=== PATIENT | female | born 1950 | race Caucasian/White ===

== ENCOUNTER → 2016-05-16 | Outpatient (CLI) | payer OTHER, BC ==
[~2016-05-16] MED LIST: ASPEC81 PO; GLC/500 PO; LEVO50TA6 PO; LOSA1TAB38 PO; PROP80TA2 PO; RISP1TAB68 PO; RISP2TAB22 PO; SERT-234 PO; TOPI25TA99 PO
[2016-05-22 14:35] LABS: ALBUMIN 4.3 G/DL (3.8-4.8); GAMMA GLOBULIN 1.4 G/DL (0.8-1.7); IMMUNOFIXATION IGA SERUM 575 MG/DL (81-463); IMMUNOFIXATION IGG SERUM 1325 MG/DL (694-1618); IMMUNOFIXATION IGM SERUM 252 MG/DL (48-271); METHYLMALONIC ACID 407 NMOL/L (87-318); TOTAL PROTEIN 7.7 G/DL (6.2-8.3); VIT B1 PLASMA(THIAMIN)**90353 9 nmol/L (8-30); VITAMIN B6** TC 926 9.8 ng/mL (2.1-21.7)
--- NOTE | 2016-08-26 09:13 | CODING QUERY MEDICAL NECESSITY ---
SUPPORTING DIAGNOSIS NEEDED Case PA, A supporting diagnosis is required for the test/procedure performed on this patient in order for us to be reimbursed by the patient's insurance. Please provide a supporting diagnosis for the following test/procedure listed below next to the test name along with your signature. *If there is no additional diagnosis for this patient that would support the following test/procedure please document that below next to the test/procedure. Test(s)/Procedure(s) that require a supporting diagnosis: * ([id number]) VITAMIN B6 PYRIDOXAL PHSOPHATE DIAGNOSIS: DATE OF SERVICE: 05/16/16 Provider Signature: Date: Thank you Jorge Bush [facility] Information Management Once completed, please kindly fax back to [phone] For questions please call [phone]
== END | disposition home or self-care (01) ==
LOC: C.LAB 11:19
PROVIDERS: ATTEND Psychiatry & Neurology Neurology
DX: M62.81 Muscle weakness (generalized) (principal); E53.8 Deficiency of other specified B group vitamins; G62.9 Polyneuropathy, unspecified; G60.9 Hereditary and idiopathic neuropathy, unspecified

== ENCOUNTER → 2016-06-22 | Outpatient (CLI) | payer OTHER, BC ==
--- NOTE | 2016-08-26 09:20 | CODING QUERY MEDICAL NECESSITY ---
SUPPORTING DIAGNOSIS NEEDED Dr. Villavicencio, A supporting diagnosis is required for the test/procedure performed on this patient in order for us to be reimbursed by the patient's insurance. Please provide a supporting diagnosis for the following test/procedure listed below next to the test name along with your signature. *If there is no additional diagnosis for this patient that would support the following test/procedure please document that below next to the test/procedure. Test(s)/Procedure(s) that require a supporting diagnosis: * ([id number]) B12 VITAMIN LEVEL DIAGNOSIS: * ([id number]) FOLATE LEVEL DIAGNOSIS: DATE OF SERVICE: 06/22/16 Provider Signature: Date: Thank you Jorge Bush [facility] Information Management Once completed, please kindly fax back to [phone] For questions please call [phone]
== END | disposition home or self-care (01) ==
LOC: C.LAB 13:18
DX: R53.1 Weakness (principal); E53.8 Deficiency of other specified B group vitamins

== ENCOUNTER → 2016-07-29 | Outpatient (CLI) | payer OTHER, BC ==
[2016-07-29 13:28] LABS: BASO % 0.2 %; BASO ABS # 0.01 K/uL (0-0.2); COMPLETE YES; EOS % 1.7 %; HEMATOCRIT 43.9 % (37-47); IG% 0.2 %; LYMPH % 30.9 %; LYMPH ABS # 1.84 K/uL (1.2-3.4); MEAN CELL VOLUME 85.7 fL (80-100); MEAN CORPUSCULAR HEMOGLOBIN 28.7 pg (25-34); MEAN CORPUSCULAR HGB CONC 33.5 g/dl (32-36); MEAN PLATELET VOLUME 10.6 fL (7.4-10.4); PLATELET COUNT 124 K/uL (130-400); RED BLOOD COUNT 5.12 M/uL (4.2-5.4); WHITE BLOOD COUNT 5.96 K/uL (4.8-10.8)
[2016-07-29 14:43] LABS: ESTIMATED AVERAGE GLUCOSE 157 mg/dl; HA1C FLAG Normal (Normal)
[2016-07-29 15:43] LABS: ALT/SGPT 56 U/L (12-78); AST/SGOT 43 U/L (15-37); BLOOD UREA NITROGEN 10 mg/dl (7-18); BUN/CREATININE RATIO 12.6 (10-20); CALCIUM 9.8 mg/dl (8.5-10.1); CARBON DIOXIDE 32 mmol/L (21-32); CHLORIDE 104 mmol/L (98-107); CREATININE 0.82 mg/dl (0.60-1.20); GLUCOSE 166 mg/dl (70-99); POTASSIUM 3.7 mmol/L (3.5-5.1); SODIUM 140 mmol/L (136-145)
[2016-07-29 15:46] LABS: ALB/GLOB RATIO 0.9 (0.9-2); ALKALINE PHOSPHATASE 115 U/L (45-117)
[2016-07-29 18:24] LABS: LYME DISEASE AB IGG NEG (NEG); LYME DISEASE AB IGM NEG (NEG)
[2016-08-01 20:22] LABS: ACETYLCHOLINE RECEP MODULATING 19; ACETYLCHOLINE RECEPT BLOCKING <15 % inhibit (<15); RECEPTOR BINDING AB <0.30 nmol/L (<=0.30)
== END | disposition home or self-care (01) ==
LOC: C.LAB 12:04
DX: E11.9 Type 2 diabetes mellitus without complications (principal); K76.0 Fatty (change of) liver, not elsewhere classified; E55.9 Vitamin D deficiency, unspecified; R53.1 Weakness; R74.8 Abnormal levels of other serum enzymes; G62.9 Polyneuropathy, unspecified

== ENCOUNTER → 2016-11-13 | Outpatient (CLI) | payer OTHER, BC ==
[2016-11-13 18:27] LABS: BASO % 0.3 %; BASO ABS # 0.02 K/uL (0-0.2); COMPLETE YES; EOS % 1.6 %; HEMATOCRIT 43.5 % (37-47); IG% 0.2 %; LYMPH % 27.2 %; LYMPH ABS # 1.73 K/uL (1.2-3.4); MEAN CELL VOLUME 85.3 fL (80-100); MEAN CORPUSCULAR HEMOGLOBIN 29.8 pg (25-34); MEAN CORPUSCULAR HGB CONC 34.9 g/dl (32-36); MEAN PLATELET VOLUME 10.3 fL (7.4-10.4); MONO % 6.1 %; NEUT % 64.6 %; PLATELET COUNT 126 K/uL (130-400); WHITE BLOOD COUNT 6.36 K/uL (4.8-10.8)
[2016-11-13 18:32] LABS: PROTHROMBIN TIME (PATIENT) 11.1 SECONDS (9.0-12.0)
[2016-11-13 18:52] LABS: ALT/SGPT 75 U/L (12-78); AST/SGOT 96 U/L (15-37); BLOOD UREA NITROGEN 9 mg/dl (7-18); BUN/CREATININE RATIO 10.3 (10-20); CALCIUM 9.4 mg/dl (8.5-10.1); CARBON DIOXIDE 29 mmol/L (21-32); CHLORIDE 103 mmol/L (98-107); CREATININE 0.86 mg/dl (0.60-1.20); GLUCOSE 152 mg/dl (70-99); MAGNESIUM 2.1 mg/dl (1.8-2.4); POTASSIUM 3.9 mmol/L (3.5-5.1); SODIUM 138 mmol/L (136-145)
[2016-11-13 19:01] LABS: ALB/GLOB RATIO 0.8 (0.9-2); ALKALINE PHOSPHATASE 97 U/L (45-117)
[2016-11-18 08:52] LABS: METHYLMALONIC ACID 282 NMOL/L (87-318)
== END | disposition home or self-care (01) ==
LOC: C.LAB 17:20
DX: G72.9 Myopathy, unspecified (principal); E55.9 Vitamin D deficiency, unspecified; K72.90 Hepatic failure, unspecified without coma; E72.11 Homocystinuria

== ENCOUNTER → 2017-02-02 | Outpatient (CLI) | payer OTHER, BC ==
[2017-02-02 10:57] LABS: INR 1.1 (0.9-1.1); PROTHROMBIN TIME (PATIENT) 11.3 SECONDS (9.0-12.0)
[2017-02-02 11:00] LABS: ESTIMATED AVERAGE GLUCOSE 169 mg/dl; HA1C FLAG Normal (Normal)
[2017-02-02 11:11] LABS: URIC ACID 4.4 mg/dl (2.6-7.2)
== END | disposition home or self-care (01) ==
LOC: C.LAB 10:16
DX: E11.9 Type 2 diabetes mellitus without complications (principal); K72.90 Hepatic failure, unspecified without coma; E79.0 Hyperuricemia without signs of inflammatory arthritis and tophaceous disease

== ENCOUNTER → 2017-02-17 | Outpatient (CLI) | payer OTHER, BC ==
--- NOTE | 2017-02-17 13:55 | DIAGNOSTIC IMAGING REPORT ---
Brain MRI WITHOUT CONTRAST HISTORY: Syncope. Multiple falls. TECHNIQUE: Multiplanar multisequence MRI of the brain was performed without the use of contrast. COMPARISON STUDY: Brain MRI 01/07/2015. FINDINGS: There is no mass, hematoma, midline shift, or acute infarct. The paranasal sinuses are clear. The mastoid air cells are clear. The ventricles remain slightly prominent and favors mild central volume loss. A few punctate foci of T2 hyperintensity seen within the periventricular white matter are nonspecific but suggestive of minimal microvascular ischemic changes. This remains unchanged The major vascular flow voids at the skull base are well-maintained. IMPRESSION: No significant change compared to the prior study. No acute intracranial abnormality. Electronically signed by: Isidro Anderson M.D. 02/17/2017 1:53 PM Dictated Date/Time: 02/17/2017 1:49 PM
== END | disposition home or self-care (01) ==
LOC: C.MRIBC 11:11
DX: R55 Syncope and collapse (principal)

== ENCOUNTER → 2017-02-17 | Outpatient (CLI) | payer OTHER, BC ==
--- NOTE | 2017-02-17 16:53 | EEG Procedure Note ---
EEG Procedure Note Date of Service Feb 17, 2017. Start / End Times Start Time: 10:26 AM End Time: 10:46 AM Referring Physician Wallace Villavicencio History This is a 66-year-old female with episodes of syncope. EEG for further evaluation of possible seizure etiology. Pertinent medications include trazodone at night Home Medication List Scheduled Aspirin (Aspir-Low), 81 MG PO QAM Levothyroxine Sodium (Levothyroxine Sodium), 50 MG PO DAILY Losartan Potassium (Cozaar), 100 MG PO DAILY Metformin Hcl (Glucophage), 1,000 MG PO AMHS Propranolol (Inderal), 80 MG PO DAILY Risperidone (Risperdal), 1 MG PO DAILY Risperidone (Risperdal), 2 MG PO DAILY Sertraline (Zoloft), 200 MG PO DAILY Topiramate (Topamax ), 25 MG PO DAILY Description This is a 21 electrode EEG with a single channel dedicated to limited EKG. The electrodes were placed in accordance with the International 10-20 system. At the start of the recording the patient was in an awake state. Background was well organized and composed of symmetric mixed alpha and beta frequencies. There was a symmetric well-formed moderate amplitude 8-9 Hz posterior dominant rhythm that was reactive to eye opening and closure. Hyperventilation was not done. Intermittent photic stimulation at various frequencies produced no abnormalities. There was no state changes or sleep transients. Interpretation This is a normal awake only routine EEG. There was no electrographic seizures or epileptiform discharges. Clinical Correlation A normal EEG does not rule out epilepsy if there is a strong clinical suspicion.
== END | disposition home or self-care (01) ==
LOC: C.NEUR 10:12
DX: R55 Syncope and collapse (principal)

== ENCOUNTER → 2017-04-27 | Outpatient (CLI) | payer OTHER | END | disposition home or self-care (01) | LOC: C.LAB 14:29 | DX: K72.90 Hepatic failure, unspecified without coma (principal); E51.9 Thiamine deficiency, unspecified; E55.9 Vitamin D deficiency, unspecified ==

== ENCOUNTER → 2017-06-05 | Outpatient (CLI) | payer OTHER ==
[2017-06-05 10:36] LABS: BASO % 0.2 %; BASO ABS # 0.01 K/uL (0-0.2); EOS % 1.7 %; HEMATOCRIT 42.3 % (37-47); HEMOGLOBIN 14.9 g/dL (12.0-16.0); IG# 0.01 K/uL (0.00-0.02); LYMPH % 27.5 %; MEAN CELL VOLUME 86.2 fL (80-100); MEAN CORPUSCULAR HEMOGLOBIN 30.3 pg (25-34); MEAN CORPUSCULAR HGB CONC 35.2 g/dl (32-36); MEAN PLATELET VOLUME 10.8 fL (7.4-10.4); MONO % 6.4 %; MONO ABS # 0.37 K/uL (0.11-0.59); NEUT ABS # 3.72 K/uL (1.4-6.5); PLATELET COUNT 112 K/uL (130-400); RED CELL DISTRIBUTION WIDTH CV 13.9 % (11.5-14.5); RED CELL DISTRIBUTION WIDTH SD 43.5 fL (36.4-46.3); WHITE BLOOD COUNT 5.81 K/uL (4.8-10.8)
[2017-06-05 11:13] LABS: ALBUMIN 3.6 gm/dl (3.4-5.0); ALT/SGPT 38 U/L (12-78); AST/SGOT 22 U/L (15-37); BLOOD UREA NITROGEN 9 mg/dl (7-18); CARBON DIOXIDE 28 mmol/L (21-32); CHOLESTEROL 179 mg/dl (0-200); CREATININE 0.86 mg/dl (0.60-1.20); GLUCOSE 342 mg/dl (70-99); POTASSIUM 3.8 mmol/L (3.5-5.1); SODIUM 136 mmol/L (136-145)
[2017-06-05 11:16] LABS: ALKALINE PHOSPHATASE 132 U/L (45-117); TOTAL PROTEIN 8.2 gm/dl (6.4-8.2)
== END | disposition home or self-care (01) ==
LOC: C.LAB 09:55
DX: G72.9 Myopathy, unspecified (principal); E78.5 Hyperlipidemia, unspecified; E11.9 Type 2 diabetes mellitus without complications; E83.42 Hypomagnesemia; E51.9 Thiamine deficiency, unspecified

== ENCOUNTER → 2017-06-10 | Outpatient (CLI) | payer OTHER ==
[2017-06-10 17:32] LABS: BLOOD UREA NITROGEN 10 mg/dl (7-18); CALCIUM 9.7 mg/dl (8.5-10.1); CARBON DIOXIDE 27 mmol/L (21-32); CREATININE 1.06 mg/dl (0.60-1.20); GLUCOSE 396 mg/dl (70-99); SODIUM 133 mmol/L (136-145)
== END | disposition home or self-care (01) ==
LOC: C.LAB 15:07
DX: E11.9 Type 2 diabetes mellitus without complications (principal)

== ENCOUNTER 2019-01-08 14:05 | Inpatient (IN) ==
[2019-01-08] MEDS ORDERED: SODIUM CHLORIDE 0.9% 1000ML 1,000 ML IV SCH (15:00)
--- NOTE | 2019-01-08 15:10 | XRay Report ---
XR chest 1V portable HISTORY: weakness COMPARISON: Chest 05/08/2013. FINDINGS: The lungs are clear. Cardiac silhouette is normal in size. No pleural effusions. No pneumot horax. IMPRESSION: No acute process. Electronically signed by: Isidro Anderson M.D. 01/08/2019 3:09 PM
[2019-01-08 15:43] LABS: Basophils # (auto) 0.01 K/uL (0-0.2); Basophils % (auto) 0.2 %; Eosinophils # (auto) 0.09 K/uL (0-0.5); Eosinophils % (auto) 1.6 %; Hematocrit (blood only) 39.7 % (37-47); Immature Granulocytes # (auto) 0.01 K/uL (0.00-0.02); Immature Granulocytes % (auto) 0.2 %; Lymphocytes # (auto) 1.31 K/uL (1.2-3.4); Lymphocytes % (auto) 23.4 %; Mean Corpuscular Hemoglobin 28.6 pg (25-34); Mean Corpuscular Hgb Conc 32.7 g/dL (32-36); Mean Corpuscular Volume 87.4 fL (80-100); Mean Platelet Volume 11.5 fL (7.4-10.4); Monocytes # (auto) 0.38 K/uL (0.11-0.59); Monocytes % (auto) 6.8 %; Neutrophils # (auto) 3.81 K/uL (1.4-6.5); Neutrophils % (auto) 67.8 %; Platelet Count 108 K/uL (130-400); RDW Coefficient of Variation 14.2 % (11.5-14.5); RDW Standard Deviation 45.2 fL (36.4-46.3); Red Blood Count 4.54 M/uL (4.2-5.4); White Blood Count 5.61 K/uL (4.8-10.8)
[2019-01-08 16:12] LABS: Alanine Aminotransferase 66 U/L (12-78); Albumin Globulin Ratio 0.8 (0.9-2); Albumin Level 3.5 gm/dl (3.4-5.0); Alkaline Phosphatase 116 U/L (45-117); Aspartate Aminotransferase 63 U/L (15-37); BUN Creatinine Ratio 12.3 (10-20); Bilirubin,Total 0.8 mg/dl (0.2-1); Blood Urea Nitrogen 15 mg/dl (7-18); Calcium 9.1 mg/dl (8.5-10.1); Carbon Dioxide 27 mmol/L (21-32); Chloride 98 mmol/L (98-107); Creatinine Clr Calc Pharmacy 46.6 ml/min; Est GFR (African American) 54.2; Est GFR (Non-African American) 46.7; Globulin 4.5 gm/dl (2.5-4.0); Glucose 431 mg/dl (70-99); Magnesium 1.9 mg/dl (1.8-2.4); Potassium 4.3 mmol/L (3.5-5.1); Sodium 133 mmol/L (136-145); Troponin I < 0.015 ng/ml (0-0.045)
[2019-01-08] MEDS ORDERED: SODIUM CHLORIDE 0.9% 1000ML 1,000 ML IV ONE (16:14)
[2019-01-08] MEDS ORDERED: NovoLIN-R INSULIN PER UNIT CHARGE IV STA (16:14)
--- NOTE | 2019-01-08 16:20 | XRay Report ---
RIGHT HAND 3 VIEWS HISTORY: Right hand pain. fall, 4th and 5th [facility] COMPARISON: Right wrist 11/28/2009. FINDINGS: No acute fracture or dislocation within the right hand. Advanced degenerative changes at th e first carpometacarpal joint with adjacent intra-articular loose bodies. 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 Soft tissues are unremarkable. No radiopaque foreign bodies. IMPRESSION: No acute fracture or dislocation within the right hand. Electronically signed by: Isidro Anderson M.D. 01/08/2019 4:18 PM
[2019-01-08 16:32] LABS: Beta-Hydroxybutyrate 3.24 mg/dl (0.2-2.81)
--- NOTE | 2019-01-08 16:33 | CT Scan Report ---
HEAD CT NONCONTRAST CT DOSE: 525.26 mGycm HISTORY: fall TECHNIQUE: Multiaxial CT images of the head were performed without the use of intravenous contrast. A utomated exposure control was utilized for this study. A dose lowering technique was utilized adheri ng to the principles of ALARA. Comparison: Brain MRI 01/07/2015 and 02/17/2017. Findings: The paranasal sinuses and mastoid air cells are clear. The calvarium and skull base are int act. The ventricles and sulci are within normal limits. There is no mass, hematoma, midline shift, or acute infarct. Impression: No acute intracranial abnormality. Electronically signed by: Isidro Anderson M.D. 01/08/2019 4:31 PM
[2019-01-08 17:51] LABS: D Dimer 680 ug/L FEU (0-500)
--- NOTE | 2019-01-08 18:24 | History & Physical Report ---
Date of Service January 08, 2019 Assessment & Plan (1) Syncope and collapse: (2) Hyperglycemia: (3) Contusion of right shoulder: (4) Contusion of hand, right: (5) Fall: (6) Hypoxia: (7) Weakness: (8) Anxiety: (9) Depression: (10) Hyperlipidemia: (11) Altered mental status: (12) Diabetes: (13) Hypertension: Admit the patient under observation to telemetry floor. Consult cardiology. Check orthostatics every shift. Continue home medications. Add sliding-scale insulin per protocol. Add subcutaneous heparin for DVT prophylaxis. We will add gentle IV fluids. Accu-Chek q. before meals and at bedtime. Neurochecks every shift. May need neurology consultation for further work-up of recurrent syncope. She is going for CT scan of the chest as her d-dimer was slightly high. Repeat labs in a.m. History of Present Illness . Chief Complaint: Near-syncope Primary Care Provider: Wallace Villavicencio Jr, DO The patient is 68 years old female who was brought to the emergency room with chief complaints of near syncope. Patient was in [employer] store when she had episode of near syncope. Patient denies any loss of consciousness. No seizures. No bowel /bladder incontinence. On arrival to the emergency room, her pulse ox was approximately 88% on room air and she was lethargic. Her mental status has started to improve after she received IV fluids. The patient says that she has syncopal episodes every 3 months. 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 She will be admitted under observation for further evaluation and management. Her blood sugars are running high in the ER. Allergies Allergy/AdvReac Type Severity Reaction Status Date / Time No Known Allergies Allergy Unknown Verified 01/08/19 15:06 Home Medications Home Medications Medication Instructions Recorded Confirmed Type aspirin 81 mg PO DAILY 01/08/19 01/08/19 History benztropine 0.5 mg PO HS 01/08/19 01/08/19 History folic acid 1 mg PO DAILY 01/08/19 01/08/19 History losartan 100 mg PO DAILY 01/08/19 01/08/19 History metformin 1,000 mg PO BID 01/08/19 01/08/19 History propranolol 80 mg PO DAILY 01/08/19 01/08/19 History risperidone 1 mg PO QAM 01/08/19 01/08/19 History risperidone See Rx Instructions .ROUTE .COMPLEX 01/08/19 01/08/19 History sertraline 100 mg PO DAILY 01/08/19 01/08/19 History trazodone 0 mg PO HS 01/08/19 01/08/19 History Past Med/Surg History Medical History Diabetes (Chronic) Social History Feels Safe at Home: Yes Smoking Status: Never smoker Review of Systems Review of Systems: All systems reviewed & are unremarkable except as noted in HPI & below Physical Exam Physical Exam: GENERAL : No acute distress EYES: No icterus, gaze conjugate NOSE: No evidence of epistaxis MOUTH: No lesions or candidiasis, mucosa moist NECK: Supple LUNGS: CTA B/L, no wheezes, rales or rhonchi HEART: Regular, rate controlled ABDOMEN: Soft, NT, ND, BS Present EXTREMITIES: No LE edema, pedal pulses intact NEURO: A&OX3 Cranial nerves intact Results & Data Vital Signs (Past 12 Hours) Vital Signs Temp Pulse Pulse Resp BP BP Pulse Ox 01/08/19 16:42 71 18 132/78 96 01/08/19 15:40 96 01/08/19 15:34 122/89 01/08/19 15:32 125/74 01/08/19 14:14 98.2 F 77 14 112/72 88 L Laboratory Results 01/08/19 15:31 01/08/19 15:31 01/08/19 01/08/19 01/08/19 Range/Units 17:10 15:32 15:31 WBC (4.8-10.8) K/uL RBC (4.2-5.4) M/uL Hgb (12.0-16.0) g/dL Hct (37-47) % MCV (80-100) fL MCH (25-34) pg MCHC (32-36) g/dL RDW Std Deviation (36.4-46.3) fL RDW Coeff of Griffin (11.5-14.5) % Plt Count (130-400) K/uL MPV (7.4-10.4) fL Immature Gran % (Auto) % Neut % (Auto) % Lymph % (Auto) % Mower % (Auto) % Eos % (Auto) % Baso % (Auto) % Immature Gran # (Auto) (0.00-0.02) K/uL Neut # (Auto) (1.4-6.5) K/uL Lymph # (Auto) (1.2-3.4) K/uL Mower # (Auto) (0.11-0.59) K/uL Eos # (Auto) (0-0.5) K/uL Baso # (Auto) (0-0.2) K/uL D-Dimer 680 H* (0-500) ug/L FEU Sodium 133 L (136-145) mmol/L Potassium 4.3 (3.5-5.1) mmol/L Chloride 98 (98-107) mmol/L Carbon Dioxide 27 (21-32) mmol/L Anion Gap 8.0 (3-11) BUN 15 (7-18) mg/dl Creatinine 1.20 (0.6-1.2) mg/dl Est Cr Clr Drug Dosing 46.6 ml/min Est GFR ( Amer) 54.2 Est GFR (Non-Af Amer) 46.7 BUN/Creatinine Ratio 12.3 (10-20) Glucose 431 H* (70-99) mg/dl POC Glucose 367 H* (70-99) Calcium 9.1 (8.5-10.1) mg/dl Magnesium 1.9 (1.8-2.4) mg/dl Total Bilirubin 0.8 (0.2-1) mg/dl AST 63 H (15-37) U/L ALT 66 (12-78) U/L Alkaline Phosphatase 116 (45-117) U/L Troponin I < 0.015 (0-0.045) ng/ml Total Protein 8.0 (6.4-8.2) gm/dl Albumin 3.5 (3.4-5.0) gm/dl Globulin 4.5 H (2.5-4.0) gm/dl Albumin/Globulin Ratio 0.8 L (0.9-2) Beta-Hydroxybutyric Acd 3.24 H (0.2-2.81) mg/dl TSH 1.750 (0.300-4.500) uIu/ml 01/08/19 Range/Units 15:31 WBC 5.61 (4.8-10.8) K/uL RBC 4.54 (4.2-5.4) M/uL Hgb 13.0 (12.0-16.0) g/dL Hct 39.7 (37-47) % MCV 87.4 (80-100) fL MCH 28.6 (25-34) pg MCHC 32.7 (32-36) g/dL RDW Std Deviation 45.2 (36.4-46.3) fL RDW Coeff of Griffin 14.2 (11.5-14.5) % Plt Count 108 L (130-400) K/uL MPV 11.5 H (7.4-10.4) fL Immature Gran % (Auto) 0.2 % Neut % (Auto) 67.8 % Lymph % (Auto) 23.4 % Mower % (Auto) 6.8 % Eos % (Auto) 1.6 % Baso % (Auto) 0.2 % Immature Gran # (Auto) 0.01 (0.00-0.02) K/uL Neut # (Auto) 3.81 (1.4-6.5) K/uL Lymph # (Auto) 1.31 (1.2-3.4) K/uL Mower # (Auto) 0.38 (0.11-0.59) K/uL Eos # (Auto) 0.09 (0-0.5) K/uL Baso # (Auto) 0.01 (0-0.2) K/uL D-Dimer (0-500) ug/L FEU Sodium (136-145) mmol/L Potassium (3.5-5.1) mmol/L Chloride (98-107) mmol/L Carbon Dioxide (21-32) mmol/L Anion Gap (3-11) BUN (7-18) mg/dl Creatinine (0.6-1.2) mg/dl Est Cr Clr Drug Dosing ml/min Est GFR ( Amer) Est GFR (Non-Af Amer) BUN/Creatinine Ratio (10-20) Glucose (70-99) mg/dl POC Glucose (70-99) Calcium (8.5-10.1) mg/dl Magnesium (1.8-2.4) mg/dl Total Bilirubin (0.2-1) mg/dl AST (15-37) U/L ALT (12-78) U/L Alkaline Phosphatase (45-117) U/L Troponin I (0-0.045) ng/ml Total Protein (6.4-8.2) gm/dl Albumin (3.4-5.0) gm/dl Globulin (2.5-4.0) gm/dl Albumin/Globulin Ratio (0.9-2) Beta-Hydroxybutyric Acd (0.2-2.81) mg/dl TSH (0.300-4.500) uIu/ml Diagnostic Findings XR chest 1V portable HISTORY: weakness COMPARISON: Chest 05/08/2013. FINDINGS: The lungs are clear. Cardiac silhouette is normal in size. No pleural effusions. No pneumothorax. IMPRESSION: No acute process. HEAD CT NONCONTRAST CT DOSE: 525.26 mGycm HISTORY: fall TECHNIQUE: Multiaxial CT images of the head were performed without the use of intravenous contrast. Automated exposure control was utilized for this study. A dose lowering technique was utilized adhering to the principles of ALARA. Comparison: Brain MRI 01/07/2015 and 02/17/2017. Findings: The paranasal sinuses and mastoid air cells are clear. The calvarium and skull base are intact. The ventricles and sulci are within normal limits. There is no mass, hematoma, midline shift, or acute infarct. Impression: No acute intracranial abnormality. RIGHT HAND 3 VIEWS HISTORY: Right hand pain. fall, 4th and 5th [facility] COMPARISON: Right wrist 11/28/2009. FINDINGS: No acute fracture or dislocation within the right hand. Advanced degenerative changes at the first carpometacarpal joint with adjacent intra- articular loose bodies. 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 Soft tissues are unremarkable. No radiopaque foreign bodies. IMPRESSION: No acute fracture or dislocation within the right hand. Electronically signed by: Isidro Anderson M.D. 01/08/2019 4:18 PM Code Status & VTE Plan Code Status Full code VTE Prophylaxis Plan VTE Prophylaxis will be ordered: Yes PG Care Time/CCT Total # of Minutes Spent Total Time Spent with Patient: Total time spent is greater than 50% in coordination of care (as documented) at patient's floor/unit and/or counseling patient: 60 min (1) Contusion of right shoulder Encounter type: initial encounter Qualified Code(s): S40.011A - Contusion of right shoulder, initial encounter (2) Contusion of hand, right Encounter type: initial encounter Qualified Code(s): S60.221A - Contusion of right hand, initial encounter (3) Fall Encounter type: initial encounter Qualified Code(s): W19.XXXA - Unspecified fall, initial encounter
[2019-01-08] MEDS ORDERED: OPTIRAY 320 125ml IV PRN (18:38)
--- NOTE | 2019-01-08 19:17 | CT Scan Report ---
CHEST CTA for PULMONARY ARTERIES CT DOSE: 299.89 mGy.cm HISTORY: Shortness of breath. hypoxia, +dimer TECHNIQUE: Multiaxial CT images of the chest were performed following the intravenous administration of contrast to evaluate the pulmonary arteries. Maximal intensity projection images were also obtaine d. A dose lowering technique was utilized adhering to the principles of ALARA. COMPARISON STUDY: None. FINDINGS: There is a normal caliber thoracic aorta with no evidence for dissection. There is no evide nce for pulmonary embolus. No pleural effusions. No pneumothorax. The liver and spleen are unremarkab le. No mediastinal or hilar lymphadenopathy. The central airways are patent. A few small bibasilar de nsities favor subsegmental atelectasis. Otherwise, lungs are clear. IMPRESSION: No evidence for pulmonary embolus. Electronically signed by: Isidro Anderson M.D. 01/08/2019 7:15 PM
[2019-01-08] MEDS ORDERED: ALUMINUM/MAGNESIUM SUSP 30 ML UDC PO PRN (19:42)
[2019-01-08] MEDS ORDERED: MAGNESIUM HYDROXIDE SUSP 30 ML UDC PO PRN (19:42)
[2019-01-08] MEDS ORDERED: POLYETHYLENE (MIRALAX) 17 GM PACK PO PRN (19:42)
[2019-01-08] MEDS: SODIUM CHLORIDE 0.9% 1000ML 1,000 ML IV SCH (19:48)
[2019-01-08] MEDS ORDERED: GLUCOSE 40% GEL 15 GM TUBE PO PRN (20:15)
[2019-01-08] MEDS ORDERED: GLUCOSE 10 TABS/TUBE PO PRN (20:15)
[2019-01-08] MEDS ORDERED: GLUCAGON FOR INJ 1 MG VIAL IM PRN (20:15)
[2019-01-08] MEDS ORDERED: CARBOHYDRATES FOR HYPOGLYCEMIA PO PRN (20:15)
[2019-01-08] MEDS ORDERED: DEXTROSE 50% 50 ML SYRINGE IV PRN (20:15)
[2019-01-08] MEDS: BENZTROPINE MESYLATE 0.5 MG TAB PO SCH (21:15)
[2019-01-08] MEDS: METFORMIN HCL 500 MG TAB PO SCH (21:15)
[2019-01-08] MEDS: risperiDONE 2 MG TABLET PO SCH (21:16)
[2019-01-08] MEDS: HEPARIN SOD 5,000 UNIT/0.5 ML VIAL SQ SCH (21:17)
[2019-01-08] MEDS: INSULIN ASPART 100 UNITS/ML 3 ML PEN SC SCH (21:18)
[2019-01-08] MEDS: TRAZODONE HCL 50 MG TAB PO SCH (21:26)
--- NOTE | 2019-01-08 22:26 | Emergency Department Note ---
Entered by Tonya Pool acting as a scribe for Serg Cohen MD ED Provider Note CHIEF COMPLAINT: Fall. HISTORY OF PRESENT ILLNESS: The patient is a 68 year old female who presents to the Emergency Room with complaints of a fall prior to arrival. The patient reports that she fell yesterday and then again prior to arrival. She notes that she suffered a head injury today. She denies any pain other than pain from her fall yesterday on her right hand. She reports that she has been experiencing shortness of breath for the past several months. She notes that she saw her PCP. She states that she has been nauseous and fatigued, but notes that she has been sleeping normally. Per EMS, the patient is diabetic and was confused, hypoxic, and had high blood sugar prior to arrival. Pt denies headache, fevers, chills, visual changes, neck pain, chest pain, breathing difficulties, vomiting, abdominal pain, back pain, melena, hematochezia, urinary symptoms, numbness, weakness, lymphadenopathy, rash, or other complaints. REVIEW OF SYSTEMS: See HPI for pertinent positives and negatives. A total of ten systems were reviewed and were otherwise negative. PMHx/PSHx: Diabetes. SOCIAL HISTORY: Patient lives at home. PHYSICAL EXAM: GENERAL: Awake, alert, well-appearing, in no distress HENT: Contusion to right frontal scalp. Normocephalic. Oropharynx unremarkable. EYES: PERRL. Normal conjunctiva. Sclera non-icteric. NECK: Inspection normal. Non-tender. Supple. No nuchal rigidity. FROM. No ma sses. RESPIRATORY: Clear to auscultation. No wheezes. No rales. Normal respiratory effort. CARDIAC: Normal rate. Normal rhythm. No murmurs. No rubs. Extremities warm and well perfused. Pulses equal. No JVD. GI: Soft, non-distended. No tenderness to palpation. No rebound or guarding. No masses. RECTAL: Deferred. MUSCULOSKELETAL: Bruise to dorsal right hand. Contusion and abrasion to right shoulder. Chest examination reveals no tenderness. The back is symmetrical on inspection without obvious abnormality. There is no CVA tenderness to palpation. No joint edema. LOWER EXTREMITIES: Calves are equal size bilaterally and non-tender. No edema. No discoloration. NEURO: Generalized weakness. No drift. Normal sensorium. No sensory or motor deficits noted. SKIN: No rash or jaundice noted. EMERGENCY DEPARTMENT COURSE: 1508: Past medical records reviewed. The patient was evaluated in room B6, and a complete history and physical examination were performed. 1715: I reevaluated the patient and updated her on her results. The patient is resting comfortably. 1718: I discussed the patient's case with Dr. Farmer- [facility] Hospitalist, he will accept the patient for further evaluation. MEDICAL DECISION MAKING: B6 Prior records/ancillary studies reviewed. Nursing notes reviewed and agree them. The patient's history was concerning for weakness and multiple falls. Differential diagnosis: Etiologies such as metabolic, infection, hypo/hyperglycemia, electrolyte abnormalities, cardiac sources, intracerebral event, toxicologic, neurologic, as well as others were entertained. Physical examination: As above. ER treatment provided: IV [place] hydration IV insulin Supplemental oxygen On reassessment the patient felt better. Diagnostics interpretation by me: ECG: No acute ischemia. The labs revealed an unremarkable CBC. Chemistry panel was significant for hyperglycemia with a blood sugar 431. Minimal elevation of AST. Troponin and TSH were normal. Urinalysis negative. D-dimer mildly elevated. Imaging studies: X-ray imaging of the patient's hand and chest were negative for acute process. Head CT imaging was negative for acute process as well. CT PE study performed. This was negative. Patient had some mild hypoxia. She is generally weak with several falls rec ently. She has some contusions but no obvious fractures or other injuries. She is doing better with supplemental oxygen and hydration. Her hyperglycemia was addressed with IV insulin. Consultation: A consultation was placed with the hospitalist. The case was discussed and diagnostics were reviewed. The patient was evaluated in the ER for further treatment. IMPRESSION: Weakness, hypoxia, fall, right shoulder contusion, right hand contusion, hyperg lycemia. PLAN: Admitted. The scribe's documentation has been prepared under my direction and personally reviewed by me in its entirety. I confirm that the note above accurately reflects all work, treatment, procedures, and medical decision making performed by me. Impression & Plan Weakness, Hypoxia, Fall, Contusion of hand, right, Contusion of right shoulder, Hyperglycemia Past Med/Surg History Medical History Diabetes (Chronic) Social History Preferred Language: Belarusian Communication Ability: Effective Beliefs That Will Affect Care: None Current Living Situation: Alone Feels Safe at Home: Yes Smoking Status: Former smoker Hx Alcohol Use: No Hx Substance Use: No Results & Data Vital Signs Vital Signs - 24 hr 01/08/19 14:14 01/08/19 15:32 01/08/19 15:34 Temperature 36.8 C Temperature Source Oral Sepsis Recent Fever Within 48 Hours No Sepsis New/Unexplained Change in Mental Status No Sepsis Action Taken by Nursing No Action Required Pulse Rate 77 Pulse Rate [Right Finger] Pulse Rate from SpO2 Sensor Respiratory Rate 14 Blood Pressure 112/72 Blood Pressure [Right Arm] 125/74 122/89 Blood Pressure Mean 85 Blood Pressure Mean [Right Arm] 91 100 Blood Pressure Position [Right Arm] Lying Sitting Pulse Oximetry 88 L Oxygen Delivery Method Room Air Oxygen Flow Rate 01/08/19 15:40 01/08/19 16:42 01/08/19 17:00 Temperature Temperature Source Sepsis Recent Fever Within 48 Hours Sepsis New/Unexplained Change in Mental Status Sepsis Action Taken by Nursing Pulse Rate 73 Pulse Rate [Right Finger] 71 Pulse Rate from SpO2 Sensor Respiratory Rate 18 31 H Blood Pressure 129/82 Blood Pressure [Right Arm] 132/78 Blood Pressure Mean 97 Blood Pressure Mean [Right Arm] 96 Blood Pressure Position [Right Arm] Pulse Oximetry 96 96 Oxygen Delivery Method Room Air Nasal Cannula Oxygen Flow Rate 3 01/08/19 17:30 01/08/19 18:00 Temperature Temperature Source Sepsis Recent Fever Within 48 Hours Sepsis New/Unexplained Change in Mental Status Sepsis Action Taken by Nursing Pulse Rate 72 74 Pulse Rate [Right Finger] Pulse Rate from SpO2 Sensor 73 74 Respiratory Rate 23 19 Blood Pressure 144/90 H 133/82 Blood Pressure [Right Arm] Blood Pressure Mean 108 99 Blood Pressure Mean [Right Arm] Blood Pressure Position [Right Arm] Pulse Oximetry 98 99 Oxygen Delivery Method Nasal Cannula Nasal Cannula Oxygen Flow Rate 3 3 Home Medications Current Medication List: was personally reviewed by me Laboratory Data Attestation: I reviewed the patient's lab results. Result diagrams: 01/08/19 15:31 01/08/19 15:31 Lab Results 01/08/19 01/08/19 01/08/19 Range/Units 15:31 15:31 15:32 WBC 5.61 (4.8-10.8) K/uL RBC 4.54 (4.2-5.4) M/uL Hgb 13.0 (12.0-16.0) g/dL Hct 39.7 (37-47) % MCV 87.4 (80-100) fL MCH 28.6 (25-34) pg MCHC 32.7 (32-36) g/dL RDW Std Deviation 45.2 (36.4-46.3) fL RDW Coeff of Griffin 14.2 (11.5-14.5) % Plt Count 108 L (130-400) K/uL MPV 11.5 H (7.4-10.4) fL Immature Gran % (Auto) 0.2 % Neut % (Auto) 67.8 % Lymph % (Auto) 23.4 % Harmon % (Auto) 6.8 % Eos % (Auto) 1.6 % Baso % (Auto) 0.2 % Immature Gran # (Auto) 0.01 (0.00-0.02) K/uL Neut # (Auto) 3.81 (1.4-6.5) K/uL Lymph # (Auto) 1.31 (1.2-3.4) K/uL Harmon # (Auto) 0.38 (0.11-0.59) K/uL Eos # (Auto) 0.09 (0-0.5) K/uL Baso # (Auto) 0.01 (0-0.2) K/uL D-Dimer 680 H* (0-500) ug/L FEU Sodium 133 L (136-145) mmol/L Potassium 4.3 (3.5-5.1) mmol/L Chloride 98 (98-107) mmol/L Carbon Dioxide 27 (21-32) mmol/L Anion Gap 8.0 (3-11) BUN 15 (7-18) mg/dl Creatinine 1.20 (0.6-1.2) mg/dl Est Cr Clr Drug Dosing 46.6 ml/min Est GFR ( Amer) 54.2 Est GFR (Non-Af Amer) 46.7 BUN/Creatinine Ratio 12.3 (10-20) Glucose 431 H* (70-99) mg/dl POC Glucose (70-99) Calcium 9.1 (8.5-10.1) mg/dl Magnesium 1.9 (1.8-2.4) mg/dl Total Bilirubin 0.8 (0.2-1) mg/dl AST 63 H (15-37) U/L ALT 66 (12-78) U/L Alkaline Phosphatase 116 (45-117) U/L Troponin I < 0.015 (0-0.045) ng/ml Total Protein 8.0 (6.4-8.2) gm/dl Albumin 3.5 (3.4-5.0) gm/dl Globulin 4.5 H (2.5-4.0) gm/dl Albumin/Globulin Ratio 0.8 L (0.9-2) Beta-Hydroxybutyric Acd 3.24 H (0.2-2.81) mg/dl TSH 1.750 (0.300-4.500) uIu/ml 01/08/19 Range/Units 17:10 WBC (4.8-10.8) K/uL RBC (4.2-5.4) M/uL Hgb (12.0-16.0) g/dL Hct (37-47) % MCV (80-100) fL MCH (25-34) pg MCHC (32-36) g/dL RDW Std Deviation (36.4-46.3) fL RDW Coeff of Griffin (11.5-14.5) % Plt Count (130-400) K/uL MPV (7.4-10.4) fL Immature Gran % (Auto) % Neut % (Auto) % Lymph % (Auto) % Harmon % (Auto) % Eos % (Auto) % Baso % (Auto) % Immature Gran # (Auto) (0.00-0.02) K/uL Neut # (Auto) (1.4-6.5) K/uL Lymph # (Auto) (1.2-3.4) K/uL Harmon # (Auto) (0.11-0.59) K/uL Eos # (Auto) (0-0.5) K/uL Baso # (Auto) (0-0.2) K/uL D-Dimer (0-500) ug/L FEU Sodium (136-145) mmol/L Potassium (3.5-5.1) mmol/L Chloride (98-107) mmol/L Carbon Dioxide (21-32) mmol/L Anion Gap (3-11) BUN (7-18) mg/dl Creatinine (0.6-1.2) mg/dl Est Cr Clr Drug Dosing ml/min Est GFR ( Amer) Est GFR (Non-Af Amer) BUN/Creatinine Ratio (10-20) Glucose (70-99) mg/dl POC Glucose 367 H* (70-99) Calcium (8.5-10.1) mg/dl Magnesium (1.8-2.4) mg/dl Total Bilirubin (0.2-1) mg/dl AST (15-37) U/L ALT (12-78) U/L Alkaline Phosphatase (45-117) U/L Troponin I (0-0.045) ng/ml Total Protein (6.4-8.2) gm/dl Albumin (3.4-5.0) gm/dl Globulin (2.5-4.0) gm/dl Albumin/Globulin Ratio (0.9-2) Beta-Hydroxybutyric Acd (0.2-2.81) mg/dl TSH (0.300-4.500) uIu/ml Administered Medications Benztropine Mesylate (Cogentin) 0.5 mg PO HS MEY Stop: 02/07/19 20:59 Last Admin: 01/08/19 21:15 Dose: 0.5 mg Documented by: [id number] Heparin Sodium (Porcine) (Heparin Sodium (Porcine)) 5,000 units SQ Q8 MEY Stop: 02/07/19 21:59 Last Admin: 01/08/19 21:17 Dose: 5,000 units Documented by: [id number] Cosigned by: [id number] Sodium Chloride (Nss 1000ml) 1,000 mls @ 100 mls/hr IV .Q10H MEY Stop: 02/07/19 19:41 Last Admin: 01/08/19 19:48 Dose: 100 mls/hr Documented by: [id number] Insulin Aspart (Novolog Flexpen) 0 units SC ACHS MEY Stop: 02/07/19 20:59 Last Admin: 01/08/19 21:18 Dose: 3 units Documented by: [id number] Cosigned by: [id number] Ioversol (Optiray 320 125ml) 79 ml IV ONCE PRN PRN Reason: Interaction Checking Stop: 01/12/19 18:37 Last Admin: 01/08/19 18:40 Dose: 79 ml Documented by: [id number] Metformin HCl (Glucophage) 1,000 mg PO BIDM MEY Stop: 02/07/19 19:59 Last Admin: 01/08/19 21:15 Dose: 1,000 mg Documented by: [id number] Risperidone (Risperdal) 2 mg PO HS MEY Stop: 02/07/19 20:59 Last Admin: 01/08/19 21:16 Dose: 2 mg Documented by: [id number] Trazodone HCl (Desyrel) 75 mg PO HS MEY Stop: 02/07/19 20:59 Last Admin: 01/08/19 21:26 Dose: 75 mg Documented by: [id number] Discontinued Medications Sodium Chloride (Nss 1000ml) 1,000 mls @ 125 mls/hr IV .Q8H MEY Stop: 01/08/19 22:59 Last Admin: 01/08/19 15:38 Dose: 125 mls/hr Documented by: [id number] Sodium Chloride (Nss 1000ml) 1,000 mls @ 999 mls/hr IV .Q1H1M ONE Stop: 01/08/19 17:14 Last Infusion: 01/08/19 17:39 Dose: 0 mls/hr Documented by: [id number] Admin: 01/08/19 16:38 Dose: 999 mls/hr Documented by: [id number] Insulin Human Regular (Novolin R U-100 Per Unit) 10 units IV NOW STA Stop: 01/08/19 16:15 Last Admin: 01/08/19 16:37 Dose: 10 units Documented by: [id number] Cosigned by: [id number] Imaging Data Radiologist's Impression: Radiology results as stated below per my review and the radiologist's interpretation: XR chest 1V portable HISTORY: weakness COMPARISON: Chest 05/08/2013. FINDINGS: The lungs are clear. Cardiac silhouette is normal in size. No pleural effusions. No pneumothorax. IMPRESSION: No acute process. Electronically signed by: Isidro Anderson M.D. 01/08/2019 3:[address]AST CT DOSE: 525.26 mGycm HISTORY: fall TECHNIQUE: Multiaxial CT images of the head were performed without the use of intravenous contrast. Automated exposure control was utilized for this study. A dose lowering technique was utilized adhering to the principles of ALARA. Comparison: Brain MRI 01/07/2015 and 02/17/2017. Findings: The paranasal sinuses and mastoid air cells are clear. The calvarium and skull base are intact. The ventricles and sulci are within normal limits. There is no mass, hematoma, midline shift, or acute infarct. Impression: No acute intracranial abnormality. Electronically signed by: Isidro Anderson M.D. 01/08/2019 4:31 PM RIGHT HAND 3 VIEWS HISTORY: Right hand pain. fall, 4th and 5th [facility] COMPARISON: Right wrist 11/28/2009. FINDINGS: No acute fracture or dislocation within the right hand. Advanced degenerative changes at the first carpometacarpal joint with adjacent intra- articular loose bodies. 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 Soft tissues are unremarkable. No radiopaque foreign bodies. IMPRESSION: No acute fracture or dislocation within the right hand. Electronically signed by: Isidro Anderson M.D. 01/08/2019 4:18 PM ECG Data Attestation: I personally reviewed and interpreted this ECG as follows: Indication: other (fall) Rate (beats per minute): 72 Rhythm: normal sinus Findings: + other (inferior Q waves, poor R wave progression, normal QRS); no PAC and no PVC Discharge Plan Visit Data *Final* Discharge Date/Time: 01/08/19 19:43 Chief Complaint: Fall ED Provider: Serg Cohen Discharge Problem: Weakness, Hypoxia, Fall, Contusion of hand, right, Contusion of right shoulder, Hyperglycemia Patient Disposition: Admitted As Inpatient Discharge Instructions Interventions: ED Discharge Assessment Last Done: 01/08/19 19:43 Discharge Problem: Fall Qualifiers: Encounter type: initial encounter Qualified Code(s): W19.XXXA - Unspecified fall, initial encounter Contusion of hand, right Qualifiers: Encounter type: initial encounter Qualified Code(s): S60.221A - Contusion of right hand, initial encounter Contusion of right shoulder Qualifiers: Encounter type: initial encounter Qualified Code(s): S40.011A - Contusion of right shoulder, initial encounter The scribe's documentation has been prepared under my direction and personally reviewed by me in its entirety. I confirm that the note above accurately reflects all work, treatment, procedures, and medical decision making performed by me.
[2019-01-09] MEDS: HEPARIN SOD 5,000 UNIT/0.5 ML VIAL SQ SCH ×3 (05:48→20:59)
[2019-01-09] MEDS: SODIUM CHLORIDE 0.9% 1000ML 1,000 ML IV SCH ×2 (07:13→17:53)
[2019-01-09] MEDS ORDERED: INFLUENZA VACCINE HIGH DOSE 65+ 0.5 ML SYR IM ONE (08:15)
[2019-01-09] MEDS ORDERED: INFLUENZA ADMINISTRATION CHARGE ONE (08:15)
[2019-01-09] MEDS: INSULIN ASPART 100 UNITS/ML 3 ML PEN SC SCH ×4 (08:19→20:58)
[2019-01-09] MEDS: risperiDONE 1 MG TABLET PO SCH (08:22)
[2019-01-09] MEDS: METFORMIN HCL 500 MG TAB PO SCH ×2 (08:22→17:23)
[2019-01-09] MEDS: LOSARTAN POTASSIUM 50 MG TAB PO SCH (08:23)
[2019-01-09] MEDS: SERTRALINE HCL 100 MG TABLET PO SCH (08:23)
[2019-01-09] MEDS: FOLIC ACID 1 MG TAB PO SCH (08:23)
[2019-01-09] MEDS: ASPIRIN 81 MG ECTAB PO SCH (08:23)
[2019-01-09] MEDS: PROPRANOLOL HCL LA 80 MG CAPCR PO SCH (08:23)
--- NOTE | 2019-01-09 09:36 | Cardiology Consultation ---
Date of Consultation January 09, 2019 Assessment & Plan (1) Fall: She is reported to have falls, this last one with injury, however I can ascertain no details about them from her history. She does not seem to be orthostatic, so far on telemetry she has not had an arrhythmia. I would keep h er on telemetry here and perhaps in the future we can obtain a better history. (2) Altered mental status: She seems very confused, I do not know if that is baseline or if there is some transient reason for it. At the moment I can obtain no significant history. (3) Abnormal ECG: Her electrocardiogram suggests a new inferior myocardial infarction, I am going to get an echocardiogram to look for wall motion abnormalities. If she has wall motion abnormalities we need to investigate this although I am not sure it has anything to do with her presentation. It does not appear to be an acute myocardial infarction. I am also going to repeat the electrocardiogram. History of Present Illness Reason for Consultation: Falls and near syncope Attending Physician: Maycol Horta History of Present Illness This is a 68-year-old woman who has a history of diabetes and a peripheral neuropathy felt likely due to the diabetes. From her outpatient chart she has been having intermittent unsteadiness as well which I do not think has been fully evaluated although she did have a dobutamine stress echo on December 29, 2018. That test showed normal left ventricular size and function with mild concentric left ventricular hypertrophy and no evidence of ischemia. She presents with 2 falls, one on January 07, 2019 and again on January 08 9. She is however extremely confused, she is awake and alert but does not answer questions appropriately therefore I can find no information out about symptoms related to these falls. Evaluation here has included a chest CTA done for an elevated d-dimer which was negative for pulmonary emboli. A head CT was likewise unremarkable as was her chest x-ray. Her blood sugar was markedly elevated. Her blood pressures here have been relatively normal as has her heart rate. She has had orthostatic signs done which have been negative for orthostatic hypotension. On my discussion with her she thinks she has been seen by a process trainer but she does not know when, where or whom she saw. Based on her confusion I do not hope this is reliable. I do not have records but she was willing to have me evaluate her. Allergies Allergy/AdvReac Type Severity Reaction Status Date / Time No Known Allergies Allergy Unknown Verified 01/08/19 15:06 Home Medications Home Medications Medication Instructions Recorded Confirmed Type aspirin 81 mg PO DAILY 01/08/19 01/08/19 History benztropine 0.5 mg PO HS 01/08/19 01/08/19 History folic acid 1 mg PO DAILY 01/08/19 01/08/19 History losartan 100 mg PO DAILY 01/08/19 01/08/19 History metformin 1,000 mg PO BID 01/08/19 01/08/19 History propranolol 80 mg PO DAILY 01/08/19 01/08/19 History risperidone 1 mg PO QAM 01/08/19 01/08/19 History risperidone See Rx Instructions .ROUTE .COMPLEX 01/08/19 01/08/19 History sertraline 100 mg PO DAILY 01/08/19 01/08/19 History trazodone 0 mg PO HS 01/08/19 01/08/19 History Patient History Medical History Diabetes (Chronic) Social History Preferred Language: Nepalese Communication Ability: Effective Beliefs That Will Affect Care: None Current Living Situation: Alone Feels Safe at Home: Yes Smoking Status: Former smoker Hx Alcohol Use: No Hx Substance Use: No Review of Systems Review of Systems: Unobtainable due to cognitive status Physical Exam Physical Exam: Constitutional: Alert, cooperative and in no distress. HEENT: Unremarkable Neck: No jugular venous distention, carotid pulses are normal and equal bilaterally without bruits. Pulmonary: Clear to auscultation bilaterally. Cardiac: Regular rhythm with no murmur, gallop or rub. Abdomen: Soft, nontender with normal bowel sounds. Extremities: No edema. Distal pulses intact. Neurologic: No focal findings. Gait is steady. Skin: No rash, ecchymoses or petechiae. Results & Data Vital Signs (Past 12 Hours) Vital Signs Temp Pulse Pulse Resp BP Pulse Ox 01/09/19 07:08 36.5 C 77 20 90 01/09/19 03:53 36.6 C 66 17 107/63 96 01/09/19 00:00 36.5 C 73 94 Laboratory Results Abnormal lab results 01/08/19 01/08/19 01/08/19 Range/Units 15:31 15:31 15:32 WBC (4.8-10.8) K/uL RBC (4.2-5.4) M/uL Hct (37-47) % Plt Count 108 L (130-400) K/uL MPV 11.5 H (7.4-10.4) fL D-Dimer 680 H* (0-500) ug/L FEU Sodium 133 L (136-145) mmol/L Glucose 431 H* (70-99) mg/dl POC Glucose (70-99) AST 63 H (15-37) U/L Ammonia (11-32) umol/L Globulin 4.5 H (2.5-4.0) gm/dl Albumin/Globulin Ratio 0.8 L (0.9-2) Beta-Hydroxybutyric Acd 3.24 H (0.2-2.81) mg/dl 01/08/19 01/08/19 01/09/19 Range/Units 17:10 19:45 09:54 WBC 4.59 L (4.8-10.8) K/uL RBC 4.19 L (4.2-5.4) M/uL Hct 36.7 L (37-47) % Plt Count 102 L (130-400) K/uL MPV 10.8 H (7.4-10.4) fL D-Dimer (0-500) ug/L FEU Sodium (136-145) mmol/L Glucose (70-99) mg/dl POC Glucose 367 H* 228 H (70-99) AST (15-37) U/L Ammonia (11-32) umol/L Globulin (2.5-4.0) gm/dl Albumin/Globulin Ratio (0.9-2) Beta-Hydroxybutyric Acd (0.2-2.81) mg/dl 01/09/19 Range/Units 09:54 WBC (4.8-10.8) K/uL RBC (4.2-5.4) M/uL Hct (37-47) % Plt Count (130-400) K/uL MPV (7.4-10.4) fL D-Dimer (0-500) ug/L FEU Sodium (136-145) mmol/L Glucose (70-99) mg/dl POC Glucose (70-99) AST (15-37) U/L Ammonia 57.0 H (11-32) umol/L Globulin (2.5-4.0) gm/dl Albumin/Globulin Ratio (0.9-2) Beta-Hydroxybutyric Acd (0.2-2.81) mg/dl Diagnostic Findings Electrocardiogram: January 08, 2019 at 1521, sinus rhythm, suggestive of an inferior myocardial infarction of indeterminate age. Telemetry: Sinus rhythm in the 60s and 70s, no significant arrhythmia PG Care Time/CCT Total # of Minutes Spent Total Time Spent with Patient: Total time spent is greater than 50% in coordination of care (as documented) at patient's floor/unit and/or counseling patient: (1) Fall Encounter type: initial encounter Qualified Code(s): W19.XXXA - Unspecified fall, initial encounter
[2019-01-09 10:03] LABS: Hematocrit (blood only) 36.7 % (37-47); Mean Corpuscular Hemoglobin 28.6 pg (25-34); Mean Corpuscular Hgb Conc 32.7 g/dL (32-36); Mean Corpuscular Volume 87.6 fL (80-100); Mean Platelet Volume 10.8 fL (7.4-10.4); Platelet Count 102 K/uL (130-400); RDW Coefficient of Variation 14.4 % (11.5-14.5); RDW Standard Deviation 45.7 fL (36.4-46.3); Red Blood Count 4.19 M/uL (4.2-5.4); White Blood Count 4.59 K/uL (4.8-10.8)
--- NOTE | 2019-01-09 13:36 | XRay Report ---
XR orbits for MRI CLINICAL HISTORY: 68 years-old Female presenting with confusion, MRI clearance, concern for metal in eye. TECHNIQUE: 2 views of the orbits were obtained. COMPARISON: CT head from 01/08/2019. FINDINGS: No radiopaque intraorbital foreign body. Bony orbits grossly intact. Paranasal sinuses grossly clear. Visualized portion of the calvarium intact. IMPRESSION: No intraorbital metallic foreign body to preclude MRI exam. Electronically signed by: Jeferson Downing M.D. 01/09/2019 1:35 PM
--- NOTE | 2019-01-09 13:43 | XRay Report ---
XR KUB/Abdomen 1 view CLINICAL HISTORY: mri pain. Nausea. COMPARISON STUDY: No previous studies for comparison. FINDINGS: The soft tissues, psoas shadows, renal outlines and intestinal gas pattern appear normal. T here is no evidence for bowel obstruction. No abnormal abdominal calcifications are seen. There is a small calcified uterine fibroid. IMPRESSION: Normal study. No evidence for radiopaque foreign body. The above report was generated using voice recognition software. It may contain grammatical, syntax or spelling errors. Electronically signed by: Tommie Montelongo M.D. 01/09/2019 1:42 PM
--- NOTE | 2019-01-09 15:51 | Magnetic Resonance Report ---
Brain MRI WITHOUT CONTRAST HISTORY: ataxia/ confusion TECHNIQUE: Multiplanar multisequence MRI of the brain was performed without the use of contrast. COMPARISON STUDY: Head CT 01/08/2019. Brain MRI 02/17/2017. FINDINGS: There are no areas of restricted diffusion to suggest acute infarction. The midline structu res are intact. The paranasal sinuses are clear. The mastoid air cells are clear. The ventricles and sulci are within normal limits for age. There is no mass, hematoma, midline shift. The major vascular flow-voids at the skull base are well maintained. No change in the mild atrophy and mild microvascul ar ischemic changes. IMPRESSION: No significant change compared to the prior study. No acute intracranial abnormality. Electronically signed by: Isidro Anderson M.D. 01/09/2019 3:50 PM
[2019-01-09] MEDS: BENZTROPINE MESYLATE 0.5 MG TAB PO SCH (20:58)
[2019-01-09] MEDS: TRAZODONE HCL 50 MG TAB PO SCH (20:58)
[2019-01-09] MEDS: risperiDONE 2 MG TABLET PO SCH (20:59)
--- NOTE | 2019-01-09 23:15 | Hospitalist Progress Note ---
Date of Service January 09, 2019 Assessment & Plan (1) Syncope and collapse: Patient is a poor historian. Appears she may have had a syncopal episode. Consulted cardio. However, after revieweing her history, it appears she has chronic neurological problems. It is likely patient has wernicke encephalopathy from her alcoholism. She confabulates, has poor gait, ataixia. Will order MRI of brain to confirm no other abnormalites. will hold off neuro consult. (2) Hyperglycemia: WILL MONITOR blood sugar (3) Contusion of right shoulder: patient is able to move arm. does not appear to need ortho input. (4) Contusion of hand, right: Patient is able to open and close hand (5) Fall: (6) Hypoxia: short lived. perhaps atelectasis. will continue to monitor. 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 (12) Diabetes: held home meds. will place on insulin during hospital stay, (13) Hypertension: Admit the patient under observation to telemetry floor. Consult cardiology. Check orthostatics every shift. Continue home medications. Add sliding-scale insulin per protocol. Add subcutaneous heparin for DVT prophylaxis. We will add gentle IV fluids. Accu-Chek q. before meals and at bedtime. Neurochecks every shift. Subjective Patient is a poor historian. She does not provide significant history as she confabulates. She reports that she drank alcohol in the past but quit drinking. She does not recall if it was 3 weeks ago or 3 years ago. Patient currently denies any further symptoms though. Review of Systems Review of Systems: All systems reviewed & are unremarkable except as noted in HPI & below Physical Exam Physical Exam: GENERAL : No acute distress, disheveled. EYES: No icterus, gaze conjugate, no nystagmus NOSE: No evidence of epistaxis MOUTH: No lesions or candidiasis, mucosa moist NECK: Supple LUNGS: CTA B/L, no wheezes, rales or rhonchi HEART: Regular, rate controlled ABDOMEN: Soft, NT, ND, BS Present EXTREMITIES: No LE edema, pedal pulses intact NEURO: A&OX3, tremors with arms extended, ataxia bilaterally, normal sensations, normal cranial nerves Cranial nerves intact, able to move all extremities. Results & Data Vital Signs (Past 12 Hours) Vital Signs Temp Pulse Resp BP Pulse Ox 01/09/19 19:29 36.9 C 83 18 105/71 93 01/09/19 11:27 36.6 C 82 18 108/74 90 PG Care Time/CCT Total # of Minutes Spent Total Time Spent with Patient: Total time spent is greater than 50% in coordination of care (as documented) at patient's floor/unit and/or counseling patient: (1) Fall Encounter type: initial encounter Qualified Code(s): W19.XXXA - Unspecified fall, initial encounter (2) Contusion of hand, right Encounter type: initial encounter Qualified Code(s): S60.221A - Contusion of right hand, initial encounter (3) Contusion of right shoulder Encounter type: initial encounter Qualified Code(s): S40.011A - Contusion of right shoulder, initial encounter
[2019-01-10] MEDS: SODIUM CHLORIDE 0.9% 1000ML 1,000 ML IV SCH ×3 (03:07→23:09)
[2019-01-10] MEDS: HEPARIN SOD 5,000 UNIT/0.5 ML VIAL SQ SCH ×3 (05:52→23:06)
[2019-01-10 07:07] LABS: Albumin Globulin Ratio 0.7 (0.9-2); Albumin Level 2.6 gm/dl (3.4-5.0); BUN Creatinine Ratio 9.5 (10-20); Bilirubin,Total 0.6 mg/dl (0.2-1); Calcium 7.7 mg/dl (8.5-10.1); Creatinine Clr Calc Pharmacy 67.4 ml/min; Est GFR (African American) 89.8; Est GFR (Non-African American) 77.5; Globulin 3.6 gm/dl (2.5-4.0); Potassium 3.7 mmol/L (3.5-5.1); Total Protein 6.2 gm/dl (6.4-8.2)
[2019-01-10] MEDS: PROPRANOLOL HCL LA 80 MG CAPCR PO SCH (07:47)
[2019-01-10] MEDS: FOLIC ACID 1 MG TAB PO SCH (07:48)
[2019-01-10] MEDS: risperiDONE 1 MG TABLET PO SCH (07:48)
[2019-01-10] MEDS: SERTRALINE HCL 100 MG TABLET PO SCH (07:48)
[2019-01-10] MEDS: ASPIRIN 81 MG ECTAB PO SCH (07:48)
[2019-01-10] MEDS: LOSARTAN POTASSIUM 50 MG TAB PO SCH (07:49)
[2019-01-10] MEDS: ACETAMINOPHEN 325 MG TAB PO PRN (07:51)
[2019-01-10] MEDS: INSULIN ASPART 100 UNITS/ML 3 ML PEN SC SCH ×4 (09:20→20:29)
[2019-01-10] MEDS ORDERED: THIAMINE HCL 500 MG in SODIUM CHLORIDE 0.9% 50 ML IV SCH (11:00)
[2019-01-10] MEDS: THIAMINE HCL 500 MG in 0.9 % SODIUM CHLORIDE 100 ML IV SCH ×2 (11:59→19:46)
[2019-01-10] MEDS ORDERED: PHARMACY GLYCEMIC MGMT CONSULT PRN (15:46)
[2019-01-10] MEDS ORDERED: INSULIN GLARGINE SOLOSTAR 100 UNITS/ML 3 ML PEN SC ONE (16:15)
--- NOTE | 2019-01-10 16:21 | Pharmacy Report ---
Glycemic Control Consultation - Date of Service January 10, 2019 - Scope Scope: Glycemic Pharmacist consulted by Dr Horta on 01/10 for glycemic control and to write orders per [facility] inpatient glycemic control protocol - Objective Weight: 72.5 kg Accuchecks BSG (last 24hrs): 01/09/19 01/09/19 01/10/19 16:08 20:14 05:59 Glucose 196 H POC Glucose 275 H 253 H 01/10/19 01/10/19 01/10/19 07:08 11:32 11:34 Glucose POC Glucose 209 H 370 H* 397 H* 01/10/19 14:01 Glucose POC Glucose 400 H* Laboratory Data (last 24hrs): 01/10/19 05:59 Potassium 3.7 Carbon Dioxide 23 Anion Gap 6.0 Creatinine 0.79 D Est Cr Clr Drug Dosing 67.4 - Recent Pertinent Medications Outpatient Anti-diabetic Regimen: * Metformin 1 gm BID * A1c = 9 % 12/06/18 The patient is currently receiving: * Basal insulin: None * Correctional Insulin: Novolog Correction per scale ACHS Goal Range: Low 110 mg/dL - High 140 mg/dL Correction Factor: 35 mg/dL/unit * Prandial insulin: Per carb ratio of 1 unit per 11 grams CHO consumed * Oral Agents: Metformin d/c'd yesterday Risk Factors for Insulin Resistance: * Diet: T1DM - patient consuming large amts of CHO with each meal * Possible new inferior VT - Assessment & Plan Assessment & Plan: ASSESSMENT: * 68 y/o F admitted for syncope. She is a type 2 diabetic, not well controlled as per recent A1c. BSGs have been significantly elevated since admission, using metformin + Novolog. BSGs have increased further today, with last BSG of 400 mg/dL. * At this point, will need to initiate basal insulin in addition to bolus insulin, and tighten bolus parameters. She received 36 units of bolus insulin total yesterday. * She would also benefit from an IV insulin bolus but K is currently 3.7. Will wait to hear from hospitalist to ensure IV insulin okay to give and if supplemental K should be added. PLAN FOR INPATIENT GLYCEMIC CONTROL: * Hold outpatient oral diabetes medications * Initiate basal insulin * Lantus 25 units x 1 now, then * Lantus BID per the following scale (starting 01/11 AM) * 12 units for BSG < 180 (weight/stress factor of 2) * 18 units for BSG 180 or above (weight/stress factor of 3) * Bolus insulin - tighten parameters and add overnight checks; can likely loosen these tomorrow once basal on board * NovoLog per scale ACHS + 00,04 * Goal Range: Low 110 mg/dL - High 140 mg/dL * Correction Factor: 25 mg/dL/unit * Nutritional / Prandial insulin per carb ratio of 1 unit per 7 grams CHO consumed * If BSGs remain > 300 mg/dL after IV insulin bolus x 2, recommend to start IV insulin infusion per moderate stress protocol * Goal Range 110 - 180 mg/dl * Please note that the plan above was derived based on current level of insulin resistance and hospital stress. These recommendations are appropriate for inpatient admission only. Plan of care upon discharge will need to be reassessed to avoid potential outpatient hypo/hyperglycemia. Thank you.
[2019-01-10] MEDS ORDERED: POTASSIUM CHLORIDE 20 MEQ TABCR PO ONE (18:30)
[2019-01-10] MEDS ORDERED: INSULIN HUMAN REGULAR PER UNIT 10 UNITS in SYRINGE 9.9 ML IV ONE (18:30)
[2019-01-10] MEDS: TRAZODONE HCL 50 MG TAB PO SCH (20:27)
[2019-01-10] MEDS: BENZTROPINE MESYLATE 0.5 MG TAB PO SCH (20:28)
[2019-01-10] MEDS: risperiDONE 2 MG TABLET PO SCH (20:28)
[2019-01-10] MEDS: POTASSIUM CHLORIDE 20 MEQ TABCR PO SCH (21:51)
--- NOTE | 2019-01-10 23:45 | Hospitalist Progress Note ---
Date of Service January 10, 2019 Assessment & Plan (1) Syncope and collapse: Patient is a poor historian. Appears she may have had a syncopal episode. Consulted cardio. However, after reviewing her history, it appears she has chronic neurological problems. It is likely patient has wernicke encephalopathy from her alcoholism. She confabulates, has poor gait, ataixia. MRI brain was negative will hold off neuro consult. (2) Wernicke encephalopathy syndrome: Patient likely has wernicke encephalopathy. Given her poor speech, ataxia, poor gait and history of alcoholism. On exam though, do not see any nystagmus. will order IV thiamine q8h for 2 days. will see if patient improves. Patient also does not appear to be safe to be discharged home. Will (3) Hyperglycemia: WILL MONITOR blood sugar (4) Contusion of right shoulder: patient is able to move arm. does not appear to need ortho input. (5) Contusion of hand, right: Patient is able to open and close hand (6) Fall: (7) Hypoxia: short lived. perhaps atelectasis. will continue to monitor. 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 (13) Diabetes: held home meds. will place on insulin during hospital stay, (14) Hypertension: Admit the patient under observation to telemetry floor. Consult cardiology. Check orthostatics every shift. Continue home medications. Add sliding-scale insulin per protocol. Add subcutaneous heparin for DVT prophylaxis. We will add gentle IV fluids. Accu-Chek q. before meals and at bedtime. Neurochecks every shift. Subjective 68 yo female reports feeling well. Patient new symptoms. Patient though is a poor historian. Review of Systems Review of Systems: All systems reviewed & are unremarkable except as noted in HPI & below Physical Exam Physical Exam: GENERAL : No acute distress, disheveled. Patient confabulates. EYES: No icterus, gaze conjugate, no nystagmus NOSE: No evidence of epistaxis MOUTH: No lesions or candidiasis, mucosa moist NECK: Supple LUNGS: CTA B/L, no wheezes, rales or rhonchi HEART: Regular, rate controlled ABDOMEN: Soft, NT, ND, BS Present EXTREMITIES: No LE edema, pedal pulses intact NEURO: A&OX2 to person and time, tremors with arms extended, ataxia bilaterally, normal sensations, normal cranial nerves Cranial nerves intact, able to move all extremities Results & Data Vital Signs (Past 12 Hours) Vital Signs Temp Pulse Resp BP Pulse Ox 01/10/19 23:44 36.8 C 73 18 131/81 93 01/10/19 15:08 36.7 C 69 16 129/73 93 PG Care Time/CCT Total # of Minutes Spent Total Time Spent with Patient: Total time spent is greater than 50% in coordination of care (as documented) at patient's floor/unit and/or counseling patient: (1) Fall Encounter type: initial encounter Qualified Code(s): W19.XXXA - Unspecified fall, initial encounter (2) Contusion of hand, right Encounter type: initial encounter Qualified Code(s): S60.221A - Contusion of right hand, initial encounter (3) Contusion of right shoulder Encounter type: initial encounter Qualified Code(s): S40.011A - Contusion of right shoulder, initial encounter
[2019-01-11] MEDS: INSULIN ASPART 100 UNITS/ML 3 ML PEN SC SCH ×7 (00:02→23:49)
[2019-01-11] MEDS: THIAMINE HCL 500 MG in 0.9 % SODIUM CHLORIDE 100 ML IV SCH ×3 (04:20→20:44)
[2019-01-11] MEDS: HEPARIN SOD 5,000 UNIT/0.5 ML VIAL SQ SCH ×3 (05:49→21:31)
[2019-01-11] MEDS: FOLIC ACID 1 MG TAB PO SCH (07:52)
[2019-01-11] MEDS: POTASSIUM CHLORIDE 20 MEQ TABCR PO SCH ×3 (07:52→21:30)
[2019-01-11] MEDS: PROPRANOLOL HCL LA 80 MG CAPCR PO SCH (07:53)
[2019-01-11] MEDS: SERTRALINE HCL 100 MG TABLET PO SCH (07:53)
[2019-01-11] MEDS: ASPIRIN 81 MG ECTAB PO SCH (07:53)
[2019-01-11] MEDS: LOSARTAN POTASSIUM 50 MG TAB PO SCH (07:53)
[2019-01-11] MEDS: risperiDONE 1 MG TABLET PO SCH (07:53)
[2019-01-11] MEDS: ACETAMINOPHEN 325 MG TAB PO PRN (08:04)
[2019-01-11] MEDS: SODIUM CHLORIDE 0.9% 1000ML 1,000 ML IV SCH ×2 (08:06→18:31)
[2019-01-11] MEDS: INSULIN GLARGINE SOLOSTAR 100 UNITS/ML 3 ML PEN SC SCH ×2 (08:07→21:33)
[2019-01-11] MEDS: risperiDONE 2 MG TABLET PO SCH (21:24)
[2019-01-11] MEDS: TRAZODONE HCL 50 MG TAB PO SCH (21:25)
[2019-01-11] MEDS: BENZTROPINE MESYLATE 0.5 MG TAB PO SCH (21:30)
--- NOTE | 2019-01-11 23:15 | Hospitalist Progress Note ---
Date of Service January 11, 2019 Assessment & Plan (1) Syncope and collapse: Patient is a poor historian. Appears she may have had a syncopal episode. Consulted cardio. However, after reviewing her history, it appears she has chronic neurological problems. Having discussed case with family, it appears wernicke's is less likely. Acute illnesses though has been ruled out such as meningitis, stroke, infection. She confabulates, has poor gait, ataixia. MRI brain was negative will hold off neuro consult. Will recommend outpatient neuro. (2) Wernicke encephalopathy syndrome: Doubt above diagnosis now given the history family provided. (3) Hyperglycemia: WILL MONITOR blood sugar (4) Contusion of right shoulder: patient is able to move arm. does not appear to need ortho input. (5) Contusion of hand, right: Patient is able to open and close hand (6) Fall: (7) Hypoxia: short lived. perhaps atelectasis. will continue to monitor. (8) Weakness: (9) Anxiety: (10) Depression: continue home medicine (11) Hyperlipidemia: (12) Altered mental status: likely attributed to chronic alcoholism. (13) Diabetes: held home meds. will place on insulin during hospital stay, (14) Hypertension: Admit the patient under observation to telemetry floor. Consult cardiology. Check orthostatics every shift. Continue home medications. Add sliding-scale insulin per protocol. Add subcutaneous heparin for DVT prophylaxis. We will add gentle IV fluids. Accu-Chek q. before meals and at bedtime. Neurochecks every shift. Subjective 68 yo female continues to be a poor historian. She denies any new complaints. She apologizes for "not going to the concert". She continues to think that she is in [place]. On my second visit, her brother and sister in law were in the room. They report that this is not her baseline. But that she has been having memory problems over the course of the past 3 years. She though appeared to be stable and no longr follows with Psych and Neurology. She reports tat the patient refused years ago, medications like aricept to help with her dementia. Family appears open to bringing patient home understanding she will likely need 24 hour care. They state they will remove the car keys from the home. The family is also open to having patient go see the Neurologist as an outpatient and psych as well as PCP. Review of Systems Review of Systems: Unobtainable due to mental health condition Physical Exam Physical Exam: GENERAL : No acute distress, disheveled. Patient confabulates. EYES: No icterus, gaze conjugate, no nystagmus NOSE: No evidence of epistaxis MOUTH: No lesions or candidiasis, mucosa moist NECK: Supple LUNGS: CTA B/L, no wheezes, rales or rhonchi HEART: Regular, rate controlled ABDOMEN: Soft, NT, ND, BS Present EXTREMITIES: No LE edema, pedal pulses intact NEURO: A&OX2 to person and time, tremors with arms extended, ataxia bilaterally, normal sensations, normal cranial nerves Cranial nerves intact, able to move all extremities Results & Data Vital Signs (Past 12 Hours) Vital Signs Temp Pulse Resp BP Pulse Ox 01/11/19 14:55 36.8 C 74 20 137/85 95 PG Care Time/CCT Total # of Minutes Spent Total Time Spent with Patient: Total time spent is greater than 50% in coordination of care (as documented) at patient's floor/unit and/or counseling patient: (1) Fall Encounter type: initial encounter Qualified Code(s): W19.XXXA - Unspecified fall, initial encounter (2) Contusion of hand, right Encounter type: initial encounter Qualified Code(s): S60.221A - Contusion of right hand, initial encounter (3) Contusion of right shoulder Encounter type: initial encounter Qualified Code(s): S40.011A - Contusion of right shoulder, initial encounter
[2019-01-12] MEDS: THIAMINE HCL 500 MG in 0.9 % SODIUM CHLORIDE 100 ML IV SCH ×2 (03:10→11:03)
[2019-01-12] MEDS: INSULIN ASPART 100 UNITS/ML 3 ML PEN SC SCH ×5 (04:20→20:12)
[2019-01-12] MEDS: HEPARIN SOD 5,000 UNIT/0.5 ML VIAL SQ SCH ×3 (05:50→22:43)
[2019-01-12] MEDS: SODIUM CHLORIDE 0.9% 1000ML 1,000 ML IV SCH ×2 (08:09→18:44)
[2019-01-12] MEDS: PROPRANOLOL HCL LA 80 MG CAPCR PO SCH (08:19)
[2019-01-12] MEDS: FOLIC ACID 1 MG TAB PO SCH (08:19)
[2019-01-12] MEDS: ASPIRIN 81 MG ECTAB PO SCH (08:19)
[2019-01-12] MEDS: SERTRALINE HCL 100 MG TABLET PO SCH (08:19)
[2019-01-12] MEDS: LOSARTAN POTASSIUM 50 MG TAB PO SCH (08:19)
[2019-01-12] MEDS: risperiDONE 1 MG TABLET PO SCH (08:19)
[2019-01-12] MEDS: POTASSIUM CHLORIDE 20 MEQ TABCR PO SCH ×3 (08:19→20:11)
[2019-01-12] MEDS: INSULIN GLARGINE SOLOSTAR 100 UNITS/ML 3 ML PEN SC SCH ×2 (08:20→20:11)
--- NOTE | 2019-01-12 13:30 | Pharmacy Report ---
Pharmacy Glycemic Short Note 2 - Date of Service January 12, 2019 - Glycemic Short BSG Results (Last 24 hours): 01/11/19 01/11/19 01/11/19 17:14 20:19 23:45 POC Glucose 274 H 260 H 162 H 01/12/19 01/12/19 01/12/19 04:05 08:02 12:09 POC Glucose 129 H 135 H 239 H OUTPATIENT ANTIDIABETIC REGIMEN: * Metformin 1000 mg BID * A1c 9% 12/06/18 ASSESSMENT: * Ms. Portillo used 73 units of insulin over the previous 24 hours- 30 of basal, 43 of bolus * Fasting this morning within goal range (did not receive extra insulin with overnight checks) will continue current lantus * Prandial BSGs continue to be elevated, parameters tightened yesterday with dinner, tightened again with lunch today as BSGs still in the 200s PLAN FOR INPATIENT GLYCEMIC CONTROL: * Hold outpatient oral diabetes medications * Basal insulin * Lantus 15 units SQ BID * Bolus insulin * NovoLog per scale ACHS or Q6hrs while NPO * Goal Range: Low 110 mg/dL - High 140 mg/dL * Correction Factor: 20 mg/dL/unit * Nutritional / Prandial insulin per carb ratio of 1 unit per 6 grams CHO consumed PLAN FOR DISCHARGE: * Patient's A1c 9.0% is currently above goal of <7%. Could consider dual combination therapy with additional agent with metformin. Additional agent is based on patient specific factors including efficacy, hypo risk, weight gain/loss, side effects and cost. * If wish to minimize weight gain or promote weight loss, could consider: GLP-1 receptor agonist: Decreases major adverse cardiovascular events, high efficacy, low hypo risk, weight loss, significant GI side effects (titrate low and slow) and risk of thyroid tumors, high cost SGLT2 inhibitor: Decreases major adverse cardiovascular events, i ntermediate efficacy, low hypo risk, weight loss, /dehydration and risk of amputation (canagliflozin) side effects, high cost * If cost is a major issue, could consider: Sulfonylurea: high efficacy, high hypo risk, weight gain, low cost Thiazolidinedione (TZD): high efficacy, low hypo risk, weight gain, significant side effects (edema, HF, fxs), low cost Human insulin (NPH or premixed formulations): high efficacy, weight gain, minimal side effects Support Patient Self-Management oHealthy Lifestyle (diet, exercise, and smoking cessation) oDisease self-management (SMBG) oPrevention of complications (BP, Lipid goals, Immunizations) oConsider outpatient Diabetes Self-Management Education & Support
[2019-01-12] MEDS: TRAZODONE HCL 50 MG TAB PO SCH (20:09)
[2019-01-12] MEDS: risperiDONE 2 MG TABLET PO SCH (20:10)
[2019-01-12] MEDS: BENZTROPINE MESYLATE 0.5 MG TAB PO SCH (20:10)
[2019-01-12] MEDS ORDERED: ALBUTEROL 0.083% NEBU SOLN 3 ML VIAL NEB STA (20:47)
--- NOTE | 2019-01-12 22:42 | Hospitalist Progress Note ---
Date of Service January 12, 2019 Assessment & Plan (1) Syncope and collapse: Patient is a poor historian. Appears she may have had a syncopal episode. Consulted cardio. However, after reviewing her history, it appears she has chronic neurological problems. Initially thought patient had Wernicke's Encephalopathy. Having discussed case with family, it appears wernicke's is less likely. Acute illnesses though has been ruled out such as meningitis, stroke, infection. She confabulates, has poor gait, ataxia. MRI brain was negative will hold off neuro consult. Will recommend outpatient neuro. (2) Wernicke encephalopathy syndrome: Doubt above diagnosis now given the history family provided. (3) Hyperglycemia: WILL MONITOR blood sugar A1C is 9 will likely add another oral medication to her regimen of metformin. (4) Contusion of right shoulder: patient is able to move arm. does not appear to need ortho input. (5) Contusion of hand, right: Patient is able to open and close hand (6) Fall: (7) Hypoxia: short lived. perhaps atelectasis. will continue to monitor. (8) Weakness: (9) Anxiety: (10) Depression: continue home medicine (11) Hyperlipidemia: (12) Altered mental status: likely attributed to chronic alcoholism. (13) Diabetes: held home meds. will place on insulin during hospital stay, (14) Hypertension: Admit the patient under observation to telemetry floor. Consult cardiology. Check orthostatics every shift. Continue home medications. Add sliding-scale insulin per protocol. Add subcutaneous heparin for DVT prophylaxis. We will add gentle IV fluids. Accu-Chek q. before meals and at bedtime. Neurochecks every shift. Subjective Patient reports no new symptoms. Review of Systems Review of Systems: All systems reviewed & are unremarkable except as noted in HPI & below Physical Exam Physical Exam: GENERAL : No acute distress, disheveled. Patient confabulates. EYES: No icterus, gaze conjugate, no nystagmus NOSE: No evidence of epistaxis MOUTH: No lesions or candidiasis, mucosa moist NECK: Supple LUNGS: CTA B/L, no wheezes, rales or rhonchi HEART: Regular, rate controlled ABDOMEN: Soft, NT, ND, BS Present EXTREMITIES: No LE edema, pedal pulses intact NEURO: A&OX2 to person and time, tremors with arms extended, ataxia bilaterally, normal sensations, normal cranial nerves Cranial nerves intact, able to move all extremities Results & Data Vital Signs (Past 12 Hours) Vital Signs Temp Pulse Resp BP BP Pulse Ox 01/12/19 21:40 82 18 92 01/12/19 20:43 78 20 173/81 H 93 01/12/19 15:50 36.6 C 76 18 139/61 94 PG Care Time/CCT Total # of Minutes Spent Total Time Spent with Patient: Total time spent is greater than 50% in coordination of care (as documented) at patient's floor/unit and/or counseling patient: (1) Fall Encounter type: initial encounter Qualified Code(s): W19.XXXA - Unspecified fall, initial encounter (2) Contusion of hand, right Encounter type: initial encounter Qualified Code(s): S60.221A - Contusion of right hand, initial encounter (3) Contusion of right shoulder Encounter type: initial encounter Qualified Code(s): S40.011A - Contusion of right shoulder, initial encounter
[2019-01-12] MEDS ORDERED: LORazepam 0.5 MG/1 ML VIAL IV ONE (22:45)
[2019-01-13] MEDS: INSULIN ASPART 100 UNITS/ML 3 ML PEN SC SCH ×4 (03:59→13:26)
[2019-01-13] MEDS: HEPARIN SOD 5,000 UNIT/0.5 ML VIAL SQ SCH (05:02)
[2019-01-13] MEDS ORDERED: THIAMINE HCL 100 MG TAB PO SCH (09:00)
[2019-01-13] MEDS ORDERED: INSULIN GLARGINE SOLOSTAR 100 UNITS/ML 3 ML PEN SC SCH (09:00)
[2019-01-13] MEDS: LOSARTAN POTASSIUM 50 MG TAB PO SCH (09:08)
[2019-01-13] MEDS: ASPIRIN 81 MG ECTAB PO SCH (09:09)
[2019-01-13] MEDS: POTASSIUM CHLORIDE 20 MEQ TABCR PO SCH (09:09)
[2019-01-13] MEDS: FOLIC ACID 1 MG TAB PO SCH (09:09)
[2019-01-13] MEDS: PROPRANOLOL HCL LA 80 MG CAPCR PO SCH (09:09)
[2019-01-13] MEDS: risperiDONE 1 MG TABLET PO SCH (09:10)
[2019-01-13] MEDS: SERTRALINE HCL 100 MG TABLET PO SCH (09:11)
[2019-01-13] MEDS ORDERED: INSULIN GLARGINE SOLOSTAR 100 UNITS/ML 3 ML PEN SC ONE (14:00)
--- NOTE | 2019-01-13 14:14 | Pharmacy Report ---
Pharmacy Glycemic Short Note 2 - Date of Service January 13, 2019 - Glycemic Short BSG Results (Last 24 hours): 01/12/19 01/12/19 01/12/19 16:52 20:11 23:54 POC Glucose 203 H 213 H 214 H 01/13/19 01/13/19 01/13/19 03:57 07:34 11:29 POC Glucose 211 H 171 H 329 H* 01/13/19 11:37 POC Glucose 351 H* OUTPATIENT ANTIDIABETIC REGIMEN: * Metformin 1000 mg BID * Xultophy 40 units (not been filled since July) * A1c 9% 12/06/18 ASSESSMENT: 01/13 * Patient's prandial BSGs elevated again, carb ratio was tightened, correction factor tightened this morning as BSGs persistently in 200s. * Fasting this morning 171, however this was with additional novolog overnight- titrating up on lantus dose * Patient to be discharged this afternoon, therefore moved up lantus dose to this afternoon prior to discharge and patient to resume home medication xultophy tomorrow. 01/12 * Ms. Portillo used 73 units of insulin over the previous 24 hours- 30 of basal, 43 of bolus * Fasting this morning within goal range (did not receive extra insulin with overnight checks) will continue current lantus * Prandial BSGs continue to be elevated, parameters tightened yesterday with dinner, tightened again with lunch today as BSGs still in the 200s PLAN FOR INPATIENT GLYCEMIC CONTROL: * Hold outpatient oral diabetes medications * Basal insulin * Lantus 20 units this AM, 18 units x 1 this afternoon * Bolus insulin * NovoLog per scale ACHS or Q6hrs while NPO * Goal Range: Low 110 mg/dL - High 140 mg/dL * Correction Factor: 15 mg/dL/unit * Nutritional / Prandial insulin per carb ratio of 1 unit per 5 grams CHO consumed PLAN FOR DISCHARGE: * Patient's A1c 9.0% is currently above goal of <7%. Patient's family came in today and said patient was supposed to be taking xultophy 40 units daily which is a combination of long acting insulin and a glp-1. They report that patient is very non-compliant with this but would be more actively involved in her medication administration. Recommend patient become compliant with this medication and closely follow with outpatient provider. Patient required 67 units with poor prandial control-increased to 40 units of basal today so restarting home dose is not unreasonable given elevated blood sugars.
--- NOTE | 2019-01-18 15:11 | Discharge Summary ---
Date of Service January 13, 2019 Admission HPI Per Admitting Provider The patient is 68 years old female who was brought to the emergency room with chief complaints of near syncope. Patient was in [employer] store when she had episode of near syncope. Patient denies any loss of consciousness. No seizures. No bowel /bladder incontinence. On arrival to the emergency room, her pulse ox was approximately 88% on room air and she was lethargic. Her mental status has started to improve after she received IV fluids. The patient says that she has syncopal episodes every 3 months. She is being followed by ambulance driver. She will be admitted under observation for further evaluation and management. Her blood sugars are running high in the ER. Principal Diagnosis syncope/ dementia Discharge Exam GENERAL : No acute distress, disheveled. Patient confabulates. EYES: No icterus, gaze conjugate, no nystagmus NOSE: No evidence of epistaxis MOUTH: No lesions or candidiasis, mucosa moist NECK: Supple LUNGS: CTA B/L, no wheezes, rales or rhonchi HEART: Regular, rate controlled ABDOMEN: Soft, NT, ND, BS Present EXTREMITIES: No LE edema, pedal pulses intact NEURO: A&OX2 to person and time, tremors with arms extended, ataxia bilaterally, normal sensations, normal cranial nerves Cranial nerves intact, able to move all extremities Discharge Data Allergies Allergy/AdvReac Type Severity Reaction Status Date / Time No Known Allergies Allergy Unknown Verified 01/14/19 14:26 Consultations 01/08/19 18:20 ED Decision to Admit Stat 01/08/19 19:42 Consult Cardiology Routine Ordered Studies 01/08/19 15:13 CT head/brain wo con Stat 01/08/19 17:55 CT angio chest PE protocol Stat 01/09/19 09:06 MR brain wo con Routine Hospital Course (1) Syncope and collapse: Patient is a poor historian. Appears she may have had a syncopal episode. Consulted cardio. However, after reviewing her history, it appears she has chronic neurological problems. Initially thought patient had Wernicke's Encephalopathy. Having discussed case with family, it appears wernicke's is less likely. Acute illnesses though has been ruled out such as meningitis, stroke, infection. She confabulates, has poor gait, ataxia. MRI brain was negative will hold off neuro consult. Will recommend outpatient neuro. Family is ok with sending patient home as they feel they have enough support for her. Explained that patient will not be able to handle her medications at home. (2) Wernicke encephalopathy syndrome: Doubt above diagnosis now given the history family provided. (3) Hyperglycemia: WILL MONITOR blood sugar A1C is 9 will resume home medical regimen as patient is on xultophy at home. Her previous A1C was at goal early this past year. Perhaps her elevated A1C is due to noncompliance. (4) Contusion of right shoulder: patient is able to move arm. does not appear to need ortho input. (5) Contusion of hand, right: Patient is able to open and close hand (6) Fall: (7) Hypoxia: short lived. perhaps atelectasis. will continue to monitor. (8) Weakness: (9) Anxiety: (10) Depression: continue home medicine (11) Hyperlipidemia: (12) Altered mental status: likely attributed to chronic alcoholism. (13) Diabetes: held home meds. will place on insulin during hospital stay, (14) Hypertension: resume home meds. Total Time Total Time Spent Total Time Spent (In Minutes): 32 Total Time Includes: Examination of the Patient, Discharge Planning and Medication Reconciliation Discharge Plan Discharge Items Patient Disposition: Home - Home Health Services Reason For Visit: SYNCOPE Discharge Diagnosis: confusion/ dementia Activity: Resume your previous activity Non-emergency contact: Primary Care Provider Call non-emergency contact if: you have any medication questions Follow-up/Referrals: Jordon Ruiz MD [Physician] - 03/17/19 2:00 pm (Please, follow up at [facility] Neurology Office with Dr. Ruiz's associate, Vicky Godoy PA-C on WednesdayMarch 17 at 2:00 pm. *The office is located at [facility] in [place]. If you need to change this appointment, call the office at [phone].) Wallace Villavicencio Jr, [Primary Care Provider] - 01/17/19 11:00 am (Please, follow up with Dr. Villavicencio on WednesdayJanuary 17 at 11:00 am. *If you need to change this appointment, call the office at [phone].) Diet: Regular Addtl Attending Provider Instructions: Recommend followup with PCP in 1-2 weeks. Followup with Neurology when available. Followup with Psych when available Followup BMP in 5 days Pending Studies at Discharge: No Stand-Alone Forms: My [facility], Smoking Cessation Medications and DC Order Prescriptions: New thiamine HCl (vitamin B1) [Vitamin B-1] 100 mg Tablet 100 mg PO QAM Qty: 30 RF: 0 Continued benztropine 0.5 mg Tablet 0.5 mg PO HS RF: 0 trazodone 50 mg Tablet 75 mg PO HS RF: 0 sertraline 100 mg Tablet 100 mg PO QAM RF: 0 aspirin 81 mg Tablet,Delayed Release (Dr/Ec) 81 mg PO QDL RF: 0 risperidone 2 mg Tablet 2 mg PO BID RF: 0 folic acid 1 mg Tablet 1 mg PO QAM RF: 0 losartan 100 mg Tablet 100 mg PO QAM RF: 0 risperidone 1 mg Tablet 1 mg PO QAM RF: 0 propranolol 80 mg Capsule,Extended Release 24hr 80 mg PO HS RF: 0 metformin 500 mg Tablet Extended Release 24hr 1,000 mg PO BID RF: 0 No Action Xultophy 100/3.6 100 unit-3.6 mg /mL (3 mL) insulin pen 40 units SQ QAM RF: 0 Discharge Orders: Discharge Order (Routine); Ordered 01/13/19 Ordered By: Maycol Bull/Other Patient Handouts: Hyperglycemia, Hypoglycemia Admission Data Admit Date/Time: 01/10/19 11:01 Attending Provider: Maycol Horta Admit Provider: Leonardo Sin Primary Care Provider: Wallace Villavicencio Jr Other Providers: Ascencion Ac Other Interventions: Discharge Summary Assessment (RN) Last Done: 01/13/19 12:49 DC Date/Time DO NOT enter until pt leaves facility: 01/13/19 14:10
== END 2019-01-13 14:10 | disposition home health service (06) | DRG 312 ==
LOC: ED 14:05 → 2S 14:05 → SUATTDRO 18:06 → 2S 19:43 → 4W 01-09 16:02

== ENCOUNTER 2019-01-14 12:59 | Inpatient (IN) ==
[2019-01-14 14:09] LABS: Basophils # (auto) 0.01 K/uL (0-0.2); Basophils % (auto) 0.2 %; Eosinophils % (auto) 2.2 %; Hematocrit (blood only) 37.2 % (37-47); Hemoglobin 12.1 g/dL (12.0-16.0); Immature Granulocytes # (auto) 0.01 K/uL (0.00-0.02); Immature Granulocytes % (auto) 0.2 %; Lymphocytes # (auto) 1.05 K/uL (1.2-3.4); Lymphocytes % (auto) 22.7 %; Mean Corpuscular Hemoglobin 28.6 pg (25-34); Mean Corpuscular Hgb Conc 32.5 g/dL (32-36); Mean Corpuscular Volume 87.9 fL (80-100); Mean Platelet Volume 10.7 fL (7.4-10.4); Monocytes # (auto) 0.37 K/uL (0.11-0.59); Neutrophils # (auto) 3.09 K/uL (1.4-6.5); Neutrophils % (auto) 66.7 %; Platelet Count 101 K/uL (130-400); RDW Coefficient of Variation 14.7 % (11.5-14.5); RDW Standard Deviation 47.1 fL (36.4-46.3); Red Blood Count 4.23 M/uL (4.2-5.4); White Blood Count 4.63 K/uL (4.8-10.8)
[2019-01-14 14:16] LABS: Appearance Urine Cloudy (Clear); Bacteria Urine Automated 4+ (Negative); Bilirubin Urine Negative (Negative); Blood Urine Negative (Negative); Color Urine Yellow; Epithelial Cell Urine Auto 20-30 /lpf (0-5); Glucose Urine UA 3+ (Negative); Ketones Urine Negative (Negative); Leukocyte Esterase Urine 2+ (Negative); Nitrite Urine Positive (Negative); Protein Urine Negative (Negative); RBC Urine Automated 0-4 /hpf (0-4); Specific Gravity Urine 1.021 (1.000-1.030); Urobilinogen Urine Negative (Negative); WBC Urine Automated >30 /hpf (0-5); pH Urine 6.5 (4.5-7.5)
[2019-01-14 14:32] LABS: Alanine Aminotransferase 37 U/L (12-78); Albumin Level 3.3 gm/dl (3.4-5.0); Aspartate Aminotransferase 45 U/L (15-37); BUN Creatinine Ratio 17.6 (10-20); Blood Urea Nitrogen 18 mg/dl (7-18); Calcium 9.3 mg/dl (8.5-10.1); Carbon Dioxide 25 mmol/L (21-32); Chloride 104 mmol/L (98-107); Creatinine Clr Calc Pharmacy 53.3 ml/min; Est GFR (African American) 66.7; Est GFR (Non-African American) 57.6; Glucose 366 mg/dl (70-99); Potassium 4.4 mmol/L (3.5-5.1); Sodium 135 mmol/L (136-145)
[2019-01-14 14:36] LABS: Albumin Globulin Ratio 0.8 (0.9-2); Alkaline Phosphatase 102 U/L (45-117); Bilirubin,Total 0.5 mg/dl (0.2-1); Globulin 4.4 gm/dl (2.5-4.0); Total Protein 7.7 gm/dl (6.4-8.2); Troponin I < 0.015 ng/ml (0-0.045)
[2019-01-14 14:43] LABS: Beta-Hydroxybutyrate 1.64 mg/dl (0.2-2.81)
[2019-01-14] MEDS ORDERED: cefTRIAXone SODIUM 1000MG/50ML D5W IV ONE (14:45)
[2019-01-14] MEDS ORDERED: cefTRIAXone SODIUM 1,000 MG in DEXTROSE 5% 50 ML IV SCH (14:45)
--- NOTE | 2019-01-14 16:07 | History & Physical Report ---
Date of Service January 14, 2019 Assessment & Plan (1) Acute UTI: Admit to to observation MedSurg on telemetry Vital signs every 4 hours Monitor electrolytes Started ceftriaxone in the ER for urinary tract infection, continue on the floor Follow-up urine culture DVT prophylaxis Lovenox 40 mg SC daily Full code Present on Admission?: Yes (2) Diabetes mellitus type 2 in nonobese: Hold metformin while patient is hospitalized to prevent hypoglycemia and possible kidney injury in case patient has radiological studies done. Accu-Cheks before meals and at bedtime, preferred sliding scale insulin and glargine while in the hospital. Glycemic control per pharmacy. Present on Admission?: Yes (3) Hyperglycemia: (4) Weakness: Apparently patient had weakness before she was discharged a day ago. Would help with physical and Occupational Therapy. Present on Admission?: Yes (5) Depressed: Continue home meds; folic acid 1 mg p.o. every morning, benzo atropine 0.5 mg p.o. nightly, risperidone 2 mg p.o. daily, sertraline 10 mg p.o. every morning, thiamine 100 mg p.o. every morning, trazodone 75 mg p.o. nightly Present on Admission?: Yes (6) Hyperlipidemia: Lipid panel pending. Present on Admission?: Yes (7) Hypertension: Stable continue home dose of propanolol 80 mg p.o. nightly, losartan 100 mg p.o. every morning, aspirin 81 mg p.o. daily Present on Admission?: Yes (8) Confusion: Per patient friend patient is at her best baseline. Patient needs physical and occupational therapy. In person patient is alert oriented and gives very good history. Patient does not appear to be confused. Present on Admission?: Yes History of Present Illness Chief Complaint: Dizziness and hyperglycemia Primary Care Provider: Wallace Villavicencio Jr, DO Patient is a 68 years old female with past medical history of diabetes mellitus type 2, hyperlipidemia, depression, syncope and collapse in the past, peripheral neuropathy, who was brought to the emergency room with complaint that patient felt dizzy and had generalized weakness at home, she was unable to follow the instructions of the home health unable to give herself insulin as she is supposed to and generally feeling confused. Patient was just discharged from the hospital with home health a day ago. Her daughter's friend and her both are saying that home health is not sufficient for patient care at home and she would like to go to longterm facility or rehab for some time until she recuperates. Patient daughter is traveling in [place] right now and she is unable to take care of her. Patient denies fever, chills ,headache, chest pain shortness of breath abdominal pain frequency urgency hematuria dysuria. Patient is pleasant but appears mentally slow which per her daughter's friend is patient's baseline. Patient says she was regularly taking her medicine but she was confused today about how she supposed to take her insulin. Labs are reviewed: WBC 4.63, hemoglobin 12.1, hematocrit 37.2 platelets 101, sodium 135, potassium 4.4, chloride 104, anion gap 7, BUN 18, creatinine 1.01, GFR 57.6, glucose 366--> 131, AST 45, ALT 37, alkaline phosphatase 102, troponin 0 0.015, beta hydroxybutyric acid 1.64. Urine appearance is cloudy, positive for nitrates, positive for 2+ leukocyte esterase, positive for over 30 WBC, 4+ bacteria, does not appear to be a clean-catch. Decision was made to admit patient for observation MedSurg on telemetry for urinary tract infection and possibly placement to rehabilitation or SNF for physical therapy. Allergies Allergy/AdvReac Type Severity Reaction Status Date / Time No Known Allergies Allergy Unknown Verified 01/14/19 14:26 Home Medications Home Medications Medication Instructions Recorded Confirmed Type aspirin 81 mg PO QDL 01/08/19 01/14/19 History benztropine 0.5 mg PO HS 01/08/19 01/14/19 History folic acid 1 mg PO QAM 01/08/19 01/14/19 History losartan 100 mg PO QAM 01/08/19 01/14/19 History metformin 1,000 mg PO BID 01/08/19 01/14/19 History propranolol 80 mg PO HS 01/08/19 01/14/19 History risperidone 1 mg PO QAM 01/08/19 01/14/19 History risperidone 2 mg PO BID 01/08/19 01/14/19 History sertraline 100 mg PO QAM 01/08/19 01/14/19 History trazodone 75 mg PO HS 01/08/19 01/14/19 History thiamine HCl (vitamin B1) [Vitamin 100 mg PO QAM #30 tab 01/13/19 01/14/19 Rx B-1] insulin degludec-liraglutide 40 units SQ QAM 01/14/19 01/14/19 History [Xultophy 100/3.6] Past Med/Surg History Medical History Wernicke encephalopathy syndrome Syncope and collapse Altered mental status (Acute 05/08/13) Diabetes (Chronic) Family History Other No pertinent family history Social History Preferred Language: Faroese Communication Ability: Effective Pharmacy Customer Care Specialist Required: No Beliefs That Will Affect Care: None Current Living Situation: Alone Current Living Situation Comment: alone has home health Other Information That Helps Us Care for You: No Feels Safe at Home: Yes Safety Concerns: Feels Safe At This Time Smoking Status: Never smoker Hx Alcohol Use: No Hx Substance Use: No Review of Systems Review of Systems: All systems reviewed & are unremarkable except as noted in HPI & below Physical Exam Constitutional: WD/WN, vitals as above Eyes: PERRL, conjunctivae normal, anicteric sclerae ENMT: external ear and nose normal, oropharynx normal Neck: trachea midline, no thyromegaly Respiratory: normal respiratory effort, lungs clear to auscultation Cardiovascular: Heart Sounds: normal S1, normal S2 and + murmur Vessels: dorsalis pedis pulses present Gastrointestinal (Abdomen): normal bowel sounds, soft, nontender, no hepatosplenomegaly Musculoskeletal: no cyanosis or clubbing, extremities motor strength 5/5 Skin: Positive for seborrheic dermatitis-which patient says has been ongoing for a long time. Neurologic: patellar DTR's 2+ bilat, sensation intact Psychiatric: A+Ox3, euthymic affect Genitourinary: Mild suprapubic tenderness Lymphatic: no cervical or axillary lymphadenopathy Results & Data Vital Signs (Past 12 Hours) Vital Signs Temp Pulse Pulse Resp BP BP Pulse Ox 01/14/19 16:00 76 31 H 142/92 H 93 01/14/19 15:30 75 26 H 144/72 H 93 01/14/19 15:06 77 19 95 01/14/19 15:05 75 79 23 147/85 H 147/85 H 94 01/14/19 15:00 77 30 H 92 01/14/19 14:30 72 27 H 94 01/14/19 14:03 73 19 98 01/14/19 13:49 141/92 H 01/14/19 13:48 80 23 153/89 H 01/14/19 13:47 82 24 142/78 H 93 01/14/19 13:45 73 20 93 01/14/19 13:38 92 01/14/19 13:35 146/85 H 93 01/14/19 13:01 36.2 C L 80 18 132/76 96 Code Status & VTE Plan VTE Prophylaxis Plan VTE Prophylaxis will be ordered: Yes PG Care Time/CCT Total # of Minutes Spent Total Time Spent with Patient: Total time spent is greater than 50% in coordination of care (as documented) at patient's floor/unit and/or counseling patient:
--- NOTE | 2019-01-14 16:24 | Emergency Department Note ---
Entered by Tierra Dobbs acting as a scribe for History of Present Illness General Chief complaint: Referred by Doctor Stated complaint: HOME HEALTH INSTRUCTED TO COME IN Source: patient History of Present Illness Onset (ago): day(s) 1 Location: chest Relieved By: + none Associated symptoms: + chest pain Treatments prior to arrival: none The patient is a 68 year old female who presents to the Emergency Room with a referral from Home Health today for evaluation and transfer to a rehab facility. [facility] saw the patient earlier, and believed she was not in a good state to live by herself. Since she left the hospital last, she has had no reoccurring episodes of falls. The patient does have a casing trimmer who comes to her house each day, but she does not live with her. Her daughter is traveling to [place] and is unable to care for her. The patient also mentions experiencing some chest pain last night. Home Medications Home Medications Medication Instructions Recorded Confirmed Type aspirin 81 mg PO QDL 01/08/19 01/14/19 History benztropine 0.5 mg PO HS 01/08/19 01/14/19 History folic acid 1 mg PO QAM 01/08/19 01/14/19 History losartan 100 mg PO QAM 01/08/19 01/14/19 History metformin 1,000 mg PO BID 01/08/19 01/14/19 History propranolol 80 mg PO HS 01/08/19 01/14/19 History risperidone 1 mg PO QAM 01/08/19 01/14/19 History risperidone 2 mg PO BID 01/08/19 01/14/19 History sertraline 100 mg PO QAM 01/08/19 01/14/19 History trazodone 75 mg PO HS 01/08/19 01/14/19 History thiamine HCl (vitamin B1) [Vitamin 100 mg PO QAM #30 tab 01/13/19 01/14/19 Rx B-1] insulin degludec-liraglutide 40 units SQ QAM 01/14/19 01/14/19 History [Xultophy 100/3.6] Allergies Allergy/AdvReac Type Severity Reaction Status Date / Time No Known Allergies Allergy Unknown Verified 01/14/19 14:26 Past Med/Surg History Medical History Wernicke encephalopathy syndrome Syncope and collapse Altered mental status (Acute 05/08/13) Diabetes (Chronic) Family History Other No pertinent family history Social History Preferred Language: Albanian Communication Ability: Effective Beliefs That Will Affect Care: None Current Living Situation: Alone Feels Safe at Home: Yes Smoking Status: Never smoker Hx Alcohol Use: No Hx Substance Use: No Review of Systems See HPI for pertinent positives & negatives. and A total of 10 systems reviewed and were otherwise negative Physical Exam Vital Signs Vital Signs - 24 hr 01/14/19 13:01 01/14/19 13:35 01/14/19 13:38 Temperature 36.2 C L Temperature Source Oral Sepsis Recent Fever Within 48 Hours No Sepsis New/Unexplained Change in Mental Status No Sepsis Action Taken by Nursing No Action Required Pulse Rate - Lying Pulse Rate - Sitting Pulse Rate - Standing Pulse Rate 80 Pulse Rate [Right Finger] Pulse Rate from SpO2 Sensor 74 73 Respiratory Rate 18 Respiratory Effort / Characteristics Non-Labored Respiratory Depth Normal Respiratory Pattern Blood Pressure - Lying Blood Pressure - Sitting Blood Pressure- Standing Blood Pressure 132/76 146/85 H Blood Pressure [Right Arm] Blood Pressure Mean 94 105 Blood Pressure Mean [Right Arm] Pulse Oximetry 96 93 92 Oxygen Delivery Method Room Air 01/14/19 13:45 01/14/19 13:47 01/14/19 13:48 Temperature Temperature Source Sepsis Recent Fever Within 48 Hours Sepsis New/Unexplained Change in Mental Status Sepsis Action Taken by Nursing Pulse Rate - Lying 74 Pulse Rate - Sitting 82 Pulse Rate - Standing 80 Pulse Rate 73 82 80 Pulse Rate [Right Finger] Pulse Rate from SpO2 Sensor 77 Respiratory Rate 20 24 23 Respiratory Effort / Characteristics Respiratory Depth Respiratory Pattern Blood Pressure - Lying 142/78 H Blood Pressure - Sitting 153/89 H Blood Pressure- Standing 141/92 H Blood Pressure 142/78 H 153/89 H Blood Pressure [Right Arm] Blood Pressure Mean 99 110 Blood Pressure Mean [Right Arm] Pulse Oximetry 93 93 Oxygen Delivery Method Room Air 01/14/19 13:49 01/14/19 14:03 01/14/19 14:30 Temperature Temperature Source Sepsis Recent Fever Within 48 Hours Sepsis New/Unexplained Change in Mental Status Sepsis Action Taken by Nursing Pulse Rate - Lying Pulse Rate - Sitting Pulse Rate - Standing Pulse Rate 73 72 Pulse Rate [Right Finger] Pulse Rate from SpO2 Sensor 73 73 Respiratory Rate 19 27 H Respiratory Effort / Characteristics Respiratory Depth Respiratory Pattern Blood Pressure - Lying Blood Pressure - Sitting Blood Pressure- Standing Blood Pressure 141/92 H Blood Pressure [Right Arm] Blood Pressure Mean 108 Blood Pressure Mean [Right Arm] Pulse Oximetry 98 94 Oxygen Delivery Method 01/14/19 15:00 01/14/19 15:05 01/14/19 15:06 Temperature Temperature Source Sepsis Recent Fever Within 48 Hours Sepsis New/Unexplained Change in Mental Status Sepsis Action Taken by Nursing Pulse Rate - Lying Pulse Rate - Sitting Pulse Rate - Standing Pulse Rate 77 75 77 Pulse Rate [Right Finger] 79 Pulse Rate from SpO2 Sensor 76 75 77 Respiratory Rate 30 H 23 19 Respiratory Effort / Characteristics Non-Labored Spontaneous Respiratory Depth Normal Respiratory Pattern Regular Blood Pressure - Lying Blood Pressure - Sitting Blood Pressure- Standing Blood Pressure 147/85 H Blood Pressure [Right Arm] 147/85 H Blood Pressure Mean 105 Blood Pressure Mean [Right Arm] 105 Pulse Oximetry 92 94 95 Oxygen Delivery Method Room Air 01/14/19 15:30 01/14/19 16:00 Temperature Temperature Source Sepsis Recent Fever Within 48 Hours Sepsis New/Unexplained Change in Mental Status Sepsis Action Taken by Nursing Pulse Rate - Lying Pulse Rate - Sitting Pulse Rate - Standing Pulse Rate 75 76 Pulse Rate [Right Finger] Pulse Rate from SpO2 Sensor 75 75 Respiratory Rate 26 H 31 H Respiratory Effort / Characteristics Respiratory Depth Respiratory Pattern Blood Pressure - Lying Blood Pressure - Sitting Blood Pressure- Standing Blood Pressure 144/72 H 142/92 H Blood Pressure [Right Arm] Blood Pressure Mean 96 108 Blood Pressure Mean [Right Arm] Pulse Oximetry 93 93 Oxygen Delivery Method GENERAL: Awake, alert, in no distress HENT: Normocephalic. Oropharynx unremarkable. Old, healing right eyebrow contusion. EYES: Normal conjunctiva. Sclera non-icteric. NECK: Supple. No nuchal rigidity. RESPIRATORY: Clear to auscultation. No wheezes. Normal respiratory effort. CARDIAC: Normal rate. Normal rhythm. Extremities warm and well perfused. GI: Soft, non-distended. No tenderness to palpation. No rebound or guarding. RECTAL: Deferred. MUSCULOSKELETAL: Atraumatic. Chest examination reveals no tenderness. T LOWER EXTREMITIES: Calves are equal size bilaterally and non-tender. No edema NEURO: Occasionally makes some nonsensical statements. No sensory or motor deficits noted. No facial droop. SKIN: Warm and dry. No jaundice noted. Course 1327: Past medical records reviewed. The patient was evaluated in room A10. A complete history and physical exam was performed. 1348: I checked on the patient and further discussed her situation with her. 1440: I updated the patient and discussed the case with Dr. Ayers. He agreed to take over care and further evaluate the patient. The patient verbally expressed understanding and agreement of the treatment plan. The patient will be evaluated for further treatment. Administered Medications Discontinued Medications Ceftriaxone Sodium (Rocephin) 1,000 mg IV NOW ONE Stop: 01/14/19 14:46 Last Admin: 01/14/19 15:02 Dose: 1,000 mg Documented by: [id number] Medical Decision Making Differential Diagnosis Differential diagnosis includes: metabolic, infection, hypoglycemia, elec trolyte abnormalities, cardiac sources, intracerebral event, toxicologic, neurologic, as well as others were entertained. Medical Records Attestation: I reviewed the patient's medical records. Home Medications Current Medication List: was personally reviewed by me Laboratory Data Attestation: I reviewed the patient's lab results. Result diagrams: 01/14/19 14:00 01/14/19 14:00 Lab Results 01/14/19 01/14/19 01/14/19 Range/Units 14:00 14:00 14:00 WBC 4.63 L (4.8-10.8) K/uL RBC 4.23 (4.2-5.4) M/uL Hgb 12.1 (12.0-16.0) g/dL Hct 37.2 (37-47) % MCV 87.9 (80-100) fL MCH 28.6 (25-34) pg MCHC 32.5 (32-36) g/dL RDW Std Deviation 47.1 H (36.4-46.3) fL RDW Coeff of Griffin 14.7 H (11.5-14.5) % Plt Count 101 L (130-400) K/uL MPV 10.7 H (7.4-10.4) fL Immature Gran % (Auto) 0.2 % Neut % (Auto) 66.7 % Lymph % (Auto) 22.7 % [place] % (Auto) 8.0 % Eos % (Auto) 2.2 % Baso % (Auto) 0.2 % Immature Gran # (Auto) 0.01 (0.00-0.02) K/uL Neut # (Auto) 3.09 (1.4-6.5) K/uL Lymph # (Auto) 1.05 L (1.2-3.4) K/uL [place] # (Auto) 0.37 (0.11-0.59) K/uL Eos # (Auto) 0.10 (0-0.5) K/uL Baso # (Auto) 0.01 (0-0.2) K/uL Sodium 135 L (136-145) mmol/L Potassium 4.4 (3.5-5.1) mmol/L Chloride 104 (98-107) mmol/L Carbon Dioxide 25 (21-32) mmol/L Anion Gap 7.0 (3-11) BUN 18 (7-18) mg/dl Creatinine 1.01 (0.6-1.2) mg/dl Est Cr Clr Drug Dosing 53.3 ml/min Est GFR ( Amer) 66.7 Est GFR (Non-Af Amer) 57.6 BUN/Creatinine Ratio 17.6 (10-20) Glucose 366 H* (70-99) mg/dl Calcium 9.3 (8.5-10.1) mg/dl Total Bilirubin 0.5 (0.2-1) mg/dl AST 45 H (15-37) U/L ALT 37 (12-78) U/L Alkaline Phosphatase 102 (45-117) U/L Troponin I < 0.015 (0-0.045) ng/ml Total Protein 7.7 (6.4-8.2) gm/dl Albumin 3.3 L (3.4-5.0) gm/dl Globulin 4.4 H (2.5-4.0) gm/dl Albumin/Globulin Ratio 0.8 L (0.9-2) Beta-Hydroxybutyric Acd 1.64 (0.2-2.81) mg/dl Urine Color Yellow Urine Appearance Cloudy A (Clear) Urine pH 6.5 (4.5-7.5) Ur Specific [place] 1.021 (1.000-1.030) Urine Protein Negative (Negative) Urine Glucose (UA) 3+ H (Negative) Urine Ketones Negative (Negative) Urine Blood Negative (Negative) Urine Nitrite Positive A (Negative) Urine Bilirubin Negative (Negative) Urine Urobilinogen Negative (Negative) Ur Leukocyte Esterase 2+ H (Negative) Urine WBC (Auto) >30 H (0-5) /hpf Urine RBC (Auto) 0-4 (0-4) /hpf U Hyaline Cast (Auto) 1-5 (0-5) /lpf U Epithel Cells (Auto) 20-30 H (0-5) /lpf Urine Bacteria (Auto) 4+ H (Negative) ECG Data Attestation: I personally reviewed and interpreted this ECG as follows: Indication: altered mental status Rate (beats per minute): 73 Rhythm: normal sinus Findings: + other (prolonged QT interval); no ST elevation, no acute ischemic change and no ectopy Blood Pressure Blood Pressure Findings: Elevated blood pressure Blood Pressure Disposition: Referred to patients primary care provider YOLIS Narrative Patient is a 68-year-old female with a past medical history including hyperlipidemia, hypertension, and admission with discharge yesterday for episodes of syncope. Evaluate by cardiology but felt this was possibly more neurological in origin and recommended for outpatient neurological follow-up. Went home with home health to assist her. They do not feel safe with her at home. There is been no new trauma since the last prior admission. Healing contusion of right eye is reported old. EKG and basic labs. No other significant finding noted here. Just had an extensive inpatient work-up for similar episodes. Doubt this represents PE at this time especially with recent CT of the chest from last week. Had a brain MRI last week as well. In discussion with the casing trimmer Fabby who is here and evidently it does not seem that this we can consistently provide 24/7 care for the patient. She is concerned about caring for the patient at home. The patient is occasionally making some odd statements. This is reportedly at baseline recently per the caregiver. Given this discussed with case management will admit the patient for possible placement. Additionally noted a positive urinalysis today. Culture sent. Given of ceftriaxone for acute uti; this could be causing some of her confusion as well. . Impression & Plan Acute UTI, Hyperglycemia, Confusion Discharge Plan Visit Data Chief Complaint: Referred by Doctor Stated Complaint: HOME HEALTH INSTRUCTED TO COME IN ED Provider: Timo Smith Discharge Problem: Acute UTI, Hyperglycemia, Confusion Forms Stand Alone Forms: My [employer] Prescriptions Prescriptions: No Action benztropine 0.5 mg Tablet 0.5 mg PO HS RF: 0 trazodone 50 mg Tablet 75 mg PO HS RF: 0 sertraline 100 mg Tablet 100 mg PO QAM RF: 0 aspirin 81 mg Tablet,Delayed Release (Dr/Ec) 81 mg PO QDL RF: 0 risperidone 2 mg Tablet 2 mg PO BID RF: 0 folic acid 1 mg Tablet 1 mg PO QAM RF: 0 losartan 100 mg Tablet 100 mg PO QAM RF: 0 risperidone 1 mg Tablet 1 mg PO QAM RF: 0 propranolol 80 mg Capsule,Extended Release 24hr 80 mg PO HS RF: 0 metformin 500 mg Tablet Extended Release 24hr 1,000 mg PO BID RF: 0 thiamine HCl (vitamin B1) [Vitamin B-1] 100 mg Tablet 100 mg PO QAM Qty: 30 RF: 0 Xultophy 100/3.6 100 unit-3.6 mg /mL (3 mL) insulin pen 40 units SQ QAM RF: 0 The scribe's documentation has been prepared under my direction and personally reviewed by me in its entirety. I confirm that the note above accurately reflects all work, treatment, procedures, and medical decision making performed by me.
[2019-01-14] MEDS ORDERED: GLUCAGON FOR INJ 1 MG VIAL SQ PRN (17:58)
[2019-01-14] MEDS ORDERED: DEXTROSE 50% 50 ML SYRINGE IV PRN (17:58)
[2019-01-14] MEDS ORDERED: CARBOHYDRATES FOR HYPOGLYCEMIA PO PRN (17:58)
[2019-01-14] MEDS ORDERED: GLUCOSE 10 TABS/TUBE PO PRN (17:58)
[2019-01-14] MEDS ORDERED: ACETAMINOPHEN 325 MG TAB PO PRN (17:58)
[2019-01-14] MEDS ORDERED: ONDANSETRON INJ 2 MG/ML 2 ML VIAL IV PRN (17:58)
[2019-01-14] MEDS ORDERED: SODIUM CHLORIDE 0.9% 1000ML 1,000 ML IV SCH (17:58)
[2019-01-14] MEDS ORDERED: POLYETHYLENE (MIRALAX) 17 GM PACK PO PRN (17:58)
[2019-01-14] MEDS ORDERED: ALUMINUM/MAGNESIUM SUSP 30 ML UDC PO PRN (17:58)
[2019-01-14] MEDS ORDERED: MAGNESIUM HYDROXIDE SUSP 30 ML UDC PO PRN (17:58)
[2019-01-14] MEDS ORDERED: GLUCOSE 40% GEL 15 GM TUBE PO PRN (17:58)
[2019-01-14] MEDS ORDERED: ZOLPIDEM TARTRATE 5 MG TAB PO PRN (17:58)
[2019-01-14] MEDS ORDERED: PHARMACY GLYCEMIC MGMT CONSULT PRN (18:25)
--- NOTE | 2019-01-14 19:15 | Pharmacy Report ---
Glycemic Control Consultation - Date of Service January 14, 2019 - Scope Scope: Glycemic Pharmacist consulted for glycemic control and to write orders per [facility] inpatient glycemic control protocol - Objective Weight: 72.9 kg Accuchecks BSG (last 24hrs): 01/14/19 01/14/19 14:00 19:03 Glucose 366 H* POC Glucose 131 H Laboratory Data (last 24hrs): 01/14/19 14:00 Potassium 4.4 Carbon Dioxide 25 Anion Gap 7.0 Creatinine 1.01 Est Cr Clr Drug Dosing 53.3 Beta-Hydroxybutyric Acd 1.64 - Recent Pertinent Medications Outpatient Anti-diabetic Regimen: * Xultophy (premixed pen of basal insulin + GLP1) * Metformin Risk Factors for Insulin Resistance: * Infection * Diet - Assessment & Plan Assessment & Plan: ASSESSMENT: * 68yo T2DM female with unknown degree of outpatient control. A1c pending. * Pt is maintained on insulin + GLP-1 + Metformin as an outpatient. Confirmed that Patient did take doses this morning. * Pt with SEVERE hyperglycemia in ED per PRP GLU- did not receive any treatment. POC BSG @ 1915 is in goal range for inpatient targets. Likely AM outpatient anti-diabetic medications are working. * No basal likely needed this evening --> outpatient dose of basal insulin is 40 units degludec. This equates to a 1:1 conversion with Lantus. Will start tomorrow AM * Will add conservative bolus insulin scale for today while GLP-1 still on board. May need to tighten tomorrow AM. PLAN FOR INPATIENT GLYCEMIC CONTROL: * Holding outpatient diabetes medications * Basal insulin * Lantus 40 units SQ AM * Bolus insulin * NovoLog per scale ACHS or Q6hrs while NPO * Goal Range: Low 110 mg/dL - High 150 mg/dL * Correction Factor: 30 mg/dL/unit --> tighten to 20 tomorrow AM * Nutritional / Prandial insulin per carb ratio of 1 unit per 10 grams CHO consumed --> tighten to 7 tomorrow * Please note that the plan above was derived based on current level of insulin resistance and hospital stress. These recommendations are appropriate for inpatient admission only. Plan of care upon discharge will need to be reassessed to avoid potential outpatient hypo/hyperglycemia. Thank you.
[2019-01-14] MEDS: INSULIN ASPART 100 UNITS/ML 3 ML PEN SC SCH ×3 (19:36→23:57)
[2019-01-14] MEDS: TRAZODONE HCL 50 MG TAB PO SCH (20:54)
[2019-01-14] MEDS: BENZTROPINE MESYLATE 0.5 MG TAB PO SCH (20:54)
[2019-01-14] MEDS: PROPRANOLOL HCL LA 80 MG CAPCR PO SCH (20:54)
[2019-01-14] MEDS ORDERED: INFLUENZA VACCINE HIGH DOSE 65+ 0.5 ML SYR IM ONE (21:15)
[2019-01-14] MEDS ORDERED: INFLUENZA ADMINISTRATION CHARGE ONE (21:15)
[2019-01-15] MEDS ORDERED: KETOROLAC TROMETHAMINE 15 MG/ML VIAL IV ONE (00:42)
[2019-01-15] MEDS: INSULIN ASPART 100 UNITS/ML 3 ML PEN SC SCH ×5 (04:16→20:21)
[2019-01-15 06:21] LABS: Basophils # (auto) 0.01 K/uL (0-0.2); Basophils % (auto) 0.2 %; Eosinophils # (auto) 0.14 K/uL (0-0.5); Eosinophils % (auto) 3.2 %; Hematocrit (blood only) 33.5 % (37-47); Immature Granulocytes # (auto) 0.01 K/uL (0.00-0.02); Immature Granulocytes % (auto) 0.2 %; Lymphocytes # (auto) 1.45 K/uL (1.2-3.4); Lymphocytes % (auto) 33.5 %; Mean Corpuscular Hemoglobin 28.5 pg (25-34); Mean Corpuscular Hgb Conc 32.8 g/dL (32-36); Mean Corpuscular Volume 86.8 fL (80-100); Mean Platelet Volume 10.6 fL (7.4-10.4); Monocytes # (auto) 0.34 K/uL (0.11-0.59); Monocytes % (auto) 7.9 %; Neutrophils # (auto) 2.38 K/uL (1.4-6.5); Platelet Count 101 K/uL (130-400); RDW Coefficient of Variation 14.7 % (11.5-14.5); RDW Standard Deviation 46.2 fL (36.4-46.3); Red Blood Count 3.86 M/uL (4.2-5.4); White Blood Count 4.33 K/uL (4.8-10.8)
[2019-01-15 06:54] LABS: BUN Creatinine Ratio 19.5 (10-20); Calcium 8.7 mg/dl (8.5-10.1); Creatinine Clr Calc Pharmacy 72.5 ml/min; Est GFR (African American) 97.2; Est GFR (Non-African American) 83.8; Potassium 3.9 mmol/L (3.5-5.1)
[2019-01-15 06:57] LABS: Albumin Globulin Ratio 0.8 (0.9-2); Bilirubin,Total 0.3 mg/dl (0.2-1)
[2019-01-15] MEDS: cefTRIAXone SODIUM 1,000 MG in DEXTROSE 5% 50 ML IV SCH (08:35)
[2019-01-15] MEDS: risperiDONE 1 MG TABLET PO SCH (08:35)
[2019-01-15] MEDS: THIAMINE HCL 100 MG TAB PO SCH (08:35)
[2019-01-15] MEDS: SERTRALINE HCL 100 MG TABLET PO SCH (08:35)
[2019-01-15] MEDS: FOLIC ACID 1 MG TAB PO SCH (08:35)
[2019-01-15] MEDS: LOSARTAN POTASSIUM 50 MG TAB PO SCH (08:35)
[2019-01-15] MEDS: ENOXAPARIN INJ 40 MG/0.4 ML SYR SQ SCH (08:36)
[2019-01-15] MEDS: INSULIN GLARGINE SOLOSTAR 100 UNITS/ML 3 ML PEN SC SCH (08:37)
[2019-01-15] MEDS ORDERED: [UNRECOGNIZED DRUG - OTHER] SQ SCH (09:00)
--- NOTE | 2019-01-15 10:25 | Hospitalist Progress Note ---
Date of Service January 15, 2019 Assessment & Plan (1) Acute UTI: Urine culture is growing gram-negative rods. Patient is on ceftriaxone which we will continue for now pending culture results. (2) Diabetes mellitus type 2 in nonobese: Hold metformin while patient is hospitalized to prevent hypoglycemia and possible kidney injury in case patient has radiological studies done. Blood sugars appear to be adequately controlled with current regimen. (3) Hyperglycemia: (4) Weakness: Apparently patient had weakness before she was discharged a day ago. Would help with physical and Occupational Therapy. (5) Depressed: Continue home meds; folic acid 1 mg p.o. every morning, benzo atropine 0.5 mg p.o. nightly, risperidone 2 mg p.o. daily, sertraline 10 mg p.o. every morning, thiamine 100 mg p.o. every morning, trazodone 75 mg p.o. nightly (6) Hyperlipidemia: Lipid panel pending. (7) Hypertension: Stable continue home dose of propanolol 80 mg p.o. nightly, losartan 100 mg p.o. every morning, aspirin 81 mg p.o. daily (8) Confusion: Unclear what is causing patient's confusion. She does not appear to have significant encephalopathy from infection or other medical issues. Work-up on previous admission including MRI was unremarkable. There is some consideration of Warnicke's encephalopathy but this diagnosis remains unconfirmed. I would like to have neurology evaluate the patient for possible organic causes. Suspect patient may also require psychiatric evaluation in the near future, either here as an outpatient. I do agree that the patient, from reports, should not be discharged into an unsupervised environment. PT/OT are to see the patient. Their previous recommendations were for long-term and I suspect the patient will need to be discharged into an environment with 24-hour supervision. Subjective Patient is awake and alert. She correctly identifies the date and location. She is concerned about "an allergic reaction" to previous medications and m otions to the multiple ecchymosis on her abdomen, presumably secondary to Lovenox DVT prophylaxis administration. The nurse tells me that the patient is often confused with bizarre speech. To me, patient otherwise seems calm with no acute issues. Review of Systems Review of Systems: Unobtainable due to cognitive status Physical Exam Physical Exam: GENERAL: Non-toxic in appearance. INTEGUMENTARY: Warm, dry, and [place]. HEAD: Normocephalic. EYES: without scleral icterus or trauma. ENT/OROPHARYNX: clear and moist. LYMPHADENOPATHY/NECK: Is supple without lymphadenopathy or meningismus. RESPIRATORY: Lungs clear and equal. CARDIOVASCULAR: Regular rate and rhythm. GI/ABDOMEN: Soft and nontender. No organomegaly or pulsatile mass. No rebound or guarding. Normal bowel sounds. Multiple ecchymoses as previously noted. No obvious hematoma palpation. No pain. EXTREMITIES: Warm and well perfused. BACK: No CVA tenderness. NEUROLOGICAL: Intact without focal deficits. PSYCHIATRIC: normal affect, previous bizarre speech is noted by nursing, did not note any significant evidence of psychosis on my brief visit. MUSCULOSKELETAL: Normally developed with good muscle tone. Results & Data Vital Signs (Past 12 Hours) Vital Signs Temp Pulse Pulse Resp BP Pulse Ox 01/15/19 07:03 36.9 C 67 18 166/91 H 95 01/15/19 04:03 36.8 C 83 17 159/91 H 94 01/14/19 22:54 81 01/14/19 22:35 36.9 C 71 18 158/77 H 97 PG Care Time/CCT Total # of Minutes Spent Total Time Spent with Patient: Total time spent is greater than 50% in coordination of care (as documented) at patient's floor/unit and/or counseling patient:
--- NOTE | 2019-01-15 11:24 | Pharmacy Report ---
Pharmacy Glycemic Short Note 2 - Date of Service January 15, 2019 - Glycemic Short BSG Results (Last 24 hours): 01/14/19 01/14/19 01/14/19 14:00 19:03 23:53 Glucose 366 H* POC Glucose 131 H 108 H 01/15/19 01/15/19 01/15/19 04:06 05:39 07:48 Glucose 101 H POC Glucose 105 H 101 H OUTPATIENT ANTIDIABETIC REGIMEN: * Xultophy 40 units qAM (premixed pen of basal insulin + GLP1) * Metformin Risk Factors for Insulin Resistance: * Infection * Diet - Assessment & Plan ASSESSMENT: 01/15 * Ms. Portillo's BSGs have dropped drastically from admission * Fasting BSG = 101 mg/dL; will wait to change basal insulin since she was not controlled w/ 30 units on previous admission * Novolog parameters were tightened to start this AM, in anticipation of GLP-1 wearing off. Since fasting is starting out lower, will loosen parameters for now. Lunch BSG now above goal so feel comfortable tightening parameters again. 01/14 * 68yo T2DM female with unknown degree of outpatient control. A1c pending. * Pt is maintained on insulin + GLP-1 + Metformin as an outpatient. Confirmed that Patient did take doses this morning. * Pt with SEVERE hyperglycemia in ED per PRP GLU- did not receive any treatment. POC BSG @ 1915 is in goal range for inpatient targets. Likely AM outpatient anti-diabetic medications are working. * No basal likely needed this evening --> outpatient dose of basal insulin is 40 units degludec. This equates to a 1:1 conversion with Lantus. Will start tomorrow AM * Will add conservative bolus insulin scale for today while GLP-1 still on board. May need to tighten tomorrow AM. PLAN FOR INPATIENT GLYCEMIC CONTROL: * Hold outpatient metformin and liraglutide * Basal insulin - no change * Lantus 40 units SQ qAM * Bolus insulin - tighten back to previously ordered parameters * NovoLog per scale ACHS or Q6hrs while NPO * Goal Range: Low 110 mg/dL - High 150 mg/dL * Correction Factor: 20 mg/dL/unit * Nutritional / Prandial insulin per carb ratio of 1 unit per 7 grams CHO consumed * A1c pending - will provide recommendations for discharge once available
[2019-01-15] MEDS: risperiDONE 2 MG TABLET PO SCH (12:19)
[2019-01-15] MEDS: ASPIRIN 81 MG ECTAB PO SCH (12:19)
--- NOTE | 2019-01-15 12:19 | Neurology Consultation ---
Date of Consultation January 15, 2019 Assessment & Plan (1) Confusion: This patient does not appear to have a typical agitated delirium or encephalopathy at this point in time. Her speech and behavior are a bit odd and I wonder if they are related to her history of schizoaffective disorder. She does have some mild difficulty with short-term memory and perhaps some associated difficulty with attention as well. I suspect these particular issues are chronic. She has an apparent history of remote heavy alcohol consumption and a chronic low-grade Wernicke encephalopathy syndrome is possible. I do not think I can exclude an early dementia at this time. At this point, I do not have any further immediate neurological recommendations for her current mental status. I do not find any reason to suspect stroke, meningoencephalitis, or subclinical seizures. In fact, she has had multiple normal EEGs in the past. I would recommend pursuing outpatient neuropsychological evaluation to further assess her cognitive functioning. Continue supportive medical and nutritional support. (2) Syncope and collapse: History of recurrent unsteadiness and falls which has been an intermittent problem that goes back many years and has been extensively evaluated previously with multiple EEGs, EMG, and MRI of the brain, cervical, and lumbar spine. She has also had extensive lab evaluation as well. These assessments have been largely unremarkable although she does have a mild polyneuropathy likely related to diabetes mellitus and mild to moderate cervical spinal stenosis. These 2 issues may contribute to imbalance and gait dysfunction to some degree. It may be worthwhile to obtain an up-to-date cervical spine MRI without contrast as well as an outpatient EMG of the lower limbs to further assess these issues. I will leave it to the house staff physicians discretion regarding the appropriateness of pursuing the cervical spine MRI while the patient is here in the hospital. On the other hand, it may be reasonable to obtain a carotid duple x and/or an MR angiogram of the head and neck to evaluate for vertebrobasilar insufficiency which could in theory present with drop attacks, without other associated neurological symptoms. I will order these tests. Please contact me if you have any questions regarding my assessment of this patient. History of Present Illness Reason for Consultation: Confusion Requesting Physician: Tom Carroll DO Attending Physician: Tom Carroll DO History of Present Illness The patient is a 68-year-old female with a chief complaint of confusion. The exact nature of her confusion seems to center on bizarre speech as reported by her nurse as well as some concern regarding a possible reaction to recent Lovenox injections for DVT prophylaxis indicating multiple areas of ecchymoses on her abdomen. There is no report of any grossly agitated behavior or psychosis. No hallucinations. The patient actually presents in a very calm fashion but is a very tangential historian and is unable to give very good details regarding any one particular symptom. I have evaluated this patient previously in 2014 and 2017 for episodic weakness and recurrent falls with or without associated syncopal symptoms. I was unable to identify a specific neurological disease or process at that time. (Please see results of extensive previous evaluations in the data section below.) She is noted to have a history of schizoaffective disorder as well as a remote history of heavy alcohol use in the or 90s. The patient has previously followed with Dr. Mckeon for her mental health issues. She was recently admitted to the [facility] from January 08- for syncope. Extensive cardiac evaluation was unremarkable. She did complain of a headache last night, but none this morning. She denies any focal muscular weakness or pain. She denies any fevers or chills or neck stiffness. Allergies Allergy/AdvReac Type Severity Reaction Status Date / Time No Known Allergies Allergy Unknown Verified 01/14/19 14:26 Home Medications Home Medications Medication Instructions Recorded Confirmed Type aspirin 81 mg PO QDL 01/08/19 01/14/19 History benztropine 0.5 mg PO HS 01/08/19 01/14/19 History folic acid 1 mg PO QAM 01/08/19 01/14/19 History losartan 100 mg PO QAM 01/08/19 01/14/19 History metformin 1,000 mg PO BID 01/08/19 01/14/19 History propranolol 80 mg PO HS 01/08/19 01/14/19 History risperidone 1 mg PO QAM 01/08/19 01/14/19 History risperidone 2 mg PO BID 01/08/19 01/14/19 History sertraline 100 mg PO QAM 01/08/19 01/14/19 History trazodone 75 mg PO HS 01/08/19 01/14/19 History thiamine HCl (vitamin B1) [Vitamin 100 mg PO QAM #30 tab 01/13/19 01/14/19 Rx B-1] insulin degludec-liraglutide 40 units SQ QAM 01/14/19 01/14/19 History [Xultophy 100/3.6] Patient History Medical History Wernicke encephalopathy syndrome Syncope and collapse Altered mental status (Acute 05/08/13) Diabetes (Chronic) Family History Other No pertinent family history Social History Preferred Language: Urdu Communication Ability: Effective 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: No Beliefs That Will Affect Care: None Current Living Situation: Alone Current Living Situation Comment: alone has home health Other Information That Helps Us Care for You: No Feels Safe at Home: Yes Safety Concerns: Feels Safe At This Time Smoking Status: Never smoker Hx Alcohol Use: No Hx Substance Use: No Review of Systems Constitutional: no fever and no chills Eyes: no blind spots and no diplopia Ear, Nose, Mouth, Throat: no hearing loss Respiratory: no cough and no dyspnea Cardiovascular: no chest pain and no palpitations Gastrointestinal: no nausea and no vomiting Genitourinary: + urinary incontinence Musculoskeletal: + back pain and + neck pain; no myalgia Integumentary: no rash and no lesions Neurologic: as per Subjective / HPI, + dizziness, + confusion and + memory loss; no localized weakness and no loss of sensation Psychiatric: as per Subjective / HPI, + depression and + anxiety; no hallucinations Hematologic / Lymphatic: no easy bleeding and no easy bruising Physical Exam Physical Exam: The patient is a well-developed, well-nourished elderly female. She is alert and fully oriented although misses the exact date. Patient exhibits mild difficulty with delayed recall, 1 out of 3 objects. Remote memory intact. Attention and concentration normal although she did require some additional prompting to complete spelling world backwards. Patient exhibits a normal spontaneous speech pattern. She is able to name objects and repeat phrases without difficulty. Patient exhibits an age-appropriate fund of knowledge and normal comprehension of vocabulary. There is no confabulation. Visual garcia full to confrontation. Visual acuity normal. Pupils equal round reactive to light and accommodation. Eye movements normal. There is no nystagmus, ptosis, or ophthalmoplegia. Facial sensation intact. There is no facial droop or weakness. Hearing intact. Palate elevates to midline. Shoulder shrug intact. Tongue protrudes to midline. There is mildly reduced vibration at the ankles bilaterally. Sensation is otherwise intact for all 4 limbs. Deep tendon reflexes are intact and symmetrical for the arms and legs bilaterally, diminished at the Achilles tendons bilaterally. Plantar responses downgoing bilaterally. There is no dysdiadochokinesia or dysmetria [id number] or [id number]-[id number] bilaterally. Ophthalmoscopic examination reveals normal-appearing optic disks and posterior segments. No papilledema or hemorrhages. Carotid pulses normal bilaterally, no bruits to auscultation. Gait and station not tested due to safety concerns. Patient exhibits normal muscle strength and tone for all 4 limbs. No atrophy. No abnormal movements observed. Results & Data Vital Signs (Past 12 Hours) Vital Signs Temp Pulse Resp BP Pulse Ox 01/15/19 07:03 36.9 C 67 18 166/91 H 95 01/15/19 04:03 36.8 C 83 17 159/91 H 94 Laboratory Results WBC 4.33, hemoglobin 11.0, hematocrit 33.5, platelet count 101, sodium 139, potassium 3.9, BUN 14, creatinine 0.74, glucose 101, AST 48, ALT 34 Hemoglobin A1c from December 06, 2018 was 9.0 A sedimentation rate from April 04, 2018 was 29 Urinalysis from January 14, 2019 appears consistent with infection. Acetylcholine receptor antibody panel from July 2016 was normal. A CK from July 29, 2016 was normal although a CK from May 16, 2016 was elevated at 298. CKs from 2016 in 2013 were normal. An aldolase from April 2016 was normal. A serum immunofixation study from April 2016 was normal. Thiamine and vitamin B6 levels from April 2016 were normal. A vitamin B12 level and folate level from 2015 were normal. An JILLIAN panel from July 2015 was unremarkable as was an anti-Skye 1 antibody. Methylmalonic acid levels have been elevated in the past. MMA level from May 16, 2016 was 407 and an MMA level from July 25, 2015 was 522 Diagnostic Findings A brain MRI completed January 09, 2019 is within normal limits. No evidence for acute or subacute infarct. No significant parenchymal abnormality. No hydrocephalus. There is mild age-appropriate atrophy and mild periventricular ischemic disease. I reviewed the images as well as the radiologist interpretation of this test. MRI of the lumbar and cervical spine completed February 11, 2016 reveals mild to moderate intervertebral disc degeneration from C4-C7 with some anterior contouring of the spinal cord but no critical stenosis. There is mild intervertebral lumbar disc degeneration as well but without significant stenosis. I reviewed the images pertaining to the studies. An electrocardiogram completed January 15, 2019 reveals a normal sinus rhythm, 70 bpm An echocardiogram completed January 09, 2019 reveals a normal left ventricular size and ejection fraction. No regional wall motion abnormalities. No ASD. An electroencephalogram completed February 17, 2017 was normal. An EMG of the lower limbs completed February 11, 2016 was remarkable for a very mild polyneuropathy involving sensory motor fibers of mixed pathology. No evidence for myopathy or lumbosacral radiculopathy bilaterally. An EMG of the left lower limb completed November 08, 2014 was unremarkable and without evidence of polyneuropathy, focal neuropathy, plexopathy, or a myopathic process. Electroencephalogram completed May 10, 2013 was normal. Electroencephalogram completed October 03, 2012 was normal. A Holter monitor from February 18, 2017 revealed no significant dysrhythmias
--- NOTE | 2019-01-15 14:14 | Ultrasound Report ---
US carotid doppler BI HISTORY: Mental status change Syncope, collapse, drop attacks COMPARISON: None. TECHNIQUE: Real-time, grayscale, and color Doppler sonography of the carotid arteries was performed. Imaging reviewed in the transverse and longitudinal planes. All measurements were calculated based on NASCET criteria. FINDINGS: Antegrade flow is seen in the bilateral vertebral arteries. The brachial pressures are hemodynamically similar. Mild plaque formation bilaterally The peak systolic velocity within the right ICA is 63. The right systolic ratio is 1.2. The peak systolic velocity within the left ICA is 52. The left systolic ratio is 0.7. IMPRESSION: No hemodynamically significant stenosis seen within the carotid arteries. Minimal plaque formation bi laterally The above report was generated using voice recognition software. It may contain grammatical, syntax or spelling errors. Electronically signed by: Tommie Montelongo M.D. 01/15/2019 2:13 PM
[2019-01-15] MEDS ORDERED: GADOBUTROL 7.5ML VIAL IV PRN (14:27)
--- NOTE | 2019-01-15 14:37 | Magnetic Resonance Report ---
MR angio head wo con HISTORY: Mental status change Syncope, collapse, drop attacks, rule out VBI TECHNIQUE: 3-D [id number] MRA of the brain was performed without contrast. COMPARISON STUDY: None. FINDINGS: Visualized intracranial internal carotid arteries, distal vertebral arteries, and basilar a rtery are widely patent. There is no significant stenosis, occlusion, or aneurysm seen within the ken ateral ACAs, MCAs, or process development associate. IMPRESSION: No significant stenosis, occlusion, or aneurysm within the ven[place] ira of [place]. Negative vertebral basil ar system The above report was generated using voice recognition software. It may contain grammatical, syntax or spelling errors. Electronically signed by: Tommie Montelongo M.D. 01/15/2019 2:35 PM
--- NOTE | 2019-01-15 14:41 | Magnetic Resonance Report ---
MR angio neck wo/w con HISTORY: Syncope, collapse, drop attacks, rule out VBI TECHNIQUE: Multiaxial CT angiography of the neck was performed IV contrast: None. All measurements w ere calculated based on NASCET criteria. Maximum intensity projection images were also obtained. A dose lowering technique was utilized adhering to the principles of ALARA. COMPARISON STUDY: None. FINDINGS: The aortic arch and proximal great vessels are widely patent. There is no significant sten osis, occlusion, or dissection identified within the bilateral common carotid, internal carotid, or v ertebral arteries. IMPRESSION: No significant stenosis, occlusion, or dissection identified within the carotid or vertebral arteries . The above report was generated using voice recognition software. It may contain grammatical, syntax or spelling errors. Electronically signed by: Tommie Montelongo M.D. 01/15/2019 2:40 PM
[2019-01-15] MEDS: PROPRANOLOL HCL LA 80 MG CAPCR PO SCH (20:22)
[2019-01-15] MEDS: BENZTROPINE MESYLATE 0.5 MG TAB PO SCH (20:23)
[2019-01-15] MEDS: TRAZODONE HCL 50 MG TAB PO SCH (20:23)
[2019-01-16 06:39] LABS: Estimated Average Glucose 249 mg/dl; Hemoglobin A1C 10.3 % (4.5-5.6)
[2019-01-16 06:50] LABS: Basophils # (auto) 0.01 K/uL (0-0.2); Basophils % (auto) 0.2 %; Eosinophils # (auto) 0.16 K/uL (0-0.5); Eosinophils % (auto) 3.4 %; Hematocrit (blood only) 33.5 % (37-47); Immature Granulocytes # (auto) 0.01 K/uL (0.00-0.02); Immature Granulocytes % (auto) 0.2 %; Lymphocytes # (auto) 1.54 K/uL (1.2-3.4); Lymphocytes % (auto) 32.6 %; Mean Corpuscular Hemoglobin 28.2 pg (25-34); Mean Corpuscular Hgb Conc 32.8 g/dL (32-36); Mean Corpuscular Volume 85.9 fL (80-100); Mean Platelet Volume 10.7 fL (7.4-10.4); Monocytes # (auto) 0.52 K/uL (0.11-0.59); Neutrophils # (auto) 2.48 K/uL (1.4-6.5); Neutrophils % (auto) 52.6 %; Platelet Count 122 K/uL (130-400); RDW Coefficient of Variation 14.6 % (11.5-14.5); RDW Standard Deviation 45.7 fL (36.4-46.3); White Blood Count 4.72 K/uL (4.8-10.8)
[2019-01-16 07:27] LABS: Calcium 8.5 mg/dl (8.5-10.1); Creatinine Clr Calc Pharmacy 68.8 ml/min; Est GFR (African American) 92.6; Est GFR (Non-African American) 79.9
[2019-01-16 07:30] LABS: Albumin Globulin Ratio 0.8 (0.9-2); Bilirubin,Total 0.4 mg/dl (0.2-1); Globulin 3.9 gm/dl (2.5-4.0); Total Protein 6.9 gm/dl (6.4-8.2)
[2019-01-16] MEDS: LOSARTAN POTASSIUM 50 MG TAB PO SCH (08:32)
[2019-01-16] MEDS: FOLIC ACID 1 MG TAB PO SCH (08:32)
[2019-01-16] MEDS: risperiDONE 1 MG TABLET PO SCH (08:32)
[2019-01-16] MEDS: THIAMINE HCL 100 MG TAB PO SCH (08:32)
[2019-01-16] MEDS: cefTRIAXone SODIUM 1,000 MG in DEXTROSE 5% 50 ML IV SCH (08:32)
[2019-01-16] MEDS: ENOXAPARIN INJ 40 MG/0.4 ML SYR SQ SCH (08:33)
[2019-01-16] MEDS: SERTRALINE HCL 100 MG TABLET PO SCH (08:33)
[2019-01-16] MEDS: INSULIN ASPART 100 UNITS/ML 3 ML PEN SC SCH ×4 (08:34→21:23)
[2019-01-16] MEDS: INSULIN GLARGINE SOLOSTAR 100 UNITS/ML 3 ML PEN SC SCH (08:34)
--- NOTE | 2019-01-16 08:35 | Family Medicine Progress Note ---
Date of Service January 16, 2019 Assessment & Plan (1) Acute UTI: Patient is a 68 year old female that presented as a readmission on 01/14/19 secondary to dizziness, weakness, and confusion. Acute UTI -Positive Nitrates on UA in ED -IV Ceftriaxone 1000mg QD -Urine culture grew Klebsiella Oxytoca, sensitive to Ceftriaxone, continue antibiotic course. -May have been a contributing factor to patients initial confusion. Confusion/Wernicke Encephalopathy Syndrome -?UTI vs Dehydration vs Acute on Chronic dementia -Acute confusion appears resolved at this point. -There is a baseline confusion that daughter and enterprise architect manager state is normal for her. -Patient does note a longstanding history of alcohol abuse, ?Chronic Wernicke Encephalopathy Syndrome. -Head and Neck MRA negative, Carotid Doppler negative. Weakness -Continue PT/OT -Discussion held with daughter of patient noting that the patient would benefit from outpatient rehab, noted agreement. Schizoaffective Disorder/Anxiety/Depression -Continue Rispiridone, Sertraline, Trazodone -Continue Benztropine -Continue Folic Acid and Thiamine. -Neurology recommendation for future outpatient neuropsych testing. DM2 -Holding PO metformin -ISS -Home Lantus HTN -Continue Propranolol, Losartan -Continue Aspirin 81mg FEN/GI - HH, DM2 DVT - Lovenox Code - Full Dispo - Med/Surg tele, ?DC Wednesday pending placement at SNF. (2) Diabetes: (3) Confusion: (4) Wernicke encephalopathy syndrome: (5) Schizoaffective disorder: (6) Weakness: (7) Hypertension: (8) Hyperlipidemia: (9) Depression: (10) Anxiety: Supervising Physician Co-Signing Physician Notes I personally examined the patient and verified all vera points of history and exam, discussed case, and agree with decision making with Dr Slade. Family present, they are quite clear that she is not safe at home, and definitely want her to go to SNF. Case management working with them on options. They are appreciative of the care. Vitals noted, she is awake pleasant no distress, breathing unlabored no accessory muscle use good effort. Skin shows no rashes no pallor or icterus. Altered mental statusappears to have been encephalopathy related to her UTI superimposed on a chronic dementia of unclear etiology (possibly related to her chronic alcohol use) Dementiaappears to be unsafe to take care of herself. Case management working with family on placement options. Urinary tract infectioncontinue antibiotics and supportive care Otherwise as above Subjective Patient seen and examined this AM while seated. Patient was very pleasant and cooperative and noted that she was feeling well today. She stated that her dysuria had relatively resolved, but that she was still having some "red and orange" discoloration to her urine. She also attributes a slight cough. Otherwise, patient denies nausea, vomiting, diarrhea, sob, chest pain, abdominal pain. Review of Systems Constitutional: no fever and no chills Eyes: no eye pain and no worsening vision Ear, Nose, Mouth, Throat: no ear pain and no dizziness Respiratory: + cough; no dyspnea, no dyspnea on exertion and no pain on inspiration Cardiovascular: no chest pain, no dyspnea, no dyspnea on exertion and no palpitations Gastrointestinal: no abdominal pain, no nausea, no vomiting, no constipation and no diarrhea/loose stools Genitourinary: + urinary frequency; no dysuria and no flank pain Patient notes discolored urination, but unsure of whether or not this is hematuria. Integumentary: no rash Neurologic: + generalized weakness, + loss of sensation, + confusion and + memory loss; no headache(s) Physical Exam Constitutional: WD/WN, vitals as above Eyes: PERRL, conjunctivae normal, anicteric sclerae normal visual garcia by confrontation ENMT: external ear and nose normal, oropharynx normal Neck: trachea midline, no thyromegaly Respiratory: normal respiratory effort, lungs clear to auscultation Cardiovascular: Rate/Rhythm: regular rate and regular rhythm Heart Sounds: normal S1 and normal S2 Gastrointestinal (Abdomen): normal bowel sounds, soft, nontender, no hepatosplenomegaly Musculoskeletal: no cyanosis or clubbing, extremities motor strength 5/5 Head/Neck/Chest: normocephalic and head atraumatic Skin: no rashes, warm and dry Neurologic: CN's II-XI intact bilaterally, moves all extremities, awake and + confused Motor/Sensory: + tremor Cranial Nerves: PERRL, normal accommodation, normal facial strength, tongue midline, normal hearing, able to rotate head bilaterally, able to elevate shoulders bilaterally, no nystagmus and symmetric palate elevation Psychiatric: Orientation: alert, oriented to person (not age, stated 49), oriented to place, oriented to time and cooperative Eye Contact: + fair eye contact Affect: euthymic affect Results & Data Vital Signs (Past 12 Hours) Vital Signs Temp Pulse Pulse Resp BP BP Pulse Ox 01/16/19 07:34 36.8 C 73 18 143/86 H 92 01/16/19 03:22 36.7 C 77 18 130/76 93 01/15/19 23:59 77 01/15/19 22:58 36.7 C 81 18 143/85 H 95 Laboratory Results Abnormal lab results 01/15/19 01/15/19 01/16/19 Range/Units 05:39 20:18 06:31 WBC 4.72 L (4.8-10.8) K/uL RBC 3.90 L (4.2-5.4) M/uL Hgb 11.0 L (12.0-16.0) g/dL Hct 33.5 L (37-47) % RDW Coeff of Griffin 14.6 H (11.5-14.5) % Plt Count 122 L (130-400) K/uL MPV 10.7 H (7.4-10.4) fL BUN/Creatinine Ratio (10-20) Glucose (70-99) mg/dl POC Glucose 184 H (70-99) Hemoglobin A1c 10.3 H (4.5-5.6) % AST (15-37) U/L Albumin (3.4-5.0) gm/dl Albumin/Globulin Ratio (0.9-2) 01/16/19 01/16/19 01/16/19 Range/Units 06:31 07:34 11:48 WBC (4.8-10.8) K/uL RBC (4.2-5.4) M/uL Hgb (12.0-16.0) g/dL Hct (37-47) % RDW Coeff of Griffin (11.5-14.5) % Plt Count (130-400) K/uL MPV (7.4-10.4) fL BUN/Creatinine Ratio 22.0 H (10-20) Glucose 133 H (70-99) mg/dl POC Glucose 133 H 182 H (70-99) Hemoglobin A1c (4.5-5.6) % AST 65 H (15-37) U/L Albumin 3.0 L (3.4-5.0) gm/dl Albumin/Globulin Ratio 0.8 L (0.9-2) 01/16/19 Range/Units 16:40 WBC (4.8-10.8) K/uL RBC (4.2-5.4) M/uL Hgb (12.0-16.0) g/dL Hct (37-47) % RDW Coeff of Griffin (11.5-14.5) % Plt Count (130-400) K/uL MPV (7.4-10.4) fL BUN/Creatinine Ratio (10-20) Glucose (70-99) mg/dl POC Glucose 142 H (70-99) Hemoglobin A1c (4.5-5.6) % AST (15-37) U/L Albumin (3.4-5.0) gm/dl Albumin/Globulin Ratio (0.9-2) Medications Administered Current Inpatient Medications Acetaminophen (Tylenol) 650 mg PO Q4H PRN PRN Reason: Pain or Fever Stop: 02/13/19 17:57 Last Admin: 01/14/19 19:39 Dose: 650 mg Documented by: Al Hydrox/Mg Hydrox/Simethicone (Maalox) 15 ml PO Q4H PRN PRN Reason: Dyspepsia Stop: 02/13/19 17:57 Aspirin (Ecotrin Ectab) 81 mg PO QDL [facility] Stop: 02/14/19 11:29 Last Admin: 01/16/19 12:35 Dose: 81 mg Documented by: Benztropine Mesylate (Cogentin) 0.5 mg PO HS [facility] Stop: 02/13/19 20:59 Last Admin: 01/15/19 20:23 Dose: 0.5 mg Documented by: Dextrose (Dextrose 50%) 25 - 50 ml IV UD PRN; Protocol PRN Reason: Hypoglycemia Protocol Stop: 02/13/19 17:57 Enoxaparin Sodium (Lovenox) 40 mg SQ Q24H [facility] Stop: 02/14/19 08:59 Last Admin: 01/16/19 08:33 Dose: 40 mg Documented by: Folic Acid (Folvite) 1 mg PO QAM [facility] Stop: 02/14/19 08:59 Last Admin: 01/16/19 08:32 Dose: 1 mg Documented by: Gadobutrol (Gadavist 7.5ml) 7 ml IV ONCE PRN PRN Reason: Interaction Checking Stop: 01/19/19 14:26 Last Admin: 01/15/19 14:28 Dose: 7 ml Documented by: Glucagon (Glucagen) 1 mg SQ UD PRN; Protocol PRN Reason: Hypoglycemia Protocol Stop: 02/13/19 17:57 Glucose (Glucose 40%) 15 - 30 gm PO UD PRN; Protocol PRN Reason: Hypoglycemia Protocol Stop: 02/13/19 17:57 Glucose (Dex4 Glucose) 4 - 8 tabs PO UD PRN; Protocol PRN Reason: Hypoglycemia Protocol Stop: 02/13/19 17:57 Ceftriaxone Sodium 1,000 mg/ (Dextrose) 50 mls @ 100 mls/hr IV Q24H MEY; Protocol Stop: 01/25/19 09:29 Last Infusion: 01/16/19 09:13 Dose: Infused Documented by: Insulin Aspart (Novolog Flexpen) 0 units SC ACHS [facility] Stop: 02/13/19 18:59 Last Admin: 01/16/19 12:36 Dose: 11 units Documented by: Insulin Glargine (Lantus Solostar Pen) 40 units SC [facility] Stop: 02/14/19 08:59 Last Admin: 01/16/19 08:34 Dose: 40 units Documented by: Losartan Potassium (Cozaar) 100 mg PO QAM [facility] Stop: 02/14/19 08:59 Last Admin: 01/16/19 08:32 Dose: 100 mg Documented by: Magnesium Hydroxide (Milk Of Magnesia) 30 ml PO Q12H PRN PRN Reason: Constipation Stop: 02/13/19 17:57 Miscellaneous (Carbohydrates For Hypoglycemia) 15 - 30 gm PO UD PRN PRN Reason: Hypoglycemia Treatment Stop: 02/13/19 17:57 Miscellaneous Information (Consult Glycemic Management Pharmacy) 1 ea N/A UD PRN; Protocol PRN Reason: Consult Stop: 02/13/19 18:24 Ondansetron HCl (Zofran) 4 mg IV Q6H PRN PRN Reason: Nausea Stop: 02/13/19 17:57 Polyethylene Glycol (Miralax Powder Packet) 17 gm PO DAILY PRN PRN Reason: Constipation Stop: 02/13/19 17:57 Propranolol HCl (Inderal La) 80 mg PO HS [facility] Stop: 02/13/19 20:59 Last Admin: 01/15/19 20:22 Dose: 80 mg Documented by: Risperidone (Risperdal) 1 mg PO QAM [facility] Stop: 02/14/19 08:59 Last Admin: 01/16/19 08:32 Dose: 1 mg Documented by: Risperidone (Risperdal) 2 mg PO QDL [facility] Stop: 02/14/19 11:29 Last Admin: 01/16/19 12:36 Dose: 2 mg Documented by: Sertraline HCl (Zoloft) 100 mg PO QAM [facility] Stop: 02/14/19 08:59 Last Admin: 01/16/19 08:33 Dose: 100 mg Documented by: Thiamine HCl (Vitamin B-1) 100 mg PO QAM [facility] Stop: 02/14/19 08:59 Last Admin: 01/16/19 08:32 Dose: 100 mg Documented by: Trazodone HCl (Desyrel) 75 mg PO HS [facility] Stop: 02/13/19 20:59 Last Admin: 01/15/19 20:23 Dose: 75 mg Documented by: PG Care Time/CCT Total # of Minutes Spent Total Time Spent with Patient: Total time spent is greater than 50% in coordination of care (as documented) at patient's floor/unit and/or counseling patient: Resident Activity Tracking Resident Involvement: Resident Care Provided Care Provided: Adult Hospital Medicine
--- NOTE | 2019-01-16 10:07 | Neurology Progress Note ---
Date of Service January 16, 2019 Assessment & Plan (1) Confusion: (2) Syncope and collapse: (3) Essential tremor: (4) Schizoaffective disorder: Currently, this patient does not have an obvious encephalopathy or delirium. I suspect this patient has an underlying dementia. Her history of alcohol use/abuse (which apparently ended a few years ago) may have created this dementia (including a type of Wernicke encephalopathy). In addition, she has a history of schizoaffective disorder. This is the 1st time I have met her so I do not know how to gauge her current mood and thought processing compared to previous. Neurologic examination reveals no focal neurologic findings or meningeal signs, however, she does have a mild essential tremor bilaterally. There is no signs of Parkinson's disease (no resting tremor, rigidity, bradykinesia). Her tremor may be secondary to a psychiatric medication or may be an idiopathic essential tremor. MRI of the brain and MR angiography of the head and neck are all unremarkable. Patient has a history of current syncope and falling. 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 Recommendations: 1. Consider TSH, ESR, B12, lyme antibody titers, and B1 levels if not done recently. These would be obtained to evaluate for other causes for dementia as well as tremor. 2. I see no need for additional neurologic testing at this time (for example EEG or LP) 3. Increase activity as able with physical and occupational therapy. 4. Continue 81 mg aspirin tablet daily. 5. Continue sertraline, trazodone, and risperidone for now. Follow up with Psychiatry regarding her schizoaffective disorder. 6. Propranolol would be my drug of choice for central tremor. Increasing the doses an outpatient would be a consideration but I would not increase this this medication currently, in the hospital. 7. I think this patient would benefit from complete neuropsychological testing to ascertain dementia versus pseudodementia. This should be arranged as an outpatient. Otherwise, I spent a total of 45 minutes with this case including review of records, review of MRI films, direct evaluation of the patient at bedside, and discussion of the case with patient at bedside, RN at bedside, and Dr. Sol, including differential diagnosis and treatment options Subjective Patient feels fairly well this morning. She has no pain or headaches and has no new vision problems. She feels tired in general and is not sleeping as well as she would like in the hospital. Her feet are numb at times and she has some depression and anxiety which is about the same as usual. 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 CBC showed anemia as before. Chem profiles had a glucose of 133. Carotid ultrasound was unremarkable. MR angiography of the head and neck were unremarkable with no significant vessel stenoses or abnormalities. MRI of the brain showed no acute stroke. Physical Exam Physical Exam: She is awake and alert. Speech is without obvious aphasia or dysarthria, although she is hesitant at times with finding a word she wants to say. She can formulate a sentence that sounds intelligent but actually does not make sense for (or answer) the question. She loses her train of thought easily. Otherwise, she is pleasant and cooperative. Extraocular eye muscles are intact without nystagmus. Pupils are 4 mm bilaterally and reactive to light. There is no facial droop. Tongue is midline. With outstretched arms, there is no drift. There is no resting tremor. There is mild posture and action tremor bilaterally. Strength is 5/5 diffusely in all major muscle groups in arms and legs both proximally distally bilaterally. Results & Data Vital Signs (Past 12 Hours) Vital Signs Temp Pulse Pulse Resp BP BP Pulse Ox 01/16/19 07:34 36.8 C 73 18 143/86 H 92 01/16/19 03:22 36.7 C 77 18 130/76 93 01/15/19 23:59 77 01/15/19 22:58 36.7 C 81 18 143/85 H 95 PG Care Time/CCT Total # of Minutes Spent Total Time Spent with Patient: Total time spent is greater than 50% in coordination of care (as documented) at patient's floor/unit and/or counseling patient:
[2019-01-16] MEDS: ASPIRIN 81 MG ECTAB PO SCH (12:35)
[2019-01-16] MEDS: risperiDONE 2 MG TABLET PO SCH (12:36)
[2019-01-16] MEDS: BENZTROPINE MESYLATE 0.5 MG TAB PO SCH (21:22)
[2019-01-16] MEDS: PROPRANOLOL HCL LA 80 MG CAPCR PO SCH (21:22)
[2019-01-16] MEDS: TRAZODONE HCL 50 MG TAB PO SCH (21:22)
[2019-01-17 06:43] LABS: Lyme Ab IgG w/WB Rflx Negative (Negative)
[2019-01-17 06:44] LABS: Lyme Ab IgM w/WB Rflx Negative (Negative)
--- NOTE | 2019-01-17 07:03 | Family Medicine Progress Note ---
Date of Service January 17, 2019 Assessment & Plan (1) Acute UTI: Patient is a 68 year old female that presented as a readmission on 01/14/19 secondary to dizziness, weakness, and confusion. Acute UTI -Positive Nitrates on UA in ED -IV Ceftriaxone 1000mg QD - converted to oral Cefdinir 300mg BID -Urine culture grew Klebsiella Oxytoca, sensitive to Ceftriaxone, continue antibiotic course. -May have been a contributing factor to patients initial confusion. Confusion/Wernicke Encephalopathy Syndrome -?UTI vs Dehydration vs Acute on Chronic dementia -Acute confusion appears resolved at this point. -There is a baseline confusion that daughter and nursing secretary state is normal for her. -Patient does note a longstanding history of alcohol abuse, ?Chronic Wernicke Encephalopathy Syndrome. -Head and Neck MRA negative, Carotid Doppler negative. Weakness -Continue PT/OT -Discussion held with daughter of patient noting that the patient would benefit from outpatient rehab, noted agreement. -Request sent for [facility] - requires a Peer to Peer. Schizoaffective Disorder/Anxiety/Depression -Continue Rispiridone, Sertraline, Trazodone -Continue Benztropine -Continue Folic Acid and Thiamine. -Neurology recommendation for future outpatient neuropsych testing. -Labs drawn per Neurology recommendation, Vit B12, B1, Lyme Titers, ESR, TSH -B12 254, B1 pending, Lyme Negative, ESR 42, TSH 1.72 DM2 -Holding PO metformin -ISS -Home Lantus HTN -Continue Propranolol, Losartan -Continue Aspirin 81mg FEN/GI - HH, DM2 DVT - Lovenox Code - Full Dispo - Med/Surg tele, request for [facility] sent. (2) Diabetes: (3) Confusion: (4) Wernicke encephalopathy syndrome: (5) Schizoaffective disorder: (6) Weakness: (7) Hypertension: (8) Hyperlipidemia: (9) Depression: (10) Anxiety: Supervising Physician Co-Signing Physician Notes I personally examined the patient and verified all vera points of history and exam, discussed case, and agree with decision making with Dr Slade. No new complaints or problems. Awaiting on approval for SNF. Called for peer to peer. Vitals noted, she is awake pleasant no distress, breathing unlabored no accessory muscle use good effort. Skin shows no rashes no pallor or icterus. Altered mental statusappears to have been encephalopathy related to her UTI superimposed on a chronic dementia of unclear etiology (possibly related to her chronic alcohol use), still appears unsafe to take care of herself. Dementiaappears to be unsafe to take care of herselfunclear how much of this is related to delirium and how much is related to dementia. Case management working with family on placement options. Urinary tract infectionstreamline antibiotics to oral coverage Otherwise as above Subjective Patient resting comfortably in bed this morning. States that she is feeling well and has no complaints at this time. Asked about what the plan was about her going home today. Notes that her discolored urine has resolved. Review of Systems Constitutional: no fever, no chills, no body aches and no fatigue Eyes: no eye pain and no worsening vision Ear, Nose, Mouth, Throat: no ear pain, no tinnitus and no dizziness Respiratory: no cough, no dyspnea, no dyspnea on exertion and no pain on inspiration Cardiovascular: no chest pain, no radiating jaw, neck or arm pain, no dyspnea, no dyspnea on exertion and no palpitations Gastrointestinal: no abdominal pain, no nausea, no vomiting, no constipation and no diarrhea/loose stools Genitourinary: no dysuria, no urinary frequency, no hematuria and no flank pain Integumentary: no rash Neurologic: + memory loss; no generalized weakness, no loss of sensation, no headache(s) and no confusion Physical Exam Constitutional: WD/WN, vitals as above Eyes: PERRL, conjunctivae normal, anicteric sclerae normal visual garcia by confrontation ENMT: external ear and nose normal, oropharynx normal Neck: trachea midline, no thyromegaly Respiratory: normal respiratory effort, lungs clear to auscultation Cardiovascular: Rate/Rhythm: regular rate and regular rhythm Heart Sounds: normal S1 and normal S2 Gastrointestinal (Abdomen): normal bowel sounds, soft, nontender, no hepatosplenomegaly Musculoskeletal: no cyanosis or clubbing, extremities motor strength 5/5 Head/Neck/Chest: normocephalic and head atraumatic Skin: no rashes, warm and dry Neurologic: CN's II-XI intact bilaterally, moves all extremities, awake and + confused Motor/Sensory: + tremor Cranial Nerves: PERRL, normal accommodation, normal facial strength, tongue midline, normal hearing, able to rotate head bilaterally, able to elevate shoulders bilaterally, no nystagmus and symmetric palate elevation Psychiatric: Orientation: alert, oriented x 3 and cooperative Eye Contact: + fair eye contact Affect: euthymic affect Results & Data Vital Signs (Past 12 Hours) Vital Signs Temp Pulse Pulse Resp BP BP Pulse Ox 01/17/19 02:58 36.7 C 71 19 104/68 92 01/17/19 01:59 80 01/16/19 23:23 36.8 C 77 20 102/52 L 96 01/16/19 19:45 37.0 C 83 17 133/81 91 Laboratory Results Abnormal lab results 01/16/19 01/17/19 01/17/19 Range/Units 20:31 05:33 07:28 ESR 42 H (0-21) mm/hr POC Glucose 200 H 156 H (70-99) 01/17/19 01/17/19 Range/Units 11:23 16:37 ESR (0-21) mm/hr POC Glucose 230 H 123 H (70-99) Medications Administered Current Inpatient Medications Acetaminophen (Tylenol) 650 mg PO Q4H PRN PRN Reason: Pain or Fever Stop: 02/13/19 17:57 Last Admin: 01/14/19 19:39 Dose: 650 mg Documented by: Al Hydrox/Mg Hydrox/Simethicone (Maalox) 15 ml PO Q4H PRN PRN Reason: Dyspepsia Stop: 02/13/19 17:57 Aspirin (Ecotrin Ectab) 81 mg PO QDL [facility] Stop: 02/14/19 11:29 Last Admin: 01/17/19 12:00 Dose: 81 mg Documented by: Benztropine Mesylate (Cogentin) 0.5 mg PO HS [facility] Stop: 02/13/19 20:59 Last Admin: 01/16/19 21:22 Dose: 0.5 mg Documented by: Cefdinir (Omnicef Cap) 300 mg PO BID [facility] Stop: 01/27/19 20:59 Dextrose (Dextrose 50%) 25 - 50 ml IV UD PRN; Protocol PRN Reason: Hypoglycemia Protocol Stop: 02/13/19 17:57 Enoxaparin Sodium (Lovenox) 40 mg SQ Q24H [facility] Stop: 02/14/19 08:59 Last Admin: 01/17/19 08:50 Dose: 40 mg Documented by: Folic Acid (Folvite) 1 mg PO QAM [facility] Stop: 02/14/19 08:59 Last Admin: 01/17/19 08:48 Dose: 1 mg Documented by: Gadobutrol (Gadavist 7.5ml) 7 ml IV ONCE PRN PRN Reason: Interaction Checking Stop: 01/19/19 14:26 Last Admin: 01/15/19 14:28 Dose: 7 ml Documented by: Glucagon (Glucagen) 1 mg SQ UD PRN; Protocol PRN Reason: Hypoglycemia Protocol Stop: 02/13/19 17:57 Glucose (Glucose 40%) 15 - 30 gm PO UD PRN; Protocol PRN Reason: Hypoglycemia Protocol Stop: 02/13/19 17:57 Glucose (Dex4 Glucose) 4 - 8 tabs PO UD PRN; Protocol PRN Reason: Hypoglycemia Protocol Stop: 02/13/19 17:57 Insulin Aspart (Novolog Flexpen) 0 units SC ACHS [facility] Stop: 02/13/19 18:59 Last Admin: 01/17/19 17:24 Dose: 4 units Documented by: Insulin Glargine (Lantus Solostar Pen) 45 units SC [facility] Stop: 02/16/19 08:59 Last Admin: 01/17/19 08:52 Dose: 45 units Documented by: Losartan Potassium (Cozaar) 100 mg PO QAM [facility] Stop: 02/14/19 08:59 Last Admin: 01/17/19 08:49 Dose: 100 mg Documented by: Magnesium Hydroxide (Milk Of Magnesia) 30 ml PO Q12H PRN PRN Reason: Constipation Stop: 02/13/19 17:57 Miscellaneous (Carbohydrates For Hypoglycemia) 15 - 30 gm PO UD PRN PRN Reason: Hypoglycemia Treatment Stop: 02/13/19 17:57 Miscellaneous Information (Consult Glycemic Management Pharmacy) 1 ea N/A UD PRN; Protocol PRN Reason: Consult Stop: 02/13/19 18:24 Ondansetron HCl (Zofran) 4 mg IV Q6H PRN PRN Reason: Nausea Stop: 02/13/19 17:57 Polyethylene Glycol (Miralax Powder Packet) 17 gm PO DAILY PRN PRN Reason: Constipation Stop: 02/13/19 17:57 Propranolol HCl (Inderal La) 80 mg PO HS [facility] Stop: 02/13/19 20:59 Last Admin: 01/16/19 21:22 Dose: 80 mg Documented by: Risperidone (Risperdal) 1 mg PO QAM [facility] Stop: 02/14/19 08:59 Last Admin: 01/17/19 08:49 Dose: 1 mg Documented by: Risperidone (Risperdal) 2 mg PO QDL [facility] Stop: 02/14/19 11:29 Last Admin: 01/17/19 12:00 Dose: 2 mg Documented by: Sertraline HCl (Zoloft) [facility] Stop: 02/14/19 08:59 Last Admin: 01/17/19 08:50 Dose: 100 mg Documented by: Thiamine HCl (Vitamin B-1) 100 mg PO QAM [facility] Stop: 02/14/19 08:59 Last Admin: 01/17/19 08:49 Dose: 100 mg Documented by: Trazodone HCl (Desyrel) 75 mg PO [facility] Stop: 02/13/19 20:59 Last Admin: 01/16/19 21:22 Dose: 75 mg Documented by: PG Care Time/CCT Total # of Minutes Spent Total Time Spent with Patient: Total time spent is greater than 50% in coordination of care (as documented) at patient's floor/unit and/or counseling patient: Resident Activity Tracking Resident Involvement: Resident Care Provided Care Provided: Adult Hospital Medicine
[2019-01-17] MEDS: FOLIC ACID 1 MG TAB PO SCH (08:48)
[2019-01-17] MEDS: LOSARTAN POTASSIUM 50 MG TAB PO SCH (08:49)
[2019-01-17] MEDS: THIAMINE HCL 100 MG TAB PO SCH (08:49)
[2019-01-17] MEDS: risperiDONE 1 MG TABLET PO SCH (08:49)
[2019-01-17] MEDS: ENOXAPARIN INJ 40 MG/0.4 ML SYR SQ SCH (08:50)
[2019-01-17] MEDS: SERTRALINE HCL 100 MG TABLET PO SCH (08:50)
[2019-01-17] MEDS: INSULIN GLARGINE SOLOSTAR 100 UNITS/ML 3 ML PEN SC SCH (08:52)
[2019-01-17] MEDS: INSULIN ASPART 100 UNITS/ML 3 ML PEN SC SCH ×4 (08:54→21:08)
[2019-01-17] MEDS: cefTRIAXone SODIUM 1,000 MG in DEXTROSE 5% 50 ML IV SCH (09:01)
[2019-01-17] MEDS: ASPIRIN 81 MG ECTAB PO SCH (12:00)
[2019-01-17] MEDS: risperiDONE 2 MG TABLET PO SCH (12:00)
[2019-01-17] MEDS: PROPRANOLOL HCL LA 80 MG CAPCR PO SCH (20:51)
[2019-01-17] MEDS: CEFDINIR 300 MG CAP PO SCH (20:51)
[2019-01-17] MEDS: BENZTROPINE MESYLATE 0.5 MG TAB PO SCH (20:51)
[2019-01-17] MEDS: TRAZODONE HCL 50 MG TAB PO SCH (20:51)
[2019-01-18 06:14] LABS: Basophils # (auto) 0.01 K/uL (0-0.2); Basophils % (auto) 0.2 %; Eosinophils # (auto) 0.17 K/uL (0-0.5); Eosinophils % (auto) 3.1 %; Hematocrit (blood only) 33.7 % (37-47); Hemoglobin 11.2 g/dL (12.0-16.0); Immature Granulocytes # (auto) 0.01 K/uL (0.00-0.02); Immature Granulocytes % (auto) 0.2 %; Lymphocytes # (auto) 1.81 K/uL (1.2-3.4); Lymphocytes % (auto) 33.2 %; Mean Corpuscular Hemoglobin 28.4 pg (25-34); Mean Corpuscular Hgb Conc 33.2 g/dL (32-36); Mean Corpuscular Volume 85.5 fL (80-100); Mean Platelet Volume 10.3 fL (7.4-10.4); Monocytes # (auto) 0.45 K/uL (0.11-0.59); Monocytes % (auto) 8.3 %; Platelet Count 128 K/uL (130-400); RDW Coefficient of Variation 14.3 % (11.5-14.5); RDW Standard Deviation 45.1 fL (36.4-46.3); Red Blood Count 3.94 M/uL (4.2-5.4); White Blood Count 5.45 K/uL (4.8-10.8)
[2019-01-18] MEDS: ENOXAPARIN INJ 40 MG/0.4 ML SYR SQ SCH (08:21)
[2019-01-18] MEDS: LOSARTAN POTASSIUM 50 MG TAB PO SCH (08:22)
[2019-01-18] MEDS: CEFDINIR 300 MG CAP PO SCH ×2 (08:22→20:52)
[2019-01-18] MEDS: SERTRALINE HCL 100 MG TABLET PO SCH (08:22)
[2019-01-18] MEDS: FOLIC ACID 1 MG TAB PO SCH (08:23)
[2019-01-18] MEDS: risperiDONE 1 MG TABLET PO SCH (08:23)
[2019-01-18] MEDS: INSULIN GLARGINE SOLOSTAR 100 UNITS/ML 3 ML PEN SC SCH (08:24)
[2019-01-18] MEDS: INSULIN ASPART 100 UNITS/ML 3 ML PEN SC SCH ×4 (08:25→20:48)
[2019-01-18] MEDS: THIAMINE HCL 100 MG TAB PO SCH (08:26)
[2019-01-18] MEDS: CYANOCOBALAMIN 500 MCG TABLET (VITAMIN B-12) PO SCH (09:00)
[2019-01-18] MEDS: ASPIRIN 81 MG ECTAB PO SCH (11:47)
[2019-01-18] MEDS: risperiDONE 2 MG TABLET PO SCH (11:47)
--- NOTE | 2019-01-18 11:58 | Family Medicine Progress Note ---
Date of Service January 18, 2019 Assessment & Plan (1) Acute UTI: Patient is a 68 year old female that presented as a readmission on 01/14/19 secondary to dizziness, weakness, and confusion. Acute UTI -Positive Nitrates on UA in ED -IV Ceftriaxone 1000mg QD - converted to oral Cefdinir 300mg BID -Urine culture grew Klebsiella Oxytoca, sensitive to Ceftriaxone, continue antibiotic course. -May have been a contributing factor to patients initial confusion. Confusion/Wernicke Encephalopathy Syndrome -?UTI vs Dehydration vs Acute on Chronic dementia -Acute confusion appears resolved at this point. -There is a baseline confusion that daughter and electoral officer state is normal for her. -Patient does note a longstanding history of alcohol abuse, ?Chronic Wernicke Encephalopathy Syndrome. -Head and Neck MRA negative, Carotid Doppler negative. Weakness -Continue PT/OT -Discussion held with daughter of patient noting that the patient would benefit from outpatient rehab, noted agreement. -Patient was denied for [facility] -Patient accepted to [facility], plan for DC tomorrow at 11AM Schizoaffective Disorder/Anxiety/Depression -Continue Rispiridone, Sertraline, Trazodone -Continue Benztropine -Continue Folic Acid and Thiamine. -Neurology recommendation for future outpatient neuropsych testing. -Labs drawn per Neurology recommendation, Vit B12, B1, Lyme Titers, ESR, TSH -B12 254, B1 pending, Lyme Negative, ESR 42, TSH 1.72 DM2 -Holding PO metformin -ISS -Home Lantus HTN -Continue Propranolol, Losartan -Continue Aspirin 81mg FEN/GI - HH, DM2 DVT - Lovenox Code - Full Dispo - Med/Surg tele, D/C for [facility] tomorrow. (2) Diabetes: (3) Confusion: (4) Wernicke encephalopathy syndrome: (5) Schizoaffective disorder: (6) Weakness: (7) Hypertension: (8) Hyperlipidemia: (9) Depression: (10) Anxiety: Supervising Physician Co-Signing Physician Notes I personally examined the patient and verified all vera points of history and exam, discussed case, and agree with decision making with Dr Slade. No new complaints or problems. Discussed case with peer to peer physician who denied due to lack of therapy need, was aware that patient is cognitively not sound to be safe alone, but noted by [facility] criteria that does not meet for skilled. Vitals noted, she is awake pleasant no distress, breathing unlabored no accessory muscle use good effort. Skin shows no rashes no pallor or icterus. Altered mental statusappears to have been encephalopathy related to her UTI superimposed on a chronic dementia of unclear etiology (possibly related to her chronic alcohol use), still appears unsafe to take care of herselfdenied skilled, case management and family were able to put together an assisted living situation.. Dementiaappears to be unsafe to take care of herselfunclear how much of this is related to delirium and how much is related to dementia. Close outpatient follow-up in this regard Urinary tract infectionfinish out a course of oral antibiotics for a complicated UTI. Otherwise as above Subjective Patient seen at the bedside this AM. Noted she was feeling well, no complaints at this time. Discussed with her how we were just waiting for the [id number] for her discharge. Patient noted understanding. Review of Systems Constitutional: no fever, no chills, no body aches and no fatigue Eyes: no eye pain and no worsening vision Ear, Nose, Mouth, Throat: no ear pain, no tinnitus and no dizziness Respiratory: no cough, no dyspnea, no dyspnea on exertion and no pain on inspiration Cardiovascular: no chest pain, no radiating jaw, neck or arm pain, no dyspnea, no dyspnea on exertion and no palpitations Gastrointestinal: no abdominal pain, no nausea, no vomiting, no constipation and no diarrhea/loose stools Genitourinary: no dysuria, no urinary frequency, no hematuria and no flank pain Integumentary: no rash Neurologic: + memory loss; no generalized weakness, no loss of sensation, no headache(s) and no confusion Physical Exam Constitutional: WD/WN, vitals as above Eyes: PERRL, conjunctivae normal, anicteric sclerae normal visual garcia by confrontation ENMT: external ear and nose normal, oropharynx normal Neck: trachea midline, no thyromegaly Respiratory: normal respiratory effort, lungs clear to auscultation Cardiovascular: Rate/Rhythm: regular rate and regular rhythm Heart Sounds: normal S1 and normal S2 Gastrointestinal (Abdomen): normal bowel sounds, soft, nontender, no hepatosplenomegaly Musculoskeletal: no cyanosis or clubbing, extremities motor strength 5/5 Head/Neck/Chest: normocephalic and head atraumatic Skin: no rashes, warm and dry Neurologic: CN's II-XI intact bilaterally, moves all extremities, awake and + confused Motor/Sensory: + tremor Cranial Nerves: PERRL, normal accommodation, normal facial strength, tongue midline, normal hearing, able to rotate head bilaterally, able to elevate shoulders bilaterally, no nystagmus and symmetric palate elevation Psychiatric: Orientation: alert, oriented x 3 and cooperative Eye Contact: + fair eye contact Affect: euthymic affect Results & Data Vital Signs (Past 12 Hours) Vital Signs Temp Pulse Pulse Resp BP BP Pulse Ox 01/18/19 11:35 36.7 C 73 18 131/80 95 01/18/19 07:15 67 01/18/19 06:47 36.7 C 70 19 120/75 91 01/18/19 03:43 36.3 C L 81 17 131/80 95 01/18/19 00:57 77 Laboratory Results Abnormal lab results 01/18/19 01/18/19 01/18/19 Range/Units 05:45 07:56 11:34 RBC 3.94 L (4.2-5.4) M/uL Hgb 11.2 L (12.0-16.0) g/dL Hct 33.7 L (37-47) % Plt Count 128 L (130-400) K/uL POC Glucose 144 H 219 H (70-99) 01/18/19 Range/Units 16:59 RBC (4.2-5.4) M/uL Hgb (12.0-16.0) g/dL Hct (37-47) % Plt Count (130-400) K/uL POC Glucose 110 H (70-99) Medications Administered Current Inpatient Medications Acetaminophen (Tylenol) 650 mg PO Q4H PRN PRN Reason: Pain or Fever Stop: 02/13/19 17:57 Last Admin: 01/14/19 19:39 Dose: 650 mg Documented by: Al Hydrox/Mg Hydrox/Simethicone (Maalox) 15 ml PO Q4H PRN PRN Reason: Dyspepsia Stop: 02/13/19 17:57 Aspirin (Ecotrin Ectab) 81 mg PO QDL [facility] Stop: 02/14/19 11:29 Last Admin: 01/18/19 11:47 Dose: 81 mg Documented by: Benztropine Mesylate (Cogentin) 0.5 mg PO HS [facility] Stop: 02/13/19 20:59 Last Admin: 01/17/19 20:51 Dose: 0.5 mg Documented by: Cefdinir (Omnicef Cap) 300 mg PO BID [facility] Stop: 01/27/19 20:59 Last Admin: 01/18/19 08:22 Dose: 300 mg Documented by: Cyanocobalamin (Vitamin B-12) 1,000 mcg PO QAM [facility] Stop: 02/17/19 08:59 Last Admin: 01/18/19 09:00 Dose: 1,000 mcg Documented by: Dextrose (Dextrose 50%) 25 - 50 ml IV UD PRN; Protocol PRN Reason: Hypoglycemia Protocol Stop: 02/13/19 17:57 Enoxaparin Sodium (Lovenox) 40 mg SQ Q24H [facility] Stop: 02/14/19 08:59 Last Admin: 01/18/19 08:21 Dose: 40 mg Documented by: Folic Acid (Folvite) 1 mg PO QAM [facility] Stop: 02/14/19 08:59 Last Admin: 01/18/19 08:23 Dose: 1 mg Documented by: Gadobutrol (Gadavist 7.5ml) 7 ml IV ONCE PRN PRN Reason: Interaction Checking Stop: 01/19/19 14:26 Last Admin: 01/15/19 14:28 Dose: 7 ml Documented by: Glucagon (Glucagen) 1 mg SQ UD PRN; Protocol PRN Reason: Hypoglycemia Protocol Stop: 02/13/19 17:57 Glucose (Glucose 40%) 15 - 30 gm PO UD PRN; Protocol PRN Reason: Hypoglycemia Protocol Stop: 02/13/19 17:57 Glucose (Dex4 Glucose) 4 - 8 tabs PO UD PRN; Protocol PRN Reason: Hypoglycemia Protocol Stop: 02/13/19 17:57 Insulin Aspart (Novolog Flexpen) 0 units SC ACHS [facility] Stop: 02/13/19 18:59 Last Admin: 01/18/19 17:20 Dose: 7 units Documented by: Insulin Glargine (Lantus Solostar Pen) 45 units SC QAM [facility] Stop: 02/16/19 08:59 Last Admin: 01/18/19 08:24 Dose: 45 units Documented by: Losartan Potassium (Cozaar) 100 mg PO QAM [facility] Stop: 02/14/19 08:59 Last Admin: 01/18/19 08:22 Dose: 100 mg Documented by: Magnesium Hydroxide (Milk Of Magnesia) 30 ml PO Q12H PRN PRN Reason: Constipation Stop: 02/13/19 17:57 Miscellaneous (Carbohydrates For Hypoglycemia) 15 - 30 gm PO UD PRN PRN Reason: Hypoglycemia Treatment Stop: 02/13/19 17:57 Miscellaneous Information (Consult Glycemic Management Pharmacy) 1 ea N/A UD PRN; Protocol PRN Reason: Consult Stop: 02/13/19 18:24 Ondansetron HCl (Zofran) 4 mg IV Q6H PRN PRN Reason: Nausea Stop: 02/13/19 17:57 Polyethylene Glycol (Miralax Powder Packet) 17 gm PO DAILY PRN PRN Reason: Constipation Stop: 02/13/19 17:57 Propranolol HCl (Inderal La) 80 mg PO HS [facility] Stop: 02/13/19 20:59 Last Admin: 01/17/19 20:51 Dose: 80 mg Documented by: Risperidone (Risperdal) 1 mg PO QAM [facility] Stop: 02/14/19 08:59 Last Admin: 01/18/19 08:23 Dose: 1 mg Documented by: Risperidone (Risperdal) 2 mg PO QDL [facility] Stop: 02/14/19 11:29 Last Admin: 01/18/19 11:47 Dose: 2 mg Documented by: Sertraline HCl (Zoloft) 100 mg PO QAM [facility] Stop: 02/14/19 08:59 Last Admin: 01/18/19 08:22 Dose: 100 mg Documented by: Thiamine HCl (Vitamin B-1) 100 mg PO QAM [facility] Stop: 02/14/19 08:59 Last Admin: 01/18/19 08:26 Dose: 100 mg Documented by: Trazodone HCl (Desyrel) [address] [facility] Stop: 02/13/19 20:59 Last Admin: 01/17/19 20:51 Dose: 75 mg Documented by: PG Care Time/CCT Total # of Minutes Spent Total Time Spent with Patient: Total time spent is greater than 50% in coordination of care (as documented) at patient's floor/unit and/or counseling patient: Resident Activity Tracking Resident Involvement: Resident Care Provided Care Provided: Adult Hospital Medicine
[2019-01-18] MEDS: PROPRANOLOL HCL LA 80 MG CAPCR PO SCH (20:49)
[2019-01-18] MEDS: BENZTROPINE MESYLATE 0.5 MG TAB PO SCH (20:51)
[2019-01-18] MEDS: TRAZODONE HCL 50 MG TAB PO SCH (20:52)
[2019-01-19 07:07] VITALS: TEMP 98.1; O2SAT 92
[2019-01-19] MEDS: CYANOCOBALAMIN 500 MCG TABLET (VITAMIN B-12) PO SCH (08:23)
[2019-01-19] MEDS: SERTRALINE HCL 100 MG TABLET PO SCH (08:23)
[2019-01-19] MEDS: ENOXAPARIN INJ 40 MG/0.4 ML SYR SQ SCH (08:23)
[2019-01-19] MEDS: CEFDINIR 300 MG CAP PO SCH (08:25)
[2019-01-19] MEDS: FOLIC ACID 1 MG TAB PO SCH (08:25)
[2019-01-19] MEDS: THIAMINE HCL 100 MG TAB PO SCH (08:25)
[2019-01-19] MEDS: risperiDONE 1 MG TABLET PO SCH (08:25)
[2019-01-19] MEDS: LOSARTAN POTASSIUM 50 MG TAB PO SCH (08:25)
[2019-01-19] MEDS: INSULIN ASPART 100 UNITS/ML 3 ML PEN SC SCH ×2 (08:27→12:07)
--- NOTE | 2019-01-19 08:48 | Pharmacy Report ---
Glycemic Control Progress Note - Date of Service January 19, 2019 - Scope Glycemic Pharmacist consulted for glycemic control to write orders per [facility] inpatient glycemic control protocol. - Objective Accuchecks BSG(last 24 hours):: 01/18/19 01/18/19 01/18/19 11:34 16:59 20:43 POC Glucose 219 H 110 H 181 H 01/19/19 07:28 POC Glucose 151 H HbA1c:: Hemoglobin A1c 10.3 % (4.5-5.6) H 01/15/19 05:39 - Recent Pertinent Medications The patient is currently receiving: * Basal insulin: Lantus 45 units every 24 hours * Correctional Insulin: Novolog Correction per scale ACHS Goal Range: Low 110 mg/dL - High 140 mg/dL Correction Factor: 20 mg/dL/unit * Prandial insulin: Per carb ratio of 1 unit per 5 grams CHO consumed - Outpatient Anti-Diabetic Meds Xultophy 40 units in the morning metformin 1 gm PO BID - Assessment & Plan ASSESSMENT: * See progress note from 01/14/19 for more background info, in short: * Pt receiving SQ basal bolus insulin regimen for hyperglycemia secondary to baseline DM (outpatient regimen on hold),stress/infection (currently on cefdinir for UTI). * Patient is currently receiving an average of 90 units of insulin per day * 45 units of basal insulin * 45 units of prandial/correctional insulin * BSGs ranging 110 - 219 mg/dl over the past 24hrs (all but one blood sugar over 140 mg/dL) * Changes needed to insulin regimen: * AM Fasting BSG = 151 mg/dl. This is slightly above goal range for patient based on inpatient targets and co-morbidities. Therefore Basal insulin will be increased to 50 units daily. * Post-prandial BSGs are elevated/BSGs rise throughout the day therefore need to tighten CF/CR. Patient requires tighter carbohydrate ratio (which may be result of not having GLP-1 agent onboard). * Total daily dose = ~100 units. PLAN FOR INPATIENT GLYCEMIC CONTROL: * INCREASING Lantus to 50 units SQ daily * TIGHTENING correction factor to 18 mg/dl/unit * TIGHTENING carb ratio to 1 unit per 4 grams CHO consumed * Continuing goal range of Low 110 mg/dL - High 140 mg/dL RECOMMENDATIONS FOR DISCHARGE: * Patient's HbA1C indicates very poor control. She is going to rehab currently. Recommend the following: * metformin 1 gm PO BID * separation of injectable agents into Lantus 50 units daily + GLP-1 Agonist (may try once weekly formulation like Ozempic to further simplify regimen) * if possible may add Novolog for patient - perhaps sliding scale as below Blood Sugar 70-150 administer 0 units Blood Sugar 151-200 administer 3 units Blood Sugar 201-250 administer 5 units Blood Sugar 251-300 administer 7 units Blood Sugar 301-350 administer 9 units Blood Sugar 351-400 administer 11 units Blood Sugar >400 administer 13 units and call Thank you.
[2019-01-19] MEDS ORDERED: INSULIN GLARGINE SOLOSTAR 100 UNITS/ML 3 ML PEN SC SCH (09:00)
--- NOTE | 2019-01-19 09:40 | Discharge Summary ---
Date of Service January 19, 2019 Admission HPI Per Admitting Provider Patient is a 68 years old female with past medical history of diabetes mellitus type 2, hyperlipidemia, depression, syncope and collapse in the past, peripheral neuropathy, who was brought to the emergency room with complaint that patient felt dizzy and had generalized weakness at home, she was unable to follow the instructions of the home health unable to give herself insulin as she is supposed to and generally feeling confused. Patient was just discharged from the hospital with home health a day ago. Her daughter's friend and her both are saying that home health is not sufficient for patient care at home and she would like to go to intermediate facility or rehab for some time until she recuperates. Patient daughter is traveling in [place] right now and she is unable to take care of her. Patient denies fever, chills ,headache, chest pain shortness of breath abdominal pain frequency urgency hematuria dysuria. Patient is pleasant but appears mentally slow which per her daughter's friend is patie nt's baseline. Patient says she was regularly taking her medicine but she was confused today about how she supposed to take her insulin. Labs are reviewed: WBC 4.63, hemoglobin 12.1, hematocrit 37.2 platelets 101, sodium 135, potassium 4.4, chloride 104, anion gap 7, BUN 18, creatinine 1.01, GFR 57.6, glucose 366--> 131, AST 45, ALT 37, alkaline phosphatase 102, troponin 0 0.015, beta hydroxybutyric acid 1.64. Urine appearance is cloudy, positive for nitrates, positive for 2+ leukocyte esterase, positive for over 30 WBC, 4+ bacteria, does not appear to be a clean-catch. Decision was made to admit patient for observation MedSurg on telemetry for urinary tract infection and possibly placement to rehabilitation or SNF for physical therapy. Admission Exam Per Admitting Provider Constitutional: WD/WN, vitals as above Eyes: PERRL, conjunctivae normal, anicteric sclerae ENMT: external ear and nose normal, oropharynx normal Neck: trachea midline, no thyromegaly Respiratory: normal respiratory effort, lungs clear to auscultation Cardiovascular: Heart Sounds: normal S1, normal S2 and + murmur Vessels: dorsalis pedis pulses present Gastrointestinal (Abdomen): normal bowel sounds, soft, nontender, no hepatosplenomegaly Musculoskeletal: no cyanosis or clubbing, extremities motor strength 5/5 Skin: Positive for seborrheic dermatitis-which patient says has been ongoing for a long time. Neurologic: patellar DTR's 2+ bilat, sensation intact Psychiatric: A+Ox3, euthymic affect Genitourinary: Mild suprapubic tenderness Lymphatic: no cervical or axillary lymphadenopathy Principal Diagnosis altered mental status Discharge Exam Constitutional WD/WN, vitals as above Eyes PERRL, conjunctivae normal, anicteric sclerae normal visual garcia by confrontation ENMT external ear and nose normal, oropharynx normal Neck trachea midline, no thyromegaly Respiratory normal respiratory effort, lungs clear to auscultation Cardiovascular Rate/Rhythm: regular rate and regular rhythm Heart Sounds: normal S1 and normal S2 Gastrointestinal (Abdomen) normal bowel sounds, soft, nontender, no hepatosplenomegaly Musculoskeletal no cyanosis or clubbing, extremities motor strength 5/5 Head/Neck/Chest: normocephalic and head atraumatic Skin no rashes, warm and dry Neurologic CN's II-XI intact bilaterally, moves all extremities, awake and + confused Motor/Sensory: + tremor Cranial Nerves: PERRL, normal accommodation, normal facial strength, tongue midline, normal hearing, able to rotate head bilaterally, able to elevate shoulders bilaterally, no nystagmus and symmetric palate elevation Psychiatric Orientation: alert, oriented x 3 and cooperative Eye Contact: + fair eye contact Affect: euthymic affect Discharge Data Allergies Allergy/AdvReac Type Severity Reaction Status Date / Time No Known Allergies Allergy Unknown Verified 01/14/19 14:26 Consultations 01/14/19 14:39 ED Decision to Admit Stat 01/15/19 10:25 Consult Neurology Routine 01/16/19 08:40 Consult Case Management - Discharge Planning Routine Ordered Studies 01/15/19 MR angio neck wo/w con Routine 01/15/19 12:28 MR angio head wo con Routine US carotid doppler BI Routine Hospital Course (1) Acute UTI: Patient is a 68 year old female that presented as a readmission on 01/14/19 secondary to dizziness, weakness, and confusion. Acute UTI -Positive Nitrates on UA in ED -IV Ceftriaxone 1000mg QD - converted to oral Cefdinir 300mg BID, patient to finish in outpatient setting. -Urine culture grew Klebsiella Oxytoca, sensitive to Ceftriaxone, continue antibiotic course. Confusion/Wernicke Encephalopathy Syndrome -?UTI vs Dehydration vs Acute on Chronic dementia -Acute confusion appears resolved at this point. -There is a baseline confusion that daughter and tire recapper state is normal for her. -Patient does note a longstanding history of alcohol abuse, ?Chronic Wernicke Encephalopathy Syndrome. -Head and Neck MRA negative, Carotid Doppler negative. Weakness -Continued PT/OT -Discussion held with daughter of patient noting that the patient would benefit from outpatient rehab, noted agreement. -Patient accepted to [facility], plan for DC today. Schizoaffective Disorder/Anxiety/Depression -Continued Rispiridone, Sertraline, Trazodone -Continued Benztropine -Continued Folic Acid and Thiamine. -Neurology recommendation for future outpatient neuropsych testing. -Labs drawn per Neurology recommendation, Vit B12, B1, Lyme Titers, ESR, TSH -B12 254, B1 pending, Lyme Negative, ESR 42, TSH 1.72 DM2 -Held PO metformin -ISS -Home Lantus HTN -Continued Propranolol, Losartan -Continued Aspirin 81mg (2) Diabetes: (3) Confusion: (4) Wernicke encephalopathy syndrome: (5) Schizoaffective disorder: (6) Weakness: (7) Hypertension: (8) Hyperlipidemia: (9) Depression: (10) Anxiety: Total Time Total Time Spent Total Time Spent (In Minutes): <30 Discharge Plan Discharge Items Patient Disposition: Personal [facility] Reason For Visit: DIZZINESS,HYPERGLYCEMIA,UTI Discharge Diagnosis: Acute UTI Activity: Resume your previous activity Non-emergency contact: Primary Care Provider Call non-emergency contact if: you have any medication questions, your symptoms worsen and your temperature is above 101 Follow-up/Referrals: Wallace Villavicencio Jr, [Primary Care Provider] - Diet: Regular Addtl Attending Provider Instructions: Lindsey, it was a pleasure treating you while you were at [facility] this last stay, please see your instructions below. Acute UTI -Continue Cefdinir 300mg BID for the next day and a half -Your first dose will be tonight and you will complete your course tomorrow night. Confusion/Wernicke Encephalopathy Syndrome -Continue Folic Acid and Thiamine Weakness -Continue PT/OT at [facility] Schizoaffective Disorder/Anxiety/Depression -Continue Rispiridone, Sertraline, Trazodone -Continue Benztropine -Continue Folic Acid and Thiamine. -Neurology recommendation for future outpatient neuropsych testing. DM2 Continue your lantus and metformin as prescribed. HTN -Continue Propranolol, Losartan -Continue Aspirin 81mg Pending Studies at Discharge: No Stand-Alone Forms: My [facility], Smoking Cessation Skilled Items Patient informed of condition?: Yes DNR: No Discharge Level of Care: Other Communicable Disease: No Discharge Prognosis: Stable Lines: None Urinary Catheter: No Medications and DC Order Prescriptions: New cefdinir 300 mg Capsule 300 mg PO BID 2 Days Qty: 3 RF: 0 benztropine 0.5 mg Tablet 0.5 mg PO HS 30 Days Qty: 30 RF: 0 trazodone 50 mg Tablet 75 mg PO HS 30 Days Qty: 45 RF: 0 sertraline 100 mg Tablet 100 mg PO QAM 30 Days Qty: 30 RF: 0 thiamine HCl (vitamin B1) [Vitamin B-1] 100 mg Tablet 100 mg PO QAM 30 Days Qty: 30 RF: 0 aspirin 81 mg Tablet,Delayed Release (Dr/Ec) 81 mg PO QDL 30 Days Qty: 30 RF: 0 risperidone 2 mg Tablet 2 mg PO BID 30 Days Qty: 60 RF: 0 folic acid 1 mg Tablet 1 mg PO QAM 30 Days Qty: 30 RF: 0 losartan 100 mg Tablet 100 mg PO QAM 30 Days Qty: 30 RF: 0 risperidone 1 mg Tablet 1 mg PO QAM 30 Days Qty: 30 RF: 0 propranolol 80 mg Capsule,Extended Release 24hr 80 mg PO HS 30 Days Qty: 30 RF: 0 metformin 500 mg Tablet Extended Release 24hr 1,000 mg PO BID 30 Days Qty: 120 RF: 0 Xultophy 100/3.6 100 unit-3.6 mg /mL (3 mL) insulin pen 40 units SQ QAM 30 Days Qty: 15 RF: 0 Discharge Orders: Discharge Order (Routine); Ordered 01/19/19 Ordered By: Santi Sol Admission Data Admit Date/Time: 01/17/19 06:38 Attending Provider: Santi Sol Admit Provider: Nadia Ayers Primary Care Provider: Wallace Villavicencio Jr Other Providers: Nadia Ayers ; Jordon Ruiz ; Tom Carroll ; Himanshu Dawson Other Interventions: Discharge Summary Assessment (RN) Last Done: 01/19/19 11:41 DC Date/Time DO NOT enter until pt leaves facility: 01/19/19 13:01 Supervising Physician Co-Signing Physician Notes I personally examined the patient and verified all vera points of history and exam, discussed case, and agree with decision making with Dr Salde. for assisted living today Vitals noted, she is in no distress, breathing unlabored no accessory muscle use good effort. Skin shows no rashes no pallor or icterus. Altered mental statusappears to have been encephalopathy related to her UTI superimposed on a chronic dementia of unclear etiology (possibly related to her chronic alcohol use), appropriate for assisted living - stable for transfer there today Dementiaappears to be unsafe to take care of herselfunclear how much of this is related to delirium and how much is related to dementia. Close outpatient follow-up in this regard Urinary tract infectionfinish out a course of oral antibiotics for a complicated UTI. Otherwise as above Resident Activity Tracking Resident Involvement: Resident Care Provided Care Provided: Adult Hospital Medicine
[2019-01-19 11:46] VITALS: BP 108/73; PULSE 67
[2019-01-19] MEDS: ASPIRIN 81 MG ECTAB PO SCH (12:03)
[2019-01-19] MEDS: risperiDONE 2 MG TABLET PO SCH (12:03)
== END 2019-01-19 13:01 | disposition home or self-care (01) | DRG 690 ==
LOC: 2W 12:59 → ED 12:59 → SUATTDRO 16:00 → 2W 17:36

== ENCOUNTER 2019-05-15 11:17 | Inpatient (IN) ==
[2019-05-15 12:11] LABS: Albumin Level 3.6 gm/dl (3.4-5.0); BUN Creatinine Ratio 14.9 (10-20); Calcium 9.3 mg/dl (8.5-10.1); Est GFR (African American) 71.3; Est GFR (Non-African American) 61.5; Potassium 3.9 mmol/L (3.5-5.1)
[2019-05-15 12:14] LABS: Albumin Globulin Ratio 0.8 (0.9-2); Bilirubin,Total 0.4 mg/dl (0.2-1); Globulin 4.5 gm/dl (2.5-4.0); Total Protein 8.1 gm/dl (6.4-8.2)
[2019-05-15 12:21] LABS: Basophils # (auto) 0.01 K/uL (0-0.2); Basophils % (auto) 0.2 %; Eosinophils # (auto) 0.04 K/uL (0-0.5); Eosinophils % (auto) 0.8 %; Hematocrit (blood only) 24.7 % (37-47); Hemoglobin 6.5 g/dL (12.0-16.0); Hypochromasia Present; Immature Granulocytes # (auto) 0.01 K/uL (0.00-0.02); Immature Granulocytes % (auto) 0.2 %; Lymphocytes % (auto) 20.8 %; Mean Corpuscular Hemoglobin 17.3 pg (25-34); Mean Corpuscular Hgb Conc 26.3 g/dL (32-36); Mean Corpuscular Volume 65.9 fL (80-100); Mean Platelet Volume 9.5 fL (7.4-10.4); Microcytosis Present; Monocytes # (auto) 0.41 K/uL (0.11-0.59); Monocytes % (auto) 8.5 %; Neutrophils # (auto) 3.34 K/uL (1.4-6.5); Neutrophils % (auto) 69.5 %; Ovalocytes 1+; Platelet Count 121 K/uL (130-400); Platelet Estimate Decreased (Normal); RDW Coefficient of Variation 18.6 % (11.5-14.5); RDW Standard Deviation 44.4 fL (36.4-46.3); Red Blood Count 3.75 M/uL (4.2-5.4); White Blood Count 4.81 K/uL (4.8-10.8)
--- NOTE | 2019-05-15 12:37 | XRay Report ---
XR chest 1V portable CLINICAL HISTORY: weakness COMPARISON STUDY: 01/08/2019 FINDINGS: The cardiac and mediastinal contours are normal. There is no evidence of focal pulmonary co nsolidation. There is no evidence of failure. No pleural effusions are visualized.[ IMPRESSION: No active disease in the chest. ACT 112: Negative or not required by law. Electronically signed by: Levar Ley M.D. 05/15/2019 12:36 PM
[2019-05-15] MEDS ORDERED: SODIUM CHLORIDE 0.9% 250 ML IV PRN ×4 (12:43→23:59)
--- NOTE | 2019-05-15 14:18 | Emergency Department Note ---
Entered by Cori Diehl acting as a scribe for Ney Mckenzie DO History of Present Illness General Chief complaint: Abnormal Labs/Diagnostic Testing Stated complaint: abnormal labs Time Seen by Provider: 05/15/19 11:37 Source: patient and other (cops) History of Present Illness Onset (ago): minute(s) (prior to arrival) Location: left and right Pain Consistency: + other (episode) Maximum Pain Intensity: 0 Quality: + other (abnormal blood test results - low hematocrit ) Associated symptoms: + other (+low hematocrit; +shaky; -black/bloody stool; - bleeding; ) The patient is a 69 year old female, with past medical history of HTN, depression, and diabetes, who presents to the Emergency Room with complaints of an episode of abnormal blood test results that the patient found out about this morning, prior to arrival. The patient states she received a call from her PCP, Dr. Villavicencio, who told her that she had low hematocrit from a blood test done 3 days ago. The patient states she feels shaky right now. The patient denies black/tarry stool or any abnormal bleeding anywhere. The patient denies history of anemia. The patients cops reports that the patient has been taking iron supplements. The patient also denies being on blood thinners. Home Medications Home Medications Medication Instructions Recorded Confirmed Type benztropine 0.5 mg PO HS 05/03/19 05/15/19 History insulin degludec-liraglutide 36 unit SUBCUT QAM 05/03/19 05/15/19 History [Xultophy 100/3.6] lactulose [Generlac] 10 g PO DAILY PRN 05/03/19 05/15/19 History losartan [Cozaar] 100 mg PO QAM 05/03/19 05/15/19 History metformin [Glucophage XR] 1,000 mg PO BID 05/03/19 05/15/19 History multivitamin 1 tab PO QAM 05/03/19 05/15/19 History risperidone [Risperdal] 1 mg PO HS 05/03/19 05/15/19 History risperidone [Risperdal] 2 mg PO HS 05/03/19 05/15/19 History sertraline [Zoloft] 100 mg PO QAM 05/03/19 05/15/19 History carboxymethylcellulose sodium 2 drp OPHTHALMIC (EYE) BID 05/15/19 05/15/19 History [Refresh Tears] Allergies Allergy/AdvReac Type Severity Reaction Status Date / Time No Known Allergies Allergy Unknown Verified 05/15/19 12:06 Past Med/Surg History Medical History Anxiety Depression Diabetes mellitus, type 2 IDDM Essential tremor Hyperlipidemia hx Hypertension Melanoma Migraine Osteoarthritis Peripheral neuropathy bilateral feet Sleep apnea quit using machine Syncope and collapse treated at [facility] 12/2018. unknown reasoning per patient Urinary tract infection Wernicke encephalopathy syndrome pt denies Surgical History H/O local excision of skin lesion H/O unilateral oophorectomy History of appendectomy History of colonoscopy History of dilatation and curettage Family History Other No family history of adverse response to anesthesia No pertinent family history Social History Preferred Language: Greenlandic Communication Ability: Effective Form Drafter Required: No Beliefs That Will Affect Care: None marital status: / Current Living Situation: Alone Feels Safe at Home: Yes Smoking Status: Never smoker Tobacco Type: cigarettes ; Second Hand Exposure: Yes (hx as a child) ; Hx Alcohol Use: No Hx Substance Use: No Review of Systems See HPI for pertinent positives & negatives. and A total of 10 systems reviewed and were otherwise negative Physical Exam Vital Signs Vital Signs - 24 hr 05/15/19 11:19 05/15/19 11:37 05/15/19 12:30 Temperature 36.4 C L Temperature Source Oral Pulse Rate 120 H Pulse Rate [Left] 115 H Respiratory Rate 16 20 Respiratory Effort / Characteristics Non-Labored Respiratory Depth Normal Blood Pressure 104/52 L Blood Pressure [Right Arm] 103/60 Blood Pressure Mean 69 Blood Pressure Mean [Right Arm] 74 Pulse Oximetry 99 98 Oxygen Delivery Method Room Air Room Air Room Air Sepsis Recent Fever Within 48 Hours No Sepsis New/Unexplained Change in Mental Status No Sepsis Action Taken by Nursing No Action Required 05/15/19 13:30 05/15/19 13:57 Temperature 36.9 C Temperature Source Oral Pulse Rate 108 H Pulse Rate [Left] 105 H Respiratory Rate 20 23 Respiratory Effort / Characteristics Respiratory Depth Blood Pressure 152/73 H Blood Pressure [Right Arm] 127/76 Blood Pressure Mean 99 Blood Pressure Mean [Right Arm] 93 Pulse Oximetry 96 97 Oxygen Delivery Method Room Air Sepsis Recent Fever Within 48 Hours Sepsis New/Unexplained Change in Mental Status Sepsis Action Taken by Nursing CONSTITUTIONAL/VITAL SIGNS: Reviewed / noted above. GENERAL: Non-toxic in appearance. INTEGUMENTARY: Pale skin. HEAD: Normocephalic. EYES: without scleral icterus or trauma. ENT/OROPHARYNX: clear and moist. LYMPHADENOPATHY/NECK: Is supple without lymphadenopathy or meningismus. RESPIRATORY: Lungs clear and equal. CARDIOVASCULAR: Regular rate and rhythm. GI/ABDOMEN: Soft and nontender. No organomegaly or pulsatile mass. No rebound or guarding. Normal bowel sounds. EXTREMITIES: Warm and well perfused. BACK: No CVA tenderness. RECTAL: Guaiac positive stool. NEUROLOGICAL: Intact without focal deficits. PSYCHIATRIC: normal affect. MUSCULOSKELETAL: Normally developed with good muscle tone. Course Course 1140: Past medical records reviewed. The patient was evaluated in room C11B. A complete history and physical exam was performed. 1254: I reviewed the patient's case with Dr. Carroll-Koffi [facility]. Dr. Carroll will evaluate the patient for further management. Consultations Consultation #1: I [facility] the [facility]. Dr. Carroll will evaluate the patient for further management. Time: 12:54 Critical Care Time Critical Care Time: Yes Total Critical Care Time: 35 I have personally spent 35 minutes of critical care time in the direct management of this patient. This includes bedside care, interpretation of diagnostic studies, and testing, discussion with consultants, patient, and family members, and other required patient management activities. This 35 minutes is in excess of all separately billable procedures. Medical Decision Making Differential Diagnosis Differential diagnosis: Etiologies such as metabolic, infection, hypo/hyperglycemia, electrolyte abnormalities, cardiac sources, intracerebral event, toxicologic, neurologic, as well as others were entertained. Medical Records Attestation: I reviewed the patient's medical records. Home Medications Current Medication List: was personally reviewed by me Laboratory Data Attestation: I reviewed the patient's lab results. Result diagrams: 05/15/19 11:41 05/15/19 11:41 Lab Results 05/15/19 05/15/19 05/15/19 Range/Units 11:41 11:41 11:41 WBC 4.81 (4.8-10.8) K/uL RBC 3.75 L (4.2-5.4) M/uL Hgb 6.5 L* (12.0-16.0) g/dL Hct 24.7 L (37-47) % MCV 65.9 L (80-100) fL MCH 17.3 L (25-34) pg MCHC 26.3 L (32-36) g/dL RDW Std Deviation 44.4 (36.4-46.3) fL RDW Coeff of Griffin 18.6 H (11.5-14.5) % Plt Count 121 L (130-400) K/uL MPV 9.5 (7.4-10.4) fL Immature Gran % (Auto) 0.2 % Neut % (Auto) 69.5 % Lymph % (Auto) 20.8 % [place] % (Auto) 8.5 % Eos % (Auto) 0.8 % Baso % (Auto) 0.2 % Immature Gran # (Auto) 0.01 (0.00-0.02) K/uL Neut # (Auto) 3.34 (1.4-6.5) K/uL Lymph # (Auto) 1.00 L (1.2-3.4) K/uL [place] # (Auto) 0.41 (0.11-0.59) K/uL Eos # (Auto) 0.04 (0-0.5) K/uL Baso # (Auto) 0.01 (0-0.2) K/uL Platelet Estimate Decreased L (Normal) Hypochromasia Present Microcytosis Present Ovalocytes 1+ Sodium 139 (136-145) mmol/L Potassium 3.9 (3.5-5.1) mmol/L Chloride 107 (98-107) mmol/L Carbon Dioxide 20 L (21-32) mmol/L Anion Gap 12.0 H (3-11) BUN 14 (7-18) mg/dl Creatinine 0.95 (0.6-1.2) mg/dl Est Cr Clr Drug Dosing 55.0 ml/min Est GFR ( Amer) 71.3 Est GFR (Non-Af Amer) 61.5 BUN/Creatinine Ratio 14.9 (10-20) Glucose 140 H (70-99) mg/dl Calcium 9.3 (8.5-10.1) mg/dl Total Bilirubin 0.4 (0.2-1) mg/dl AST 31 (15-37) U/L ALT 21 (12-78) U/L Alkaline Phosphatase 92 (45-117) U/L Total Protein 8.1 (6.4-8.2) gm/dl Albumin 3.6 (3.4-5.0) gm/dl Globulin 4.5 H (2.5-4.0) gm/dl Albumin/Globulin Ratio 0.8 L (0.9-2) Blood Type O Positive Blood Type Recheck Antibody Screen NEGATIVE Crossmatch See Detail 05/15/19 Range/Units 12:58 WBC (4.8-10.8) K/uL RBC (4.2-5.4) M/uL Hgb (12.0-16.0) g/dL Hct (37-47) % MCV (80-100) fL MCH (25-34) pg MCHC (32-36) g/dL RDW Std Deviation (36.4-46.3) fL RDW Coeff of Griffin (11.5-14.5) % Plt Count (130-400) K/uL MPV (7.4-10.4) fL Immature Gran % (Auto) % Neut % (Auto) % Lymph % (Auto) % [place] % (Auto) % Eos % (Auto) % Baso % (Auto) % Immature Gran # (Auto) (0.00-0.02) K/uL Neut # (Auto) (1.4-6.5) K/uL Lymph # (Auto) (1.2-3.4) K/uL [place] # (Auto) (0.11-0.59) K/uL Eos # (Auto) (0-0.5) K/uL Baso # (Auto) (0-0.2) K/uL Platelet Estimate (Normal) Hypochromasia Microcytosis Ovalocytes Sodium (136-145) mmol/L Potassium (3.5-5.1) mmol/L Chloride (98-107) mmol/L Carbon Dioxide (21-32) mmol/L Anion Gap (3-11) BUN (7-18) mg/dl Creatinine (0.6-1.2) mg/dl Est Cr Clr Drug Dosing ml/min Est GFR ( Amer) Est GFR (Non-Af Amer) BUN/Creatinine Ratio (10-20) Glucose (70-99) mg/dl Calcium (8.5-10.1) mg/dl Total Bilirubin (0.2-1) mg/dl AST (15-37) U/L ALT (12-78) U/L Alkaline Phosphatase (45-117) U/L Total Protein (6.4-8.2) gm/dl Albumin (3.4-5.0) gm/dl Globulin (2.5-4.0) gm/dl Albumin/Globulin Ratio (0.9-2) Blood Type Blood Type Recheck O Positive Antibody Screen Crossmatch Imaging Data Radiologist's Impression: Radiology results as stated below per my review and th e radiologist's interpretation: XR chest 1V portable CLINICAL HISTORY: weakness COMPARISON STUDY: 01/08/2019 FINDINGS: The cardiac and mediastinal contours are normal. There is no evidence of focal pulmonary consolidation. There is no evidence of failure. No pleural effusions are visualized.[ IMPRESSION: No active disease in the chest. ACT 112: Negative or not required by law. Electronically signed by: Levar Ley M.D. 05/15/2019 12:36 PM ECG Data Attestation: I personally reviewed and interpreted this ECG as follows: Indication: + tachycardia and + other Rate (beats per minute): 110 Rhythm: + sinus tachycardia ECG Intervals/blocks: + Normal QT-c ECG ST segments: no ST elevation ECG Findings: + PVCs Blood Pressure Blood Pressure Findings: Low blood pressure Blood Pressure Disposition: further management by hospitalist YOLIS Rashid Continuous Cardiac Monitoring: An order was placed for continuous cardiac monitoring. The monitor shows a rate of 110 with sinus tachycardia. This is a 69-year-old female who presents to the ED with a chief complaint of low hemoglobin. The patient had blood work by the PCP on Wednesday and was called today and told to come to the ED for low hemoglobin. The patient's hemoglobin was 6.5 on Wednesday. It is 6.5 today. The patient feels weak and shaky. She has an EKG showing a sinus tach at a rate of 110 with an occasional PVC. Her stool s are brown and guaiac positive. Metabolic panel was unremarkable. The patient was typed and crossed for 1 unit of blood. This was initiated in the ED. The patient will be seen by the hospitalist for further inpatient evaluation and care. Impression & Plan Anemia, Stool guaiac positive Discharge Plan Visit Data Chief Complaint: Abnormal Labs/Diagnostic Testing Stated Complaint: abnormal labs ED Provider: Ney Mckenzie Discharge Problem: Anemia, Stool guaiac positive Patient Disposition: Being Evaluated by Hospitalist Forms Stand Alone Forms: My [facility] Prescriptions Prescriptions: No Action multivitamin Tablet 1 tab PO QAM RF: 0 benztropine 0.5 mg Tablet 0.5 mg PO HS RF: 0 sertraline [Zoloft] 100 mg tablet 100 mg PO QAM RF: 0 risperidone [Risperdal] 2 mg tablet 2 mg PO HS RF: 0 losartan [Cozaar] 100 mg tablet 100 mg PO QAM RF: 0 metformin [Glucophage XR] 500 mg tablet extended release 24 hr 1,000 mg PO BID RF: 0 risperidone [Risperdal] 1 mg tablet 1 mg PO HS RF: 0 lactulose [Generlac] 10 gram/15 mL Solution 10 g PO DAILY PRN (Reason: Constipation) RF: 0 Xultophy 100/3.6 100 unit-3.6 mg /mL (3 mL) Insulin Pen 36 unit subcut QAM RF: 0 Refresh Tears 0.5 % Drops 2 drp OPHTHALMIC (EYE) BID RF: 0 Referrals Referrals: Wallace Villavicencio Jr, DO [Primary Care Provider] - Discharge Problem: Anemia Qualifiers: Anemia type: unspecified type Qualified Code(s): D64.9 - Anemia, unspecified The scribe's documentation has been prepared under my direction and personally reviewed by me in its entirety. I confirm that the note above accurately reflects all work, treatment, procedures, and medical decision making performed by me.
--- NOTE | 2019-05-15 15:27 | History & Physical Report ---
Date of Service May 15, 2019 Assessment & Plan (1) Anemia: * Admit to PCU. H/h 6.5/24.7 * 1 unit PRBC already transfusing in ER --> additional unit to be transfused. Repeat CBC after * Iron studies added to lab draw --> iron low at 15, ferritin low at 4.3, transferrin % sat low at 3, TIBC 431H, Transferrin 327wnl -- iron deficiency likely in setting of GIB. No vaginal bleeding or hematuria * Protonix gtt * CT A/p w IV/oral contrast ordered -- pending * GI consult -- appreciate input on whether should have EGD/colonoscopy inpatient * NPO after midnight for possible procedure. NSS starting at midnight * dc all NSAID use (2) Hypertension: * Chronic. Stable. * BP currently 142/95 * Continue home losartan 100mg * Continue to monitor (3) Anxiety: * and depression. Chronic. Stable * Continue home sertaline 100mg QAM (4) Depression: * As above. Also with possible schizoaffective, depressed type--> continue home risperidone 3mg QHS and benztropine 0.5mg QHS (5) Hyperlipidemia: * Per history. Not on any medications. Could be secondary to antipsychotic use * Lipid profile in AM (6) Diabetes: * Hold home insulin, metformin. A1c 5.2 on 04/23/19 * ISS while inpatient. BSG ACHS. Lantus 18 units BID (on 36 units QAM as outpatient) * Continue to monitor (7) Essential tremor: * No tremor on exam. Per patient, improved despite recent discontinuation of propranolol. (8) Syncope and collapse: * Per patient, history. ECHO 01/09/19 with normal LV size, mild concentric LVH. LVEF 60-65%. No wma. Normal RV size and function. (9) Sleep apnea: * History of, although patient no longer uses CPAP (10) Thrombocytopenia: * Platelets mildly low chronically * checking CT abd/pel which will look for splenomegaly * could be ITP * follow CBC * if persists or worsens, consider Heme consult inpatient; otherwise recommend Heme consult outpt (11) DVT prophylaxis: * SCDs * Chemoprophylaxis held in setting of anemia/GI bleed Dispo: NPO for possible scope in AM, PT/OT with possible need for rehab prior to discharge home History of Present Illness Chief Complaint: Anemia Primary Care Provider: Wallace Villavicencio Jr, DO 69 year old female with PMH significant for HTN, HLD, DM II (on insulin), peripheral neuropathy, migraines, depression, anxiety, syncope presented to the emergency department for abnormal labs drawn on Wednesday by her PCP Dr. Villavicencio. The patient states she was obtaining routine lab work following medication changes that included discontinuing her tramadol and propranolol; this was in the setting of fatigue, mental fogginess, and falls. She states her insulin was also decreased from 40 to 36 units in the morning. She states she was called today and told to come to the emergency room for a low blood count. She denies ever having a history of anemia. She states she had been battling with syncope and recurrent falls, occurring multiple times in the past 3-4 years, but has been having multiple "soft" and "hard" falls over the past year and she is afraid to fall. She states she was diagnosed with a UTI at that time (December 2018), but was curious as to what her h/h was at that time, which was 11.2/33.7 and MCV was 85.5. She states Dr. Villavicencio has been ordering extensive studies to determine if there is anything underlying causing this syncope, which the patient states she does not have currently. She has been tested for both Lyme and RA, both of which were negative. She denies any hematuria, hematochezia, melena, or uncontrolled bleeding. She states she started taking a multi-vitamin and iron 4 weeks ago, and per friend present in room, this was started due to poor dietary choices and that Ms. Portillo was not consuming much red meat at all. She also reports taking Naproxen once daily at bedtime for the last 2 weeks for right shoulder pain. She has had some associated night sweat several days ago as if she was "having a hot flash, like in menopause", which she went through over ten years ago. Denies any personal or family history of colon cancer. She does have a personal history of melanoma which she states was excised. She confirms a 5lb unintentional weight loss over the past month or two and states she believes her last colonoscopy was over ten years ago, but she is unsure who performed. She endorses alternating diarrhea and constipation during this time as well, however friend at bedside confirmed with patient that this may be due to dietary choices, as she is not able to take the patient for all of her grocery shopping. Patient states she loves fruit, but eats it all at once when she goes shopping, and then tends to eat more "junk food" later on. Of note, patient states she had been taking lactulose for "elevated blood ammonia" but states she had been weaned from 60ml/day to 10ml/day and is hoping to discontinue this medication. She denies any history of liver disease. ER Course: CXR without acute process. UA 1 unit PRBCs transfused for h/h 6.5/24.7. MCV 65.9. WBC 4.8k, plt count 121. +hemoccult EKG sinus tach with PVCs, possible inferior infarct, 111bpm. Allergies Allergy/AdvReac Type Severity Reaction Status Date / Time No Known Allergies Allergy Unknown Verified 05/15/19 12:06 Home Medications Home Medications Medication Instructions Recorded Confirmed Type benztropine 0.5 mg PO HS 05/03/19 05/15/19 History insulin degludec-liraglutide 36 unit SUBCUT QAM 05/03/19 05/15/19 History [Xultophy 100/3.6] lactulose [Generlac] 10 g PO DAILY PRN 05/03/19 05/15/19 History losartan [Cozaar] 100 mg PO QAM 05/03/19 05/15/19 History metformin [Glucophage XR] 1,000 mg PO BID 05/03/19 05/15/19 History multivitamin 1 tab PO QAM 05/03/19 05/15/19 History risperidone [Risperdal] 1 mg PO HS 05/03/19 05/15/19 History risperidone [Risperdal] 2 mg PO HS 05/03/19 05/15/19 History sertraline [Zoloft] 100 mg PO QAM 05/03/19 05/15/19 History carboxymethylcellulose sodium 2 drp OPHTHALMIC (EYE) BID 05/15/19 05/15/19 History [Refresh Tears] Past Med/Surg History Medical History Anxiety Depression Diabetes mellitus, type 2 IDDM Essential tremor Hyperlipidemia hx Hypertension Melanoma Migraine Osteoarthritis Peripheral neuropathy bilateral feet Sleep apnea quit using machine Syncope and collapse treated at [facility] 12/2018. 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 Beliefs That Will Affect Care: None marital status: / Current Living Situation: Alone Other Information That Helps Us Care for You: No Feels Safe at Home: Yes Safety Concerns: Feels Safe At This Time Smoking Status: Never smoker Tobacco Type: cigarettes ; Second Hand Exposure: Yes (hx as a child) ; Hx Alcohol Use: No Hx Substance Use: No Review of Systems Review of Systems: All systems reviewed & are unremarkable except as noted in HPI & below Constitutional: + weight loss; no fever Eyes: no diplopia and no problem reported Ear, Nose, Mouth, Throat: no sore throat and no dysphagia Respiratory: no cough and no dyspnea Cardiovascular: no chest pain, no palpitations and no edema Gastrointestinal: no abdominal pain, no nausea, no vomiting, no coffee ground emesis, no hematemesis, no blood in stools and no melena Genitourinary: no dysuria and no hematuria Musculoskeletal: no radicular pain and no swelling Integumentary: no rash and no lesions Neurologic: + tremor(s) (improved); no headache(s) and no confusion Psychiatric: + depression and + anxiety Endocrine: + fatigue; no cold intolerance and no heat intolerance Hematologic / Lymphatic: + unexplained weight loss; no easy bruising and no coagulopathy Allergy / Immunological: no cough and no dyspnea Physical Exam Constitutional: well developed, well nourished and + obese; no acute distress pale Eyes: + anicteric sclerae and PERRL ENMT: Mallampati Class: III dry mm Neck: trachea midline, no thyromegaly Respiratory: normal respiratory effort, lungs clear to auscultation Cardiovascular: Rate/Rhythm: + tachycardic Heart Sounds: normal S1, normal S2 and + murmur Vessels: no JVD Extremities: normal capillary refill; no edema Gastrointestinal (Abdomen): normal bowel sounds, soft, nontender, no hepatosplenomegaly Musculoskeletal: no cyanosis or clubbing, extremities motor strength 5/5 Skin: cold, dry Neurologic: PERRL, EOMI, accommodation nl, no face palsy, no dysarthria Psychiatric: Orientation: alert and oriented x 3 Lymphatic: no cervical or axillary lymphadenopathy Results & Data Vital Signs (Past 12 Hours) Vital Signs Temp Pulse Pulse Resp BP BP Pulse Ox 05/15/19 14:49 37.1 C 109 H 22 122/74 97 05/15/19 14:30 36.9 C 118 H 25 H 131/77 97 05/15/19 14:15 36.8 C 111 H 21 110/81 97 05/15/19 13:57 36.9 C 108 H 23 152/73 H 97 05/15/19 13:30 105 H 20 127/76 96 05/15/19 12:30 115 H 20 103/60 98 05/15/19 11:19 36.4 C L 120 H 16 104/52 L 99 Laboratory Results 05/15/19 05/15/19 05/15/19 Range/Units 12:58 11:41 11:41 WBC (4.8-10.8) K/uL RBC (4.2-5.4) M/uL Hgb (12.0-16.0) g/dL Hct (37-47) % MCV (80-100) fL MCH (25-34) pg MCHC (32-36) g/dL RDW Std Deviation (36.4-46.3) fL RDW Coeff of Griffin (11.5-14.5) % Plt Count (130-400) K/uL MPV (7.4-10.4) fL Immature Gran % (Auto) % Neut % (Auto) % Lymph % (Auto) % Stokes % (Auto) % Eos % (Auto) % Baso % (Auto) % Immature Gran # (Auto) (0.00-0.02) K/uL Neut # (Auto) (1.4-6.5) K/uL Lymph # (Auto) (1.2-3.4) K/uL Stokes # (Auto) (0.11-0.59) K/uL Eos # (Auto) (0-0.5) K/uL Baso # (Auto) (0-0.2) K/uL Platelet Estimate (Normal) Hypochromasia Microcytosis Ovalocytes Sodium 139 (136-145) mmol/L Potassium 3.9 (3.5-5.1) mmol/L Chloride 107 (98-107) mmol/L Carbon Dioxide 20 L (21-32) mmol/L Anion Gap 12.0 H (3-11) BUN 14 (7-18) mg/dl Creatinine 0.95 (0.6-1.2) mg/dl Est Cr Clr Drug Dosing 55.0 ml/min Est GFR ( Amer) 71.3 Est GFR (Non-Af Amer) 61.5 BUN/Creatinine Ratio 14.9 (10-20) Glucose 140 H (70-99) mg/dl Calcium 9.3 (8.5-10.1) mg/dl Iron 15 L (35-150) mcg/dl TIBC 461 H (250-450) mcg/dl Transferrin 327 (200-360) mg/dl Transferrin % Sat 3 L (15-50) % Ferritin 4.3 L (8-388) ng/ml Total Bilirubin 0.4 (0.2-1) mg/dl AST 31 (15-37) U/L ALT 21 (12-78) U/L Alkaline Phosphatase 92 (45-117) U/L Total Protein 8.1 (6.4-8.2) gm/dl Albumin 3.6 (3.4-5.0) gm/dl Globulin 4.5 H (2.5-4.0) gm/dl Albumin/Globulin Ratio 0.8 L (0.9-2) Blood Type Blood Type Recheck O Positive Antibody Screen Crossmatch 05/15/19 05/15/19 Range/Units 11:41 11:41 WBC 4.81 (4.8-10.8) K/uL RBC 3.75 L (4.2-5.4) M/uL Hgb 6.5 L* (12.0-16.0) g/dL Hct 24.7 L (37-47) % MCV 65.9 L (80-100) fL MCH 17.3 L (25-34) pg MCHC 26.3 L (32-36) g/dL RDW Std Deviation 44.4 (36.4-46.3) fL RDW Coeff of Griffin 18.6 H (11.5-14.5) % Plt Count 121 L (130-400) K/uL MPV 9.5 (7.4-10.4) fL Immature Gran % (Auto) 0.2 % Neut % (Auto) 69.5 % Lymph % (Auto) 20.8 % Stokes % (Auto) 8.5 % Eos % (Auto) 0.8 % Baso % (Auto) 0.2 % Immature Gran # (Auto) 0.01 (0.00-0.02) K/uL Neut # (Auto) 3.34 (1.4-6.5) K/uL Lymph # (Auto) 1.00 L (1.2-3.4) K/uL Stokes # (Auto) 0.41 (0.11-0.59) K/uL Eos # (Auto) 0.04 (0-0.5) K/uL Baso # (Auto) 0.01 (0-0.2) K/uL Platelet Estimate Decreased L (Normal) Hypochromasia Present Microcytosis Present Ovalocytes 1+ Sodium (136-145) mmol/L Potassium (3.5-5.1) mmol/L Chloride (98-107) mmol/L Carbon Dioxide (21-32) mmol/L Anion Gap (3-11) BUN (7-18) mg/dl Creatinine (0.6-1.2) mg/dl Est Cr Clr Drug Dosing ml/min Est GFR ( Amer) Est GFR (Non-Af Amer) BUN/Creatinine Ratio (10-20) Glucose (70-99) mg/dl Calcium (8.5-10.1) mg/dl Iron (35-150) mcg/dl TIBC (250-450) mcg/dl Transferrin (200-360) mg/dl Transferrin % Sat (15-50) % Ferritin (8-388) ng/ml Total Bilirubin (0.2-1) mg/dl AST (15-37) U/L ALT (12-78) U/L Alkaline Phosphatase (45-117) U/L Total Protein (6.4-8.2) gm/dl Albumin (3.4-5.0) gm/dl Globulin (2.5-4.0) gm/dl Albumin/Globulin Ratio (0.9-2) Blood Type O Positive Blood Type Recheck Antibody Screen NEGATIVE Crossmatch See Detail Supervising Physician Co-Signing Physician Notes PA Supervision Note: I personally saw and examined the patient. I verified all vera points and agree with SHIREEN Uribe with the following exceptions and/or additions: Pt presents after being advised to do so by her PCP for low hgb. She had been experiencing fatigue and falls prior to that and had her propranolol and trazodone stopped for that. No black or bloody stools, no vag bleeding or hemtaturis, no obvious bleeding from anywhere. Last colonoscopy > 10 yrs ago. Has had NSAID use just for the last 2 weeks Suspect based on MCV inthe 60s and Fe studies that this has been more chronic than just the last 2 weeks. History and ROS reviewed otherwise as above VSS NAD, Obese Anicteric sclerae, EOMI RRR no mgr CTAB no wcr ABd +BS soft NT ND no HSM Ext no edema, 2+ DP pulses bilat Skin no rashes 69 yo female here with severe symptomatic anemia, hgb 6.5, and +Hemoccult stool. Admit for transfusion of 2 units PRBCs and further workup for source of blood loss--> CT abd/pel and GI consult for possible endoscopies. PG Care Time/CCT Total # of Minutes Spent Total Time Spent with Patient: Total time spent is greater than 50% in coordination of care (as documented) at patient's floor/unit and/or counseling patient: Coding Level of Care Code 71528 Initial Inpt Care Lvl 3 Diagnoses Anemia D64.9 Anemia type: unspecified type Hypertension I10 Anxiety F41.9 Depression F32.9 Hyperlipidemia E78.5 Diabetes E11.9 Essential tremor G25.0 Syncope and collapse R55 Sleep apnea G47.30 Thrombocytopenia D69.6 DVT prophylaxis Z29.9 (1) Anemia Anemia type: unspecified type Qualified Code(s): D64.9 - Anemia, unspecified
[2019-05-15 16:11] LABS: Ferritin 4.3 ng/ml (8-388)
[2019-05-15] MEDS ORDERED: GLUCAGON FOR INJ 1 MG VIAL SQ PRN (17:25)
[2019-05-15] MEDS ORDERED: ACETAMINOPHEN 325 MG TAB PO PRN (17:25)
[2019-05-15] MEDS ORDERED: ONDANSETRON INJ 2 MG/ML 2 ML VIAL IV PRN (17:25)
[2019-05-15] MEDS ORDERED: GLUCOSE 40% GEL 15 GM TUBE PO PRN (17:25)
[2019-05-15] MEDS ORDERED: POLYETHYLENE (MIRALAX) 17 GM PACK PO PRN (17:25)
[2019-05-15] MEDS ORDERED: DEXTROSE 50% 50 ML SYRINGE IV PRN (17:25)
[2019-05-15] MEDS ORDERED: GLUCOSE 10 TABS/TUBE PO PRN (17:25)
[2019-05-15] MEDS ORDERED: MAGNESIUM HYDROXIDE SUSP 30 ML UDC PO PRN (17:25)
[2019-05-15] MEDS ORDERED: CARBOHYDRATES FOR HYPOGLYCEMIA PO PRN (17:25)
[2019-05-15] MEDS ORDERED: LACTULOSE SYRUP 20 GM/30 ML UDC PO PRN (17:37)
[2019-05-15] MEDS: INSULIN ASPART 100 UNITS/ML 3 ML PEN SC SCH ×2 (18:20→20:59)
[2019-05-15] MEDS: SODIUM CHLORIDE 0.9% 1000ML 1,000 ML IV SCH (18:21)
[2019-05-15 18:35] LABS: Hematocrit (blood only) 25.3 % (37-47); Hemoglobin 6.9 g/dL (12.0-16.0); Mean Corpuscular Hemoglobin 18.4 pg (25-34); Mean Corpuscular Hgb Conc 27.3 g/dL (32-36); Mean Corpuscular Volume 67.5 fL (80-100); Platelet Count 108 K/uL (130-400); Platelet Estimate Decreased (Normal); RDW Coefficient of Variation 19.7 % (11.5-14.5); RDW Standard Deviation 48.5 fL (36.4-46.3); Red Blood Count 3.75 M/uL (4.2-5.4); White Blood Count 4.57 K/uL (4.8-10.8)
[2019-05-15] MEDS ORDERED: PANTOprazole 80 MG in DEXTROSE 5% 100 ML IV ONE (18:45)
[2019-05-15] MEDS ORDERED: IOVERSOL 100ml IV PRN (20:23)
[2019-05-15] MEDS: PANTOprazole 40 MG in DEXTROSE 5% 100 ML IV SCH (20:36)
[2019-05-15] MEDS: risperiDONE 2 MG TABLET PO SCH (20:54)
[2019-05-15] MEDS: risperiDONE 1 MG TABLET PO SCH (20:54)
[2019-05-15] MEDS: BENZTROPINE MESYLATE 0.5 MG TAB PO SCH (20:54)
[2019-05-15] MEDS: ARTIFICIAL TEARS OP SCH (20:55)
[2019-05-15] MEDS: INSULIN GLARGINE SOLOSTAR 100 UNITS/ML 3 ML PEN SC SCH (20:57)
--- NOTE | 2019-05-15 21:01 | CT Scan Report ---
CT OF THE ABDOMEN AND PELVIS WITH CONTRAST CLINICAL HISTORY: anemia, hx elevated ammonia COMPARISON STUDY: CT of the abdomen July 25, 2013. MRCP August 09, 2015. KUB January 09, 2019. TECHNIQUE: Following IV administration of 94 mL of Optiray-320, axial images of the abdomen and pelvi s were obtained from the lung bases to the proximal femurs. Images were reviewed in the axial, sagitt al, and coronal planes. IV contrast was administered without complication. Automated exposure contro l was utilized for the study. A dose lowering technique was utilized adhering to the principles of A MYRON. Oral contrast was administered. CT DOSE: 686.24 mGycm FINDINGS: Lung bases are unremarkable. No pneumatosis, free air or portal venous gas is present. A fe w water attenuation hepatic lesions are unchanged. These reflect cysts. Liver contour is lobulated. M oderate splenomegaly has mildly increased since MRCP of August 09, 2015. The adrenal glands and pancreas are unremarkable. There is no biliary or pancreatic ductal dilatation. There is no ascites. There is no evidence for a bowel obstruction. Calcification and fibroid is noted. No lymphadenopathy. There a re no suspicious osseous lesions. The main, left and right portal veins are patent. A cyst within low er pole the left kidney is noted. A few subcentimeter right renal lesions are too small to characteri ze. IMPRESSION: 1. No acute process within the abdomen or pelvis. 2. Lobulated contour of the liver which raises the possibility of cirrhosis. Mild increase in moderat e splenomegaly which is nonspecific but may reflect sequela of portal hypertension. 3. No bowel obstruction. No bowel wall thickening. ACT 112: Negative or not required by law. Electronically signed by: Michael Mason M.D. 05/15/2019 8:59 PM
[2019-05-16] MEDS: PANTOprazole 40 MG in DEXTROSE 5% 100 ML IV SCH ×6 (01:55→21:40)
[2019-05-16 03:01] LABS: Appearance Urine Clear (Clear); Bilirubin Urine Negative (Negative); Blood Urine Negative (Negative); Color Urine Colorless; Glucose Urine UA Negative (Negative); Ketones Urine Negative (Negative); Leukocyte Esterase Urine Negative (Negative); Nitrite Urine Negative (Negative); Protein Urine Negative (Negative); Specific Gravity Urine <= 1.005 (1.000-1.030); Urobilinogen Urine Negative (Negative)
[2019-05-16] MEDS ORDERED: Nursing to Pharmacy Communication ONE (03:35)
[2019-05-16] MEDS: SODIUM CHLORIDE 0.9% 1000ML 1,000 ML IV SCH ×3 (04:33→22:17)
[2019-05-16] MEDS: INSULIN ASPART 100 UNITS/ML 3 ML PEN SC SCH ×4 (06:12→20:07)
[2019-05-16 07:05] LABS: BUN Creatinine Ratio 15.2 (10-20); Calcium 8.6 mg/dl (8.5-10.1); Creatinine Clr Calc Pharmacy 69.8 ml/min; Est GFR (African American) 96.5; Est GFR (Non-African American) 83.2; Potassium 3.6 mmol/L (3.5-5.1)
[2019-05-16 07:08] LABS: Albumin Globulin Ratio 0.8 (0.9-2); Bilirubin,Total 0.5 mg/dl (0.2-1); Globulin 3.9 gm/dl (2.5-4.0); Total Protein 6.9 gm/dl (6.4-8.2)
[2019-05-16 07:15] LABS: Anisocytosis Present; Basophils # (auto) 0.01 K/uL (0-0.2); Basophils % (auto) 0.2 %; Eosinophils # (auto) 0.08 K/uL (0-0.5); Hematocrit (blood only) 26.7 % (37-47); Hemoglobin 7.7 g/dL (12.0-16.0); Hypochromasia Present; Immature Granulocytes # (auto) 0.01 K/uL (0.00-0.02); Immature Granulocytes % (auto) 0.2 %; Lymphocytes # (auto) 1.34 K/uL (1.2-3.4); Lymphocytes % (auto) 33.1 %; Mean Corpuscular Hemoglobin 19.6 pg (25-34); Mean Corpuscular Hgb Conc 28.8 g/dL (32-36); Mean Corpuscular Volume 68.1 fL (80-100); Mean Platelet Volume 9.7 fL (7.4-10.4); Microcytosis Present; Monocytes # (auto) 0.36 K/uL (0.11-0.59); Monocytes % (auto) 8.9 %; Neutrophils # (auto) 2.25 K/uL (1.4-6.5); Neutrophils % (auto) 55.6 %; Platelet Count 101 K/uL (130-400); Platelet Estimate Decreased (Normal); RDW Coefficient of Variation 20.2 % (11.5-14.5); RDW Standard Deviation 49.9 fL (36.4-46.3); Red Blood Count 3.92 M/uL (4.2-5.4); White Blood Count 4.05 K/uL (4.8-10.8)
[2019-05-16] MEDS: ARTIFICIAL TEARS OP SCH ×2 (09:29→19:52)
[2019-05-16] MEDS: SERTRALINE HCL 100 MG TABLET PO SCH (09:29)
[2019-05-16] MEDS: LOSARTAN POTASSIUM 50 MG TAB PO SCH (09:30)
[2019-05-16] MEDS: MULTIVITAMIN TAB PO SCH (09:30)
[2019-05-16] MEDS: INSULIN GLARGINE SOLOSTAR 100 UNITS/ML 3 ML PEN SC SCH ×2 (09:31→20:07)
[2019-05-16] MEDS ORDERED: SODIUM CHLORIDE 0.9% 250 ML IV PRN (09:45)
--- NOTE | 2019-05-16 11:27 | Hospitalist Progress Note ---
Date of Service May 16, 2019 Assessment & Plan (1) Anemia: * Hemoglobin initially 6.5 on admission. Patient has received total of 3 units PRBCs with resulting h/h 9.5/32.2 * Iron studies --> iron low at 15, ferritin low at 4.3, transferrin % sat low at 3, TIBC 431H, Transferrin 327wnl -- iron deficiency likely in setting of GIB. No vaginal bleeding or hematuria. Will start ferrous sulfate 325mg prior to discharge. * Protonix gtt --> transitioned to protonix 40mg PO BID * CT A/p w IV/oral contrast without acute process, however lobulated contour of liver with possibility of cirrhosis. mild increase in moderate splenomegaly * GI consult -- appreciate input * EGD on 05/16 with evidence of gastritis and gastric erosions possibly healed ulcers * NPO after midnight for colonoscopy on 05/17 * dc all NSAID use * VSS stable --> patient running 80-100bpm overnight on telemetry and 80s for most of morning, NSR. Transfer to medical this evening (2) Cirrhosis: * Will need further work-up as an outpatient * Hep A, B as outpatient and rec for vaccination to prevent secondary liver injury * Will surveillance with RUQ US every 6 months per GI recommendation (3) Hypertension: * Chronic. Stable. * BP currently slightly elevated at 157/84 * Continue home losartan 100mg * Continue to monitor (4) Diabetes: * Hold home insulin, metformin. A1c 5.2 on 04/23/19 * ISS while inpatient. BSG ACHS. Lantus 18 units BID (on 36 units QAM as outpatient) -- patient NPO last evening for EGD and again tonight for colonoscopy -- will continue at reduced dose -- sugars running 83-100 * Continue to monitor (5) Anxiety: * and depression. Chronic. Stable * Continue home sertaline 100mg QAM (6) Depression: * As above. Also with possible schizoaffective, depressed type--> continue home risperidone 3mg QHS and benztropine 0.5mg QHS (7) Hyperlipidemia: * Per history. Not on any medications. Could be secondary to antipsychotic use * Lipid profile in AM (8) Essential tremor: * No tremor on exam. Per patient, improved despite recent discontinuation of propranolol. (9) Syncope and collapse: * Per patient, history. ECHO 01/09/19 with normal LV size, mild concentric LVH. LVEF 60-65%. No wma. Normal RV size and function. (10) Sleep apnea: * History of, although patient no longer uses CPAP (11) Thrombocytopenia: * Platelets mildly low chronically * CT abd/pel with increase in splenomegaly -- likely secondary to cirrhosis/portal hypertension * Could be ITP * follow CBC * if persists or worsens, consider Heme consult inpatient; otherwise recommend Heme consult outpt (12) DVT prophylaxis: * SCDs * Chemoprophylaxis held in setting of anemia/GI bleed Dispo: NPO for colonoscopy in AM, PT/OT with possible need for rehab prior to discharge home Admission and Anticipated Discharge Date Admission Date: May 15, 2019 Supervising Physician Co-Signing Physician Notes PA Supervision Note: I personally saw and examined the patient. I verified all vera points and agree with SHIREEN Uribe with the following exceptions and/or additions: Patient seen today and discussed results of EGD. She would prefer to stay for colonoscopy to get it done while she is here. No abdominal pains. Discussed case with GI VSS NAD, Obese Anicteric sclerae, EOMI Breathing unlabored Skin no rashes 69 yo female here with severe symptomatic anemia, hgb 6.5, and +Hemoccult stool. Could be secondary to healing of gastric ulcers and gastritis but needs further work-up Hemoglobin now stabilized and no signs of ongoing bleeding Planned to stay for colonoscopy tomorrow and if stable and colonoscopy without significant abnormality, could discharge home tomorrow Subjective Feeling much better this morning. Patient underwent EGD today that revealed gastritis with possible healing ulcers. Patient denies any melena or hematochezia, denies abdominal pain. Tolerating diet without difficulty. Decreased fatigue. Patient would like to persue colonoscopy prior to discharge. Case discussed with GI and plans for colonscopy in AM. Patient denies fevers, chills, chest pain, shortness of breath at this time. Review of Systems Review of Systems: All systems reviewed & are unremarkable except as noted in HPI & below Physical Exam Constitutional: well developed, well nourished and + obese; no acute distress Eyes: + anicteric sclerae and PERRL ENMT: Mallampati Class: III Neck: trachea midline, no thyromegaly Respiratory: normal respiratory effort, lungs clear to auscultation Cardiovascular: Heart Sounds: normal S1 and normal S2 Vessels: no JVD Extremities: normal capillary refill; no edema Gastrointestinal (Abdomen): normal bowel sounds, soft, nontender, no hepatosplenomegaly Musculoskeletal: no cyanosis or clubbing, extremities motor strength 5/5 Skin: no rashes, warm and dry Neurologic: PERRL, EOMI, accommodation nl, no face palsy, no dysarthria Psychiatric: Orientation: alert and oriented x 3 Lymphatic: no cervical or axillary lymphadenopathy Results & Data ([facility]) Vital Signs (Past 12 Hours) Vital Signs Temp Pulse Pulse Resp BP BP Pulse Ox 05/16/19 11:22 89 05/16/19 10:35 36.7 C 91 H 18 136/79 97 05/16/19 08:27 36.6 C 87 16 132/80 95 05/16/19 07:00 36.7 C 85 19 125/76 94 05/16/19 04:43 36.6 C 85 17 109/70 97 05/16/19 00:20 36.5 C 91 H 18 147/85 H 96 05/16/19 00:13 36.7 C 85 16 121/72 95 05/15/19 23:45 36.8 C 84 18 124/77 96 Laboratory Results 05/16/19 05/16/19 05/16/19 Range/Units 16:21 15:34 11:26 WBC (4.8-10.8) K/uL RBC (4.2-5.4) M/uL Hgb 9.5 L (12.0-16.0) g/dL Hct 32.2 L (37-47) % MCV (80-100) fL MCH (25-34) pg MCHC (32-36) g/dL RDW Std Deviation (36.4-46.3) fL RDW Coeff of Griffin (11.5-14.5) % Plt Count (130-400) K/uL MPV (7.4-10.4) fL Immature Gran % (Auto) % Neut % (Auto) % Lymph % (Auto) % [place] % (Auto) % Eos % (Auto) % Baso % (Auto) % Immature Gran # (Auto) (0.00-0.02) K/uL Neut # (Auto) (1.4-6.5) K/uL Lymph # (Auto) (1.2-3.4) K/uL [place] # (Auto) (0.11-0.59) K/uL Eos # (Auto) (0-0.5) K/uL Baso # (Auto) (0-0.2) K/uL Platelet Estimate (Normal) Hypochromasia Anisocytosis Microcytosis Peripher Smr Path Cons Sodium (136-145) mmol/L Potassium (3.5-5.1) mmol/L Chloride (98-107) mmol/L Carbon Dioxide (21-32) mmol/L Anion Gap (3-11) BUN (7-18) mg/dl Creatinine (0.6-1.2) mg/dl Est Cr Clr Drug Dosing ml/min Est GFR ( Amer) Est GFR (Non-Af Amer) BUN/Creatinine Ratio (10-20) Glucose (70-99) mg/dl POC Glucose 91 95 (70-99) mg/dl Calcium (8.5-10.1) mg/dl Total Bilirubin (0.2-1) mg/dl AST (15-37) U/L ALT (12-78) U/L Alkaline Phosphatase (45-117) U/L Lactate Dehydrogenase (84-246) U/L Total Protein (6.4-8.2) gm/dl Albumin (3.4-5.0) gm/dl Globulin (2.5-4.0) gm/dl Albumin/Globulin Ratio (0.9-2) Urine Color Urine Appearance (Clear) Urine pH (4.5-7.5) Ur Specific [place] (1.000-1.030) Urine Protein (Negative) Urine Glucose (UA) (Negative) Urine Ketones (Negative) Urine Blood (Negative) Urine Nitrite (Negative) Urine Bilirubin (Negative) Urine Urobilinogen (Negative) Ur Leukocyte Esterase (Negative) Blood Type Antibody Screen Crossmatch 05/16/19 05/16/19 05/16/19 Range/Units 06:10 05:45 05:45 WBC 4.05 L (4.8-10.8) K/uL RBC 3.92 L (4.2-5.4) M/uL Hgb 7.7 L (12.0-16.0) g/dL Hct 26.7 L (37-47) % MCV 68.1 L (80-100) fL MCH 19.6 L (25-34) pg MCHC 28.8 L (32-36) g/dL RDW Std Deviation 49.9 H (36.4-46.3) fL RDW Coeff of Griffin 20.2 H (11.5-14.5) % Plt Count 101 L (130-400) K/uL MPV 9.7 D (7.4-10.4) fL Immature Gran % (Auto) 0.2 % Neut % (Auto) 55.6 % Lymph % (Auto) 33.1 % [place] % (Auto) 8.9 % Eos % (Auto) 2.0 % Baso % (Auto) 0.2 % Immature Gran # (Auto) 0.01 (0.00-0.02) K/uL Neut # (Auto) 2.25 (1.4-6.5) K/uL Lymph # (Auto) 1.34 (1.2-3.4) K/uL [place] # (Auto) 0.36 (0.11-0.59) K/uL Eos # (Auto) 0.08 (0-0.5) K/uL Baso # (Auto) 0.01 (0-0.2) K/uL Platelet Estimate Decreased L (Normal) Hypochromasia Present Anisocytosis Present Microcytosis Present Peripher Smr Path Cons Sodium 141 (136-145) mmol/L Potassium 3.6 (3.5-5.1) mmol/L Chloride 110 H (98-107) mmol/L Carbon Dioxide 24 (21-32) mmol/L Anion Gap 7.0 (3-11) BUN 11 (7-18) mg/dl Creatinine 0.74 (0.6-1.2) mg/dl Est Cr Clr Drug Dosing 69.8 ml/min Est GFR ( Amer) 96.5 Est GFR (Non-Af Amer) 83.2 BUN/Creatinine Ratio 15.2 (10-20) Glucose 75 (70-99) mg/dl POC Glucose 83 (70-99) mg/dl Calcium 8.6 (8.5-10.1) mg/dl Total Bilirubin 0.5 (0.2-1) mg/dl AST 25 (15-37) U/L ALT 19 (12-78) U/L Alkaline Phosphatase 71 (45-117) U/L Lactate Dehydrogenase (84-246) U/L Total Protein 6.9 (6.4-8.2) gm/dl Albumin 3.0 L (3.4-5.0) gm/dl Globulin 3.9 (2.5-4.0) gm/dl Albumin/Globulin Ratio 0.8 L (0.9-2) Urine Color Urine Appearance (Clear) Urine pH (4.5-7.5) Ur Specific [place] (1.000-1.030) Urine Protein (Negative) Urine Glucose (UA) (Negative) Urine Ketones (Negative) Urine Blood (Negative) Urine Nitrite (Negative) Urine Bilirubin (Negative) Urine Urobilinogen (Negative) Ur Leukocyte Esterase (Negative) Blood Type Antibody Screen Crossmatch 05/16/19 05/15/19 05/15/19 Range/Units 01:36 21:04 20:34 WBC (4.8-10.8) K/uL RBC (4.2-5.4) M/uL Hgb (12.0-16.0) g/dL Hct (37-47) % MCV (80-100) fL MCH (25-34) pg MCHC (32-36) g/dL RDW Std Deviation (36.4-46.3) fL RDW Coeff of Griffin (11.5-14.5) % Plt Count (130-400) K/uL MPV (7.4-10.4) fL Immature Gran % (Auto) % Neut % (Auto) % Lymph % (Auto) % [place] % (Auto) % Eos % (Auto) % Baso % (Auto) % Immature Gran # (Auto) (0.00-0.02) K/uL Neut # (Auto) (1.4-6.5) K/uL Lymph # (Auto) (1.2-3.4) K/uL [place] # (Auto) (0.11-0.59) K/uL Eos # (Auto) (0-0.5) K/uL Baso # (Auto) (0-0.2) K/uL Platelet Estimate (Normal) Hypochromasia Anisocytosis Microcytosis Peripher Smr Path Cons Sodium (136-145) mmol/L Potassium (3.5-5.1) mmol/L Chloride (98-107) mmol/L Carbon Dioxide (21-32) mmol/L Anion Gap (3-11) BUN (7-18) mg/dl Creatinine (0.6-1.2) mg/dl Est Cr Clr Drug Dosing ml/min Est GFR ( Amer) Est GFR (Non-Af Amer) BUN/Creatinine Ratio (10-20) Glucose (70-99) mg/dl POC Glucose 100 H (70-99) mg/dl Calcium (8.5-10.1) mg/dl Total Bilirubin (0.2-1) mg/dl AST (15-37) U/L ALT (12-78) U/L Alkaline Phosphatase (45-117) U/L Lactate Dehydrogenase 166 (84-246) U/L Total Protein (6.4-8.2) gm/dl Albumin (3.4-5.0) gm/dl Globulin (2.5-4.0) gm/dl Albumin/Globulin Ratio (0.9-2) Urine Color Colorless Urine Appearance Clear (Clear) Urine pH 7.0 (4.5-7.5) Ur Specific [place] <= 1.005 (1.000-1.030) Urine Protein Negative (Negative) Urine Glucose (UA) Negative (Negative) Urine Ketones Negative (Negative) Urine Blood Negative (Negative) Urine Nitrite Negative (Negative) Urine Bilirubin Negative (Negative) Urine Urobilinogen Negative (Negative) Ur Leukocyte Esterase Negative (Negative) Blood Type Antibody Screen Crossmatch 05/15/19 05/15/19 05/15/19 Range/Units 17:37 17:37 11:41 WBC (4.8-10.8) K/uL RBC (4.2-5.4) M/uL Hgb (12.0-16.0) g/dL Hct (37-47) % MCV (80-100) fL MCH (25-34) pg MCHC (32-36) g/dL RDW Std Deviation (36.4-46.3) fL RDW Coeff of Griffin (11.5-14.5) % Plt Count (130-400) K/uL MPV 0.0 L D (7.4-10.4) fL Immature Gran % (Auto) % Neut % (Auto) % Lymph % (Auto) % [place] % (Auto) % Eos % (Auto) % Baso % (Auto) % Immature Gran # (Auto) (0.00-0.02) K/uL Neut # (Auto) (1.4-6.5) K/uL Lymph # (Auto) (1.2-3.4) K/uL [place] # (Auto) (0.11-0.59) K/uL Eos # (Auto) (0-0.5) K/uL Baso # (Auto) (0-0.2) K/uL Platelet Estimate (Normal) Hypochromasia Anisocytosis Microcytosis Peripher Smr Path Cons Cancelled Sodium (136-145) mmol/L Potassium (3.5-5.1) mmol/L Chloride (98-107) mmol/L Carbon Dioxide (21-32) mmol/L Anion Gap (3-11) BUN (7-18) mg/dl Creatinine (0.6-1.2) mg/dl Est Cr Clr Drug Dosing ml/min Est GFR ( Amer) Est GFR (Non-Af Amer) BUN/Creatinine Ratio (10-20) Glucose (70-99) mg/dl POC Glucose (70-99) mg/dl Calcium (8.5-10.1) mg/dl Total Bilirubin (0.2-1) mg/dl AST (15-37) U/L ALT (12-78) U/L Alkaline Phosphatase (45-117) U/L Lactate Dehydrogenase (84-246) U/L Total Protein (6.4-8.2) gm/dl Albumin (3.4-5.0) gm/dl Globulin (2.5-4.0) gm/dl Albumin/Globulin Ratio (0.9-2) Urine Color Urine Appearance (Clear) Urine pH (4.5-7.5) Ur Specific [place] (1.000-1.030) Urine Protein (Negative) Urine Glucose (UA) (Negative) Urine Ketones (Negative) Urine Blood (Negative) Urine Nitrite (Negative) Urine Bilirubin (Negative) Urine Urobilinogen (Negative) Ur Leukocyte Esterase (Negative) Blood Type O Positive Antibody Screen NEGATIVE Crossmatch See Detail PG Care Time/CCT Total # of Minutes Spent Total Time Spent with Patient: Total time spent is greater than 50% in coordination of care (as documented) at patient's floor/unit and/or counseling patient: Coding Level of Care Code 76443 Subseq Hosp Care Lvl 3 Diagnoses Anemia D64.9 Anemia type: unspecified type Cirrhosis K74.60 Hypertension I10 Diabetes E11.9 Anxiety F41.9 Depression F32.9 Hyperlipidemia E78.5 Essential tremor G25.0 Syncope and collapse R55 Sleep apnea G47.30 Thrombocytopenia D69.6 DVT prophylaxis Z29.9 (1) Anemia Anemia type: unspecified type Qualified Code(s): D64.9 - Anemia, unspecified
--- NOTE | 2019-05-16 13:17 | Gastrointestinal Consultation ---
Date of Consultation May 16, 2019 Assessment & Plan (1) Anemia: Transfuse PRN as per the primary team EGD today. (2) Heme positive stool: Continue Protonix gtt at present No overt GI bleeding EGD today for further evaluation of symptoms (3) Cirrhosis: Will need further workup as outpatient. Advised her to abstain from all alcohol as it is a known liver toxin As outpatient can check for Hep A and B immunity, if not immune, will vaccinate to prevent a secondary liver insult. Will need surveillance of Hepatocellular carcinoma with RUQ US every 6 months. History of Present Illness Reason for Consultation: Heme positive stool, Anemia Attending Physician: Amarilis Cyr MD History of Present Illness Krystle Portillo is a 69 yo CF with an extensive PMHx who presented to the ER at the request of her PCP following routine outpatient bloodwork, which revealed a low H/H. Upon arrival to the ER she was noted to have an H/H of 6.5/33.5. She was not having any overt GI bleeding, but was noted to be heme positive. She w as subsequently admitted and transfused 2 u PRBC, and was kept NPO and started on a Protonix gtt. She does have a history of elevated LFTs, and had cirrhotic changes on her CT imaging from the ER. A review of her medications does reveal that she is on Lactulose therapy secondary to elevated ammonia, which is also a sequelae of cirrhosis. At the time I saw the patient, she states that she is feeling much improved from her arrival, which she attributes to the blood transfusion. She denies any recent hematemesis, melena, hematochezia or abdominal pain. She further denies any NSAID use, and states that she does not drink alcohol. She denies any jaundice, acholic stools, dark urine or pruritus, and has no further complaints. Allergies Allergy/AdvReac Type Severity Reaction Status Date / Time No Known Allergies Allergy Unknown Verified 05/15/19 12:06 Home Medications Home Medications Medication Instructions Recorded Confirmed Type benztropine 0.5 mg PO HS 05/03/19 05/15/19 History insulin degludec-liraglutide 36 unit SUBCUT QAM 05/03/19 05/15/19 History [Xultophy 100/3.6] lactulose [Generlac] 10 g PO DAILY PRN 05/03/19 05/15/19 History losartan [Cozaar] 100 mg PO QAM 05/03/19 05/15/19 History metformin [Glucophage XR] 1,000 mg PO BID 05/03/19 05/15/19 History multivitamin 1 tab PO QAM 05/03/19 05/15/19 History risperidone [Risperdal] 1 mg PO HS 05/03/19 05/15/19 History risperidone [Risperdal] 2 mg PO HS 05/03/19 05/15/19 History sertraline [Zoloft] 100 mg PO QAM 05/03/19 05/15/19 History carboxymethylcellulose sodium 2 drp OPHTHALMIC (EYE) BID 05/15/19 05/15/19 History [Refresh Tears] Patient History Medical History Anxiety Depression Diabetes mellitus, type 2 IDDM Essential tremor Hyperlipidemia hx Hypertension Melanoma Migraine Osteoarthritis Peripheral neuropathy bilateral feet Sleep apnea quit using machine Syncope and collapse treated at [facility] 12/2018. 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 Beliefs That Will Affect Care: None marital status: / Current Living Situation: Alone Other Information That Helps Us Care for You: No Feels Safe at Home: Yes Safety Concerns: Feels Safe At This Time Smoking Status: Never smoker Tobacco Type: cigarettes ; Second Hand Exposure: Yes (hx as a child) ; Hx Alcohol Use: No Hx Substance Use: No Review of Systems Review of Systems: All systems reviewed & are unremarkable except as noted in HPI & below Physical Exam Constitutional: + ill appearing (chronic) and + disheveled; + not healthy appearing Eyes: PERRL, conjunctivae normal, anicteric sclerae ENMT: external ear and nose normal, oropharynx normal Neck: trachea midline, no thyromegaly Respiratory: normal respiratory effort, lungs clear to auscultation Cardiovascular: RRR, no murmur, no edema Gastrointestinal (Abdomen): Inspection/Auscultation: abdomen normal to inspection and normal bowel sounds; no abdominal wall ecchymosis and no abdo nancy edema Percussion/Palpation: abdomen soft and + splenomegaly; abdomen nontender and no hepatomegaly Skin: no rashes, warm and dry Psychiatric: Orientation: alert and oriented x 3 Results & Data ([facility]) Vital Signs (Past 12 Hours) Vital Signs Temp Pulse Pulse Resp BP BP Pulse Ox 05/16/19 11:40 89 18 127/79 98 05/16/19 11:22 89 05/16/19 11:10 94 H 18 126/78 96 05/16/19 10:55 89 18 130/80 97 05/16/19 10:35 36.7 C 91 H 18 136/79 97 05/16/19 08:27 36.6 C 87 16 132/80 95 05/16/19 07:00 36.7 C 85 19 125/76 94 05/16/19 04:43 36.6 C 85 17 109/70 97 PG Care Time/CCT Total # of Minutes Spent Total Time Spent with Patient: Total time spent is greater than 50% in coordination of care (as documented) at patient's floor/unit and/or counseling patient: Coding Level of Care Code 18298 Initial Inpt Care Lvl 3 Diagnoses Anemia D64.9 Anemia type: unspecified type Heme positive stool R19.5 Cirrhosis K74.60 (1) Anemia Anemia type: unspecified type Qualified Code(s): D64.9 - Anemia, unspecified
--- NOTE | 2019-05-16 13:35 | Anesthesiology Consultation ---
Date of Service May 16, 2019 Assessment & Plan Consults Requested medical & cardiac Pulmonary ASA ASA3 Proposed Anesthesia Anesthesia Type: MAC Risk / Benefits Reviewed With: PT / POA / Parent / Guardian, Accepts Plan and Informed Consent Obtained History Surgery Operation Date: 05/16/19 16:15 Proposed Procedures p Esophagogastroduodenoscopy Dr Godoy - Mehrdad Godoy, DO Height/Weight Height: 5 ft 4 in Weight: 69.9 kg Allergies Allergy/AdvReac Type Severity Reaction Status Date / Time No Known Allergies Allergy Unknown Verified 05/15/19 12:06 Medications Home Medications Medication Instructions Recorded Confirmed Last Taken benztropine 0.5 mg PO HS 05/03/19 05/15/19 05/14/19 insulin degludec-liraglutide 36 unit SUBCUT QAM 05/03/19 05/15/19 05/15/19 [Xultophy 100/3.6] lactulose [Generlac] 10 g PO DAILY PRN 05/03/19 05/15/19 05/15/19 losartan [Cozaar] 100 mg PO QAM 05/03/19 05/15/19 05/15/19 metformin [Glucophage XR] 1,000 mg PO BID 05/03/19 05/15/19 05/15/19 multivitamin 1 tab PO QAM 05/03/19 05/15/19 05/15/19 risperidone [Risperdal] 1 mg PO HS 05/03/19 05/15/19 05/14/19 risperidone [Risperdal] 2 mg PO HS 05/03/19 05/15/19 05/14/19 sertraline [Zoloft] 100 mg PO QAM 05/03/19 05/15/19 05/15/19 carboxymethylcellulose sodium 2 drp OPHTHALMIC (EYE) BID 05/15/19 05/15/19 05/15/19 [Refresh Tears] Active Medications Generic Name Dose Route Start Last Admin Trade Name Freq PRN Reason Stop Dose Admin Artificial Tears 2 drops 05/15/19 21:00 05/16/19 09:29 Artificial Tears OP 06/14/19 20:59 2 drops BID MEY Administration Benztropine Mesylate 0.5 mg 05/15/19 21:00 05/15/19 20:54 Cogentin PO 06/14/19 20:59 0.5 mg HS MEY Administration Sodium Chloride 1,000 mls @ 75 mls/hr 05/15/19 17:25 05/16/19 07:53 Nss 1000ml IV 06/14/19 17:24 75 mls/hr .[id number] MEY Administration Pantoprazole Sodium 40 mg/ 100 mls @ 20 mls/hr 05/15/19 19:00 05/16/19 13:41 Dextrose IV 06/14/19 18:59 0 mls/hr Q5H MEY Infusion Insulin Aspart 0 units 05/16/19 06:00 05/16/19 13:07 Novolog Flexpen SC 06/15/19 05:59 Not Given Q6 MEY Insulin Glargine 18 units 05/15/19 21:00 05/16/19 09:31 Lantus Solostar Pen SC 06/14/19 20:59 Not Given BID MEY Ioversol 94 ml 05/15/19 20:23 05/15/19 20:24 Optiray 320 100ml IV 05/19/19 20:22 94 ml ONCE PRN Administration Interaction Checking Losartan Potassium 100 mg 05/16/19 09:00 05/16/19 09:30 Cozaar PO 06/15/19 08:59 100 mg QAM MEY Administration Multivitamins 1 tab 05/16/19 09:00 05/16/19 09:30 Multivitamin Tab PO 06/15/19 08:59 1 tab QAM MEY Administration Risperidone 2 mg 05/15/19 21:00 05/15/19 20:54 Risperdal PO 06/14/19 20:59 2 mg HS MEY Administration Risperidone 1 mg 05/15/19 21:00 05/15/19 20:54 Risperdal PO 06/14/19 20:59 1 mg HS MEY Administration Sertraline HCl 100 mg 05/16/19 09:00 05/16/19 09:29 Zoloft PO 06/15/19 08:59 100 mg QAM MEY Administration NPO Date Last Intake of Fluids: 05/15/19 Time Last Intake of Fluids: 23:30 Date Last Intake of Solids: 05/15/19 Time Last Intake of Solids: 23:00 Last Intake of Solids Comment: prior to shift. Past Medical History Medical History Anxiety Depression Diabetes mellitus, type 2 IDDM Essential tremor Hyperlipidemia hx Hypertension Melanoma Migraine Osteoarthritis Peripheral neuropathy bilateral feet Sleep apnea quit using machine Syncope and collapse treated at [facility] 12/2018. unknown reasoning per patient Thrombocytopenia Urinary tract infection Wernicke encephalopathy syndrome pt denies Exercise / Class Metabolic Activity II 4-5 Yardwork/Stairs/Walk up hill Past Family History Family History Other No family history of adverse response to anesthesia No pertinent family history Past Surgical History Surgical History H/O local excision of skin lesion H/O unilateral oophorectomy History of appendectomy History of colonoscopy History of dilatation and curettage Past Anesthesia History No Hx of Anesthesia Complications and No Family Hx of Anesthesia Complications History of PONV No Hx of PONV and No Hx of Motion Sickness Social History Smoking Status: Never smoker tobacco type: cigarettes Hx Alcohol Use: No Hx Substance Use: No substance use type: does not use Review of Systems denies fever/cough/ colds/ chest pain/ SOB/ NEGRITO Constitutional: no fever and no chills Respiratory: no cough and no dyspnea denies NEGRITO Cardiovascular: no chest pain and no dyspnea on exertion Physical Exam Vital Signs Last Vital Signs Temp 36.7 C 05/16/19 12:40 Pulse 93 H 05/16/19 12:40 Resp 18 05/16/19 12:40 BP 124/77 05/16/19 12:40 Pulse Ox 98 05/16/19 12:40 ENMT Mouth: no TMJ abnormality and no dentition abnormality Thyromental Distance: > or= 3.5 Finger Breadths Mallampati Class: II Neck neck extension not limited Respiratory normal respiratory effort; no respiratory distress Auscultation: lungs clear to auscultation bilaterally Cardiovascular Rate/Rhythm: regular rate and regular rhythm Neurologic moves all extremities Psychiatric Orientation: alert and oriented x 3 Testing Laboratory Results 05/16/19 05:45 05/16/19 05:45 Urine Color Colorless 05/16/19 01:36 Urine Appearance Clear (Clear) 05/16/19 01:36 Urine pH 7.0 (4.5-7.5) 05/16/19 01:36 Ur Specific [place] <= 1.005 (1.000-1.030) 05/16/19 01:36 Urine Protein Negative (Negative) 05/16/19 01:36 Urine Glucose (UA) Negative (Negative) 05/16/19 01:36 Urine Ketones Negative (Negative) 05/16/19 01:36 Urine Nitrite Negative (Negative) 05/16/19 01:36 Ur Leukocyte Esterase Negative (Negative) 05/16/19 01:36 Blood Type O Positive 05/15/19 11:41 Antibody Screen NEGATIVE 05/15/19 11:41 05/16/19 05/16/19 11:26 06:10 POC Glucose 95 83
[2019-05-16] MEDS ORDERED: LIDOCAINE HCL 2% 2 ML VIAL/AMP(20MG/ML) INFIL ONE (13:43)
[2019-05-16] MEDS ORDERED: PROPOFOL IV EMULSION 10 MG/ML 20 ML VIAL IV ONE (13:43)
[2019-05-16] MEDS ORDERED: ATROPINE SULFATE 0.1 MG/ML 10ML SYR IV PRN (13:44)
[2019-05-16] MEDS ORDERED: ePHEDrine sulfate 50 MG/ML AMP IV PRN (13:44)
--- NOTE | 2019-05-16 14:11 | GI REPORT ---
Patient Name: Krystle Portillo Procedure Date: 05/16/2019 1:41 PM Date of : 1950 Admit Type: Inpatient Age: 69 Gender: Female Attending MD: Mehrdad Godoy DO Procedure: Upper GI endoscopy Providers: Mehrdad Godoy DO Referring MD: Amarilis Cyr Md Indications: Iron deficiency anemia secondary to chronic blood loss Medicines: Monitored Anesthesia Care Complications: No immediate complications. Estimated Blood Loss: Estimated blood loss: none. Procedure: Pre-Anesthesia Assessment: - Prior to the procedure, a History and Physical was performed, and patient medications and allergies were reviewed. The patient's tolerance of previous anesthesia was also reviewed. The risks and benefits of the procedure and the sedation options and risks were discussed with the patient. All questions were answered, and informed consent was obtained. Prior Anticoagulants: The patient has taken no previous anticoagulant or antiplatelet agents. ASA Grade Assessment: III - A patient with severe systemic disease. After reviewing the risks and benefits, the patient was deemed in satisfactory condition to undergo the procedure. After obtaining informed consent, the endoscope was passed under direct vision. Throughout the procedure, the patient's blood pressure, pulse, and oxygen saturations were monitored continuously. The Endoscope was introduced through the mouth, and advanced to the third part of duodenum. The upper GI endoscopy was accomplished without difficulty. The patient tolerated the procedure well. Findings: The esophagus was normal. Localized moderate inflammation characterized by erosions was found in the gastric antrum. Biopsies were taken with a cold forceps for histology. The examined duodenum was normal. Impression: - Normal esophagus. - Gastritis. Biopsied. - Normal examined duodenum. Recommendation: - Return patient to hospital [facility] for ongoing care. - Advance diet as tolerated. - Use Protonix (pantoprazole) 40 mg PO BID. - Await pathology results. Mehrdad Godoy DO 05/16/2019 2:10:51 PM This report has been signed electronically. Note Initiated On: 05/16/2019 1:41 PM Number of Addenda: 0 I attest to the content of the Intraoperative Record and orders documented therein, exceptions below {[id number]}
--- NOTE | 2019-05-16 14:16 | Anesthesiology Progress Note ---
Date of Service May 16, 2019 Anesthesia Post Procedure Vital Signs Vital Signs: Temp Pulse Pulse Resp BP BP Pulse Ox 05/16/19 13:41 37.5 C 91 H 16 151/93 H 96 05/16/19 12:40 36.7 C 93 H 18 124/77 98 05/16/19 11:40 89 18 127/79 98 05/16/19 11:22 89 05/16/19 11:10 94 H 18 126/78 96 05/16/19 10:55 89 18 130/80 97 05/16/19 10:35 36.7 C 91 H 18 136/79 97 05/16/19 08:27 36.6 C 87 16 132/80 95 05/16/19 07:00 36.7 C 85 19 125/76 94 05/16/19 04:43 36.6 C 85 17 109/70 97 05/16/19 00:20 36.5 C 91 H 18 147/85 H 96 05/16/19 00:13 36.7 C 85 16 121/72 95 05/15/19 23:45 36.8 C 84 18 124/77 96 05/15/19 23:13 36.7 C 75 18 127/79 97 05/15/19 22:43 36.8 C 137/76 05/15/19 22:30 37.3 C 98 H 134/80 05/15/19 22:04 36.8 C 101 H 148/82 H 05/15/19 19:36 36.8 C 96 H 16 143/86 H 98 05/15/19 17:00 107 H 05/15/19 16:15 107 H 18 142/95 H 97 05/15/19 16:01 111 H 23 136/83 97 05/15/19 15:55 37 C 106 H 20 130/81 96 05/15/19 15:45 107 H 19 141/76 H 95 05/15/19 15:00 36.9 C 108 H 16 131/90 96 05/15/19 14:49 37.1 C 109 H 22 122/74 97 05/15/19 14:30 36.9 C 118 H 25 H 131/77 97 Transfer of Care Handoff Completed per policy Notes Mental Status: alert / awake / arousable and participated in evaluation Patient Amnestic to Procedure: Yes Nausea / Vomiting: adequately controlled Pain: adequately controlled Airway Patency, RR, SpO2: stable & adequate BP & HR: stable & adequate Hydration State: stable & adequate Anesthetic Complications: no major complications apparent and Pt Satisfied with anesthetic care
--- NOTE | 2019-05-16 14:26 | Electrocardiogram Report ---
Test Reason : Blood Pressure : / mmHG Vent. Rate : 111 BPM Atrial Rate : 111 BPM P-R Int : 166 ms QRS Dur : 078 ms QT Int : 360 ms P-R-T Axes : 051 001 006 degrees QTc Int : 489 ms Sinus tachycardia with occasional Premature ventricular complexes Possible Inferior infarct , age undetermined Abnormal ECG When compared with ECG of 15-JAN-2019 07:39, Premature ventricular complexes are now Present Vent. rate has increased BY 41 BPM Borderline criteria for Inferior infarct are now Present T wave inversion now evident in Inferior leads Confirmed by Luis Bueno ([id number]) on 05/16/2019 2:26:13 PM Referred By: REFERRED SELF Confirmed By:Reyes Bueno
[2019-05-16 15:42] LABS: Hematocrit (blood only) 32.2 % (37-47); Hemoglobin 9.5 g/dL (12.0-16.0)
[2019-05-16] MEDS: risperiDONE 1 MG TABLET PO SCH (19:51)
[2019-05-16] MEDS: BENZTROPINE MESYLATE 0.5 MG TAB PO SCH (19:51)
[2019-05-16] MEDS: risperiDONE 2 MG TABLET PO SCH (19:51)
[2019-05-16] MEDS: LAVAGE SOLUTION 4000ML PO SCH (21:39)
[2019-05-16] MEDS: PANTOprazole 40 MG TAB PO SCH (23:34)
[2019-05-17] MEDS ORDERED: Nursing to Pharmacy Communication ONE ×2 (03:08→07:34)
[2019-05-17] MEDS: LAVAGE SOLUTION 4000ML PO SCH (05:44)
[2019-05-17] MEDS: INSULIN ASPART 100 UNITS/ML 3 ML PEN SC SCH ×3 (06:00→18:42)
[2019-05-17 08:17] LABS: Mean Corpuscular Hgb Conc 29.2 g/dL (32-36)
[2019-05-17 08:29] LABS: Hematocrit (blood only) 35.6 % (37-47); Hemoglobin 10.4 g/dL (12.0-16.0); Mean Corpuscular Hemoglobin 20.4 pg (25-34); Mean Corpuscular Volume 69.8 fL (80-100); RDW Standard Deviation 53.7 fL (36.4-46.3); White Blood Count 3.14 K/uL (4.8-10.8)
[2019-05-17] MEDS: LOSARTAN POTASSIUM 50 MG TAB PO SCH (08:38)
[2019-05-17] MEDS: MULTIVITAMIN TAB PO SCH (08:38)
[2019-05-17] MEDS: SERTRALINE HCL 100 MG TABLET PO SCH (08:39)
[2019-05-17] MEDS: PANTOprazole 40 MG TAB PO SCH ×2 (08:39→20:21)
[2019-05-17] MEDS: ARTIFICIAL TEARS OP SCH (08:41)
[2019-05-17 08:51] LABS: Basophils # (auto) 0.01 K/uL (0-0.2); Basophils % (auto) 0.3 %; Echinocytes 1+; Eosinophils % (auto) 3.2 %; Hypochromasia Present; Lymphocytes # (auto) 0.81 K/uL (1.2-3.4); Lymphocytes % (auto) 25.8 %; Microcytosis Present; Monocytes # (auto) 0.33 K/uL (0.11-0.59); Monocytes % (auto) 10.5 %; Neutrophils # (auto) 1.89 K/uL (1.4-6.5); Neutrophils % (auto) 60.2 %; Ovalocytes 1+; Platelet Count 98 K/uL (130-400); Platelet Estimate Decreased (Normal); Polychromasia 1+
[2019-05-17 08:56] LABS: BUN Creatinine Ratio 7.8 (10-20); Calcium 9.1 mg/dl (8.5-10.1); Creatinine Clr Calc Pharmacy 70.8 ml/min; Est GFR (African American) 98.1; Est GFR (Non-African American) 84.6; Potassium 3.3 mmol/L (3.5-5.1)
[2019-05-17] MEDS: POTASSIUM CHLORIDE / WTR 10 MEQ/100 ML PLCT IV SCH ×2 (10:07→11:14)
[2019-05-17] MEDS: SODIUM CHLORIDE 0.9% 1000ML 1,000 ML IV SCH (11:13)
--- NOTE | 2019-05-17 15:00 | Anesthesiology Consultation ---
Date of Service May 17, 2019 Assessment & Plan (1) Encounter for pre-operative examination: Chart Review Chart Review: Acceptable Risk for Surgery and Patient NOT seen in Pre Admission Testing Consults Requested none History Surgery Operation Date: 05/16/19 16:15 Proposed Procedures p Esophagogastroduodenoscopy Dr Walt Mcginnis Case, DO Operation Date: 05/17/19 17:10 Proposed Procedures p Colonoscopy Dr. Walt Mcginnis Case, DO Height/Weight Height: 5 ft 4 in Weight: 69.9 kg Allergies Allergy/AdvReac Type Severity Reaction Status Date / Time No Known Allergies Allergy Unknown Verified 05/15/19 12:06 Medications Home Medications Medication Instructions Recorded Confirmed Last Taken benztropine 0.5 mg PO HS 05/03/19 05/15/19 05/14/19 insulin degludec-liraglutide 36 unit SUBCUT QAM 05/03/19 05/15/19 05/15/19 [Xultophy 100/3.6] lactulose [Generlac] 10 g PO DAILY PRN 05/03/19 05/15/19 05/15/19 losartan [Cozaar] 100 mg PO QAM 05/03/19 05/15/19 05/15/19 metformin [Glucophage XR] 1,000 mg PO BID 05/03/19 05/15/19 05/15/19 multivitamin 1 tab PO QAM 05/03/19 05/15/19 05/15/19 risperidone [Risperdal] 1 mg PO HS 05/03/19 05/15/19 05/14/19 risperidone [Risperdal] 2 mg PO HS 05/03/19 05/15/19 05/14/19 sertraline [Zoloft] 100 mg PO QAM 05/03/19 05/15/19 05/15/19 carboxymethylcellulose sodium 2 drp OPHTHALMIC (EYE) BID 05/15/19 05/15/19 05/15/19 [Refresh Tears] Active Medications Generic Name Dose Route Start Last Admin Trade Name Freq PRN Reason Stop Dose Admin Artificial Tears 2 drops 05/15/19 21:00 05/17/19 08:41 Artificial Tears OP 06/14/19 20:59 2 drops BID MEY Administration Benztropine Mesylate 0.5 mg 05/15/19 21:00 05/16/19 19:51 Cogentin PO 06/14/19 20:59 0.5 mg HS MEY Administration Sodium Chloride 1,000 mls @ 100 mls/hr 05/15/19 17:25 05/17/19 14:02 Nss 1000ml IV 06/14/19 17:24 0 mls/hr .Q10H MEY Infusion Insulin Aspart 0 units 05/17/19 06:00 05/17/19 12:11 Novolog Flexpen SC 06/16/19 05:59 Not Given Q6 MEY Insulin Glargine 18 units 05/15/19 21:00 05/16/19 20:07 Lantus Solostar Pen SC 06/14/19 20:59 18 units BID MEY Administration Ioversol 94 ml 05/15/19 20:23 05/15/19 20:24 Optiray 320 100ml IV 05/19/19 20:22 94 ml ONCE PRN Administration Interaction Checking Losartan Potassium 100 mg 05/16/19 09:00 05/17/19 08:38 Cozaar PO 06/15/19 08:59 100 mg QAM MEY Administration Multivitamins 1 tab 05/16/19 09:00 05/17/19 08:38 Multivitamin Tab PO 06/15/19 08:59 1 tab QAM MEY Administration Pantoprazole Sodium 40 mg 05/16/19 21:18 05/17/19 08:39 Protonix PO 06/15/19 21:17 40 mg BID MEY Administration Risperidone 2 mg 05/15/19 21:00 05/16/19 19:51 Risperdal PO 06/14/19 20:59 2 mg HS MEY Administration Risperidone 1 mg 05/15/19 21:00 05/16/19 19:51 Risperdal PO 06/14/19 20:59 1 mg HS MEY Administration Sertraline HCl 100 mg 05/16/19 09:00 05/17/19 08:39 Zoloft PO 06/15/19 08:59 100 mg QAM MEY Administration NPO Date Last Intake of Fluids: 05/17/19 Time Last Intake of Fluids: 08:00 Date Last Intake of Solids: 05/14/19 Time Last Intake of Solids: 21:00 Last Intake of Solids Comment: prior to shift. Past Medical History Medical History Anxiety Depression Diabetes mellitus, type 2 IDDM Essential tremor Hyperlipidemia hx Hypertension Melanoma Migraine Osteoarthritis Peripheral neuropathy bilateral feet Sleep apnea quit using machine Syncope and collapse treated at [facility] 12/2018. unknown reasoning per patient Thrombocytopenia Urinary tract infection Wernicke encephalopathy syndrome pt denies Anemia: Hemoglobin initially 6.5 on admission. Patient has received total of 3 units PRBCs with resulting h/h 9.5/32.2 Iron studies --> iron low at 15, ferritin low at 4.3, transferrin % sat low at 3, TIBC 431H, Transferrin 327wnl -- iron deficiency likely in setting of GIB. No vaginal bleeding or hematuria. Will start ferrous sulfate 325mg prior to discharge. Protonix gtt --> transitioned to protonix 40mg PO BID CT A/p w IV/oral contrast without acute process, however lobulated contour of liver with possibility of cirrhosis. mild increase in moderate splenomegaly GI consult -- appreciate input EGD on 05/16 with evidence of gastritis and gastric erosions possibly healed ulcers NPO after midnight for colonoscopy on 05/17 dc all NSAID use VSS stable --> patient running 80-100bpm overnight on telemetry and 80s for most of morning, NSR. Transfer to medical this evening (2) Cirrhosis: (11) Thrombocytopenia: Platelets mildly low chronically CT abd/pel with increase in splenomegaly -- likely secondary to cirrhosis/portal hypertension Could be ITP follow CBC Exercise / Class Metabolic Activity III < 4 Walking/Shop/Light housework Past Family History Family History Other No family history of adverse response to anesthesia No pertinent family history Past Surgical History Surgical History H/O local excision of skin lesion H/O unilateral oophorectomy History of appendectomy History of colonoscopy History of dilatation and curettage Past Anesthesia History No Hx of Anesthesia Complications and No Family Hx of Anesthesia Complications History of PONV No Hx of PONV and No Hx of Motion Sickness Social History Smoking Status: Never smoker tobacco type: cigarettes Do You Dip or Chew Tobacco: No Hx Alcohol Use: No Hx Substance Use: No substance use type: does not use Physical Exam Vital Signs Last Vital Signs Temp 37.1 C 05/17/19 14:31 Pulse 84 05/17/19 14:31 Resp 16 05/17/19 14:31 BP 140/79 05/17/19 14:31 Pulse Ox 97 05/17/19 14:31 Testing Laboratory Results 05/17/19 07:46 05/17/19 07:46 Urine Color Colorless 05/16/19 01:36 Urine Appearance Clear (Clear) 05/16/19 01:36 Urine pH 7.0 (4.5-7.5) 05/16/19 01:36 Ur Specific [place] <= 1.005 (1.000-1.030) 05/16/19 01:36 Urine Protein Negative (Negative) 05/16/19 01:36 Urine Glucose (UA) Negative (Negative) 05/16/19 01:36 Urine Ketones Negative (Negative) 05/16/19 01:36 Urine Nitrite Negative (Negative) 05/16/19 01:36 Ur Leukocyte Esterase Negative (Negative) 05/16/19 01:36 Blood Type O Positive 05/15/19 11:41 Antibody Screen NEGATIVE 05/15/19 11:41 05/17/19 05/17/19 05/17/19 11:56 09:36 09:36 POC Glucose 97 92 94 05/17/19 05:49 POC Glucose 80 Electrocardiogram Date: 05/15/19 Findings: + ST @ (111) Sinus tachycardia with occasional Premature ventricular complexes Possible Inferior infarct , age undetermined Abnormal ECG When compared with ECG of 15-JAN-2019 07:39, Premature ventricular complexes are now Present Vent. rate has increased BY 41 BPM Borderline criteria for Inferior infarct are now Present T wave inversion now evident in Inferior leads Confirmed by Luis Bueno ([id number]) on 05/16/2019 2:26:13 PM Echocardiogram Echocardiogram Date: 01/09/19 EF: 65 LV Function: normal Valvular Disease: + no significant valvular disease (mitral and aortic valves not well visualized on exam)
--- NOTE | 2019-05-17 15:18 | Gastroenterology Progress Note ---
Date of Service May 17, 2019 Assessment & Plan (1) Heme positive stool: Continue current therapy Proceed with colonoscopy today Further recommendations to follow (2) Anemia: Admission and Anticipated Discharge Date Admission Date: May 15, 2019 Subjective Feeling much better today. Denies any overt GI bleeding. Tolerated bowel prep. Denies fevers, chills, nausea, vomiting or diarrhea. No further complaints. Physical Exam Constitutional: WD/WN, vitals as above Respiratory: normal respiratory effort, lungs clear to auscultation Cardiovascular: RRR, no murmur, no edema Gastrointestinal (Abdomen): normal bowel sounds, soft, nontender, no hepatosplenomegaly Results & Data ([facility]) Vital Signs (Past 12 Hours) Vital Signs Temp Pulse Resp BP Pulse Ox 05/17/19 14:31 37.1 C 84 16 140/79 97 05/17/19 07:47 36.3 C L 86 16 128/82 95 PG Care Time/CCT Total # of Minutes Spent Total Time Spent with Patient: Total time spent is greater than 50% in coordination of care (as documented) at patient's floor/unit and/or counseling patient: Coding Level of Care Code None Diagnoses Heme positive stool R19.5 Anemia D64.9 Anemia type: unspecified type (1) Anemia Anemia type: unspecified type Qualified Code(s): D64.9 - Anemia, unspecified
[2019-05-17] MEDS ORDERED: LIDOCAINE HCL 2% 2 ML VIAL/AMP(20MG/ML) INFIL ONE (15:29)
[2019-05-17] MEDS ORDERED: PROPOFOL IV EMULSION 10 MG/ML 20 ML VIAL IV ONE (15:51)
--- NOTE | 2019-05-17 15:54 | GI REPORT ---
Patient Name: Krystle Portillo Procedure Date: 05/17/2019 3:22 PM Date of : 1950 Admit Type: Inpatient Age: 69 Gender: Female Attending MD: Mehrdad Godoy DO Procedure: Colonoscopy Providers: Mehrdad Godoy DO Referring MD: Amarilis Cyr Md Indications: Heme positive stool Medicines: Monitored Anesthesia Care Complications: No immediate complications. Estimated Blood Loss: Estimated blood loss: none. Procedure: Pre-Anesthesia Assessment: - Prior to the procedure, a History and Physical was performed, and patient medications and allergies were reviewed. The patient's tolerance of previous anesthesia was also reviewed. The risks and benefits of the procedure and the sedation options and risks were discussed with the patient. All questions were answered, and informed consent was obtained. Prior Anticoagulants: The patient has taken no previous anticoagulant or antiplatelet agents. ASA Grade Assessment: III - A patient with severe systemic disease. After reviewing the risks and benefits, the patient was deemed in satisfactory condition to undergo the procedure. After I obtained informed consent, the scope was passed under direct vision. Throughout the procedure, the patient's blood pressure, pulse, and oxygen saturations were monitored continuously. The scope was introduced through the anus and advanced to the terminal ileum. The colonoscopy was performed without difficulty. The patient tolerated the procedure well. The quality of the bowel preparation was good. The terminal ileum, the appendiceal orifice and the rectum were photographed. Findings: The perianal and digital rectal examinations were normal. Non-bleeding internal hemorrhoids were found during retroflexion. The hemorrhoids were small. Impression: - Non-bleeding internal hemorrhoids. - No specimens collected. Recommendation: - Resume previous diet. - Continue present medications. - Repeat colonoscopy in 10 years for surveillance. - Return to primary care physician as previously scheduled. Mehrdad Godoy DO 05/17/2019 3:53:43 PM This report has been signed electronically. Note Initiated On: 05/17/2019 3:22 PM Number of Addenda: 0 I attest to the content of the Intraoperative Record and orders documented therein, exceptions below {[id number]}
--- NOTE | 2019-05-17 16:04 | Anesthesiology Progress Note ---
Date of Service May 17, 2019 Anesthesia Post Procedure Vital Signs Vital Signs: Temp Pulse Pulse Resp BP Pulse Ox 05/17/19 15:55 98.2 F 86 16 119/69 96 05/17/19 14:31 98.8 F 84 16 140/79 97 05/17/19 07:47 97.3 F L 86 16 128/82 95 05/17/19 01:24 144/87 H 05/16/19 23:11 97.9 F 81 16 164/88 H 97 05/16/19 19:24 98.2 F 97 H 145/79 H 98 Transfer of Care Handoff Completed per policy Notes Mental Status: alert / awake / arousable and participated in evaluation Patient Amnestic to Procedure: Yes Nausea / Vomiting: adequately controlled Pain: adequately controlled Airway Patency, RR, SpO2: stable & adequate BP & HR: stable & adequate Hydration State: stable & adequate Anesthetic Complications: no major complications apparent and Pt Satisfied with anesthetic care
--- NOTE | 2019-05-17 16:22 | Discharge Summary ---
Date of Service May 17, 2019 Admission HPI Per Admitting Provider 69 year old female with PMH significant for HTN, HLD, DM II (on insulin), peripheral neuropathy, migraines, depression, anxiety, syncope presented to the emergency department for abnormal labs drawn on Wednesday by her PCP Dr. Villavicencio. The patient states she was obtaining routine lab work following medication changes that included discontinuing her tramadol and propranolol; this was in the setting of fatigue, mental fogginess, and falls. She states her insulin was also decreased from 40 to 36 units in the morning. She states she was called today and told to come to the emergency room for a low blood count. She denies ever having a history of anemia. She states she had been battling with syncope and recurrent falls, occurring multiple times in the past 3-4 years, but has been having multiple "soft" and "hard" falls over the past year and she is afraid to fall. She states she was diagnosed with a UTI at that time (December 2018), but was curious as to what her h/h was at that time, which was 11.2/33.7 and MCV was 85.5. She states Dr. Villavicencio has been ordering extensive studies to determine if there is anything underlying causing this syncope, which the patient states she does not have currently. She has been tested for both Lyme and RA, both of which were negative. She denies any hematuria, hematochezia, melena, or uncontrolled bleeding. She states she started taking a multi-vitamin and iron 4 weeks ago, and per friend present in room, this was started due to poor dietary choices and that Ms. Portillo was not consuming much red meat at all. She also reports taking Naproxen once daily at bedtime for the last 2 weeks for right shoulder pain. She has had some associated night sweat several days ago as if she was "having a hot flash, like in menopause", which she went through over ten years ago. Denies any personal or family history of colon cancer. She does have a personal history of melanoma which she states was excised. She confirms a 5lb unintentional weight loss over the past month or two and states she believes her last colonoscopy was over ten years ago, but she is unsure who performed. She endorses alternating diarrhea and constipation during this time as well, however friend at bedside confirmed with patient that this may be due to dietary choices, as she is not able to take the patient for all of her grocery shopping. Patient states she loves fruit, but eats it all at once when she goes shopping, and then tends to eat more "junk food" later on. Of note, patient states she had been taking lactulose for "elevated blood ammonia" but states she had been weaned from 60ml/day to 10ml/day and is hoping to discontinue this medication. She denies any history of liver disease. ER Course: CXR without acute process. UA 1 unit PRBCs transfused for h/h 6.5/24.7. MCV 65.9. WBC 4.8k, plt count 121. +hemoccult EKG sinus tach with PVCs, possible inferior infarct, 111bpm. Admission Exam Per Admitting Provider Constitutional: well developed, well nourished and + obese; no acute distress pale Eyes: + anicteric sclerae and PERRL ENMT: Mallampati Class: III dry mm Neck: trachea midline, no thyromegaly Respiratory: normal respiratory effort, lungs clear to auscultation Cardiovascular: Rate/Rhythm: + tachycardic Heart Sounds: normal S1, normal S2 and + murmur Vessels: no JVD Extremities: normal capillary refill; no edema Gastrointestinal (Abdomen): normal bowel sounds, soft, nontender, no hepatosplenomegaly Musculoskeletal: no cyanosis or clubbing, extremities motor strength 5/5 Skin: cold, dry Neurologic: PERRL, EOMI, accommodation nl, no face palsy, no dysarthria Psychiatric: Orientation: alert and oriented x 3 Lymphatic: no cervical or axillary lymphadenopathy Principal Diagnosis Anemia, Gastritis Discharge Exam Constitutional well developed, well nourished and + obese; no acute distress Eyes + anicteric sclerae and PERRL ENMT Mallampati Class: III Neck trachea midline, no thyromegaly Respiratory normal respiratory effort, lungs clear to auscultation Cardiovascular Heart Sounds: normal S1 and normal S2 Vessels: no JVD Extremities: normal capillary refill; no edema Gastrointestinal (Abdomen) normal bowel sounds, soft, nontender, no hepatosplenomegaly Musculoskeletal no cyanosis or clubbing, extremities motor strength 5/5 Skin no rashes, warm and dry Neurologic PERRL, EOMI, accommodation nl, no face palsy, no dysarthria Psychiatric Orientation: alert and oriented x 3 Lymphatic no cervical or axillary lymphadenopathy Discharge Data Allergies Allergy/AdvReac Type Severity Reaction Status Date / Time No Known Allergies Allergy Unknown Verified 05/15/19 12:06 Consultations 05/15/19 12:42 ED Decision to Admit Stat 05/15/19 17:25 Consult Gastroenterology Routine Procedures Performed Operation Date: 05/16/19 16:15 Actual Procedures p EGD Biopsy Cytology - Mehrdad G. Case, DO Operation Date: 05/17/19 17:10 Actual Procedures p Colonoscopy - Mehrdad G. Case, DO Ordered Studies 05/15/19 15:38 CT abd pelvis oral and IV con Urgent XRAY Hospital Course (1) Anemia: * Hemoglobin initially 6.5 on admission. Patient has received total of 3 units PRBCs with resulting h/h 9.5/32.2 * GI Consulted * Iron studies --> iron low at 15, ferritin low at 4.3, transferrin % sat low at 3, TIBC 431H, Transferrin 327wnl -- iron deficiency likely in setting of GIB. No vaginal bleeding or hematuria. Started on ferrous sulfate 325mg. * Protonix gtt on admission, transitioned to protonix 40mg PO BID. Continued at discharge given findings on EGD with erythema and healing ulcers with evidence of chronic gastritis, possibly due to recent NSAID use * EGD on 05/16 with evidence of gastritis and gastric erosions possibly healed ulcers * biopsies and H. pylori testing pending at time of discharge * Colonoscopy 05/17 negative -- repeat in 10 yrs recommended * Follow up with GI as outpatient * recommend following CBC until returns to normal and stays normal (2) Cirrhosis: * CT A/p w IV/oral contrast without acute process, however lobulated contour of liver with possibility of cirrhosis. mild increase in moderate splenomegaly. * Hep A, B as outpatient and rec for vaccination to prevent secondary liver injury * GI with rec surveillance with RUQ US every 6 months -- scheduled follow up with GI outpatient * Discontinued home lactulose as most recent ammonia <10. Recommended outpatient follow up with PCP and GI as above (3) Hypertension: * Chronic. Stable. * BP currently slightly elevated at 157/84 * Continued home losartan 100mg * Follow up outpatient with PCP (4) Diabetes: * Held home insulin, metformin while inpatient. A1c 5.2 on 04/23/19 * ISS while inpatient. BSG ACHS. Lantus 18 units BID (on 36 units QAM as outpatient) while inpatient. Reduced doses while NPO. * Resumed home medications at discharge (5) Anxiety: * hx of, and depression. Chronic. Stable * Continued home sertaline 100mg QAM (6) Depression: * As above. Also with possible schizoaffective, depressed type--> continued home risperidone 3mg QHS and benztropine 0.5mg QHS (7) Hyperlipidemia: * Per history. Not on any medications. Could be secondary to antipsychotic use * Lipid profile with only mild elevation in triglycerides at 176. Rec diet/lifestyle changes * Follow up with PCP as outpatient (8) Essential tremor: * No tremor on exam. Per patient, improved despite recent discontinuation of propranolol. (9) Syncope and collapse: * Per patient, history. ECHO 01/09/19 with normal LV size, mild concentric LVH. LVEF 60-65%. No wma. Normal RV size and function. (10) Sleep apnea: * History of, although patient no longer uses CPAP (11) Thrombocytopenia: * Platelets mildly low chronically * CT abd/pel with increase in splenomegaly -- likely secondary to cirrhosis/portal hypertension * Platelets continued to be low at 96 -- recommended outpatient follow up with hematology at discretion of PCP (12) DVT prophylaxis: * SCDs while inpatient * Chemoprophylaxis held in setting of anemia/GI bleed as above Discharged home with family. Outpatient follow up with PCP and GI for anemia/cirrhosis/thrombocytopenia. Total Time Total Time Spent Total Time Spent (In Minutes): 60 Discharge Plan Discharge Items Patient Disposition: Home - Self-Care Reason For Visit: ANEMIA Discharge Diagnosis: Anemia Gastritis Cirrhosis of the liver Condition on Discharge: Good Goals: You have been hospitalized for an acute medical problem. During your stay at [facility], we have made an effort to correct the problem that brought you to the hospital while keeping you as comfortable as possible. Medications were used to bring your condition under control and your discharge instructions will include directions for any medications you should take after leaving the hospital. Please make sure you see your Primary Care Provider as part of your follow up plan. Activity: Resume your previous activity Non-emergency contact: Primary Care Provider and [employer] Call non-emergency contact if: you have any medication questions Follow-up/Referrals: Mehrdad Godoy DO [Physician] - 05/29/19 1:00 pm Wallace Villavicencio Jr, DO [Primary Care Provider] - 05/26/19 9:45 am Diet: Carb Consistent or DM2 and Heart Healthy Addtl Attending Provider Instructions: You have been hospitalized for a low hemoglobin, which is what helps our body carry oxygen to the rest of the body. You had received 3 units of blood and underwent both a colonoscopy and EGD (upper endoscopy) while in the hospital. Your colonoscopy was normal, but the upper scope showed some evidence of inflammation and possible healing ulcers as well as mild chronic inflammation. --> For this reason, you were on a protonix infusion while in the hospital and are being sent home with a prescription for protonix (pantoprazole) 40mg by mouth TWICE daily. You have also been sent a prescription for iron supplementation -- ferrous sulfate 325mg by mouth twice daily. Note, that this may cause darkened stoo ls/constipation. You may use over the counter miralax to assist with constipation. You should avoid any alcohol or NSAIDs (ibuprofen, motrin, aleeve/naproxen) or aspirin-containing products as these increase your risk of bleeding. Your most recent ammonia level was low end of normal. You may discontinue the lactulose for now. Follow up with Dr. Villavicencio in the next 3-5 days. He may want to repeat this level in the next month to see if you should continue taking this medication. Please follow up with Dr. Godoy's office (Gastroenterology) for further evaluation of the cirrhosis of your liver found on imaging. Please return to the emergency room if you have any shortness of breath, palpitations, chest pain, or for any symptoms that are concerning for you. Pending Studies at Discharge: No Stand-Alone Forms: My [facility] [address] Medications and DC Order Prescriptions: New pantoprazole 40 mg Tablet,Delayed Release (Dr/Ec) 40 mg PO BID 30 Days Qty: 60 RF: 0 ferrous sulfate 325 mg (65 mg iron) tablet 325 mg PO BID 30 Days Qty: 60 RF: 0 Continued multivitamin Tablet 1 tab PO QAM RF: 0 benztropine 0.5 mg Tablet 0.5 mg PO HS RF: 0 sertraline [Zoloft] 100 mg tablet 100 mg PO QAM RF: 0 risperidone [Risperdal] 2 mg tablet 2 mg PO HS RF: 0 losartan [Cozaar] 100 mg tablet 100 mg PO QAM RF: 0 metformin [Glucophage XR] 500 mg tablet extended release 24 hr 1,000 mg PO BID RF: 0 risperidone [Risperdal] 1 mg tablet 1 mg PO HS RF: 0 Xultophy 100/3.6 100 unit-3.6 mg /mL (3 mL) Insulin Pen 36 unit subcut QAM RF: 0 Refresh Tears 0.5 % Drops 2 drp OPHTHALMIC (EYE) BID RF: 0 Discontinued lactulose [Generlac] 10 gram/15 mL Solution 10 g PO DAILY PRN (Reason: Constipation) RF: 0 Discharge Orders: Discharge Order (Routine); Ordered 05/17/19 Ordered By: Kayy Bull/Other Patient Handouts: Pantoprazole tablets Admission Data Admit Date/Time: 05/15/19 15:22 Attending Provider: Amarilis Cyr Admit Provider: Kayy Uribe Primary Care Provider: Wallace Villavicencio Jr Other Providers: Tom Carroll ; Mehrdad Godoy Other Interventions: Discharge Summary Assessment (RN) Last Done: 05/17/19 19:39 DC Date/Time DO NOT enter until pt leaves facility: 05/17/19 21:03 Supervising Physician Co-Signing Physician Notes PA Supervision Note: I personally saw and examined the patient. I verified all vera points and agree with SHIREEN Uribe with the following exceptions and/or additions: Doing well, no bleeding since admission. EGD and colonoscopy results reviewed with pt. Likely severe anemia secondary to gastritis and healing erosions/ulcers. Stable for dc to home on PPI bid Plan for f/u CBC as outpt and f/u with GI for cirrhosis seen on imaging VSS NAD, Obese, AAOx3 RRR no mgr CTAB no wcr +BS soft NT ND Skin no rashes Stable for dc to home Coding Level of Care Code D/C Day Management >30 mins Diagnoses Anemia D64.9 Anemia type: unspecified type Cirrhosis K74.60 Hypertension I10 Diabetes E11.9 Anxiety F41.9 Depression F32.9 Hyperlipidemia E78.5 Essential tremor G25.0 Syncope and collapse R55 Sleep apnea G47.30 Thrombocytopenia D69.6 DVT prophylaxis Z29.9
== END 2019-05-17 21:03 | disposition home or self-care (01) | DRG 812 ==
LOC: ED 11:17 → 2S 15:22 → 3N 05-16 18:02

== ENCOUNTER 2020-07-29 14:06 | Observation (INO) ==
[2020-07-29] MEDS ORDERED: SODIUM CHLORIDE 0.9% 1000ML 1,000 ML IV ONE (15:01)
[2020-07-29] MEDS ORDERED: PANTOPRAZOLE BOLUS/DRIP 1 EA IV STA (15:01)
[2020-07-29] MEDS ORDERED: PANTOprazole 80 MG in DEXTROSE 5% 100 ML IV ONE (15:01)
[2020-07-29] MEDS ORDERED: ONDANSETRON INJ 2 MG/ML 2 ML VIAL IV STA (15:02)
[2020-07-29 15:19] LABS: Basophils # (auto) 0.02 K/uL (0-0.2); Basophils % (auto) 0.2 %; Eosinophils % (auto) 1.7 %; Hematocrit (blood only) 34.6 % (37-47); Hemoglobin 11.2 g/dL (12.0-16.0); Immature Granulocytes # (auto) 0.04 K/uL (0.00-0.02); Immature Granulocytes % (auto) 0.3 %; Lymphocytes # (auto) 2.18 K/uL (1.2-3.4); Lymphocytes % (auto) 18.9 %; Mean Corpuscular Hemoglobin 27.7 pg (25-34); Mean Corpuscular Hgb Conc 32.4 g/dL (32-36); Mean Corpuscular Volume 85.6 fL (80-100); Mean Platelet Volume 10.7 fL (7.4-10.4); Monocytes # (auto) 0.87 K/uL (0.11-0.59); Monocytes % (auto) 7.5 %; Neutrophils # (auto) 8.22 K/uL (1.4-6.5); Neutrophils % (auto) 71.4 %; Platelet Count 210 K/uL (130-400); RDW Coefficient of Variation 15.2 % (11.5-14.5); Red Blood Count 4.04 M/uL (4.2-5.4); White Blood Count 11.53 K/uL (4.8-10.8)
[2020-07-29 15:32] LABS: INR 1.1 (0.9-1.1); Partial Thromboplastin Ratio 0.8; Partial Thromboplastin Time 20.5 Seconds (21.0-31.0); Prothrombin Time 11.2 Seconds (9.0-12.0)
--- NOTE | 2020-07-29 15:35 | Emergency Department Note ---
Impression & Plan UGIB (upper gastrointestinal bleed), [facility] Provider Note NAME: ABIMBOLA KU AGE: 70 SEX: F : 1950 ARRIVES VIA: Walk-In INFORMANT: Patient, ED PROVIDER(S): Ney Solitario MD CHIEF COMPLAINT: Nausea and vomiting HPI: This is a 70-year-old female with a history of cirrhosis of the liver who p resents to the emergency department complaining of nausea and vomiting and black tarry stools. The patient reports the nausea and vomiting started on Wednesday. She has not taken anything for the vomiting. She reports nothing seems to make it better or worse. She describes the vomiting as coffee-ground. She denies any abdominal pain or chest pain. ROS: See above HPI for pertinent positives & negatives. A total of 10 systems reviewed and were otherwise negative. PAST MEDICAL HISTORY: See Below PAST SURGICAL HISTORY: See Below FAMILY HISTORY: See Below SOCIAL HISTORY: See Below HOME MEDICATIONS: See Below ALLERGIES: See Below VITALS: See Below PHYSICAL EXAMINATION: VITAL SIGNS - Vital signs and nursing notes were reviewed. GENERAL - 70-year-old female appearing stated age who is in no acute distress. Communicates well with provider and answers questions appropriately. SKIN - Without rashes. HEAD - NC/AT. EYES - PERRL with EOMI bilaterally. Sclera anicteric. Palpebral conjunctiva pink and moist with no injection noted. EARS - No deformities of external structures noted on gross examination bilaterally. NOSE - Midline and without cyanosis. No epistaxis or purulent drainage noted. Septum midline without deviation or septal hematoma noted. MOUTH/OROPHARYNX - Without perioral cyanosis. Buccal mucosa pink and moist and without leukoplakia. Tongue midline with equal elevation of palate bilaterally. No tonsillar hypertrophy, erythema, or exudates noted. NECK - Neck with FROM. Supple to palpation. lymphadenopathy noted. No nuchal rigidity. LUNGS - Chest wall symmetric without accessory muscle use, intercostals retractions, or central cyanosis. Normal vesicular breath sounds CTA B/L. No wheezes, rales, or rhonchi appreciated. CARDIAC - RRR with S1/S2. No murmur, rubs, or gallops appreciated. ABDOMEN - Abdominal contour without pulsations or visible masses. BS normoactive all four quadrants. No tenderness, palpable masses, hepa tosplenomegaly, or ascites noted. EXTREMITIES - No clubbing or peripheral cyanosis. No pretibial edema present. +3/5 radial, posterior tibial, and dorsalis pedis pulses palpated throughout. +5/5 strength noted in UE/LE bilaterally. NEUROLOGIC - Cranial nerves II through XII grossly intact. Sensory intact to light touch throughout. Patellar reflexes +2/4. PSYCH - A&Ox3 and cooperates fully with examiner. Pt is very pleasant and interacts well with examiner. MEDICAL DECISION MAKING: Patient was seen and evaluated as above in room A12. Review was performed of nursing notes and vital signs. I did review pertinent previous visits and patient history. After obtaining a thorough history and physical examination the above work up was performed. This 70-year-old female who presents emergency department complaining of vomiting coffee-ground emesis. She has black tarry stool that is heme positive on physical examination. She was started on IV Protonix bolus and drip and given Zofran for the vomiting. Due to the patient's multiple comorbidities I do think she should be admitted to the hospital. I did discuss the case with the hospitalist service. Patient is in agreement with the treatment plan. An order was placed for continuous cardiac monitoring. The monitor shows a rate of 113 with Normal SInus rhythm. The patient was evaluated during a period of high volume and high acuity during the global COVID-19 pandemic, and that diagnosis was suspected/considered upon their initial presentation. Their evaluation, treatment and testing was consistent with current guidelines for patients who present with complaints or symptoms that may be related to COVID-19. Patient was seen while provider was wearing PPE. Triage Nursing notes reviewed. Prior medical records reviewed Vital Signs: reviewed and remarkable for no significant abnormalities Differential diagnosis: Appendicitis, ovarian cyst, ovarian torsion, ectopic , TOA, PID, infections, diverticulitis, UTI, obstruction, mesenteric ischemia, aortic pathology, inflammatory bowel disease, renal colic, PUD, pancreatitis, biliary pathology, hernia, volvulus, constipation, as well as other pathologies. ER treatment provided: See below Diagnostics interpreted by me: ECG: Sinus tachycardia no ST elevation or depression QTC is 473 ventricular rate is 122 EKG is compared to 05/15/2019 PVCs are no longer present Laboratory studies: As stated above and show below. Imaging studies: See below Consultation(s): GI, hospitalist I have personally spent greater than 30 minutes of critical care time in the direct management of this patient. This includes bedside care, interpretation of diagnostic studies, and testing, discussion with consultants, patient, and family members, and other required patient management activities. This 30 minutes is in excess of all separately billable procedures. Past Med/Surg History Medical History (Updated 07/30/20 @ 12:17 by Ney Solitario MD) Anxiety and depression Diabetes mellitus, type 2 Essential tremor "MILD" History of fatty infiltration of liver Hx of melanoma of skin Hypertension Migraine Osteoarthritis Sleep apnea NO DEVICE USED Syncope and collapse treated at [facility] Thrombocytopenia Vitamin B12 deficiency Wernicke encephalopathy syndrome "pt denies" Surgical History H/O local excision of skin lesion H/O unilateral oophorectomy History of appendectomy History of cataract surgery LEFT History of colonoscopy (04/2019) History of dilatation and curettage History of esophagogastroduodenoscopy (EGD) (04/2019) History of tooth extraction Family History Brother Family history of diabetes mellitus Other No family history of adverse response to anesthesia No pertinent family history Social History Smoking Status: Never smoker Second Hand Exposure: No; Do You Dip or Chew Tobacco: No; Tobacco Cessation Education Requested by Patient: No Hx Alcohol Use: No Hx Substance Use: No Preferred Language: Welsh Communication Ability: Effective Visual Educator Required: No Beliefs That Will Affect Care: None marital status: / Current Living Situation: Alone Other Information That Helps Us Care for You: No Feels Safe at Home: Yes Safety Concerns: Feels Safe At This Time Assistive Devices: Denture - Upper, Denture - Lower and Glasses Allergies Allergies Allergy/AdvReac Type Severity Reaction Status Date / Time No Known Allergies Allergy Unknown Verified 07/29/20 15:13 Home Meds Home Medications Medication Instructions Recorded Confirmed benztropine 0.5 mg PO HS 05/03/19 07/29/20 metformin [Glucophage XR] 1,000 mg PO BID 05/03/19 07/29/20 risperidone [Risperdal] 1.5 mg PO HS 05/03/19 07/29/20 risperidone [Risperdal] 2 mg PO HS 05/03/19 07/29/20 sertraline [Zoloft] 100 mg PO QAM 05/03/19 07/29/20 carboxymethylcellulose sodium 2 drp OPHTHALMIC (EYE) BID PRN 05/15/19 07/29/20 [Refresh Tears] losartan 100 mg tablet 50 mg PO QAM tab 05/29/19 07/29/20 cholecalciferol (vitamin D3) 125 125 mcg PO WK 09/11/19 07/29/20 mcg (5,000 unit) capsule docusate sodium 100 mg capsule 100 mg PO BID 09/11/19 07/29/20 pyridoxine (vitamin B6) 100 mg 100 mg PO QPM 09/11/19 07/29/20 tablet ferrous sulfate 325 mg (65 mg 325 mg PO QAM tab 06/27/20 07/29/20 iron) tablet insulin degludec 100 30 unit SUBCUT QAM ml 06/27/20 07/29/20 unit-liraglutide 3.6 mg/mL(3 mL) subcutaneous pen Xifaxan 550 mg PO BID 07/29/20 07/29/20 ibuprofen 200 mg PO Q6H PRN 07/29/20 07/29/20 Results & Data (ED) Vital Signs Vital Signs - 24 hr 07/29/20 14:20 07/29/20 14:55 07/29/20 15:45 Temperature 36.9 C Temperature Source Oral Pulse Rate 129 H 116 H Pulse Rate [Left Finger] 121 H Pulse Rate from SpO2 Sensor 116 H Pulse Rhythm Regular Pulse Rhythm [Left Finger] Regular Pulse Strength [Left Finger] Normal Respiratory Rate 20 16 21 Respiratory Effort / Characteristics Non-Labored Spontaneous Non-Labored Respiratory Depth Normal Normal Respiratory Pattern Regular Blood Pressure 98/64 L 134/77 Blood Pressure [Right Arm] 131/75 Blood Pressure Mean 75 96 Blood Pressure Mean [Right Arm] 93 Blood Pressure Position [Right Arm] Lying Pulse Oximetry 97 96 95 Oxygen Delivery Method Room Air Room Air Sepsis Recent Fever Within 48 Hours No Sepsis New/Unexplained Change in Mental Status No Sepsis Action Taken by Nursing Physician Notified 07/29/20 16:12 07/29/20 17:05 07/29/20 17:30 Temperature Temperature Source Pulse Rate 112 H 120 H Pulse Rate [Left Finger] Pulse Rate from SpO2 Sensor 112 H Pulse Rhythm Pulse Rhythm [Left Finger] Pulse Strength [Left Finger] Respiratory Rate 17 20 Respiratory Effort / Characteristics Respiratory Depth Respiratory Pattern Blood Pressure 134/75 Blood Pressure [Right Arm] Blood Pressure Mean 94 Blood Pressure Mean [Right Arm] Blood Pressure Position [Right Arm] Pulse Oximetry 96 96 97 Oxygen Delivery Method Room Air Sepsis Recent Fever Within 48 Hours Sepsis New/Unexplained Change in Mental Status Sepsis Action Taken by Nursing 07/29/20 17:54 07/29/20 18:00 Temperature Temperature Source Pulse Rate 121 H 120 H Pulse Rate [Left Finger] Pulse Rate from SpO2 Sensor 121 H 120 H Pulse Rhythm Pulse Rhythm [Left Finger] Pulse Strength [Left Finger] Respiratory Rate 21 22 Respiratory Effort / Characteristics Respiratory Depth Respiratory Pattern Blood Pressure 125/73 Blood Pressure [Right Arm] Blood Pressure Mean 90 Blood Pressure Mean [Right Arm] Blood Pressure Position [Right Arm] Pulse Oximetry 93 96 Oxygen Delivery Method Sepsis Recent Fever Within 48 Hours Sepsis New/Unexplained Change in Mental Status Sepsis Action Taken by Nursing Laboratory Data Result diagrams: 07/30/20 08:47 07/30/20 04:21 Lab Results 07/29/20 07/29/20 07/29/20 Range/Units 14:50 14:50 14:50 WBC 11.53 H (4.8-10.8) K/uL RBC 4.04 L (4.2-5.4) M/uL Hgb 11.2 L (12.0-16.0) g/dL Hct 34.6 L (37-47) % MCV 85.6 (80-100) fL MCH 27.7 (25-34) pg MCHC 32.4 (32-36) g/dL RDW Std Deviation 47.0 H (36.4-46.3) fL RDW Coeff of Griffin 15.2 H (11.5-14.5) % Plt Count 210 (130-400) K/uL MPV 10.7 H (7.4-10.4) fL Immature Gran % (Auto) 0.3 % Neut % (Auto) 71.4 % Lymph % (Auto) 18.9 % Karnes % (Auto) 7.5 % Eos % (Auto) 1.7 % Baso % (Auto) 0.2 % Neut # (Auto) 8.22 H (1.4-6.5) K/uL Lymph # (Auto) 2.18 (1.2-3.4) K/uL Karnes # (Auto) 0.87 H (0.11-0.59) K/uL Eos # (Auto) 0.20 (0-0.5) K/uL Baso # (Auto) 0.02 (0-0.2) K/uL Immature Gran # (Auto) 0.04 H (0.00-0.02) K/uL PT 11.2 (9.0-12.0) Seconds INR 1.1 (0.9-1.1) APTT 20.5 L (21.0-31.0) Seconds PTT Ratio 0.8 Sodium 138 (136-145) mmol/L Potassium 4.0 (3.5-5.1) mmol/L Chloride 106 (98-107) mmol/L Carbon Dioxide 24 (21-32) mmol/L Anion Gap 8.0 (3-11) BUN 42 H (7-18) mg/dl Creatinine 0.84 (0.6-1.2) mg/dl Est Cr Clr Drug Dosing 63.0 ml/min Est GFR ( Amer) 82.2 Est GFR (Non-Af Amer) 70.9 BUN/Creatinine Ratio 49.6 H (10-20) Glucose 289 H (70-99) mg/dl Calcium 8.9 (8.5-10.1) mg/dl Total Bilirubin 0.4 (0.2-1) mg/dl AST 19 (15-37) U/L ALT 35 (12-78) U/L Alkaline Phosphatase 92 (45-117) U/L Total Creatine Kinase 30 (26-192) U/L CK-MB (CK-2) < 1.0 (0.5-3.6) ng/ml CK/CKMB % Calc TNP Total Protein 7.4 (6.4-8.2) gm/dl Albumin 3.4 (3.4-5.0) gm/dl Globulin 4.0 (2.5-4.0) gm/dl Albumin/Globulin Ratio 0.9 (0.9-2) Urine Color Urine Appearance (Clear) Urine pH (4.5-7.5) Ur Specific [place] (1.000-1.030) Urine Protein (Negative) Urine Glucose (UA) (Negative) Urine Ketones (Negative) Urine Blood (Negative) Urine Nitrite (Negative) Urine Bilirubin (Negative) Urine Urobilinogen (Negative) Ur Leukocyte Esterase (Negative) POC Stool Occult Blood (Negative) COVID-19 Eval Order SARS-CoV-2 (PCR) (Negative) Hepatitis C Ab Screen (Neg) Influenza Type A (PCR) (Neg) Influenza Type B (PCR) (Neg) RSV (RT-PCR) (Neg) Blood Type Antibody Screen Crossmatch 07/29/20 07/29/20 07/29/20 Range/Units 14:50 15:00 15:07 WBC (4.8-10.8) K/uL RBC (4.2-5.4) M/uL Hgb (12.0-16.0) g/dL Hct (37-47) % MCV (80-100) fL MCH (25-34) pg MCHC (32-36) g/dL RDW Std Deviation (36.4-46.3) fL RDW Coeff of Griffin (11.5-14.5) % Plt Count (130-400) K/uL MPV (7.4-10.4) fL Immature Gran % (Auto) % Neut % (Auto) % Lymph % (Auto) % Karnes % (Auto) % Eos % (Auto) % Baso % (Auto) % Neut # (Auto) (1.4-6.5) K/uL Lymph # (Auto) (1.2-3.4) K/uL Karnes # (Auto) (0.11-0.59) K/uL Eos # (Auto) (0-0.5) K/uL Baso # (Auto) (0-0.2) K/uL Immature Gran # (Auto) (0.00-0.02) K/uL PT (9.0-12.0) Seconds INR (0.9-1.1) APTT (21.0-31.0) Seconds PTT Ratio Sodium (136-145) mmol/L Potassium (3.5-5.1) mmol/L Chloride (98-107) mmol/L Carbon Dioxide (21-32) mmol/L Anion Gap (3-11) BUN (7-18) mg/dl Creatinine (0.6-1.2) mg/dl Est Cr Clr Drug Dosing ml/min Est GFR ( Amer) Est GFR (Non-Af Amer) BUN/Creatinine Ratio (10-20) Glucose (70-99) mg/dl Calcium (8.5-10.1) mg/dl Total Bilirubin (0.2-1) mg/dl AST (15-37) U/L ALT (12-78) U/L Alkaline Phosphatase (45-117) U/L Total Creatine Kinase (26-192) U/L CK-MB (CK-2) (0.5-3.6) ng/ml CK/CKMB % Calc Total Protein (6.4-8.2) gm/dl Albumin (3.4-5.0) gm/dl Globulin (2.5-4.0) gm/dl Albumin/Globulin Ratio (0.9-2) Urine Color Urine Appearance (Clear) Urine pH (4.5-7.5) Ur Specific [place] (1.000-1.030) Urine Protein (Negative) Urine Glucose (UA) (Negative) Urine Ketones (Negative) Urine Blood (Negative) Urine Nitrite (Negative) Urine Bilirubin (Negative) Urine Urobilinogen (Negative) Ur Leukocyte Esterase (Negative) POC Stool Occult Blood Positive A (Negative) COVID-19 Eval Order SARS-CoV-2 (PCR) (Negative) Hepatitis C Ab Screen Neg (Neg) Influenza Type A (PCR) (Neg) Influenza Type B (PCR) (Neg) RSV (RT-PCR) (Neg) Blood Type O Positive Antibody Screen NEGATIVE Crossmatch See Detail 07/29/20 07/29/20 07/29/20 Range/Units 15:50 15:50 15:50 WBC (4.8-10.8) K/uL RBC (4.2-5.4) M/uL Hgb (12.0-16.0) g/dL Hct (37-47) % MCV (80-100) fL MCH (25-34) pg MCHC (32-36) g/dL RDW Std Deviation (36.4-46.3) fL RDW Coeff of Griffin (11.5-14.5) % Plt Count (130-400) K/uL MPV (7.4-10.4) fL Immature Gran % (Auto) % Neut % (Auto) % Lymph % (Auto) % Karnes % (Auto) % Eos % (Auto) % Baso % (Auto) % Neut # (Auto) (1.4-6.5) K/uL Lymph # (Auto) (1.2-3.4) K/uL Karnes # (Auto) (0.11-0.59) K/uL Eos # (Auto) (0-0.5) K/uL Baso # (Auto) (0-0.2) K/uL Immature Gran # (Auto) (0.00-0.02) K/uL PT (9.0-12.0) Seconds INR (0.9-1.1) APTT (21.0-31.0) Seconds PTT Ratio Sodium (136-145) mmol/L Potassium (3.5-5.1) mmol/L Chloride (98-107) mmol/L Carbon Dioxide (21-32) mmol/L Anion Gap (3-11) BUN (7-18) mg/dl Creatinine (0.6-1.2) mg/dl Est Cr Clr Drug Dosing ml/min Est GFR ( Amer) Est GFR (Non-Af Amer) BUN/Creatinine Ratio (10-20) Glucose (70-99) mg/dl Calcium (8.5-10.1) mg/dl Total Bilirubin (0.2-1) mg/dl AST (15-37) U/L ALT (12-78) U/L Alkaline Phosphatase (45-117) U/L Total Creatine Kinase (26-192) U/L CK-MB (CK-2) (0.5-3.6) ng/ml CK/CKMB % Calc Total Protein (6.4-8.2) gm/dl Albumin (3.4-5.0) gm/dl Globulin (2.5-4.0) gm/dl Albumin/Globulin Ratio (0.9-2) Urine Color Yellow Urine Appearance Clear (Clear) Urine pH 6.0 (4.5-7.5) Ur Specific [place] 1.022 (1.000-1.030) Urine Protein Negative (Negative) Urine Glucose (UA) Negative (Negative) Urine Ketones Trace H (Negative) Urine Blood Negative (Negative) Urine Nitrite Negative (Negative) Urine Bilirubin Negative (Negative) Urine Urobilinogen Negative (Negative) Ur Leukocyte Esterase Negative (Negative) POC Stool Occult Blood (Negative) COVID-19 Eval Order CovFluRsv at [facility] SARS-CoV-2 (PCR) NEGATIVE (Negative) Hepatitis C Ab Screen (Neg) Influenza Type A (PCR) Negative (Neg) Influenza Type B (PCR) Negative (Neg) RSV (RT-PCR) Negative (Neg) Blood Type Antibody Screen Crossmatch Administered Medications Benztropine Mesylate (Benztropine Mesylate 0.5 Mg Tab) 0.5 mg PO HS MEY Stop: 08/28/20 20:59 Last Admin: 07/29/20 22:04 Dose: 0.5 mg Documented by: [id number] Docusate Sodium (Docusate Sodium 100 Mg Cap) 100 mg PO BID MEY Stop: 08/28/20 20:59 Last Admin: 07/30/20 10:08 Dose: 100 mg Documented by: [id number] Admin: 07/29/20 22:04 Dose: 100 mg Documented by: [id number] Ferrous Sulfate (Ferrous Sulfate 325 Mg Tab) 325 mg PO QAM MEY Stop: 08/29/20 08:59 Last Admin: 07/30/20 10:08 Dose: 325 mg Documented by: [id number] Pantoprazole Sodium 40 mg/ (Dextrose) 100 mls @ 20 mls/hr IV Q5H MEY Stop: 08/28/20 15:15 Last Admin: 07/30/20 06:32 Dose: 8 mg/hr, 20 mls/hr Documented by: [id number] Infusion: 07/30/20 06:32 Dose: 8 mg/hr, 20 mls/hr Documented by: [id number] Admin: 07/30/20 02:15 Dose: 8 mg/hr, 20 mls/hr Documented by: [id number] Infusion: 07/30/20 02:15 Dose: 8 mg/hr, 20 mls/hr Documented by: [id number] Admin: 07/29/20 21:15 Dose: 8 mg/hr, 20 mls/hr Documented by: [id number] Infusion: 07/29/20 21:12 Dose: 8 mg/hr, 20 mls/hr Documented by: [id number] Admin: 07/29/20 16:12 Dose: 8 mg/hr, 20 mls/hr Documented by: [id number] Sodium Chloride (Nss 1000ml) 1,000 mls @ 80 mls/hr IV .[id number] MEY Stop: 08/28/20 20:59 Last Infusion: 07/30/20 11:06 Dose: 0 mls/hr Documented by: [id number] Admin: 07/29/20 22:09 Dose: 80 mls/hr Documented by: [id number] Ceftriaxone Sodium 1,000 mg/ (Dextrose) 50 mls @ 100 mls/hr IV Q24H MEY; Protocol Stop: 08/09/20 09:59 Last Admin: 07/30/20 11:15 Dose: 100 mls/hr Documented by: [id number] Sodium Chloride (Nss 1000ml) 1,000 mls @ 125 mls/hr IV .Q8H [facility] Stop: 08/29/20 08:59 Last Admin: 07/30/20 10:09 Dose: 125 mls/hr Documented by: [id number] Insulin Aspart (Insulin Aspart 100 Units/Ml 3 Ml Pen) 0 units SC Q4 MEY Stop: 08/28/20 21:14 Last Admin: 07/30/20 08:51 Dose: Not Given Documented by: [id number] Admin: 07/30/20 04:23 Dose: Not Given Documented by: [id number] Admin: 07/30/20 00:00 Dose: Not Given Documented by: [id number] Admin: 07/29/20 22:06 Dose: Not Given Documented by: [id number] Ondansetron HCl (Ondansetron Inj 2 Mg/Ml 2 Ml Vial) 4 mg IV Q6H PRN PRN Reason: Nausea And Vomiting Stop: 08/28/20 21:52 Last Admin: 07/29/20 22:26 Dose: 4 mg Documented by: [id number] Pyridoxine HCl (Pyridoxine Hcl 50 Mg Tab) 100 mg PO QPM MEY Stop: 08/28/20 20:59 Last Admin: 07/29/20 22:03 Dose: 100 mg Documented by: [id number] Rifaximin (Rifaximin 550 Mg Tablet) 550 mg PO BID [facility] Stop: 08/28/20 20:59 Last Admin: 07/30/20 10:07 Dose: 550 mg Documented by: [id number] Admin: 07/29/20 22:03 Dose: 550 mg Documented by: [id number] Risperidone (Risperidone 0.5 Mg Tablet) 1.5 mg PO HS [facility] Stop: 08/28/20 20:59 Last Admin: 07/29/20 22:05 Dose: 1.5 mg Documented by: [id number] Risperidone (Risperidone 2 Mg Tablet) 2 mg PO HS MEY Stop: 08/28/20 20:59 Last Admin: 07/29/20 22:03 Dose: 2 mg Documented by: [id number] Sertraline HCl (Sertraline Hcl 100 Mg Tablet) 100 mg PO QAM MEY Stop: 08/29/20 08:59 Last Admin: 07/30/20 10:07 Dose: 100 mg Documented by: [id number] Discontinued Medications Sodium Chloride (Nss 1000ml) 1,000 mls @ 999 mls/hr IV .Q1H1M ONE Stop: 07/29/20 16:01 Last Infusion: 07/29/20 15:48 Dose: 0 mls/hr Documented by: [id number] Admin: 07/29/20 15:10 Dose: 999 mls/hr Documented by: [id number] Pantoprazole Sodium (Protonix Bolus/Drip) 0 mls @ 1 mls/hr IV ONE STA Stop: 07/29/20 15:02 Last Admin: 07/29/20 16:57 Dose: Not Given Documented by: [id number] Pantoprazole Sodium 80 mg/ (Dextrose) 120 mls @ 400 mls/hr IV NOW ONE Stop: 07/29/20 15:18 Last Infusion: 07/29/20 16:22 Dose: 0 mls/hr Documented by: [id number] Admin: 07/29/20 15:46 Dose: 400 mls/hr Documented by: [id number] Potassium Chloride (K Micah / Wtr) 10 meq in 100 mls @ 100 mls/hr IV ONE ONE Stop: 07/30/20 09:22 Last Infusion: 07/30/20 10:19 Dose: 0 mls/hr Documented by: [id number] Admin: 07/30/20 09:12 Dose: 100 mls/hr Documented by: [id number] Lactated Ringer's (Lr) 1,000 mls @ 999 mls/hr IV .Q1H1M ONE Stop: 07/30/20 09:49 Last Infusion: 07/30/20 10:19 Dose: 0 mls/hr Documented by: [id number] Admin: 07/30/20 09:00 Dose: 999 mls/hr Documented by: [id number] Sodium Chloride (Nss 1000ml) 1,000 mls @ 999 mls/hr IV .Q1H1M ONE Stop: 07/30/20 09:54 Last Admin: 07/30/20 12:00 Dose: Not Given Documented by: [id number] Insulin Glargine (Insulin Glargine Solostar 100 Units/Ml 3 Ml Pen) 20 units SC ONE ONE Stop: 07/29/20 21:16 Last Admin: 07/29/20 23:16 Dose: 20 units Documented by: [id number] Cosigned by: [id number] Ioversol (Optiray 300 100ml) 89 ml IV ONCE ONE Stop: 07/29/20 16:03 Last Admin: 07/29/20 16:03 Dose: 89 ml Documented by: [id number] Losartan Potassium (Losartan Potassium 50 Mg Tab) 50 mg PO QAM MEY Stop: 08/29/20 08:59 Last Admin: 07/30/20 10:19 Dose: Not Given Documented by: [id number] Ondansetron HCl (Ondansetron Inj 2 Mg/Ml 2 Ml Vial) 4 mg IV NOW STA Stop: 07/29/20 15:03 Last Admin: 07/29/20 15:10 Dose: 4 mg Documented by: [id number] Imaging Data Radiologist's Impression: Abdomen/Pelvis CT 07/29/20 15:28 CT SCAN OF THE ABDOMEN AND PELVIS WITH IV CONTRAST CLINICAL HISTORY: Nausea and vomiting. Diarrhea. COMPARISON STUDY: Abdominal CT dated 05/15/2019. TECHNIQUE: Following the IV administration of 89 cc of Optiray 320, CT scan of the abdomen and pelvis is performed from the lung bases to the proximal femora. Images are reviewed in the axial, sagittal, and coronal planes. IV contrast was administered without complication. A dose lowering technique was utilized adhering to the principles of ALARA. CT DOSE: 850.75 mGycm FINDINGS: Lung bases: The heart is normal in size and without pericardial effusion. The coronary arteries are densely calcified. The lung bases are clear noting bibasilar scarring/atelectasis. There is a small hiatal hernia. Liver: The contrast-enhanced liver is enlarged, measuring 21 cm in length. The liver demonstrates heterogeneously diminished attenuation consistent with hepatic steatosis. The liver is cirrhotic in morphology, with hypertrophy of the left lobe and nodularity of the surface contour. There is no intrahepatic biliary ductal dilatation. The hepatic veins and portal veins are patent. A calcified granuloma is noted in the dome of the liver. Gallbladder: Unremarkable. Spleen: The spleen is enlarged measuring 16.5 cm in length. Pancreas: Unremarkable. Adrenal glands: Unremarkable. Kidneys: The contrast enhanced kidneys are normal in size and without hydronephrosis. The kidneys enhance symmetrically. A 1.7 cm cyst is again noted in the interpolar left kidney. Abdominal vasculature: The abdominal aorta is normal in course and caliber noting mild atherosclerotic calcification. Bowel: There are scattered colonic diverticula without CT evidence of acute diverticulitis. No bowel obstruction is seen. There is mild wall thickening seen throughout the colon with faint pericolonic infiltration. This is greatest in the ascending colon and rectosigmoid. The appendix is not identified and reported surgically absent. Peritoneum: There is no intraperitoneal free air or abdominal ascites. There is a small fat-containing umbilical hernia. Lymphadenopathy: None. Pelvic viscera: The bladder wall appears circumferentially thickened. There are calcified uterine fibroids. No adnexal lesion is seen. Skeletal structures: The skeletal structures are osteopenic. There is mild lumbosacral spondylosis. A mild superior endplate compression deformity of L2 appears acute to subacute. No lytic or blastic lesions are seen. IMPRESSION: 1. The liver is enlarged, steatotic, and cirrhotic in morphology. 2. Splenomegaly. 3. There is mild wall thickening throughout the colon with faint pericolonic infiltration. This could be seen with portal colopathy or a nonspecific proctocolitis. Clinical correlation will be required. 4. The bladder wall appears circumferentially thickened. Correlate with urina lysis. 5. There is a mild superior endplate compression deformity of L2 which appears acute to subacute. Correlate for point tenderness. 6. Fibroid uterus. 7. Advanced coronary artery calcification. 8. Additional findings as above. ACT 112: Negative or not required by law. Electronically signed by: Geovanny Connors M.D. 07/29/2020 4:22 PM Discharge Plan Visit Data Chief Complaint: Vomiting Stated Complaint: HIGH BLOOD SUGARS ED Provider: Ney Solitario Discharge Problem: UGIB (upper gastrointestinal bleed), [facility] Patient Disposition: Admitted As Inpatient Discharge Instructions Interventions: ED Discharge Assessment Last Done: 07/29/20 19:45
[2020-07-29 15:42] LABS: Alanine Aminotransferase 35 U/L (12-78); Albumin Level 3.4 gm/dl (3.4-5.0); Aspartate Aminotransferase 19 U/L (15-37); BUN Creatinine Ratio 49.6 (10-20); Blood Urea Nitrogen 42 mg/dl (7-18); Calcium 8.9 mg/dl (8.5-10.1); Carbon Dioxide 24 mmol/L (21-32); Chloride 106 mmol/L (98-107); Est GFR (African American) 82.2; Est GFR (Non-African American) 70.9; Glucose 289 mg/dl (70-99); Sodium 138 mmol/L (136-145)
[2020-07-29 15:46] LABS: Albumin Globulin Ratio 0.9 (0.9-2); Alkaline Phosphatase 92 U/L (45-117); Bilirubin,Total 0.4 mg/dl (0.2-1); Creatine Kinase 30 U/L (26-192); Creatine Kinase MB < 1.0 ng/ml (0.5-3.6); Total Protein 7.4 gm/dl (6.4-8.2)
[2020-07-29 16:01] LABS: Appearance Urine Clear (Clear); Bilirubin Urine Negative (Negative); Blood Urine Negative (Negative); Color Urine Yellow; Glucose Urine UA Negative (Negative); Ketones Urine Trace (Negative); Leukocyte Esterase Urine Negative (Negative); Nitrite Urine Negative (Negative); Protein Urine Negative (Negative); Specific Gravity Urine 1.022 (1.000-1.030); Urobilinogen Urine Negative (Negative)
[2020-07-29] MEDS ORDERED: OPTIRAY 300 100mL IV ONE (16:02)
[2020-07-29] MEDS: PANTOprazole 40 MG in DEXTROSE 5% 100 ML IV SCH ×2 (16:12→21:15)
--- NOTE | 2020-07-29 16:23 | CT Scan Report ---
CT SCAN OF THE ABDOMEN AND PELVIS WITH IV CONTRAST CLINICAL HISTORY: Nausea and vomiting. Diarrhea. COMPARISON STUDY: Abdominal CT dated 05/15/2019. TECHNIQUE: Following the IV administration of 89 cc of Optiray 320, CT scan of the abdomen and pelvi s is performed from the lung bases to the proximal femora. Images are reviewed in the axial, sagittal , and coronal planes. IV contrast was administered without complication. A dose lowering technique wa s utilized adhering to the principles of ALARA. CT DOSE: 850.75 mGycm FINDINGS: Lung bases: The heart is normal in size and without pericardial effusion. The coronary arteries are d ensely calcified. The lung bases are clear noting bibasilar scarring/atelectasis. There is a small hi atal hernia. Liver: The contrast-enhanced liver is enlarged, measuring 21 cm in length. The liver demonstrates het erogeneously diminished attenuation consistent with hepatic steatosis. The liver is cirrhotic in morp hology, with hypertrophy of the left lobe and nodularity of the surface contour. There is no intrahep atic biliary ductal dilatation. The hepatic veins and portal veins are patent. A calcified granuloma is noted in the dome of the liver. Gallbladder: Unremarkable. Spleen: The spleen is enlarged measuring 16.5 cm in length. Pancreas: Unremarkable. Adrenal glands: Unremarkable. Kidneys: The contrast enhanced kidneys are normal in size and without hydronephrosis. The kidneys enh ance symmetrically. A 1.7 cm cyst is again noted in the interpolar left kidney. Abdominal vasculature: The abdominal aorta is normal in course and caliber noting mild atheroscleroti c calcification. Bowel: There are scattered colonic diverticula without CT evidence of acute diverticulitis. No bowel obstruction is seen. There is mild wall thickening seen throughout the colon with faint pericolonic i nfiltration. This is greatest in the ascending colon and rectosigmoid. The appendix is not identifie d and reported surgically absent. Peritoneum: There is no intraperitoneal free air or abdominal ascites. There is a small fat-containin g umbilical hernia. Lymphadenopathy: None. Pelvic viscera: The bladder wall appears circumferentially thickened. There are calcified uterine fib roids. No adnexal lesion is seen. Skeletal structures: The skeletal structures are osteopenic. There is mild lumbosacral spondylosis. A mild superior endplate compression deformity of L2 appears acute to subacute. No lytic or blastic le sions are seen. IMPRESSION: 1. The liver is enlarged, steatotic, and cirrhotic in morphology. 2. Splenomegaly. 3. There is mild wall thickening throughout the colon with faint pericolonic infiltration. This could be seen with portal colopathy or a nonspecific proctocolitis. Clinical correlation will be required. 4. The bladder wall appears circumferentially thickened. Correlate with urinalysis. 5. There is a mild superior endplate compression deformity of L2 which appears acute to subacute. Cor relate for point tenderness. 6. Fibroid uterus. 7. Advanced coronary artery calcification. 8. Additional findings as above. ACT 112: Negative or not required by law. Electronically signed by: Geovanny Cnonors M.D. 07/29/2020 4:22 PM
[2020-07-29 16:37] LABS: Influenza A virus by PCR Negative (Neg); Influenza B virus by PCR Negative (Neg); RSV by PCR Negative (Neg); SARS CoV2 RNA(COVID-19) InHosp NEGATIVE (Negative)
--- NOTE | 2020-07-29 17:45 | History & Physical Report ---
Date of Service July 29, 2020 Assessment & Plan (1) UGIB (upper gastrointestinal bleed): Esophageal varices is a concern patient with cirrhosis, however none seen on EGD approximately year ago. Possible gastric ulcer from NSAID abuse as well. Patient admitted to monitored bed Will make patient n.p.o. except for ice chips and meds. Maintenance fluids. Monitor hemoglobin every 8 hours. Zofran for nausea Protonix drip was started in the ER, will continue this. GI was consulted by emergency room physician, suspect she will require EGD in the next 24 hours. (2) Cirrhosis: Seems to be stable without any evidence of acute exacerbation or encephalopathy. We will check ammonia level. Patient is on Xifaxan which we will need to continue. Further recommendations per GI. (3) Schizoaffective disorder: Patient is on Risperdal and Zoloft as an outpatient, will continue this as well. (4) Diabetes mellitus type 2 in nonobese: Patient is on long-acting insulin with Xultophy, will cut dose from 30 units in the morning to 15 units while she is n.p.o. Patient takes Metformin at home, will hold this for now. Patient will be n.p.o., will have every 6 hours checks along with sliding scale insulin When back on diet, will need to be advanced to a diabetic regimen. Check hemoglobin A1c. History of Present Illness Primary Care Provider: Wallace Villavicencio Jr, DO This is a 70-year-old female with past medical history of schizoaffective disorder, former alcoholism with liver cirrhosis, type 2 diabetes that presents today complaining of abdominal pain and hematemesis. Patient is pleasant and a good historian. Patient tells me that she was feeling fine until yesterday afternoon. She started to have significant pain in her mid abdomen. This resulted in several episodes of vomiting. She agreed that the vomitus appeared to be coffee-ground in nature. She has continued to vomit even after her arrival to the ER but says that the volumes are much less and is mostly just dry heaving. When asked, she also volunteers that she has had black tarry stool over the past 24 hours. The pain in her abdomen is almost resolved and she does feel better now. She appears to be very anxious but feels better now that she has a coloring book and the door to her room is open. She denies chest pain, shortness of breath, or fever. She did have subjective chills yesterday. She tells me she was a former alcoholic but has not had a drink in approximately 5 years. When further questioned, she tells me she does use nightly ibuprofen fairly regularly for some mild lower back pain. She is followed by Dr. Godoy from GI. I see her last EGD was on 05/16/2019 where she was found to have some gastric erosions but no evidence of varices or other issues in the esophagus. Colonoscopy was last done on 05/17/2019 that showed nonbleeding internal hemorrhoids but was also unremarkable. Allergies Allergy/AdvReac Type Severity Reaction Status Date / Time No Known Allergies Allergy Unknown Verified 07/29/20 15:13 Home Medications Medication Instructions Recorded Confirmed Type benztropine 0.5 mg PO HS 05/03/19 07/29/20 History metformin [Glucophage XR] 1,000 mg PO BID 05/03/19 07/29/20 History risperidone [Risperdal] 1.5 mg PO HS 05/03/19 07/29/20 History risperidone [Risperdal] 2 mg PO HS 05/03/19 07/29/20 History sertraline [Zoloft] 100 mg PO QAM 05/03/19 07/29/20 History carboxymethylcellulose sodium 2 drp OPHTHALMIC (EYE) BID PRN 05/15/19 07/29/20 History [Refresh Tears] losartan 100 mg tablet 50 mg PO QAM tab 05/29/19 07/29/20 History cholecalciferol (vitamin D3) 125 125 mcg PO WK 09/11/19 07/29/20 History mcg (5,000 unit) capsule docusate sodium 100 mg capsule 100 mg PO BID 09/11/19 07/29/20 History pyridoxine (vitamin B6) 100 mg 100 mg PO QPM 09/11/19 07/29/20 History tablet ferrous sulfate 325 mg (65 mg 325 mg PO QAM tab 06/27/20 07/29/20 History iron) tablet insulin degludec 100 30 unit SUBCUT QAM ml 06/27/20 07/29/20 History unit-liraglutide 3.6 mg/mL(3 mL) subcutaneous pen Xifaxan 550 mg PO BID 07/29/20 07/29/20 History ibuprofen 200 mg PO Q6H PRN 07/29/20 07/29/20 History Past Med/Surg History Medical History (Updated 07/29/20 @ 17:46 by Tom Carroll DO) Anxiety and depression Diabetes mellitus, type 2 Essential tremor "MILD" History of fatty infiltration of liver Hx of melanoma of skin Hypertension Migraine Osteoarthritis Sleep apnea NO DEVICE USED Syncope and collapse treated at [facility] Thrombocytopenia Vitamin B12 deficiency Wernicke encephalopathy syndrome "pt denies" Surgical History H/O local excision of skin lesion H/O unilateral oophorectomy History of appendectomy History of cataract surgery LEFT History of colonoscopy (04/2019) History of dilatation and curettage History of esophagogastroduodenoscopy (EGD) (04/2019) History of tooth extraction Family History Brother Family history of diabetes mellitus Other No family history of adverse response to anesthesia No pertinent family history Social History Smoking Status: Never smoker Second Hand Exposure: No; Hx Alcohol Use: No Hx Substance Use: No Preferred Language: Chinese Communication Ability: Effective Television Operator Required: No Beliefs That Will Affect Care: None marital status: / Current Living Situation: Alone Feels Safe at Home: Yes Assistive Devices: Glasses Review of Systems Review of Systems: All systems reviewed & are unremarkable except as noted in HPI & below Constitutional: + chills; no fever, no body aches, no fatigue, no weakness, no weight loss and no weight gain Eyes: as per Subjective / HPI Respiratory: no cough, no chest congestion, no dyspnea, no dyspnea on exertion and no pain on inspiration Cardiovascular: no chest pain, no dyspnea, no orthopnea, no palpitations, no lightheadedness and no edema Gastrointestinal: + abdominal pain, + heartburn, + nausea, + vomiting, + diarrhea/loose stools and + melena; no belching and no constipation Genitourinary: no dysuria, no difficulty urinating, no urinary frequency, no urinary hesitancy and no urinary urgency Musculoskeletal: + back pain; no neck pain, no joint pain, no stiffness and no muscle weakness Integumentary: as per Subjective / HPI Neurologic: as per Subjective / HPI Psychiatric: + anxiety Endocrine: as per Subjective / HPI Physical Exam Constitutional: average body habitus and cooperative; no acute distress Eyes: PERRL, conjunctivae normal, anicteric sclerae Neck: trachea midline, no thyromegaly Respiratory: normal respiratory effort, lungs clear to auscultation Cardiovascular: RRR, no murmur, no edema Gastrointestinal (Abdomen): Inspection/Auscultation: + abdomen distended Percussion/Palpation: abdomen soft; abdomen nontender, no guarding, abdomen not rigid and no ascites Musculoskeletal: no cyanosis or clubbing, extremities motor strength 5/5 Neurologic: PERRL, EOMI, accommodation nl, no face palsy, no dysarthria Psychiatric: A+Ox3, euthymic affect Results & Data Results & Data ([facility]) Vital Signs (Past 12 Hours) Vital Signs Temp Pulse Pulse Resp BP BP Pulse Ox 07/29/20 17:05 96 07/29/20 16:12 112 H 17 134/75 96 07/29/20 15:45 116 H 21 134/77 95 07/29/20 14:55 121 H 16 131/75 96 07/29/20 14:20 36.9 C 129 H 20 98/64 L 97 PG Care Time/CCT Total # of Minutes Spent Total Time Spent with Patient: Total time spent is greater than 50% in coordination of care (as documented) at patient's floor/unit and/or counseling patient: Coding Level of Care Code 90658 OBS Care - Level 3 Diagnoses UGIB (upper gastrointestinal bleed) K92.2 Cirrhosis K74.60 Schizoaffective disorder F25.9 Diabetes mellitus type 2 in nonobese E11.9
[2020-07-29] MEDS ORDERED: GLUCAGON FOR INJ 1 MG VIAL SQ PRN (20:23)
[2020-07-29] MEDS ORDERED: CARBOHYDRATES FOR HYPOGLYCEMIA PO PRN (20:23)
[2020-07-29] MEDS ORDERED: GLUCOSE 40% GEL 15 GM TUBE PO PRN (20:23)
[2020-07-29] MEDS ORDERED: DEXTROSE 50% 50 ML SYRINGE IV PRN (20:23)
[2020-07-29] MEDS ORDERED: GLUCOSE 10 TABS/TUBE PO PRN (20:23)
[2020-07-29] MEDS ORDERED: ARTIFICIAL TEARS OP PRN (20:30)
[2020-07-29] MEDS ORDERED: PHARMACY GLYCEMIC MGMT CONSULT PRN (20:32)
[2020-07-29 20:59] LABS: Hemoglobin 9.8 g/dL (12.0-16.0)
[2020-07-29] MEDS ORDERED: INSULIN GLARGINE SOLOSTAR 100 UNITS/ML 3 ML PEN SC ONE (21:15)
[2020-07-29] MEDS ORDERED: Nursing to Pharmacy Communication SCH (21:15)
[2020-07-29] MEDS ORDERED: INSULIN ASPART 100 UNITS/ML 3 ML PEN SC SCH (21:15)
[2020-07-29] MEDS: risperiDONE 2 MG TABLET PO SCH (22:03)
[2020-07-29] MEDS: rifAXIMin 550 MG TABLET PO SCH (22:03)
[2020-07-29] MEDS: PYRIDOXINE HCL 50 MG TAB PO SCH (22:03)
[2020-07-29] MEDS: BENZTROPINE MESYLATE 0.5 MG TAB PO SCH (22:04)
[2020-07-29] MEDS: DOCUSATE SODIUM 100 MG CAP PO SCH (22:04)
[2020-07-29] MEDS: risperiDONE 0.5 MG TABLET PO SCH (22:05)
[2020-07-29] MEDS: INSULIN ASPART 100 UNITS/ML 3 ML PEN SC SCH (22:06)
[2020-07-29] MEDS: SODIUM CHLORIDE 0.9% 1000ML 1,000 ML IV SCH (22:09)
[2020-07-29] MEDS: ONDANSETRON INJ 2 MG/ML 2 ML VIAL IV PRN (22:26)
[2020-07-30] MEDS: PANTOprazole 40 MG in DEXTROSE 5% 100 ML IV SCH ×4 (02:15→21:08)
[2020-07-30] MEDS: INSULIN ASPART 100 UNITS/ML 3 ML PEN SC SCH ×6 (04:23→22:04)
[2020-07-30 04:32] LABS: Basophils # (auto) 0.01 K/uL (0-0.2); Basophils % (auto) 0.2 %; Eosinophils # (auto) 0.21 K/uL (0-0.5); Eosinophils % (auto) 3.7 %; Hematocrit (blood only) 25.9 % (37-47); Hemoglobin 8.3 g/dL (12.0-16.0); Immature Granulocytes # (auto) 0.01 K/uL (0.00-0.02); Immature Granulocytes % (auto) 0.2 %; Lymphocytes # (auto) 1.98 K/uL (1.2-3.4); Mean Corpuscular Hemoglobin 28.1 pg (25-34); Mean Corpuscular Volume 87.8 fL (80-100); Mean Platelet Volume 9.5 fL (7.4-10.4); Monocytes # (auto) 0.42 K/uL (0.11-0.59); Monocytes % (auto) 7.4 %; Neutrophils # (auto) 3.03 K/uL (1.4-6.5); Neutrophils % (auto) 53.5 %; Platelet Count 115 K/uL (130-400); RDW Coefficient of Variation 15.6 % (11.5-14.5); RDW Standard Deviation 49.6 fL (36.4-46.3); Red Blood Count 2.95 M/uL (4.2-5.4); White Blood Count 5.66 K/uL (4.8-10.8)
[2020-07-30 04:59] LABS: Calcium 7.8 mg/dl (8.5-10.1); Est GFR (African American) 102.5; Est GFR (Non-African American) 88.4; Magnesium 1.7 mg/dl (1.8-2.4); Potassium 3.4 mmol/L (3.5-5.1)
[2020-07-30 07:22] LABS: Estimated Average Glucose 140 mg/dl; Hemoglobin A1C 6.5 % (4.5-5.6)
[2020-07-30] MEDS ORDERED: POTASSIUM CHLORIDE / WTR 10 MEQ/100 ML PLCT IV ONE (08:23)
[2020-07-30] MEDS ORDERED: LACTATED RINGER'S 1,000 ML IV ONE (08:49)
[2020-07-30] MEDS ORDERED: SODIUM CHLORIDE 0.9% 1000ML 1,000 ML IV ONE (08:54)
[2020-07-30 09:00] LABS: Hematocrit (blood only) 24.7 % (37-47); Hemoglobin 8.1 g/dL (12.0-16.0)
[2020-07-30] MEDS ORDERED: LACTATED RINGER'S 1,000 ML IV SCH (09:00)
[2020-07-30] MEDS ORDERED: NON-FORMULARY MEDICATION (Insulin Degludec-Liraglutide [Xultophy 100/3.6] 100 unit-3.6 mg SQ SCH (09:00)
[2020-07-30] MEDS ORDERED: LOSARTAN POTASSIUM 50 MG TAB PO SCH (09:00)
--- NOTE | 2020-07-30 09:15 | Gastrointestinal Consultation ---
Date of Consultation July 30, 2020 Assessment & Plan (1) UGIB (upper gastrointestinal bleed): (2) Cirrhosis: (3) Melena: Acute UGIB in the setting of recent NSAID use. Hx of gastric erosions 05/11 on EGD without varices. 1. Keep NPO for now. 2. EGD with Dr. Powers today for further evaluation. 3. Continue PPI ggt. 4. Counseled on importance of NSAID avoidance, especially in light of cirrhosis. 5. Further recommendations pending results of testing. Thank you for allowing us to participate in the care of this patient. If you have any questions or concerns, please do not hesitate to contact us. Supervising Physician Co-Signing Physician Notes I personally evaluated the patient and agree with the findings as documented by CIPRIANO Pagan Exam: abd: soft, nt, nd Proceed with EGD. risks/benefits and procedure discussed with patient, who agrees to proceed History of Present Illness Reason for Consultation: UGIB Requesting Physician: Dr. Carroll Attending Physician: Santi Sol DO History of Present Illness Patient is a very pleasant 70 y.o. female with a history of cirrhosis recently evaluated by Dr. Godoy in the office. She has been stable from a GI standpoint until an abrupt onset of nausea with vomiting which began three days ago. The vomiting has subsided but she has been having persistent "coffee-ground" bowel movements. She also reports mild upper abdominal pain. The patient endorses regular NSAID use. No ETOH. Symptomatically, she reports progressive fatigue, dizziness and shortness of breath with exertion. No chest pain or palpitations. No syncope. H&H has been declining since admission. Hgb on arrival was noted to be 11.2 and most recently 8.1. She has been placed on NPO status and started on a PPI ggt. Last EGD from 05/11 reviewed and was negative for varices but significant for gastric erosions. Allergies Allergy/AdvReac Type Severity Reaction Status Date / Time No Known Allergies Allergy Unknown Verified 07/29/20 15:13 Home Medications Medication Instructions Recorded Confirmed Type benztropine 0.5 mg PO HS 05/03/19 07/29/20 History metformin [Glucophage XR] 1,000 mg PO BID 05/03/19 07/29/20 History risperidone [Risperdal] 1.5 mg PO HS 05/03/19 07/29/20 History risperidone [Risperdal] 2 mg PO HS 05/03/19 07/29/20 History sertraline [Zoloft] 100 mg PO QAM 05/03/19 07/29/20 History carboxymethylcellulose sodium 2 drp OPHTHALMIC (EYE) BID PRN 05/15/19 07/29/20 History [Refresh Tears] losartan 100 mg tablet 50 mg PO QAM tab 05/29/19 07/29/20 History cholecalciferol (vitamin D3) 125 125 mcg PO WK 09/11/19 07/29/20 History mcg (5,000 unit) capsule docusate sodium 100 mg capsule 100 mg PO BID 09/11/19 07/29/20 History pyridoxine (vitamin B6) 100 mg 100 mg PO QPM 09/11/19 07/29/20 History tablet ferrous sulfate 325 mg (65 mg 325 mg PO QAM tab 06/27/20 07/29/20 History iron) tablet insulin degludec 100 30 unit SUBCUT QAM ml 06/27/20 07/29/20 History unit-liraglutide 3.6 mg/mL(3 mL) subcutaneous pen Xifaxan 550 mg PO BID 07/29/20 07/29/20 History ibuprofen 200 mg PO Q6H PRN 07/29/20 07/29/20 History Patient History Medical History (Updated 07/30/20 @ 09:22 by CIPRIANO Koroma) Anxiety and depression Diabetes mellitus, type 2 Essential tremor "MILD" History of fatty infiltration of liver Hx of melanoma of skin Hypertension Migraine Osteoarthritis Sleep apnea NO DEVICE USED Syncope and collapse treated at [facility] Thrombocytopenia Vitamin B12 deficiency Wernicke encephalopathy syndrome "pt denies" Surgical History H/O local excision of skin lesion H/O unilateral oophorectomy History of appendectomy History of cataract surgery LEFT History of colonoscopy (04/2019) History of dilatation and curettage History of esophagogastroduodenoscopy (EGD) (04/2019) History of tooth extraction Family History Brother Family history of diabetes mellitus Other No family history of adverse response to anesthesia No pertinent family history Social History Smoking Status: Never smoker Second Hand Exposure: No; Do You Dip or Chew Tobacco: No; Tobacco Cessation Education Requested by Patient: No Hx Alcohol Use: No Hx Substance Use: No Preferred Language: Ivorian Communication Ability: Effective Paperhanger Required: No Beliefs That Will Affect Care: None marital status: / Current Living Situation: Alone Other Information That Helps Us Care for You: No Feels Safe at Home: Yes Safety Concerns: Feels Safe At This Time Assistive Devices: Denture - Upper, Denture - Lower and Glasses Review of Systems Review of Systems: All systems reviewed & are unremarkable except as noted in HPI & below Physical Exam Constitutional: WD/WN, vitals as above well developed and well nourished Respiratory: normal respiratory effort, lungs clear to auscultation Cardiovascular: Rate/Rhythm: regular rhythm and + tachycardic Gastrointestinal (Abdomen): Inspection/Auscultation: + hyperactive bowel sounds Percussion/Palpation: + abdomen tender (bilateral upper quadrants) and abdomen soft Musculoskeletal: Extremities: extremities normal to inspection Psychiatric: A+Ox3, euthymic affect Results & Data ([facility]) Vital Signs (Past 12 Hours) Vital Signs Temp Pulse Resp BP BP Pulse Ox 07/30/20 07:23 36.8 C 109 H 20 113/69 94 07/30/20 04:09 36.7 C 105 H 18 111/67 93 07/29/20 23:34 36.5 C 102 H 18 108/71 94 PG Care Time/CCT Total # of Minutes Spent Total Time Spent with Patient: Total time spent is greater than 50% in coord ination of care (as documented) at patient's floor/unit and/or counseling patient: Coding Level of Care Code 70619 Initial Inpt Care Lvl 3 Diagnoses UGIB (upper gastrointestinal bleed) K92.2 Cirrhosis K74.60 Melena K92.1
[2020-07-30] MEDS ORDERED: SODIUM CHLORIDE 0.9% 250 ML IV PRN (09:54)
[2020-07-30] MEDS: rifAXIMin 550 MG TABLET PO SCH ×2 (10:07→22:03)
[2020-07-30] MEDS: SERTRALINE HCL 100 MG TABLET PO SCH (10:07)
[2020-07-30] MEDS: FERROUS SULFATE 325 MG TAB PO SCH (10:08)
[2020-07-30] MEDS: DOCUSATE SODIUM 100 MG CAP PO SCH ×2 (10:08→22:02)
[2020-07-30] MEDS: SODIUM CHLORIDE 0.9% 1000ML 1,000 ML IV SCH ×2 (10:09→16:55)
--- NOTE | 2020-07-30 10:34 | Pharmacy Report ---
Pharmacy Glycemic Short Note 2 - Date of Service July 30, 2020 - Glycemic Short BSG Results (Last 24 hours): 07/29/20 07/29/20 07/30/20 14:50 21:59 00:09 Glucose 289 H POC Glucose 126 H 121 H 07/30/20 07/30/20 07/30/20 04:09 04:21 07:21 Glucose 103 H POC Glucose 111 H 128 H OUTPATIENT ANTIDIABETIC REGIMEN: * Insulin degludec/liraglutide - 30 units Qam, metformin 1 gm bid * A1c 6.5% ASSESSMENT: * 70 year old female with UGIB, started on protonix drip. Plan for EGD today. Type 2 diabetic managed on metformin and Xultophy (deguldec/liraglutide combo) * Continues NPO status this AM for EGD - Fasting BSG 128 mg/dL, will hold AM Lantus and continue with HS dosing. Will reduce dosing at HS by ~33-50% for NPO status. PLAN FOR INPATIENT GLYCEMIC CONTROL: * Hold outpatient oral diabetes medications * Basal insulin * Lantus 15-20 units HS * Bolus insulin * NovoLog per scale ACHS or Q6hrs while NPO * Goal Range: Low 110 mg/dL - High 140 mg/dL * Correction Factor: 25 mg/dL/unit * Nutritional / Prandial insulin per carb ratio of 1 unit per 8 grams CHO consumed PLAN FOR DISCHARGE: * 6.5% - reasonable to continue home diabetic agents on discharge as long as no contraindications present
[2020-07-30] MEDS: cefTRIAXone SODIUM 1,000 MG in DEXTROSE 5% 50 ML IV SCH (11:15)
[2020-07-30] MEDS ORDERED: PROPOFOL IV EMULSION 10 MG/ML 20 ML VIAL IV ONE (14:14)
[2020-07-30] MEDS ORDERED: LIDOCAINE HCL 2% 2 ML VIAL/AMP(20MG/ML) INFIL ONE (14:14)
--- NOTE | 2020-07-30 14:33 | Anesthesiology Consultation ---
Date of Service July 30, 2020 Assessment & Plan (1) Encounter for pre-operative examination: Chart Review Chart Review: Acceptable Risk for Surgery and Patient NOT seen in Pre Admission Testing covid neg 07/29/20 Consults Requested none History Surgery Operation Date: 07/30/20 17:15 Proposed Procedures p Esophagogastroduodenoscopy Dr. Powers - Navjot Powers MD Height/Weight Height: 5 ft 4 in Weight: 74.5 kg Allergies Allergy/AdvReac Type Severity Reaction Status Date / Time No Known Allergies Allergy Unknown Verified 07/29/20 15:13 Medications Home Medications Medication Instructions Recorded Confirmed Last Taken benztropine 0.5 mg PO HS 05/03/19 07/29/20 07/28/20 metformin [Glucophage XR] 1,000 mg PO BID 05/03/19 07/29/20 07/29/20 risperidone [Risperdal] 1.5 mg PO HS 05/03/19 07/29/20 07/28/20 risperidone [Risperdal] 2 mg PO HS 05/03/19 07/29/20 07/28/20 sertraline [Zoloft] 100 mg PO QAM 05/03/19 07/29/20 07/29/20 carboxymethylcellulose sodium 2 drp OPHTHALMIC (EYE) BID PRN 05/15/19 07/29/20 12/12/19 [Refresh Tears] losartan 100 mg tablet 50 mg PO QAM tab 05/29/19 07/29/20 07/29/20 cholecalciferol (vitamin D3) 125 125 mcg PO WK 09/11/19 07/29/20 07/29/20 mcg (5,000 unit) capsule docusate sodium 100 mg capsule 100 mg PO BID 09/11/19 07/29/20 07/29/20 pyridoxine (vitamin B6) 100 mg 100 mg PO QPM 09/11/19 07/29/20 07/28/20 tablet ferrous sulfate 325 mg (65 mg 325 mg PO QAM tab 06/27/20 07/29/20 07/29/20 iron) tablet insulin degludec 100 30 unit SUBCUT QAM ml 06/27/20 07/29/20 07/29/20 unit-liraglutide 3.6 mg/mL(3 mL) subcutaneous pen Xifaxan 550 mg PO BID 07/29/20 07/29/20 07/29/20 ibuprofen 200 mg PO Q6H PRN 07/29/20 07/29/20 07/27/20 Active Medications Generic Name Dose Route Start Last Admin Trade Name Freq PRN Reason Stop Dose Admin Benztropine Mesylate 0.5 mg 07/29/20 21:00 07/29/20 22:04 Benztropine Mesylate 0.5 Mg Tab PO 08/28/20 20:59 0.5 mg HS MEY Administration Docusate Sodium 100 mg 07/29/20 21:00 07/30/20 10:08 Docusate Sodium 100 Mg Cap PO 08/28/20 20:59 100 mg BID MEY Administration Ferrous Sulfate 325 mg 07/30/20 09:00 07/30/20 10:08 Ferrous Sulfate 325 Mg Tab PO 08/29/20 08:59 325 mg QAM MEY Administration Pantoprazole Sodium 40 mg/ 100 mls @ 20 mls/hr 07/29/20 15:16 07/30/20 13:03 Dextrose IV 08/28/20 15:15 8 mg/hr Q5H MEY 20 mls/hr Administration 8 MG/HR Sodium Chloride 1,000 mls @ 80 mls/hr 07/29/20 21:00 07/30/20 11:06 Nss 1000ml IV 08/28/20 20:59 Infused .[id number] MEY Infusion Ceftriaxone Sodium 1,000 mg/ 50 mls @ 100 mls/hr 07/30/20 10:00 07/30/20 12:17 Dextrose IV 08/09/20 09:59 Infused Q24H MEY Infusion Protocol Sodium Chloride 1,000 mls @ 125 mls/hr 07/30/20 09:00 07/30/20 10:09 Nss 1000ml IV 08/29/20 08:59 125 mls/hr .Q8H MEY Administration Insulin Aspart 0 units 07/29/20 21:15 07/30/20 13:04 Insulin Aspart 100 Units/Ml 3 Ml Pen SC 08/28/20 21:14 1 units Q4 MEY Administration Ondansetron HCl 4 mg 07/29/20 21:53 07/29/20 22:26 Ondansetron Inj 2 Mg/Ml 2 Ml Vial IV 08/28/20 21:52 4 mg Q6H PRN Administration Nausea And Vomiting Pyridoxine HCl 100 mg 07/29/20 21:00 07/29/20 22:03 Pyridoxine Hcl 50 Mg Tab PO 08/28/20 20:59 100 mg QPM MEY Administration Rifaximin 550 mg 07/29/20 21:00 07/30/20 10:07 Rifaximin 550 Mg Tablet PO 08/28/20 20:59 550 mg BID MEY Administration Risperidone 1.5 mg 07/29/20 21:00 07/29/20 22:05 Risperidone 0.5 Mg Tablet PO 08/28/20 20:59 1.5 mg HS MEY Administration Risperidone 2 mg 07/29/20 21:00 07/29/20 22:03 Risperidone 2 Mg Tablet PO 08/28/20 20:59 2 mg HS MEY Administration Sertraline HCl 100 mg 07/30/20 09:00 07/30/20 10:07 Sertraline Hcl 100 Mg Tablet PO 08/29/20 08:59 100 mg QAM MEY Administration Past Medical History Medical History (Updated 07/30/20 @ 14:33 by Erik Leal MD) Anxiety and depression Diabetes mellitus, type 2 Essential tremor "MILD" History of fatty infiltration of liver Hx of melanoma of skin Hypertension Migraine Osteoarthritis Sleep apnea NO DEVICE USED Syncope and collapse treated at [facility] Thrombocytopenia Vitamin B12 deficiency Wernicke encephalopathy syndrome "pt denies" Past Family History Family History Brother Family history of diabetes mellitus Other No family history of adverse response to anesthesia No pertinent family history Past Surgical History Surgical History H/O local excision of skin lesion H/O unilateral oophorectomy History of appendectomy History of cataract surgery LEFT History of colonoscopy (04/2019) History of dilatation and curettage History of esophagogastroduodenoscopy (EGD) (04/2019) History of tooth extraction Social History Smoking Status: Never smoker tobacco type: cigarettes Do You Dip or Chew Tobacco: No Hx Alcohol Use: No Hx Substance Use: No substance use type: does not use Physical Exam Vital Signs Last Vital Signs Temp 36.8 C 07/30/20 14:19 Pulse 106 H 07/30/20 14:19 Resp 18 07/30/20 14:19 BP 120/72 07/30/20 14:19 Pulse Ox 94 07/30/20 14:19 Testing Laboratory Results 07/30/20 08:47 07/30/20 04:21 PT 11.2 Seconds (9.0-12.0) 07/29/20 14:50 INR 1.1 (0.9-1.1) 07/29/20 14:50 APTT 20.5 Seconds (21.0-31.0) L 07/29/20 14:50 Hemoglobin A1c 6.5 % (4.5-5.6) H 07/30/20 04:21 Urine Color Yellow 07/29/20 15:50 Urine Appearance Clear (Clear) 07/29/20 15:50 Urine pH 6.0 (4.5-7.5) 07/29/20 15:50 Ur Specific [place] 1.022 (1.000-1.030) 07/29/20 15:50 Urine Protein Negative (Negative) 07/29/20 15:50 Urine Glucose (UA) Negative (Negative) 07/29/20 15:50 Urine Ketones Trace (Negative) H 07/29/20 15:50 Urine Nitrite Negative (Negative) 07/29/20 15:50 Ur Leukocyte Esterase Negative (Negative) 07/29/20 15:50 Blood Type O Positive 07/29/20 15:07 Antibody Screen NEGATIVE 07/29/20 15:07 07/30/20 07/30/20 07/30/20 11:21 07:21 04:09 POC Glucose 155 H 128 H 111 H Electrocardiogram Date: 07/29/20 Poor data quality, interpretation may be adversely affected Sinus tachycardia Cannot rule out Anterior infarct , age undetermined Abnormal ECG When compared with ECG of 15-MAY-2019 11:31, Premature ventricular complexes are no longer Present Borderline criteria for Inferior infarct are no longer Present Nonspecific T wave abnormality, worse in Lateral leads
--- NOTE | 2020-07-30 14:39 | Hospitalist Progress Note ---
Date of Service July 30, 2020 Assessment & Plan (1) UGIB (upper gastrointestinal bleed): There is concern for esophageal varices given pt history of cirrhosis. Notably, EGD from a year ago did not show any. Also possible gastric ulcer from NSAID abuse as well. EGD today showed small non-bleeding esophageal varices, and erythematous stomach mucosa. Discontinue maintenance fluids Transition from n.p.o to liquid diet. Monitor H&H. Advance diet as tolerated if H&H is stable (2) Cirrhosis: Seems to be stable without any evidence of acute exacerbation or encephalopathy. Ammonia level checked, normal at 31 Patient is on Xifaxan which we will need to continue. Further recommendations per GI. (3) Acute blood loss anemia: H&H trending down this AM. Transfused with 1 unit of pack RBCs. Monitor hemoglobin every 8 hours. Zofran for nausea Protonix drip was started in the ER, will continue this. Initiated ceftriaxone for infection prophylaxis Admission and Anticipated Discharge Date Admission Date: July 29, 2020 Supervising Physician Co-Signing Physician Notes I personally examined the patient and verified all vera points of history and exam, discussed case, and agree with decision making with Edilma Pak MS2 Patient seen post endoscopy. Feeling okay. No further hematemesis, no abdominal pain. No melena or hematochezia. Overall feeling okay. Vitals noted, in general she is awake and alert pleasant no distress. HEENT normocephalic atraumatic mucous membranes moist. Breathing unlabored no accessory muscle use good effort. Skin shows no rashes no pallor or icterus. Abdomen is soft mild epigastric tenderness no guarding no rebound no rigidity. Extremities show no cyanosis. NSAID induced upper GI bleed with acute blood loss anemiaappears to have been from erythematous mucosa/mild gastritis, possibly from a small variceal bleedeither way has improved. Continue PPI. Advance diet. Received 1 unit transfusion for acute blood loss anemia, clinically appearing now more stable. Otherwise as above Subjective Pt is a 70-year-old female with past medical history significant for liver cirrhosis secondary to former alcoholism and type 2 diabetes, who presented to the ED with concerns of abdominal pain and hematemesis. Patient reported that she was feeling fine until Wednesday afternoon, when she began experiencing significant pain in her mid abdomen. This was followed by several episodes of vomiting. She noted that the vomitus appeared to be coffee- ground in nature. She also noted that she had black tarry stool over the past 24 hours prior. At the ED, She denied chest pain, shortness of breath. She reported subjective chills and fever. She was a former alcoholic but reports that she has not had a drink in approximately 5 years. she also reported fairly regular ibuprofen use, for some mild lower back pain. Today, patient was laying comfortably in bed. She had some trouble carrying on conversation this AM. Frequently lost her train of thought. Reports feeling out of it She has had no bowel movement since admission. She reports a slight headache that is on and off plus. No abdominal pain. + Nausea, no vomiting Review of Systems Constitutional: no fever and no chills Eyes: as per Subjective / HPI Respiratory: no cough and no dyspnea Cardiovascular: no chest pain Gastrointestinal: + abdominal pain, + heartburn, + nausea, + vomiting, + diarrhea/loose stools and + melena; no belching and no constipation Musculoskeletal: + back pain; no neck pain, no joint pain, no stiffness and no muscle weakness Integumentary: as per Subjective / HPI Neurologic: as per Subjective / HPI Psychiatric: + anxiety Endocrine: as per Subjective / HPI Physical Exam Constitutional: WD/WN, vitals as above well developed, well nourished and cooperative; no acute distress Eyes: + anicteric sclerae Neck: trachea midline, no thyromegaly Respiratory: normal respiratory effort, lungs clear to auscultation Cardiovascular: RRR, no murmur, no edema Rate/Rhythm: regular rhythm and + tachycardic Heart Sounds: normal S1 and normal S2 Gastrointestinal (Abdomen): Inspection/Auscultation: + abdomen distended and + hyperactive bowel sounds Percussion/Palpation: + abdomen tender (bilateral upper quadrants) and abdomen soft; no guarding, abdomen not rigid and no ascites Musculoskeletal: no cyanosis or clubbing, extremities motor strength 5/5 Extremities: extremities normal to inspection Psychiatric: A+Ox3, euthymic affect Results & Data Results & Data ([facility]) Vital Signs (Past 12 Hours) Vital Signs Temp Pulse Pulse Resp BP BP Pulse Ox 07/30/20 14:19 36.8 C 106 H 18 120/72 94 07/30/20 13:49 36.8 C 106 H 20 124/77 94 07/30/20 12:48 37.0 C 106 H 20 122/69 93 07/30/20 12:15 37.0 C 107 H 20 112/70 93 07/30/20 11:30 36.9 C 113 H 105 H 20 119/74 119/72 95 07/30/20 11:13 36.8 C 105 H 18 118/74 07/30/20 07:23 36.8 C 109 H 20 113/69 94 07/30/20 04:09 36.7 C 105 H 18 111/67 93
--- NOTE | 2020-07-30 15:20 | GI REPORT ---
Patient Name: Krystle Portillo Procedure Date: 07/30/2020 2:42 PM Date of : 1950 Admit Type: Inpatient Age: 70 Gender: Female Attending MD: Navjot Powers MD Procedure: Upper GI endoscopy Providers: Navjot Powers MD Referring MD: Santi Sol Indications: Coffee-ground emesis Medicines: Monitored Anesthesia Care Complications: No immediate complications. Estimated blood loss: None. Estimated Blood Loss: Estimated blood loss: none. Procedure: Pre-Anesthesia Assessment: - Prior Anticoagulants: The patient has taken no previous anticoagulant or antiplatelet agents. - ASA Grade Assessment: II - A patient with mild systemic disease. After obtaining informed consent, the endoscope was passed under direct vision. Throughout the procedure, the patient's blood pressure, pulse, and oxygen saturations were monitored continuously. The Endoscope was introduced through the mouth, and advanced to the second part of duodenum. The upper GI endoscopy was accomplished without difficulty. The patient tolerated the procedure well. Findings: Small (< 5 mm) nonbleeding varices were found in the distal esophagus. There was no stigmata of recent bleeding. Estimated blood loss: none. Diffuse mildly erythematous mucosa without bleeding was found in the stomach. The duodenal bulb and second portion of the duodenum were normal. Estimated blood loss: none. No evidence of blood loss nor active bleeding throughout entire exam. Impression: - Small (< 5 mm) esophageal varices. - Erythematous mucosa in the stomach. - Normal duodenal bulb and second portion of the duodenum. - No specimens collected. Recommendation: - Return patient to hospital pulido for ongoing care. - Clear liquid diet today. advance as tolerated tomorrow if H/H stable rest as per primary team - Repeat upper endoscopy in 1 year for surveillance. Navjot Powers MD 07/30/2020 3:20:21 PM This report has been signed electronically. Note Initiated On: 07/30/2020 2:42 PM Number of Addenda: 0 I attest to the content of the Intraoperative Record and orders documented therein, exceptions below {[id number]}
--- NOTE | 2020-07-30 15:33 | Anesthesiology Progress Note ---
Date of Service July 30, 2020 Anesthesia Post Procedure Vital Signs Vital Signs: Temp Pulse Pulse Resp BP BP BP 07/30/20 15:30 99 H 14 131/64 07/30/20 15:15 97 H 14 109/57 L 07/30/20 14:30 37.2 C 101 H 18 139/71 07/30/20 14:19 36.8 C 106 H 18 120/72 07/30/20 13:49 36.8 C 106 H 20 124/77 07/30/20 12:48 37.0 C 106 H 20 122/69 07/30/20 12:15 37.0 C 107 H 20 112/70 07/30/20 11:30 36.9 C 113 H 105 H 20 119/74 119/72 07/30/20 11:13 36.8 C 105 H 18 118/74 07/30/20 08:00 102 H 07/30/20 07:23 36.8 C 109 H 20 113/69 07/30/20 04:09 36.7 C 105 H 18 111/67 07/29/20 23:34 36.5 C 102 H 18 108/71 07/29/20 20:00 36.9 C 119 H 18 122/67 07/29/20 19:40 122 H 22 117/76 07/29/20 19:00 115 H 15 07/29/20 18:00 120 H 22 07/29/20 17:54 121 H 21 125/73 07/29/20 17:30 120 H 20 07/29/20 17:05 07/29/20 16:12 112 H 17 134/75 07/29/20 15:45 116 H 21 134/77 Pulse Ox 07/30/20 15:30 99 07/30/20 15:15 96 07/30/20 14:30 92 07/30/20 14:19 94 07/30/20 13:49 94 07/30/20 12:48 93 07/30/20 12:15 93 07/30/20 11:30 95 07/30/20 11:13 07/30/20 08:00 07/30/20 07:23 94 07/30/20 04:09 93 07/29/20 23:34 94 07/29/20 20:00 95 07/29/20 19:40 07/29/20 19:00 07/29/20 18:00 96 07/29/20 17:54 93 07/29/20 17:30 97 07/29/20 17:05 96 07/29/20 16:12 96 07/29/20 15:45 95 Transfer of Care Handoff Completed per policy Notes Mental Status: alert / awake / arousable and participated in evaluation Patient Amnestic to Procedure: Yes Nausea / Vomiting: adequately controlled Pain: adequately controlled Airway Patency, RR, SpO2: stable & adequate BP & HR: stable & adequate Hydration State: stable & adequate Anesthetic Complications: no major complications apparent and Pt Satisfied with anesthetic care
--- NOTE | 2020-07-30 17:37 | Billing Data ---
Date of Service July 30, 2020 Coding Level of Care Code 79868 Subseq Obs Care Lvl 3
[2020-07-30] MEDS ORDERED: Nursing to Pharmacy Communication SCH (17:45)
[2020-07-30] MEDS ORDERED: INSULIN GLARGINE SOLOSTAR 100 UNITS/ML 3 ML PEN SC SCH (21:00)
[2020-07-30 21:14] LABS: Hematocrit (blood only) 27.5 % (37-47)
[2020-07-30] MEDS: BENZTROPINE MESYLATE 0.5 MG TAB PO SCH (22:02)
[2020-07-30] MEDS: risperiDONE 0.5 MG TABLET PO SCH (22:02)
[2020-07-30] MEDS: PYRIDOXINE HCL 50 MG TAB PO SCH (22:02)
[2020-07-30] MEDS: risperiDONE 2 MG TABLET PO SCH (22:03)
--- NOTE | 2020-07-30 23:11 | Electrocardiogram Report ---
Test Reason : Blood Pressure : / mmHG Vent. Rate : 122 BPM Atrial Rate : 122 BPM P-R Int : 148 ms QRS Dur : 078 ms QT Int : 332 ms P-R-T Axes : 057 027 068 degrees QTc Int : 473 ms Poor data quality, interpretation may be adversely affected Sinus tachycardia Cannot rule out Anterior infarct , age undetermined Nonspecific T wave abnormality Abnormal ECG When compared with ECG of 15-MAY-2019 11:31, Premature ventricular complexes are no longer Present Borderline criteria for Inferior infarct are no longer Present Nonspecific T wave abnormality, worse in Lateral leads Confirmed by Marlon Mario ([id number]) on 07/30/2020 11:11:05 PM Referred By: Confirmed By:Marlon Mario
[2020-07-31] MEDS: SODIUM CHLORIDE 0.9% 1000ML 1,000 ML IV SCH ×3 (00:12→01:50)
[2020-07-31] MEDS: PANTOprazole 40 MG in DEXTROSE 5% 100 ML IV SCH ×3 (01:11→08:07)
[2020-07-31 07:12] LABS: Eosinophils # (auto) 0.14 K/uL (0-0.5); Eosinophils % (auto) 4.5 %; Hematocrit (blood only) 26.1 % (37-47); Hemoglobin 8.6 g/dL (12.0-16.0); Immature Granulocytes # (auto) 0.01 K/uL (0.00-0.02); Immature Granulocytes % (auto) 0.3 %; Lymphocytes % (auto) 32.3 %; Mean Corpuscular Hemoglobin 28.8 pg (25-34); Mean Corpuscular Volume 87.3 fL (80-100); Mean Platelet Volume 9.4 fL (7.4-10.4); Monocytes # (auto) 0.24 K/uL (0.11-0.59); Monocytes % (auto) 7.7 %; Neutrophils # (auto) 1.71 K/uL (1.4-6.5); Neutrophils % (auto) 55.2 %; Platelet Count 101 K/uL (130-400); RDW Coefficient of Variation 15.8 % (11.5-14.5); Red Blood Count 2.99 M/uL (4.2-5.4)
[2020-07-31] MEDS: FERROUS SULFATE 325 MG TAB PO SCH (08:06)
[2020-07-31] MEDS: ONDANSETRON INJ 2 MG/ML 2 ML VIAL IV PRN (08:06)
[2020-07-31] MEDS: DOCUSATE SODIUM 100 MG CAP PO SCH (08:06)
[2020-07-31] MEDS: rifAXIMin 550 MG TABLET PO SCH (08:06)
[2020-07-31] MEDS: SERTRALINE HCL 100 MG TABLET PO SCH (08:06)
[2020-07-31 08:17] LABS: BUN Creatinine Ratio 12.8 (10-20); Creatinine Clr Calc Pharmacy 73.9 ml/min; Est GFR (African American) 100.7; Est GFR (Non-African American) 86.9; Potassium 3.7 mmol/L (3.5-5.1)
[2020-07-31] MEDS: INSULIN ASPART 100 UNITS/ML 3 ML PEN SC SCH ×2 (08:17→11:55)
--- NOTE | 2020-07-31 10:25 | Discharge Summary ---
Date of Service July 31, 2020 Admission HPI Per Admitting Provider This is a 70-year-old female with past medical history of schizoaffective disorder, former alcoholism with liver cirrhosis, type 2 diabetes that presents today complaining of abdominal pain and hematemesis. Patient is pleasant and a good historian. Patient tells me that she was feeling fine until yesterday afternoon. She started to have significant pain in her mid abdomen. This resulted in several episodes of vomiting. She agreed that the vomitus appeared to be coffee-ground in nature. She has continued to vomit even after her arrival to the ER but says that the volumes are much less and is mostly just dry heaving. When asked, she also volunteers that she has had black tarry stool over the past 24 hours. The pain in her abdomen is almost resolved and she does feel better now. She appears to be very anxious but feels better now that she has a coloring book and the door to her room is open. She denies chest pain, shortness of breath, or fever. She did have subjective chills yesterday. She tells me she was a former alcoholic but has not had a drink in approximately 5 years. When further questioned, she tells me she does use nightly ibuprofen fairly regularly for some mild lower back pain. She is followed by Dr. Godoy from GI. I see her last EGD was on 05/16/2019 where she was found to have some gastric erosions but no evidence of varices or other issues in the esophagus. Colonoscopy was last done on 05/17/2019 that showed nonbleeding internal hemorrhoids but was also unremarkable. Admission Exam Per Admitting Provider Constitutional: average body habitus and cooperative; no acute distress Eyes: PERRL, conjunctivae normal, anicteric sclerae Neck: trachea midline, no thyromegaly Respiratory: normal respiratory effort, lungs clear to auscultation Cardiovascular: RRR, no murmur, no edema Gastrointestinal (Abdomen): Inspection/Auscultation: + abdomen distended Percussion/Palpation: abdomen soft; abdomen nontender, no guarding, abdomen not rigid and no ascites Musculoskeletal: no cyanosis or clubbing, extremities motor strength 5/5 Neurologic: PERRL, EOMI, accommodation nl, no face palsy, no dysarthria Psychiatric: A+Ox3, euthymic affect Principal Diagnosis upper gastrointestinal bleed esophageal varices Discharge Exam General: tired-appearing 70 year old female who is alert, oriented, and appears in no acute distress. Body habitus: WNL,. HEENT: NCAT. Eyes - Sclera are white, anicteric, and without injection. PERRL. EOMs display full ROM bilaterally. Cardiac: Normal rate and regular rhythm; S1 and S2 present with no murmurs, rubs, or gallops. Pulmonary: Good respiratory effort with symmetric expansion of the chest. No use of accessory muscles. Lungs were clear to auscultation bilaterally with no crackles or wheezes. Abdominal: Normoactive bowel sounds. Abdomen was soft, nondistended; mild TTP that is nonspecific across the abdomen. Extremities: Upper and lower extremities are warm and well perfused. No appreciable peripheral edema. Discharge Data Allergies Allergy/AdvReac Type Severity Reaction Status Date / Time No Known Allergies Allergy Unknown Verified 07/29/20 15:13 Consultations 07/29/20 16:33 ED Decision to Admit Stat 07/29/20 16:38 Consult Gastroenterology Stat Procedures Performed Operation Date: 07/30/20 17:15 Actual Procedures p Esophagogastroduodenoscopy - Navjot Powers MD Ordered Studies 07/29/20 15:28 CT abd pelvis IV con only Stat Hospital Course (1) Acute blood loss anemia: Krystle is a very pleasant 70-year-old female with a notable history of alcoholic cirrhosis who presented to [facility] for evaluation of coffee-ground emesis as well as melena for the preceding 2 days. Upon her arrival, she was found to be hemodynamically stable, but was found to have hemoglobin of 11.2. She also reported frequent ibuprofen use for her back pain. Into her first day of admission, her hemoglobin was noted to drop to 8.1. At that time, she did report some lightheadedness and some mind fog, and given the symptoms as well as the appreciable drop, she was given 1 unit of packed red blood cells. Otherwise, she underwent standard upper GI bleeding protocol including IV PPIs, fluid resuscitation, briefly ABX (given c/f variceal bleed in setting of cirrhosis), as well as EGD. She did not receive octeotride. While her EGD approximately 1 year ago did not show any evidence of varices (although it did show mild gastric erosions), on the EGD this stay she was noted to have several small (under 5 mm) esophageal varices, as well as erythematous stomach mucosa. Given these findings, it is most likely thought that her upper GI bleeding and acute blood loss anemia was secondary to NSAID induced upper GI bleed/mild gastritis/possible small variceal bleed. Her hemoglobin subsequently went up to the 9 range, and she remained hemodynamically stable prior to her discharge. Upon her discharge, she is to follow-up with her PCP in 1 week to review this visit. At that time, we do recommend obtaining a CBC to evaluate her blood count. She should continue a short course of oral PPIs (at least 4 weeks) -- these have been prescribed for her upon discharge. She should also continue following with Dr. Godoy from GI (2) Melena: (3) Hyperammonemia: (4) UGIB (upper gastrointestinal bleed): (5) Hypertension: (6) Anxiety: (7) Depression: (8) Hyperlipidemia: (9) Weakness: (10) Diabetes: (11) Diabetes mellitus type 2 in nonobese: (12) Peripheral neuropathy: (13) Osteoarthritis: (14) Anemia: (15) Mitral valve prolapse syndrome: (16) Essential tremor: Total Time Total Time Spent Total Time Spent (In Minutes): <30 minutes Discharge Plan Discharge Items Patient Disposition: Home - Self-Care Reason For Visit: HEMETEMSIS Discharge Diagnosis: upper gastrointestinal bleed esophageal varices Activity: Per Instructions section Non-emergency contact: Primary Care Provider and Director Of Pediatric Rehabilitation Call non-emergency contact if: your symptoms worsen, your pain is not controlled and your temperature is above 101 Follow-up/Referrals: Wallace Villavicencio Jr, [Primary Care Provider] - 08/13/20 9:45 am (This will be a telephone visit.) Diet: Regular Addtl Attending Provider Instructions: You were seen at [facility] for evaluation of coffee-ground vomit and dark, discolored stools. During your stay, you underwent frequent evaluations to assess your blood counts and the cause of your bleeding. You did receive 1 unit of blood because of symptoms you were experiencing at the time, as well as your dropping blood count - which thereafter stabilized. You got a special type of scope to assess your stomach and esophagus. As discussed, this did reveal small varices (blood vessels that form in the esophagus with elevated liver pressures) that were not bleeding. Your stomach also demonstrated some redness that could reflect inflammation from frequent NSAID (ibuprofen use) -- which could certainly explain your symptoms. As such, the most likely cause of your symptoms are from stomach inflammation. Upon discharge, ensure that you avoid all NSAIDs for the next few weeks - and thereafter, use in minimal amounts and discuss with your PCP beforehand. Please follow-up with your PCP within 1 week to review this visit. Please continue taking Protonix (pantoprazole) for the next 4 weeks too. At the time of this visit, you should also get another blood test to observe your blood counts. We also recommend trial with OMT for your neck pain - as discussed in the hospital. If you experience sudden worsening of your symptoms, including an increase in vomiting, bowel movements with black/tarry stools, shortness of breath, dizziness, lightheadedness, chest pain, or any other symptoms concerning for you, please report to the ER immediately or call 911. It has been a pleasure for caring for you here at [facility]. We wish you all the best in yoru recovery. Pending Studies at Discharge: No Stand-Alone Forms: My [facility], Smoking Cessation Medications and DC Order Prescriptions: New pantoprazole 40 mg tablet,delayed release (DR/EC) 40 mg PO HS 28 Days Qty: 28 RF: 0 Continued cholecalciferol (vitamin D3) 125 mcg (5,000 unit) capsule 125 mcg PO WK RF: 0 pyridoxine (vitamin B6) 100 mg tablet 100 mg PO QPM RF: 0 docusate sodium [Stool Softener] 100 mg capsule 100 mg PO BID RF: 0 ferrous sulfate [Feosol] 325 mg (65 mg iron) tablet 325 mg PO QAM RF: 0 benztropine 0.5 mg Tablet 0.5 mg PO HS RF: 0 sertraline [Zoloft] 100 mg tablet 100 mg PO QAM RF: 0 risperidone [Risperdal] 2 mg tablet 2 mg PO HS RF: 0 metformin [Glucophage XR] 500 mg tablet extended release 24 hr 1,000 mg PO BID RF: 0 risperidone [Risperdal] 1 mg tablet 1.5 mg PO HS RF: 0 losartan [Cozaar] 100 mg tablet 50 mg PO QAM RF: 0 Xultophy 100/3.6 100 unit-3.6 mg /mL (3 mL) insulin pen 30 unit subcut QAM RF: 0 carboxymethylcellulose sodium [Refresh Tears] 0.5 % Drops 2 drp OPHTHALMIC (EYE) BID PRN (Reason: DRYNESS) RF: 0 Xifaxan 550 mg tablet 550 mg PO BID RF: 0 Discontinued ibuprofen 200 mg Tablet 200 mg PO Q6H PRN (Reason: Pain) RF: 0 Discharge Orders: Discharge Order (Routine); Ordered 07/31/20 Ordered By: Santi Diaz Admission Data Admit Date/Time: 07/29/20 18:04 Attending Provider: Santi Sol Admit Provider: Tom Carroll Primary Care Provider: Wallace Villavicencio Jr Other Providers: Tom Carroll ; Mehrdad Godoy Other Interventions: Discharge Summary Assessment (RN) Last Done: 07/31/20 10:57 Supervising Physician Co-Signing Physician Notes I personally examined the patient and verified all vera points of history and exam, discussed case, and agree with decision making with Dr Diaz Feeling okay. No belly pain. Eating okay. Feels up to going home. Steady on her feet. Not lightheaded weak or dizzy. Notes that she was taking the ibuprofen at night due to neck and head aching and stiffness. Vitals noted, in general she is awake and alert pleasant no distress. HEENT normocephalic atraumatic mucous membranes moist. Breathing unlabored no accessory muscle use good effort. Skin shows no rashes no pallor or icterus. Abdomen is soft minimal epigastric tenderness no guarding no rebound no rigidity. Extremities show no cyanosis. Osteopathic structural exam shows right greater than left upper C-spine and suboccipital musculature high in tone, tender, decreased range of motion. Seem to respond fairly favorably to inhibitory pressure, patient tolerated well. NSAID induced upper GI bleed with acute blood loss anemiaappears to have been from erythematous mucosa/mild gastritis, possibly from a small variceal bleedeither way has improved. Stable for home, no NSAIDs, PPI for the short- term future. Outpatient GI follow-up. Neck and shoulder stiffnessobviously stopping NSAIDs, not safe to use acetaminophen with her cirrhosis, but it seems highly biomechanicalI would suspect she would probably benefit from a trial of OMT. Follow-up with her PCP in this regard Otherwise as above Resident Activity Tracking Resident Involvement: Resident Care Provided Care Provided: Adult [facility]
--- NOTE | 2020-07-31 11:06 | Gastroenterology Progress Note ---
Date of Service July 31, 2020 Assessment & Plan (1) UGIB (upper gastrointestinal bleed): (2) Cirrhosis: (3) Melena: Acute UGIB in the setting of recent NSAID use. Findings of small, nonbleeding esophageal varices. 1. Stop PPI ggt. 2. Start Protonix 40 mg PO BID. 3. Diet as tolerated. 4. Continue supportive care. 5. GI follow up within 2 weeks upon discharge in our office. Thank you for allowing us to participate in the care of this patient. If you have any questions or concerns, please do not hesitate to contact us. Admission and Anticipated Discharge Date Admission Date: July 29, 2020 Subjective Patient reports she is feeling "much better" today. Status post EGD with Dr. Powers yesterday with findings of small esophageal varices. No identified source of GIB. She states her abdominal pain has improved and her stools are now a more dark brown. Remains on PPI ggt. Diet advanced to regular. She reports she is getting discharged today. Review of Systems Constitutional: no fatigue Respiratory: no cough and no dyspnea Cardiovascular: no chest pain and no palpitations Gastrointestinal: as per Subjective / HPI Neurologic: no dizziness and no syncope Physical Exam Constitutional: WD/WN, vitals as above Respiratory: normal respiratory effort, lungs clear to auscultation Cardiovascular: RRR, no murmur, no edema Gastrointestinal (Abdomen): Inspection/Auscultation: normal bowel sounds Pe rcussion/Palpation: + abdomen tender (minimal epigastric) and abdomen soft Psychiatric: A+Ox3, euthymic affect Results & Data Results & Data ([facility]) Vital Signs (Past 12 Hours) Vital Signs Temp Pulse Pulse Pulse Resp BP BP 07/31/20 10:57 36.7 C 97 H 98 H 18 124/75 132/76 07/31/20 08:02 36.7 C 97 H 18 132/76 07/31/20 06:21 93 H 07/31/20 04:26 36.9 C 98 H 18 124/75 Pulse Ox 07/31/20 10:57 91 07/31/20 08:02 91 07/31/20 06:21 07/31/20 04:26 93 Laboratory Results Abnormal lab results 07/29/20 07/30/20 07/30/20 Range/Units 15:07 11:21 16:43 WBC (4.8-10.8) K/uL RBC (4.2-5.4) M/uL Hgb (12.0-16.0) g/dL Hct (37-47) % RDW Std Deviation (36.4-46.3) fL RDW Coeff of Griffin (11.5-14.5) % Plt Count (130-400) K/uL Lymph # (Auto) (1.2-3.4) K/uL Chloride (98-107) mmol/L Glucose (70-99) mg/dl POC Glucose 155 H 156 H (70-99) mg/dl Calcium (8.5-10.1) mg/dl Crossmatch See Detail 07/30/20 07/30/20 07/30/20 Range/Units 17:14 20:20 20:40 WBC (4.8-10.8) K/uL RBC (4.2-5.4) M/uL Hgb 9.0 L 9.0 L (12.0-16.0) g/dL Hct 27.0 L 27.5 L (37-47) % RDW Std Deviation (36.4-46.3) fL RDW Coeff of Griffin (11.5-14.5) % Plt Count (130-400) K/uL Lymph # (Auto) (1.2-3.4) K/uL Chloride (98-107) mmol/L Glucose (70-99) mg/dl POC Glucose 178 H (70-99) mg/dl Calcium (8.5-10.1) mg/dl Crossmatch 07/31/20 07/31/20 07/31/20 Range/Units 06:59 06:59 07:37 WBC 3.10 L (4.8-10.8) K/uL RBC 2.99 L (4.2-5.4) M/uL Hgb 8.6 L (12.0-16.0) g/dL Hct 26.1 L (37-47) % RDW Std Deviation 50.0 H (36.4-46.3) fL RDW Coeff of Griffin 15.8 H (11.5-14.5) % Plt Count 101 L (130-400) K/uL Lymph # (Auto) 1.00 L (1.2-3.4) K/uL Chloride 114 H (98-107) mmol/L Glucose 145 H (70-99) mg/dl POC Glucose 169 H (70-99) mg/dl Calcium 8.0 L (8.5-10.1) mg/dl Crossmatch PG Care Time/CCT Total # of Minutes Spent Total Time Spent with Patient: Total time spent is greater than 50% in coordination of care (as documented) at patient's floor/unit and/or counseling patient: Coding Level of Care Code 27979 Subseq Hosp Care Lvl 3 Diagnoses UGIB (upper gastrointestinal bleed) K92.2 Cirrhosis K74.60 Melena K92.1
[2020-07-31] MEDS: cefTRIAXone SODIUM 1,000 MG in DEXTROSE 5% 50 ML IV SCH (11:09)
[2020-07-31] MEDS ORDERED: INSULIN GLARGINE SOLOSTAR 100 UNITS/ML 3 ML PEN SC SCH (17:00)
--- NOTE | 2020-07-31 18:55 | Billing Data ---
Date of Service July 31, 2020 Coding Level of Care Code 16360 OBS Care - Discharge
[2020-07-31] MEDS ORDERED: PANTOprazole 40 MG TAB PO SCH (21:00)
[2020-08-05] MEDS ORDERED: CHOLECALCIFEROL 1,000 UNITS 25 MCG TAB PO SCH (09:00)
== END 2020-07-31 14:09 | disposition home or self-care (01) ==
LOC: ED 14:06 → 2N 14:06 → SUATTDRO 18:04 → 2N 19:45

== ENCOUNTER 2022-09-23 13:45 | Inpatient (IN) ==
--- NOTE | 2022-09-23 13:59 | ED Triage Note ---
Date of Service September 23, 2022 History of Present Illness This patient was briefly evaluated while in triage. An abbreviated physical exam was performed. This patient is a 72-year-old Female who was sent to the ED for a red painful rash located in her right groin. Symptoms began a few days ago, accompanied by fever and chills. Was seen by PCP today for other issue, they referred her here today for the rash. Physical Exam CONSTITUTIONAL: in no acute pain or distress, resting comfortably SKIN: pink, warm, dry. there is a large erythematous circular area located on the right upper thigh/inguinal area. No central clearing. Slightly swollen Initial orders for labs and / or imaging were placed and patient was placed in the waiting area until a bed is available. Please see further documentation for the full ED course.
[2022-09-23 14:57] LABS: Basophils # (auto) 0.01 K/uL (0-0.2); Basophils % (auto) 0.2 %; Eosinophils # (auto) 0.07 K/uL (0-0.50); Eosinophils % (auto) 1.5 %; Hemoglobin 9.6 g/dl (12.0-16.0); Immature Granulocytes # (auto) 0.03 K/uL (0.01-0.20); Immature Granulocytes % (auto) 0.6 %; Lymphocytes % (auto) 14.8 %; Mean Corpuscular Hemoglobin 22.2 pg (25.0-34.0); Mean Corpuscular Volume 74.1 fL (80.0-100.0); Mean Platelet Volume 10.3 fL (9.4-12.4); Monocytes # (auto) 0.36 K/uL (0.11-0.59); Monocytes % (auto) 7.6 %; Neutrophils # (auto) 3.55 K/uL (1.40-6.50); Neutrophils % (auto) 75.3 %; Platelet Count 110 K/uL (130-400); RDW Coefficient of Variation 17.5 % (11.5-14.5); RDW Standard Deviation 46.8 fL (36.4-46.3); Red Blood Count 4.32 M/uL (4.20-5.40); White Blood Count 4.72 K/ul (4.8-10.8)
[2022-09-23 15:21] LABS: Albumin Level 3.9 gm/dl (3.4-5.0); BUN Creatinine Ratio 11.1 (10-20); Bilirubin,Total 0.5 mg/dl (0.2-1.0); Calcium 9.1 mg/dl (8.6-10.3); Creatinine Clr Calc Pharmacy 83.9 ml/min; Est GFR (African American) 104.6 ml/min; Est GFR (Non-African American) 90.2 ml/min; Globulin 3.8 gm/dl (2.5-4.0); Potassium 4.1 mmol/L (3.5-5.1); Total Protein 7.7 gm/dl (6.0-8.3)
[2022-09-23] MEDS ORDERED: SODIUM CHLORIDE 0.9% 1000ML 1,000 ML IV ONE (15:36)
[2022-09-23 15:41] LABS: Lyme Ab IgG w/WB Rflx Negative (Negative); Lyme Ab IgM w/WB Rflx Negative (Negative)
--- NOTE | 2022-09-23 15:44 | Emergency Department Note ---
History of Present Illness General Chief complaint: Infection Stated complaint: INFECTED LESION, REF BY Time Seen by Provider: 09/23/22 15:28 Source: patient, RN notes reviewed and old records reviewed (I have reviewed the note that was sent over from the patient's doctor's office) Mode of arrival: ambulatory Limitations: no limitations History of Present Illness Maximum Pain Intensity: 6 This patient is 72-year-old female who was sent over from her doctor's office after she presented to there with pain in the right groin and redness. She said she noticed on Wednesday night and happened have an appoint with her doctor today. She said that it is gotten very warm and red it does not hurt too much. No trauma or injury . no known tick bites. She had some nausea at times but no emesis no dysuria hematuria no injury she does tend of chronic loose stool which is unchanged no cough or runny nose headache neck pain or stiffness. No history of similar. No vaginal bleeding or discharge. Home Medications Medication Instructions Recorded Confirmed Type benztropine 0.5 mg tablet 0.5 mg PO HS 05/03/19 09/23/22 History metformin 500 mg tablet,extended 1,000 mg PO BID 05/03/19 09/23/22 History release 24 hr (Glucophage XR) risperidone 1 mg tablet (Risperdal) 1.5 mg PO HS 05/03/19 09/23/22 History insulin glargine 100 unit/mL (3 35 unit subcut QAM 08/08/21 09/23/22 History mL) subcutaneous pen (Lantus Solostar U-100 Insulin) omeprazole 40 mg capsule,delayed 40 mg PO BID #60 caps 08/12/21 09/23/22 Rx release dulaglutide 1.5 mg/0.5 mL 1.5 mg subcut WK 09/18/21 09/23/22 History subcutaneous pen injector (Trulicity) thiamine HCl (vitamin B1) 100 mg 100 mg PO DAILY 09/18/21 09/23/22 History tablet mecobalamin (vitamin B12) 1,000 1,000 mcg sublingual DAILY 09/25/21 09/23/22 History mcg disintegrating tablet,sublingual metoprolol succinate 25 mg 25 mg PO DAILY 12/19/21 09/23/22 History tablet,extended release 24 hr rifaximin 550 mg tablet (Xifaxan) 550 mg PO BID #60 tabs 01/30/22 09/23/22 Rx ergocalciferol (vitamin D2) 1,250 50,000 unit PO WK 09/23/22 09/23/22 History mcg (50,000 unit) capsule insulin glargine 100 unit/mL (3 27 unit subcut QPM 09/23/22 09/23/22 History mL) subcutaneous pen (Lantus Solostar U-100 Insulin) losartan 50 mg tablet 25 mg PO DAILY 09/23/22 09/23/22 History Allergies Allergy/AdvReac Type Severity Reaction Status Date / Time NSAIDS (Non-Steroidal AdvReac Verified 12/19/21 12:16 Anti-Inflamma Past Med/Surg History Medical History Anxiety and depression Aspiration of foreign body Diabetes mellitus, type 2 Essential tremor "MILD" History of fatty infiltration of liver Hx of melanoma of skin Hypertension Migraine Osteoarthritis Sleep apnea NO DEVICE USED Syncope and collapse treated at [facility] FOR [facility] Thrombocytopenia Vitamin B12 deficiency Wernicke encephalopathy syndrome "pt denies" Surgical History H/O local excision of skin lesion H/O unilateral oophorectomy History of appendectomy History of cataract surgery bilateral History of colonoscopy (04/2019) History of dilatation and curettage History of esophagogastroduodenoscopy (EGD) last 07/30/20 @ [facility] History of tooth extraction Family History Brother Family history of diabetes mellitus Other No family history of adverse response to anesthesia No pertinent family history Social History Smoking Status: Former smoker Second Hand Exposure: No; Do You Dip or Chew Tobacco: No; Hx Alcohol Use: No Hx Substance Use: No Preferred Language: Wolof Communication Ability: Effective Captain Room Service Required: No Beliefs That Will Affect Care: None marital status: / Current Living Situation: Alone Feels Safe at Home: Yes Safety Concerns: Feels Safe At This Time Assistive Devices: Glasses Immunizations: Social historyshe tells me she has a history of drinking but does not drink at present Review of Systems A total of 10 systems reviewed and were otherwise negative Physical Exam Vital Signs Vital Signs - 24 hr 09/23/22 13:56 09/23/22 15:54 09/23/22 16:30 Temperature 37.3 C Temperature Source Oral Pulse Rate 105 H 100 H 100 H Pulse Rhythm Regular Pulse Strength Normal Respiratory Rate 20 21 Respiratory Effort / Characteristics Non-Labored Spontaneous Respiratory Depth Normal Respiratory Pattern Regular Blood Pressure 148/72 H 175/95 H Blood Pressure Mean 97 121 Blood Pressure Position Sitting Pulse Oximetry 93 98 Oxygen Delivery Method Room Air Room Air Sepsis Recent Fever Within 48 Hours No Sepsis New/Unexplained Change in Mental Status No Sepsis Action Taken by Nursing No Action Required 09/23/22 17:00 09/23/22 17:32 09/23/22 18:00 Temperature Temperature Source Pulse Rate 96 H 101 H 101 H Pulse Rhythm Pulse Strength Respiratory Rate 18 23 20 Respiratory Effort / Characteristics Respiratory Depth Respiratory Pattern Blood Pressure 149/96 H 183/92 H 174/97 H Blood Pressure Mean 113 122 122 Blood Pressure Position Pulse Oximetry 94 94 93 Oxygen Delivery Method Room Air Room Air Room Air Sepsis Recent Fever Within 48 Hours Sepsis New/Unexplained Change in Mental Status Sepsis Action Taken by Nursing General: Well developed well nourished older female who appears in no acute distress, breathing comfortably on room air. Normal speech HEENT: Normal cephalic atraumatic. Pupils are equal round and reactive to light. Extraocular movements are intact. Oropharynx is pink with moist mucous membranes. No swelling of the mouth lips or tongue. Neck: Supple with a midline trachea. No meningeal signs or stiffness, no JVD or bruits. No Stridor. Chest: Clear to auscultation bilaterally. No wheezes or rhonchi. No increased work of breathing. Heart: Regular rate and rhythm without murmurs or gallops. Abdomen: Soft nontender, nondistended without rebound guarding or rigidity. (performed in the presence of female nurse finisher map and chart): She does have an area of redness in the right groin it is large and circular centrally there is some more dark color but there is no fluctuance or drainage or crepitus. Extremities: No cyanosis clubbing or edema. No calf tenderness or assymetry Spine/Back. Non tender to palpation. No CVA tenderness Skin: Good turgor without rashes. Neurologic exam: Nonfocal, moving all 4 extremities symmetrically ambulating n ormally Course Administered Medications Acetaminophen (Acetaminophen 325 Mg Tab) 650 mg PO Q4H PRN PRN Reason: Pain or Fever Stop: 10/23/22 18:57 Last Admin: 09/23/22 22:05 Dose: 650 mg Documented By: CLC Benztropine Mesylate (Benztropine Mesylate 0.5 Mg Tab) 0.5 mg PO HS MEY Stop: 10/23/22 20:59 Last Admin: 09/23/22 20:25 Dose: 0.5 mg Documented By: CLC Heparin Sodium (Porcine) (Heparin Sod 5,000 Unit/0.5 Ml Vial) 5,000 units SQ Q12 [facility] Stop: 10/23/22 20:59 Last Admin: 09/23/22 20:26 Dose: 5,000 units Documented By: CLC Piperacillin Sod/Tazobactam (Sod 4.5 gm/ Dextrose) 120 mls @ 30 mls/hr IV Q8H [facility]; Protocol Stop: 09/30/22 21:59 Last Admin: 09/23/22 22:04 Dose: 30 mls/hr Documented By: CLC Lactated Ringer's (Lr) 1,000 mls @ 100 mls/hr IV .Q10H ONE Stop: 09/24/22 05:14 Last Admin: 09/23/22 20:25 Dose: 100 mls/hr Documented By: CLC Magnesium Sulfate/Dextrose (Magnesium Sulfate / D5w) 1 gm in 100 mls @ 50 mls/hr IV Q2H [facility] Stop: 09/24/22 02:59 Last Admin: 09/23/22 21:23 Dose: 50 mls/hr Documented By: HARRIET Insulin Aspart (Insulin Aspart Per Unit Charge) 0 units SC ACHS [facility] Stop: 10/23/22 20:59 Last Admin: 09/23/22 21:22 Dose: 7 units Documented By: HARRIET Co-signed By: VK Insulin Glargine (Lantus Per Unit Charge) 27 units SC QPM [facility] Stop: 10/23/22 20:59 Last Admin: 09/23/22 21:22 Dose: 27 units Documented By: HARRIET Co-signed By: ROSALVA Pantoprazole Sodium (Pantoprazole 40 Mg Tab) 40 mg PO BID [facility] Stop: 10/23/22 20:59 Last Admin: 09/23/22 20:26 Dose: 40 mg Documented By: HARRIET Rifaximin (Rifaximin 550 Mg Tablet) 550 mg PO BID [facility]Y Stop: 10/23/22 20:59 Last Admin: 09/23/22 20:27 Dose: 550 mg Documented By: HARRIET Risperidone (Risperidone 0.5 Mg Tablet) 1.5 mg PO HS MEY Stop: 10/23/22 20:59 Last Admin: 09/23/22 20:27 Dose: 1.5 mg Documented By: HARRIET Discontinued Medications Sodium Chloride (Nss 1000ml) 1,000 mls @ 999 mls/hr IV .Q1H1M ONE Stop: 09/23/22 16:36 Last Infusion: 09/23/22 17:11 Dose: 0 mls/hr Documented By: Admin: 09/23/22 15:52 Dose: 999 mls/hr Documented By: SOBIA Ampicillin Sodium/Sulbactam Sodium 3,000 mg/ Sodium Chloride 108 mls @ 200 mls/hr IV NOW STA; Protocol Stop: 09/23/22 16:22 Last Infusion: 09/23/22 17:11 Dose: 0 mls/hr Documented By: Admin: 09/23/22 16:31 Dose: 200 mls/hr Documented By: SOBIA Piperacillin Sod/Tazobactam Sod (Zosyn) 4.5 gm in 120 mls @ 240 mls/hr IV NOW ONE Stop: 09/23/22 17:36 Last Infusion: 09/23/22 19:36 Dose: 0 mls/hr Documented By: Admin: 09/23/22 17:51 Dose: 240 mls/hr Documented By: SOBIA Doxycycline Hyclate 100 mg/ (Dextrose) 110 mls @ 50 mls/hr IV NOW STA Stop: 09/23/22 19:19 Last Infusion: 09/23/22 20:49 Dose: 0 mls/hr Documented By: Admin: 09/23/22 19:08 Dose: 50 mls/hr Documented By: SHUKRI Magnesium Sulfate/Dextrose (Magnesium Sulfate / D5w) 1 gm in 100 mls @ 50 mls/hr IV Q2H MEY Stop: 09/23/22 23:29 Last Admin: 09/23/22 20:55 Dose: Not Given Documented By: Infusion: 09/23/22 20:55 Dose: 0 mls/hr Documented By: Admin: 09/23/22 19:20 Dose: 50 mls/hr Documented By: MTP Medical Decision Making Differential Diagnosis Sepsis, cellulitis, abscess, electrolyte or metabolic abnormality, tickborne illness, trauma, diabetic complication Medical Records Attestation: I reviewed the patient's medical records. Home Medications Current Medication List: was personally reviewed by me Laboratory Data Attestation: I reviewed the patient's lab results. 09/23/22 14:20 09/23/22 14:20 Lab Results 09/23/22 09/23/22 09/23/22 Range/Units 14:20 14:20 14:20 WBC 4.72 L (4.8-10.8) K/ul RBC 4.32 (4.20-5.40) M/uL Hgb 9.6 L (12.0-16.0) g/dl Hct 32.0 L (37.0-47.0) % MCV 74.1 L (80.0-100.0) fL MCH 22.2 L (25.0-34.0) pg MCHC 30.0 L (32.0-36.0) g/dL RDW Std Deviation 46.8 H (36.4-46.3) fL RDW Coeff of Griffin 17.5 H (11.5-14.5) % Plt Count 110 L (130-400) K/uL MPV 10.3 (9.4-12.4) fL Immature Gran % (Auto) 0.6 % Neut % (Auto) 75.3 % Lymph % (Auto) 14.8 % Barren % (Auto) 7.6 % Eos % (Auto) 1.5 % Baso % (Auto) 0.2 % Neut # (Auto) 3.55 (1.40-6.50) K/uL Lymph # (Auto) 0.70 L (1.2-3.4) K/uL Barren # (Auto) 0.36 (0.11-0.59) K/uL Eos # (Auto) 0.07 (0-0.50) K/uL Baso # (Auto) 0.01 (0-0.2) K/uL Immature Gran # (Auto) 0.03 (0.01-0.20) K/uL Sodium 134 L (136-145) mmol/L Potassium 4.1 (3.5-5.1) mmol/L Chloride 102 (98-107) mmol/L Carbon Dioxide 23 (21-32) mmol/L Anion Gap 9 (3-11) BUN 7 (6-23) mg/dl Creatinine 0.63 (0.6-1.2) mg/dl Est Cr Clr Drug Dosing 83.9 ml/min Est GFR ( Amer) 104.6 ml/min Est GFR (Non-Af Amer) 90.2 ml/min BUN/Creatinine Ratio 11.1 (10-20) Glucose 308 H* (70-99(Fasting)) mg/dl Lactate (0.4-2.0) mmol/L Calcium 9.1 (8.6-10.3) mg/dl Magnesium 1.5 L (1.7-2.4) mg/dl Total Bilirubin 0.5 (0.2-1.0) mg/dl AST 31 (13-39) U/L ALT 20 (7-52) U/L Alkaline Phosphatase 91 (34-104) U/L C-Reactive Protein 3.11 H (0-0.5) mg/dl Total Protein 7.7 (6.0-8.3) gm/dl Albumin 3.9 (3.4-5.0) gm/dl Globulin 3.8 (2.5-4.0) gm/dl Albumin/Globulin Ratio 1.0 (0.9-2) Procalcitonin (0-0.5) ng/ml Anaplasma Smear Babesia Smear Lyme Disease IgG Ab Negative (Negative) Lyme Disease IgM Ab Negative (Negative) SARS-CoV-2, RNA, NAAT (NEGATIVE) 09/23/22 09/23/22 09/23/22 Range/Units 14:20 14:20 14:25 WBC (4.8-10.8) K/ul RBC (4.20-5.40) M/uL Hgb (12.0-16.0) g/dl Hct (37.0-47.0) % MCV (80.0-100.0) fL MCH (25.0-34.0) pg MCHC (32.0-36.0) g/dL RDW Std Deviation (36.4-46.3) fL RDW Coeff of Griffin (11.5-14.5) % Plt Count (130-400) K/uL MPV (9.4-12.4) fL Immature Gran % (Auto) % Neut % (Auto) % Lymph % (Auto) % Barren % (Auto) % Eos % (Auto) % Baso % (Auto) % Neut # (Auto) (1.40-6.50) K/uL Lymph # (Auto) (1.2-3.4) K/uL Barren # (Auto) (0.11-0.59) K/uL Eos # (Auto) (0-0.50) K/uL Baso # (Auto) (0-0.2) K/uL Immature Gran # (Auto) (0.01-0.20) K/uL Sodium (136-145) mmol/L Potassium (3.5-5.1) mmol/L Chloride (98-107) mmol/L Carbon Dioxide (21-32) mmol/L Anion Gap (3-11) BUN (6-23) mg/dl Creatinine (0.6-1.2) mg/dl Est Cr Clr Drug Dosing ml/min Est GFR ( Amer) ml/min Est GFR (Non-Af Amer) ml/min BUN/Creatinine Ratio (10-20) Glucose (70-99(Fasting)) mg/dl Lactate 3.0 H* (0.4-2.0) mmol/L Calcium (8.6-10.3) mg/dl Magnesium (1.7-2.4) mg/dl Total Bilirubin (0.2-1.0) mg/dl AST (13-39) U/L ALT (7-52) U/L Alkaline Phosphatase (34-104) U/L C-Reactive Protein (0-0.5) mg/dl Total Protein (6.0-8.3) gm/dl Albumin (3.4-5.0) gm/dl Globulin (2.5-4.0) gm/dl Albumin/Globulin Ratio (0.9-2) Procalcitonin 0.05 (0-0.5) ng/ml Anaplasma Smear See Comment Babesia Smear See Comment Lyme Disease IgG Ab (Negative) Lyme Disease IgM Ab (Negative) SARS-CoV-2, RNA, NAAT (NEGATIVE) 09/23/22 09/23/22 Range/Units 15:52 16:21 WBC (4.8-10.8) K/ul RBC (4.20-5.40) M/uL Hgb (12.0-16.0) g/dl Hct (37.0-47.0) % MCV (80.0-100.0) fL MCH (25.0-34.0) pg MCHC (32.0-36.0) g/dL RDW Std Deviation (36.4-46.3) fL RDW Coeff of Griffin (11.5-14.5) % Plt Count (130-400) K/uL MPV (9.4-12.4) fL Immature Gran % (Auto) % Neut % (Auto) % Lymph % (Auto) % Barren % (Auto) % Eos % (Auto) % Baso % (Auto) % Neut # (Auto) (1.40-6.50) K/uL Lymph # (Auto) (1.2-3.4) K/uL Barren # (Auto) (0.11-0.59) K/uL Eos # (Auto) (0-0.50) K/uL Baso # (Auto) (0-0.2) K/uL Immature Gran # (Auto) (0.01-0.20) K/uL Sodium (136-145) mmol/L Potassium (3.5-5.1) mmol/L Chloride (98-107) mmol/L Carbon Dioxide (21-32) mmol/L Anion Gap (3-11) BUN (6-23) mg/dl Creatinine (0.6-1.2) mg/dl Est Cr Clr Drug Dosing ml/min Est GFR ( Amer) ml/min Est GFR (Non-Af Amer) ml/min BUN/Creatinine Ratio (10-20) Glucose (70-99(Fasting)) mg/dl Lactate 2.2 H* (0.4-2.0) mmol/L Calcium (8.6-10.3) mg/dl Magnesium (1.7-2.4) mg/dl Total Bilirubin (0.2-1.0) mg/dl AST (13-39) U/L ALT (7-52) U/L Alkaline Phosphatase (34-104) U/L C-Reactive Protein (0-0.5) mg/dl Total Protein (6.0-8.3) gm/dl Albumin (3.4-5.0) gm/dl Globulin (2.5-4.0) gm/dl Albumin/Globulin Ratio (0.9-2) Procalcitonin (0-0.5) ng/ml Anaplasma Smear Babesia Smear Lyme Disease IgG Ab (Negative) Lyme Disease IgM Ab (Negative) SARS-CoV-2, RNA, NAAT NEGATIVE (NEGATIVE) Imaging Data Attestation: I personally reviewed and interpreted this imaging study as follows: My Impression: Ultrasound of soft tissueno fluid collection seen Radiologist's Impression: Soft Tissue Ultrasound 09/23/22 14:00 US soft tissue groin CLINICAL HISTORY: Area of redness right groin/upper leg TECHNIQUE: Real-time grayscale sonographic images of the right groin were obtained. Comparison: None available at the time of this dictation. FINDINGS/IMPRESSION: No fluid collection is seen. Soft tissue edema is noted. ACT 112: Negative or not required by law. Electronically signed by: John Mora M.D. 09/23/2022 3:41 PM ECG Data Attestation: I personally reviewed and interpreted this ECG as follows: Indication: + weakness Rate (beats per minute): 98 Rhythm: + normal sinus ECG Intervals/blocks: + Normal QRS, + Normal QT and + Normal GA ECG Ruso: + Normal ECG ST segments: + Normal ST segments ECG Findings: no PACs or no PVCs Comparison ECG Date: from MDM Narrative This patient comes in as described above. I initially saw her out in triage. At by that point labs had come back mostly and I saw that she had lactate of 3 so I went promptly to see her out in triage. Her white count is not elevated and she looks well she is afebrile here but has a fever back home we did get her into her room she had an ultrasound which was pending at this point. IV access had been established I did order fluid bolus of 1 L IV normal saline and with a female nurse finisher map and chart examined her groin area. She has a large red area consistent with a cellulitis it may be from an infected bite. Her Lyme testing is negative. I did discuss in consultation with her ED pharmacist about an biotic choices and she recommended Unasyn 3 g IV which I gave the patient. The patient's repeat lactate came back at 2.2. I do think the patient needs to be admitted/observed and have discussed the case with the [facility] for these measures. Impression & Plan Cellulitis, Diabetes mellitus type 2 in nonobese, Elevated lactic acid level, Lab test negative for COVID-19 virus Discharge Plan Visit Data Chief Complaint: Infection Stated Complaint: INFECTED LESION, REF BY ED Provider: Jordon Blank Discharge Problem: Cellulitis, Diabetes mellitus type 2 in nonobese, Elevated lactic acid level, Lab test negative for COVID-19 virus Patient Disposition: Admitted As Inpatient Discharge Instructions Interventions: ED Discharge Assessment Last Done: 09/23/22 18:15
[2022-09-23] MEDS ORDERED: AMPICILLIN/SULBACTAM SOD 3,000 MG in 0.9 % SODIUM CHLORIDE 100 ML IV STA (15:50)
[2022-09-23 16:25] LABS: C Reactive Protein 3.11 mg/dl (0-0.5); Magnesium 1.5 mg/dl (1.7-2.4)
[2022-09-23] MEDS ORDERED: PIPERACILLIN/TAZOBACTAM 4.5 GM/120 ML BAG IV ONE (17:07)
[2022-09-23] MEDS ORDERED: DOXYCYCLINE HYCLATE 100 MG in DEXTROSE 5% 100 ML IV STA (17:08)
--- NOTE | 2022-09-23 17:22 | History & Physical Report ---
Date of Service September 23, 2022 Assessment & Plan (1) Sepsis: Plan: Patient presents tachycardic with elevated lactate with source of infection as right upper leg. - Sepsis without shock or organ dysfunction - Hemodynamically stable at this time with decrease in lactate- hold antihypertensives until hemodynamics proven- will continue BB - Source right groin with induration and erysipelas- is without tracking of infection proximally or distally- is without any other areas of redness or rash notably not on face, back, or soles/palms - ABX therapy with Doxycycline and Zosyn - de-escalate as able - MRSA risk is low as not previously hospitalized, not on recent abx, and not recently in any group home care facility - LYME Negative - Recheck lactate - if decreasing continue with LR x1 liter for 2 liters crystalloid - if increasing will provide further bolus - CRP daily - Follow blood and urine culture (2) Cellulitis: Plan: As above - if worsening surgical evaluation - currently without fluctuance or abscess noted on ultrasound (3) Diabetes mellitus type 2 in nonobese: Plan: BG elevated on arrival likely secondary to acute infection - continue with Lantus and sliding scale aspart insulin (CF 20, Carb ratio 1:10) - HGBA1C in morning (4) Hypomagnesemia: Plan: Acute stable Mag 1.5 on arrival - replete with 3 GM Mag IV - follow in am (5) Schizoaffective disorder: Plan: Chronic stable- continue with respiradol and benztropine (6) Hypertension: Plan: Chronic- stable Hold LUKE/ARB until hemodyanmics proven stable and renal function stable - Continue BB History of Present Illness Chief Complaint: cellulitis Primary Care Provider: Nusrat Frost MD 72 YOF with medical history of: DMII (on Trulicity and Lantus), Fe deficiency anemia, Schizoaffective disorder, Thiamine deficiency, Osteopetrosis, HTN, HX of melanoma to left thigh. Patient reports to the EMD today from PCP office for concerns of right leg infection. Patient reports that on ([id number]) she noted - small cystic bumps on the right leg, this progressed over the weekend to Wednesday evening. She noted a burning type irritation to her leg and got up to look at it. She noted a "very small yellow discharge" and spreading of the redness. She notes that she has had fevers maybe 2 nights worth waking up sweaty- this would have been Wednesday and Wednesday. Patient reports no history of having pets, no walks in [place] or [place], and has not noticed any ticks. She denies any linens from closets or new clothes/undergarments. She does not report any trauma or other injury to the leg. She also reports no spreading of the errythema proximally or distally. She denies any other systemic symptoms and no pain to her joints. In the EMD the patient had routine labs performed to include PCT, CRP, and Lactate. She had blood cultures obtained x1 and possibly drawn after abx administration. Urine is pending and is after abx therapy. She received 2 liters of crystalloid. Her Lactate was increased to 3.3 and is downtrending to 2.2 at 2 hour re-check. PCT is negative at 0.05, CRP is elev ated at 3.1. She is also noted to be hyperglycemic. Patient was given a dose of Unasyn by EMD. Based on patient history of DM as well as spreading of erythema will place patient on Zosyn and Doxycycline. Will admit for Sepsis and continue to follow her infection. Image updated to clinical record. The wound is with central discoloration and induration without fluctuance and surrounding erysipelas. Patient will be admitted to PCU overnight and follow. CODE: FULL COVID: NEGATIVE Allergies Allergy/AdvReac Type Severity Reaction Status Date / Time NSAIDS (Non-Steroidal AdvReac Verified 12/19/21 12:16 Anti-Inflamma Home Medications Medication Instructions Recorded Confirmed Type benztropine 0.5 mg tablet 0.5 mg PO HS 05/03/19 09/23/22 History metformin 500 mg tablet,extended 1,000 mg PO BID 05/03/19 09/23/22 History release 24 hr (Glucophage XR) risperidone 1 mg tablet (Risperdal) 1.5 mg PO HS 05/03/19 09/23/22 History insulin glargine 100 unit/mL (3 35 unit subcut QAM 08/08/21 09/23/22 History mL) subcutaneous pen (Lantus Solostar U-100 Insulin) omeprazole 40 mg capsule,delayed 40 mg PO BID #60 caps 08/12/21 09/23/22 Rx release dulaglutide 1.5 mg/0.5 mL 1.5 mg subcut WK 09/18/21 09/23/22 History subcutaneous pen injector (Trulicity) thiamine HCl (vitamin B1) 100 mg 100 mg PO DAILY 09/18/21 09/23/22 History tablet mecobalamin (vitamin B12) 1,000 1,000 mcg sublingual DAILY 09/25/21 09/23/22 History mcg disintegrating tablet,sublingual metoprolol succinate 25 mg 25 mg PO DAILY 12/19/21 09/23/22 History tablet,extended release 24 hr rifaximin 550 mg tablet (Xifaxan) 550 mg PO BID #60 tabs 01/30/22 09/23/22 Rx ergocalciferol (vitamin D2) 1,250 50,000 unit PO WK 09/23/22 09/23/22 History mcg (50,000 unit) capsule insulin glargine 100 unit/mL (3 27 unit subcut QPM 09/23/22 09/23/22 History mL) subcutaneous pen (Lantus Solostar U-100 Insulin) losartan 50 mg tablet 25 mg PO DAILY 09/23/22 09/23/22 History Past Med/Surg History Medical History Anxiety and depression Aspiration of foreign body Diabetes mellitus, type 2 Essential tremor "MILD" History of fatty infiltration of liver Hx of melanoma of skin Hypertension Migraine Osteoarthritis Sleep apnea NO DEVICE USED Syncope and collapse treated at [facility] Thrombocytopenia Vitamin B12 deficiency Wernicke encephalopathy syndrome "pt denies" Surgical History H/O local excision of skin lesion H/O unilateral oophorectomy History of appendectomy History of cataract surgery bilateral History of colonoscopy (04/2019) History of dilatation and curettage History of esophagogastroduodenoscopy (EGD) last 07/30/20 @ [facility] History of tooth extraction Family History Brother Family history of diabetes mellitus Other No family history of adverse response to anesthesia No pertinent family history Social History Smoking Status: Former smoker Second Hand Exposure: No; Do You Dip or Chew Tobacco: No; Hx Alcohol Use: No Hx Substance Use: No Preferred Language: Azeri Communication Ability: Effective Formal Service Waiter Required: No Beliefs That Will Affect Care: None marital status: / Current Living Situation: Alone Feels Safe at Home: Yes Safety Concerns: Feels Safe At This Time Assistive Devices: Glasses Review of Systems Review of Systems: REVIEW OF SYSTEMS: Constitutional: (+) fever, sweats or chills Eyes: No diplopia, no worsening or blurred vision ENT: normal hearing, no trouble swallowing Respiratory: No cough, sputum, dyspnea at rest or on exertion Cardiovascular: NO chest pain, tightness or palpitations Abdomen: No pain, nausea, vomiting, diarrhea or constipation Musculoskeletal: (+) leg pain, no calf pain, swelling Neurologic: No weakness, numbness/tingling, or balance problems Psychiatric: No anxiety or depression Physical Exam Physical Exam: PHYSICAL EXAM: General: awake, alert, no apparent distress Head: Normocephalic, atraumatic ENT: PERRL, EOMI, no pharyngeal exudate, mucous membranes moist Neuro: AAO x 3, speech clear and appropriate, strength intact bilaterally 5/5, sensation intact and equal all extremities and dermatomes, no pronator drift Chest: equal rise and fall of the chest, no accessory muscle use, no heaves or thrills, Clear to auscultation, on room air, Cardiac: Regular rate and rhythm, telemetry reviewed- sinus tachycardia, skin warm dry, cap refill <3 seconds, peripheral pulses +2 no JVD, no murmur, no edema GI: NABS x 4 quadrants, soft, nontender to palpation, no rebound, guarding or tenderness : Spontaneously voiding, no pain, no CVA tenderness, Psych: Normal mood and affect Skin: Localized right groin with central area of purplish induration with small surrounding vesicles, no fluctuance noted, and surrounding erysipelas noted that is blanchable. no proximal or distal spreading and no significant lymphadenopathy in groin or down the leg. Results & Data Results & Data Vital Signs (Past 12 Hours) Vital Signs Temp Pulse Resp BP Pulse Ox O2 Del Method 09/23/22 17:00 96 H 18 149/96 H 94 Room Air 09/23/22 16:30 100 H 21 175/95 H 98 Room Air 09/23/22 15:54 100 H 09/23/22 13:56 37.3 C 105 H 20 148/72 H 93 Room Air Laboratory Results Abnormal lab results 09/23/22 09/23/22 09/23/22 Range/Units 14:20 14:20 14:25 WBC 4.72 L (4.8-10.8) K/ul Hgb 9.6 L (12.0-16.0) g/dl Hct 32.0 L (37.0-47.0) % MCV 74.1 L (80.0-100.0) fL MCH 22.2 L (25.0-34.0) pg MCHC 30.0 L (32.0-36.0) g/dL RDW Std Deviation 46.8 H (36.4-46.3) fL RDW Coeff of Griffin 17.5 H (11.5-14.5) % Plt Count 110 L (130-400) K/uL Lymph # (Auto) 0.70 L (1.2-3.4) K/uL Sodium 134 L (136-145) mmol/L Glucose 308 H* (70-99(Fasting)) mg/dl Lactate 3.0 H* (0.4-2.0) mmol/L Magnesium 1.5 L (1.7-2.4) mg/dl C-Reactive Protein 3.11 H (0-0.5) mg/dl 09/23/22 Range/Units 16:21 WBC (4.8-10.8) K/ul Hgb (12.0-16.0) g/dl Hct (37.0-47.0) % MCV (80.0-100.0) fL MCH (25.0-34.0) pg MCHC (32.0-36.0) g/dL RDW Std Deviation (36.4-46.3) fL RDW Coeff of Griffin (11.5-14.5) % Plt Count (130-400) K/uL Lymph # (Auto) (1.2-3.4) K/uL Sodium (136-145) mmol/L Glucose (70-99(Fasting)) mg/dl Lactate 2.2 H* (0.4-2.0) mmol/L Magnesium (1.7-2.4) mg/dl C-Reactive Protein (0-0.5) mg/dl Diagnostic Findings Soft Tissue Ultrasound 09/23/22 14:00 US soft tissue groin CLINICAL HISTORY: Area of redness right groin/upper leg TECHNIQUE: Real-time grayscale sonographic images of the right groin were obtained. Comparison: None available at the time of this dictation. FINDINGS/IMPRESSION: No fluid collection is seen. Soft tissue edema is noted. ACT 112: Negative or not required by law. Electronically signed by: John Mora M.D. 09/23/2022 3:41 PM Medications Administered Discontinued Medications Sodium Chloride (Nss 1000ml) 1,000 mls @ 999 mls/hr IV .Q1H1M ONE Stop: 09/23/22 16:36 Last Infusion: 09/23/22 17:11 Dose: 0 mls/hr Documented By: Admin: 09/23/22 15:52 Dose: 999 mls/hr Documented By: SOBIA Ampicillin Sodium/Sulbactam Sodium 3,000 mg/ Sodium Chloride 108 mls @ 200 mls/hr IV NOW STA; Protocol Stop: 09/23/22 16:22 Last Infusion: 09/23/22 17:11 Dose: 0 mls/hr Documented By: Admin: 09/23/22 16:31 Dose: 200 mls/hr Documented By: SOBIA ECG Additional Comments: Normal sinus rhythm Normal ECG When compared with ECG of 25-MAY-2022 17:26, Borderline criteria for Anterior infarct are no longer Present Code Status & VTE Plan VTE Prophylaxis Plan VTE Prophylaxis will be ordered: No Supervising Physician Co-Signing Physician Notes Patient seen and examined, chart reviewed, case discussed with CIPRIANO Hicks and I agree with the assessment and plan as above except as otherwise noted Labs and images reviewed Seen at bedside ~5-6 days of white bumps on her R anterior thigh. Wednesday night was burning and woke her from sleep, noticed that the bumps now had small amou nts of yellow dranage and rapidly expanding surrounding erythema. Center is dusky/purple with indurated border. No drainable fluid on ultrasound. Erythema blanches. Lactate 2.2, BSG 308. CRP 3.11. Mg 1.5. No other MRSA history. Agree with expanded GN coverage 2/2 DM. No drainage to culture at time of consultation. BC pending although these were after antibiotic administration. Photo as below. Qtc 487, defer fluoroquinolone use. We will continue antibiotics and follow for clinical progression. Clinically appears like cellulitis versus erysipelas given high degree of warmth and tenderness. No purulence at time of assessment. PG Care Time/CCT Total # of Minutes Spent Total Time Spent with Patient: Total time spent is greater than 50% in coordination of care (as documented) at patient's floor/unit and/or counseling patient: Coding Level of Care Code 17271 INT INP/OBS CARE 3/75MIN History Comprehensive Exam Comprehensive Medical Decision Making High Complexity Diagnoses Sepsis A41.9 Cellulitis L03.90 Diabetes mellitus type 2 in nonobese E11.9 Hypomagnesemia E83.42 Schizoaffective disorder F25.9 Hypertension I10
[2022-09-23] MEDS ORDERED: GLUCOSE 10 TAB/TUBE PO PRN (18:58)
[2022-09-23] MEDS ORDERED: CARBOHYDRATES FOR HYPOGLYCEMIA PO PRN (18:58)
[2022-09-23] MEDS ORDERED: GLUCAGON FOR INJ 1 MG VIAL SQ PRN (18:58)
[2022-09-23] MEDS ORDERED: GLUCOSE 40% GEL 15 GM TUBE PO PRN (18:58)
[2022-09-23] MEDS ORDERED: DEXTROSE 50% 50 ML SYRINGE IV PRN (18:58)
[2022-09-23] MEDS ORDERED: LACTATED RINGER'S 1,000 ML IV ONE (19:15)
[2022-09-23] MEDS: MAGNESIUM SULFATE / D5W 1 GM/100 ML BAG IV SCH ×4 (19:20→23:00)
[2022-09-23 20:25] LABS: Appearance Urine Clear (Clear); Bilirubin Urine Negative (Negative); Blood Urine Negative (Negative); Color Urine Yellow; Glucose Urine UA 1+ (Negative); Ketones Urine Negative (Negative); Leukocyte Esterase Urine Negative (Negative); Nitrite Urine Negative (Negative); Protein Urine Negative (Negative); Specific Gravity Urine 1.009 (1.000-1.030); Urobilinogen Urine Negative (Negative)
[2022-09-23] MEDS: BENZTROPINE MESYLATE 0.5 MG TAB PO SCH (20:25)
[2022-09-23] MEDS: PANTOprazole 40 MG TAB PO SCH (20:26)
[2022-09-23] MEDS: HEPARIN SOD 5,000 UNIT/0.5 ML VIAL SQ SCH (20:26)
[2022-09-23] MEDS: risperiDONE 0.5 MG TABLET PO SCH (20:27)
[2022-09-23] MEDS: rifAXIMin 550 MG TABLET PO SCH (20:27)
[2022-09-23] MEDS: INSULIN ASPART PER UNIT CHARGE SC SCH (21:22)
[2022-09-23] MEDS: LANTUS PER UNIT CHARGE SC SCH (21:22)
[2022-09-23] MEDS: PIPERACILLIN/TAZOBACTAM 4.5 GM in DEXTROSE 5% 100 ML IV SCH (22:04)
[2022-09-23] MEDS: ACETAMINOPHEN 325 MG TAB PO PRN (22:05)
[2022-09-24] MEDS: MAGNESIUM SULFATE / D5W 1 GM/100 ML BAG IV SCH (00:59)
[2022-09-24] MEDS: PIPERACILLIN/TAZOBACTAM 4.5 GM in DEXTROSE 5% 100 ML IV SCH (05:47)
[2022-09-24 06:36] LABS: Basophils # (auto) 0.01 K/uL (0-0.2); Basophils % (auto) 0.2 %; Eosinophils % (auto) 2.4 %; Hematocrit (blood only) 31.3 % (37.0-47.0); Hemoglobin 9.3 g/dl (12.0-16.0); Immature Granulocytes # (auto) 0.01 K/uL (0.01-0.20); Immature Granulocytes % (auto) 0.2 %; Lymphocytes # (auto) 0.75 K/uL (1.2-3.4); Lymphocytes % (auto) 17.7 %; Mean Corpuscular Hemoglobin 22.1 pg (25.0-34.0); Mean Corpuscular Hgb Conc 29.7 g/dL (32.0-36.0); Mean Corpuscular Volume 74.3 fL (80.0-100.0); Mean Platelet Volume 10.1 fL (9.4-12.4); Monocytes # (auto) 0.39 K/uL (0.11-0.59); Monocytes % (auto) 9.2 %; Neutrophils # (auto) 2.98 K/uL (1.40-6.50); Neutrophils % (auto) 70.3 %; Platelet Count 108 K/uL (130-400); RDW Coefficient of Variation 17.6 % (11.5-14.5); RDW Standard Deviation 46.6 fL (36.4-46.3); Red Blood Count 4.21 M/uL (4.20-5.40); White Blood Count 4.24 K/ul (4.8-10.8)
[2022-09-24 06:47] LABS: BUN Creatinine Ratio 5.5 (10-20); C Reactive Protein 3.06 mg/dl (0-0.5); Calcium 8.1 mg/dl (8.6-10.3); Creatinine Clr Calc Pharmacy 95.6 ml/min; Est GFR (African American) 109.4 ml/min; Est GFR (Non-African American) 94.4 ml/min; Magnesium 2.1 mg/dl (1.7-2.4); Potassium 3.7 mmol/L (3.5-5.1)
[2022-09-24] MEDS ORDERED: DOXYCYCLINE HYCLATE 100 MG in DEXTROSE 5% 100 ML IV SCH (07:00)
[2022-09-24 07:50] LABS: Estimated Average Glucose 206 mg/dl; Hemoglobin A1C 8.8 % (4.5-5.6)
[2022-09-24] MEDS: ACETAMINOPHEN 325 MG TAB PO PRN (08:04)
[2022-09-24] MEDS: PANTOprazole 40 MG TAB PO SCH ×2 (08:16→21:02)
[2022-09-24] MEDS: HEPARIN SOD 5,000 UNIT/0.5 ML VIAL SQ SCH ×2 (08:16→21:02)
[2022-09-24] MEDS: METOPROLOL SUCC 25MG EXT REL TAB PO SCH (08:17)
[2022-09-24] MEDS: THIAMINE HCL 100 MG TAB PO SCH (08:17)
[2022-09-24] MEDS: INSULIN ASPART PER UNIT CHARGE SC SCH ×4 (08:17→20:59)
[2022-09-24] MEDS: LANTUS PER UNIT CHARGE SC SCH ×2 (08:24→21:00)
[2022-09-24] MEDS: rifAXIMin 550 MG TABLET PO SCH ×2 (08:48→21:03)
[2022-09-24] MEDS: ceFAZolin 2000MG 2,000 MG/15 ML SYR IV SCH ×2 (12:51→21:01)
--- NOTE | 2022-09-24 17:11 | Hospitalist Progress Note ---
Date of Service September 24, 2022 Assessment & Plan (1) Sepsis: Plan: Krystle Protillo 72 yo female pmh of DMII and Iron deficiency anemia presents with sepsis secondary to skin infection of upper anterior thigh. Sepsis Patient presents tachycardic with elevated lactate with source of infection as right upper leg. Source right groin with induration and erysipelas- is without tracking of infection proximally or distally- is without any other areas of redness or rash notably not on face, back, or soles/palms Sepsis without shock or organ dysfunction. Hemodynamically stable at this time with decrease in lactate. - ABX cefazolin - deescalation from doxycycline and zosyn as this is likely gram strep vs staph with low historical or clinical concern for resistant bacteria. - LYME Negative - Lactate 3.3 - if decreasing continue with LR x1 liter for 2 liters crystalloid - if increasing will provide further bolus - CRP daily - Follow blood and urine culture (2) Cellulitis: Plan: As above - Improving, unlikely need for surgical evaluation - currently without fluctu ance or abscess noted on ultrasound (3) Diabetes mellitus type 2 in nonobese: Plan: BG elevated on arrival likely secondary to acute infection HGBA1C: 8.8 - continue with Lantus and sliding scale aspart insulin (CF 20, Carb ratio 1:10) (4) Hypomagnesemia: Plan: Acute stable, Mag 1.5 >> 2.1 - replete with 3 GM Mag IV - follow in am (5) Schizoaffective disorder: Plan: Chronic stable- continue with respiradol and benztropine (6) Hypertension: Plan: Chronic- stable Hold LUKE/ARB until hemodyanmics proven stable and renal function stable - Continue BB Plan DVT: Sub Q Heparin FEN: DMII diet FULL CODE Admission and Anticipated Discharge Date Admission Date: September 23, 2022 Supervising Physician Co-Signing Physician Notes I personally examined the patient and verified all vera points of history and exam, discussed case, and agree with decision making with Michael Jaime MS4 and Dr Zhang like feeling better. Vitals noted, in general she is awake and alert pleasant no distress. Walking around the room. Large area of what appears to be resolving erythema on her right medial proximal thighdefinitely has regressed from the previously outlined area. No areas of fluctuance, not exquisitely tender cellulitisgiven her lack of severe sepsis/septic shock/etc.we will de- escalate antibiotics to cefazolin, to allow for ease of transition at discharge if she continues to show this degree of improvement. Otherwise as above Subjective Today she was feeling better, and felt that her leg was improving. She did endorse weakness in her right leg. Review of Systems Constitutional: Denied fever, night sweats, fatigue, weakness, dizziness Eyes: Denied blurry vision Respiratory: Denied cough or shortness of breath. Cardiovascular: Additional Comments: Denied chest pain, palpitations Gastrointestinal: Denied nausea, vomiting, diarrhea, abdominal pain. Neurologic: Denied numbness, or tingling. Physical Exam Constitutional: Alert and oriented x3 in hopsital bed Eyes: Pupils were equal, normal shape, and reactive. Neck: Respiratory: CTA, no increased work of breathing Cardiovascular: Normal rate and regular rhythmn. No heart sounds ausculated. Radial pulses equal b/l. Capillary refill less than 2 sec. Gastrointestinal (Abdomen): Nondistended, nontender, normoactive bowel sounds. Musculoskeletal: Upper extremity 5/5 strength Lower extremity 5/5 strength Walking around room when I came in. Skin: Erythematous, warm area in the upper internal area of right thigh toward right groin. Regressing from the original outline. Psychiatric: Appropriate mood and affect. Lymphatic: No lymphadenopathy in the neck and cervical region. Results & Data Results & Data Vital Signs (Past 12 Hours) Vital Signs Temp Pulse Pulse Resp BP Pulse Ox O2 Del Method 09/24/22 11:16 37.1 C 89 18 153/78 H 94 Room Air 09/24/22 10:33 Room Air 09/24/22 07:41 106 H 09/24/22 07:36 37.4 C 101 H 18 150/75 H 96 Room Air 09/24/22 03:41 36.9 C 101 H 18 137/75 92 Room Air Laboratory Results 09/24/22 05:53 09/24/22 05:53
--- NOTE | 2022-09-24 19:08 | Billing Data ---
Date of Service September 24, 2022 Coding Level of Care Code 09241 SUB INP/OBS CARE MIN
[2022-09-24] MEDS: BENZTROPINE MESYLATE 0.5 MG TAB PO SCH (21:02)
[2022-09-24] MEDS: risperiDONE 0.5 MG TABLET PO SCH (21:03)
[2022-09-25] MEDS: ceFAZolin 2000MG 2,000 MG/15 ML SYR IV SCH ×2 (05:37→12:07)
[2022-09-25 06:34] LABS: Basophils # (auto) 0.01 K/uL (0-0.2); Basophils % (auto) 0.3 %; Eosinophils # (auto) 0.12 K/uL (0-0.50); Eosinophils % (auto) 3.7 %; Hematocrit (blood only) 29.3 % (37.0-47.0); Hemoglobin 8.8 g/dl (12.0-16.0); Immature Granulocytes # (auto) 0.02 K/uL (0.01-0.20); Immature Granulocytes % (auto) 0.6 %; Lymphocytes # (auto) 1.02 K/uL (1.2-3.4); Lymphocytes % (auto) 31.1 %; Mean Corpuscular Hemoglobin 22.2 pg (25.0-34.0); Mean Platelet Volume 10.3 fL (9.4-12.4); Monocytes # (auto) 0.32 K/uL (0.11-0.59); Monocytes % (auto) 9.8 %; Neutrophils # (auto) 1.79 K/uL (1.40-6.50); Neutrophils % (auto) 54.5 %; Platelet Count 101 K/uL (130-400); RDW Coefficient of Variation 17.6 % (11.5-14.5); RDW Standard Deviation 46.9 fL (36.4-46.3); Red Blood Count 3.96 M/uL (4.20-5.40); White Blood Count 3.28 K/ul (4.8-10.8)
[2022-09-25 06:50] LABS: BUN Creatinine Ratio 11.6 (10-20); Creatinine Clr Calc Pharmacy 76.7 ml/min; Est GFR (African American) 101.5 ml/min; Est GFR (Non-African American) 87.6 ml/min; Magnesium 1.8 mg/dl (1.7-2.4); Potassium 3.8 mmol/L (3.5-5.1)
[2022-09-25] MEDS: METOPROLOL SUCC 25MG EXT REL TAB PO SCH (08:40)
[2022-09-25] MEDS: PANTOprazole 40 MG TAB PO SCH (08:40)
[2022-09-25] MEDS: rifAXIMin 550 MG TABLET PO SCH (08:40)
[2022-09-25] MEDS: THIAMINE HCL 100 MG TAB PO SCH (08:40)
[2022-09-25] MEDS: HEPARIN SOD 5,000 UNIT/0.5 ML VIAL SQ SCH (08:40)
[2022-09-25] MEDS: INSULIN ASPART PER UNIT CHARGE SC SCH ×2 (08:42→12:04)
[2022-09-25] MEDS: LANTUS PER UNIT CHARGE SC SCH (08:42)
--- NOTE | 2022-09-25 12:49 | Discharge Summary ---
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 Patient reports to the EMD today from PCP office for concerns of right leg infection. Patient reports that on ([id number]) she noted - small cystic bumps on the right leg, this progressed over the weekend to Wednesday evening. She noted a burning type irritation to her leg and got up to look at it. She noted a "very small yellow discharge" and spreading of the redness. She notes that she has had fevers maybe 2 nights worth waking up sweaty- this would have been Wednesday and Wednesday. Patient reports no history of having pets, no walks in [place] or [place], and has not noticed any ticks. She denies any linens from closets or new clothes/undergarments. She does not report any trauma or other injury to the leg. She also reports no spreading of the errythema proximally or distally. She denies any other systemic symptoms a nd no pain to her joints. In the EMD the patient had routine labs performed to include PCT, CRP, and Lactate. She had blood cultures obtained x1 and possibly drawn after abx administration. Urine is pending and is after abx therapy. She received 2 liters of crystalloid. Her Lactate was increased to 3.3 and is downtrending to 2.2 at 2 hour re-check. PCT is negative at 0.05, CRP is elevated at 3.1. She is also noted to be hyperglycemic. Patient was given a dose of Unasyn by EMD. Based on patient history of DM as well as spreading of erythema will place patient on Zosyn and Doxycycline. Will admit for Sepsis and continue to follow her infection. Image updated to clinical record. The wound is with central discoloration and induration without fluctuance and surrounding erysipelas. Patient will be admitted to PCU overnight and follow. CODE: FULL COVID: NEGATIVE Principal Diagnosis Cellulitis Discharge Exam Constitutional: well-appearing, no acute distress HEENT: NCAT, no conjunctival injection CV:extremities well-perfused, no LE edema Resp:no increased work of breathing MSK: no gross deformities appreciated Skin: large area erythema right proximal thigh, improved from yesterday Neuro: alert, oriented, no focal neurologic deficit appreciated Discharge Data Allergies Allergy/AdvReac Type Severity Reaction Status Date / Time NSAIDS (Non-Steroidal AdvReac Verified 12/19/21 12:16 Anti-Inflamma Consultations 09/23/22 17:11 ED Decision to Admit Stat Ordered Studies 09/23/22 14:00 US soft tissue groin Urgent Hospital Course (1) Sepsis: Krystle Portillo 72 yo female pmh of DMII and Iron deficiency anemia presented with sepsis secondary to skin infection of upper anterior thigh. Sepsis- Resolved Patient presents tachycardic with elevated lactate with source of infection as right upper leg. Source right groin with induration and erysipelas- is without tracking of infection proximally or distally- is without any other areas of redness or rash notably not on face, back, or soles/palms Sepsis without shock or organ dysfunction. Hemodynamically stable at this time with decrease in lactate. - LYME Negative - Follow blood culture negative to date - ABX IV cefazolin transitioned to Keflex. Total of 14 days, but will follow up with primary care as shorter duration may be appropriate. (2) Cellulitis: As above - Improving,will need to be re-evaluated by PCP to see if shorter coarse of antibiotics is appropriate (3) Diabetes mellitus type 2 in nonobese: BG elevated on arrival likely secondary to acute infection HGBA1C: 8.8 - resume home medications (4) Hypomagnesemia: Acute stable, Mag 1.5 >> 2.1 - resolved (5) Schizoaffective disorder: Chronic stable- continue with respiradol and benztropine (6) Hypertension: Chronic- stable - Continue BB, ARB Plan DVT: Sub Q Heparin FEN: DMII diet FULL CODE Total Time Total Time Spent Total Time Spent (In Minutes): <30 Discharge Plan Discharge Items Patient Disposition: Home - Self-Care Reason For Visit: SEPSIS Discharge Diagnosis: Cellulitis Activity: Per Instructions section Non-emergency contact: Primary Care Provider Call non-emergency contact if: you have any medication questions, your symptoms worsen, your temperature is above 101, your wound has increased redness, your wound has increased drainage and your wound pain has increased Follow-up/Referrals: Nusrat Frost MD [Primary Care Provider] - 07/14/23 2:05 pm (Will be seeing Dr. Alvarado at the [facility] office) Diet: Regular Addtl Attending Provider Instructions: You were treated with IV antibiotics for a cellulitis (skin infection) in your leg. We are going to send you home with an oral antibiotics. The name of the antibiotic is cephazolin and you need to take it 4 times per day. We will send this to the pharmacy for you. We are going to send a total of 14 days for you. We would like you to follow up with your primary care doctor next week. They will take a look at your leg. If it is looking good, they may be able to decrease the length of antibiotic. Dr. Bush's office did not have any appointments for next week, so we scheduled you an appointment with Dr. Tavera with 2:05 at the [facility] office. If you have any questions regarding your appointment please call the office. If you were to get worsening redness, swelling, fevers, chills you should either call your primary care doctor to be evaluated or go back to the ED. Pending Studies at Discharge: No Stand-Alone Forms: My [facility], Smoking Cessation Medications and DC Order Prescriptions: New cephalexin 500 mg capsule 500 mg PO Q6H 14 Days Qty: 56 0RF Continued thiamine HCl (vitamin B1) 100 mg tablet 100 mg PO DAILY Trulicity 1.5 mg/0.5 mL pen injector 1.5 mg subcut WK Rx Instructions: Xifaxan 550 mg tablet 550 mg PO BID Qty: 60 5RF mecobalamin (vitamin B12) 1,000 mcg tablet,disintegrating 1,000 mcg sublingual DAILY Rx Instructions: place tablet under tongue and allow to dissolve for at least30 secs before swallowing benztropine 0.5 mg Tablet 0.5 mg PO HS metformin [Glucophage XR] 500 mg tablet extended release 24 hr 1,000 mg PO BID risperidone [Risperdal] 1 mg tablet 1.5 mg PO HS insulin glargine [Lantus Solostar U-100 Insulin] 100 unit/mL (3 mL) Insulin Pen 35 unit SUBCUT QAM omeprazole 40 mg capsule,delayed release(DR/EC) 40 mg PO BID Qty: 60 5RF metoprolol succinate 25 mg Tablet Extended Release 24 Hr 25 mg PO DAILY losartan 50 mg tablet 25 mg PO DAILY ergocalciferol (vitamin D2) 1,250 mcg (50,000 unit) capsule 50,000 unit PO WK Rx Instructions: Wednesday insulin glargine [Lantus Solostar U-100 Insulin] 100 unit/mL (3 mL) insulin pen 27 unit SUBCUT QPM Discharge Orders: Discharge Order (Routine); Ordered 09/25/22 Ordered By: Jolanta Bull/Other Patient Handouts: Cephalexin Oral Tablet Admission Data Admit Date/Time: 09/23/22 17:07 Attending Provider: Santi Sol Admit Provider: Jeferson Chapa Primary Care Provider: Nusrat Frost Other Providers: Jeferson Chapa Other Interventions: Discharge Summary Assessment (RN) Last Done: 09/25/22 13:46 Supervising Physician Co-Signing Physician Notes I personally examined the patient and verified all vera points of history and exam, discussed case, and agree with decision making with Michael Jaime MS4 and Dr Zhang leg feeling ok. feels up to going home Vitals noted, in general she is awake and alert pleasant no distress. Walking around the room. Large area of resolving erythema on her right medial proximal thighdefinitely has gotten less bright red, about the same size as yesterday - all within the area outlined - ie regressed since admit. No areas of fluctuance, not exquisitely tender cellulitisgiven her lack of severe sepsis/septic shock/etc.doing well on ancef - home on keflex, PCP f/u - Rx for 14 total but hopefully at PCP f/u can shorten duration if ongoing fast improvement otherwise as above Resident Activity Tracking Resident Involvement: Resident Care Provided Care Provided: Adult Hospital Medicine
--- NOTE | 2022-09-25 19:19 | Billing Data ---
Date of Service September 25, 2022 Coding Level of Care Code 25212 IN/OBS DISCH 30 MIN/LESS
--- NOTE | 2022-09-25 22:58 | Electrocardiogram Report ---
Test Reason : Blood Pressure : / mmHG Vent. Rate : 098 BPM Atrial Rate : 098 BPM P-R Int : 170 ms QRS Dur : 080 ms QT Int : 382 ms P-R-T Axes : 050 011 034 degrees QTc Int : 487 ms Normal sinus rhythm Normal ECG When compared with ECG of 25-MAY-2022 17:26, Borderline criteria for Anterior infarct are no longer Present Confirmed by Marlon Mario ([id number]) on 09/25/2022 10:57:34 PM Referred By: Confirmed By:Marlon Mario
[2022-09-27 02:38] LABS: Babesia microti DNA Not Detected (Not Detected)
== END 2022-09-25 15:09 | disposition home or self-care (01) | DRG 872 ==
LOC: ED 13:45 → 4W 18:15 → SUATTDRO 18:36